=== PATIENT | female | born 1945 | race African-American/Black ===

== ENCOUNTER 2018-01-01 10:10 | Inpatient (IN) | payer MEDICARE, MEDICAID, SELFPAY ==
[2018-01-01] VITALS (70 sets, daily range): BP systolic 105–186; BP diastolic 35–87; PULSE 49–123; RESP 11–24; TEMP 36–36.4; O2SAT 98–100
--- NOTE | 2018-01-01 10:21 | ED.GENADUL_ITS ---
Discharge Plan Disposition Patient Disposition: [facility] INPATIENT Condition: Stable Discharge Details Chief Complaint: GenMedical Clinical Impression: Acute upper GI bleed, Syncope Reason For Visit: SIMI Primary Care Provider: Concha Loving ED Provider: Bradford Diane Home Meds and New Rx's Prescriptions: No Action amlodipine 10 MG tablet 10 mg PO DAILY RF: 0 hydrocodone-acetaminophen 1 TAB tablet 1 tab PO Q4H PRN PRNQty: 10 RF: 0 rivaroxaban [Xarelto] 20 MG tablet 20 mg PO DAILY Qty: 30 RF: 1 metoprolol succinate 50 MG tablet extended release 24 hr 100 mg PO HS Qty: 0 RF: 0 atorvastatin 40 mg Tablet 40 mg PO DAILY RF: 0 sertraline 100 MG tablet 150 mg PO DAILY RF: 0 Medical Decision Making 72 yo female with hx of htn, hld, pe on rivaroxaban, who comes in with ems after syncope and vomit of blood. She apparently had just finished going to the bathroom and was walking back to the couch when she collapsed. Her family came to her immediately and she came to but then started to vomit blood per ems report. Has never had this before, denies any chest pain or abdominal pain. She denies any hx of excessive alcohol use in the past or known liver disease. Suspect that she had syncope related to an upper gi bleed, conrado davison at this time, will obtain cbc, lfts and chemistries and monitor and give ppi pt remains stable, labs show mild anemia with hgb of 9 and bun over 40 consistent with gi bleed. She has no vomit here of blood, no indication as of now for transfusion. Will admit for upper gi bleed and syncope. Family does report the patient did strike head when she fell but dioes not have any evidence of head trauma on exam nor headache so doubt tbi, do not feel head ct indicated at this time Differential Diagnosis gi bleed, anemia, acs, arrythmia ECG Data Attestation: I personally reviewed and interpreted this ECG (s) as follows: Prior ECG tracings: available for review Interpretation: sinus bradycardia, rate of 57, normal pr, no acute st t wave changes HPI General Mode of arrival: EMS . Date/Time Provider Initiated Documentation: 01/01/18 10:16 . Information obtained by: patient and EMS . History of Present Illness 72 year old F presents to the emergency department with the chief complaint of syncope and vomit of blood, described as moderate, Patient reports no radiation. Patient started experiencing this hour(s) (1) and it has been constant. Patient notes nausea/vomiting. Related Data Home Medications Medication Instructions Recorded Confirmed amlodipine 10 mg PO DAILY 11/05/14 01/01/18 hydrocodone-acetaminophen 1 tab PO Q4H PRN PRN #10 tab 03/20/15 01/01/18 rivaroxaban [Xarelto] 20 mg PO DAILY #30 tablet 03/20/15 01/01/18 metoprolol succinate 100 mg PO HS #0 12/30/15 01/01/18 atorvastatin 40 mg PO DAILY 01/01/18 01/01/18 sertraline 150 mg PO DAILY 01/01/18 01/01/18 Previous Rx's Medication Instructions Recorded hydrocodone-acetaminophen 1 tab PO Q4H PRN PRN #10 tab 03/20/15 rivaroxaban [Xarelto] 20 mg PO DAILY #30 tablet 03/20/15 metoprolol succinate 100 mg PO HS #0 12/30/15 Allergies Allergy/AdvReac Type Severity Reaction Status Date / Time latex Allergy Swelling/Ed Unverified 01/01/18 10:19 guadalupe morphine AdvReac Visual Unverified 01/01/18 10:19 Disturbances General Stated Complaint: GenMedical QUINTIN: 3 Review of Systems Review of Systems All systems reviewed & are unremarkable except as noted in HPI and below Constitutional Denies chills and Denies fever(s) Eyes Denies loss of vision ENT Denies change in voice Cardiovascular Denies chest pain and Denies dyspnea Respiratory Denies dyspnea Gastrointestinal Denies abdominal pain Genitourinary Denies dysuria Musculoskeletal Denies joint swelling Integumentary/Breasts Denies rash Neurologic Denies loss of vision Psychiatric Denies depression Endocrine Denies cold intolerance Allergic/Immunologic Reports urticaria PFSH Social History Smoking/Tobacco Use Status: Current every day Surgical History Appendectomy section Colonoscopy - MAC (12/29/15) Exam Const General: no acute distress Orientation: alert HENMT Head: normal to inspection Ears: external ears normal General nose exam: external nose normal Mouth: moist mucous membranes Eyes General: appearance normal, both eyes and all related structures Neck Neck: normal visual inspection Resp Effort & Inspection: normal respiratory effort and able to speak in complete sentences Cardio Rate: regular rate Skin General skin exam: no rashes or lesions noted Neuro General: alert and oriented x3 Extrem General: normal to inspection Psych Mental Status: mental status grossly normal Course Vital Signs Temperature 36.1 C L 01/01/18 10:13 Pulse 61 01/01/18 10:13 Respiratory Rate 14 01/01/18 10:13 Blood Pressure 153/55 H 01/01/18 10:13 Pulse Oximetry 100 01/01/18 10:13 Temperature 36.1 C L 01/01/18 10:13 Temperature Source Skin 01/01/18 10:13 Pulse 61 01/01/18 10:13 Respiratory Rate 14 01/01/18 10:13 Respiratory Effort Non-Labored 01/01/18 10:13 Blood Pressure 153/55 H 01/01/18 10:13 Pulse Oximetry 100 01/01/18 10:13 Oxygen Delivery Method Room Air 01/01/18 10:13 Oxygen Flow Rate 0 01/01/18 10:13 Pain Level 0 01/01/18 10:13
[2018-01-01 10:30] LABS: Abs Immature Grans 0.01 k/cumm (0.0-0.09); Absolute Basophil Count 0.02 k/cumm (0.0-0.2); Absolute Eosinophil Count 0.09 k/cumm (0.0-0.7); Absolute Monocyte Count 0.64 k/cumm (0.11-0.7); Basophils % 0.3; Eosinophils % 1.1; HCT 30.7 % (36.0-46.0); HGB 9.6 g/dL (12.0-15.5); Immature Grans % 0.1; Lymphocytes % 50.9; Mean Corp. HGB Concentration 31.3 g/dL (32.0-36.0); Mean Corpuscular Hemoglobin 28.2 pg (27.0-33.0); Mean Corpuscular Volume 90.3 fL (80-95); Mean Platelet Volume 12.1 fL (8.0-11.0); Monocytes % 8.1; Neutrophils % 39.5; Platelet Count 144 x1000/uL (130-400); RBC Distribution Width 14.8 % (11.7-14.6); White Blood Cell Count 7.86 k/cumm (4.4-10.8)
[2018-01-01] MEDS: Pantoprazole 40 MG VIAL 80 MG IVP (10:32)
[2018-01-01 10:46] LABS: Anisocytosis 1+; Diff Comment RBC Morph Reviewed; INR 1.1 (1.0-3.5); PTT Activated 20.1 sec (21.0-31.4); Polychromasia Present; Prothrombin Time 10.8 sec (9.3-10.8)
[2018-01-01 10:47] LABS: Troponin I < 0.02 ng/mL (0.00-0.06)
[2018-01-01 10:51] LABS: ALT 32 U/L (12-78); AST 22 U/L (15-37); Albumin 2.6 g/dL (3.4-5.0); Alkaline Phosphatase 44 U/L (46-116); Anion Gap 7.3 mmol/L (3-11); BUN 40 mg/dL (7-18); Bilirubin, Direct 0.06 mg/dL (0.00-0.20); Bilirubin, Total 0.2 mg/dL (0.2-1.0); CO2 26.7 mmol/L (21.0-32.0); CREATININE 1.16 mg/dL (0.55-1.02); Calcium 8.4 mg/dL (8.5-10.1); Chloride 110 mmol/L (98-107); Estimated GFR 46.19 (mL/min/1.73m2); Glucose 176 mg/dL (70-100); Potassium 4.3 mmol/L (3.5-5.1); Sodium 144 mmol/L (136-145); Total Protein 5.7 g/dL (6.4-8.2)
[2018-01-01 15:02] LABS: HGB 10.1 g/dL (12.0-15.5)
--- NOTE | 2018-01-01 16:40 | DI.COMBO_ITS ---
SYMPTOM/DIAGNOSIS: TRAUMA, SHOULDER PAIN RIGHT SHOULDER: The exam is mildly limited by the patient's clothing. No fracture or dislocation is seen. Degenerative changes are noted at the AC joint, glenohumeral joint and greater tuberosity. IMPRESSION: Degenerative changes. No acute abnormality. NONCONTRAST HEAD CT: Comparison is made with 03/18/15. An area of encephalomalacia is again noted in the anterior left frontal lobe. No intracranial hemorrhage, mass or acute infarct is seen. The ventricles are normal in size. There is mild patchiness of the white matter likely reflecting microvascular changes. IMPRESSION: No acute abnormality. CERVICAL SPINE CT: There is no evidence of fracture. There are advanced degenerative disc changes with prominent spurring as well as disc space narrowing, greatest at C 5-6 and C 6-7. There is a cyst in the superior endplate of C 5 consistent with a degenerative cyst. Degenerative changes are also seen involving the uncovertebral joints. There is no significant narrowing of the central canal. Neural foraminal narrowing is noted at the lower cervical levels.
[2018-01-01] MEDS: SODIUM CHLORIDE 0.45% 1,000 ML 150 ML IV (17:24)
[2018-01-01] MEDS: PANTOPRAZOLE 80 MG in Normal Saline 100 ML 10 MG IV (17:24)
[2018-01-01 19:16] LABS: Troponin I < 0.02 ng/mL (0.00-0.06)
[2018-01-01 22:31] LABS: HCT 28.6 % (36.0-46.0); HGB 9.2 g/dL (12.0-15.5)
[2018-01-02] VITALS (21 sets, daily range): BP systolic 156–190; BP diastolic 45–95; PULSE 67–87; RESP 11–22; TEMP 35.9–36.9; O2SAT 96–100
[2018-01-02] MEDS: SODIUM CHLORIDE 0.45% 1,000 ML 150 ML IV ×4 (00:17→23:07)
[2018-01-02] MEDS: PANTOPRAZOLE 80 MG in Normal Saline 100 ML 10 MG IV (01:45)
[2018-01-02 02:30] LABS: Troponin I < 0.02 ng/mL (0.00-0.06)
--- NOTE | 2018-01-02 07:03 | SCONE_ITS ---
SURGICAL CONSULTATION DATE OF SERVICE January 01, 2018 REASON FOR CONSULT Hematemesis. CONSULTING PHYSICIAN Dr. Rai. TIME OF CONSULTATION 3:55 p.m. ASSESSMENT Ms. Aguilar is a 72-year-old female with a few days of reflux-type symptoms on Xarelto for hypercoagul able state who had black stools this morning, followed by syncope and hematemesis of coffee-ground ma terial. She was admitted to the ICU under the Hospitalist Service and we were asked to consult for po ssible EGD. The patient is at this time waiting for a CT of the head and neck due to the positive LOC , the fact that she is on Xarelto, and also she has neck pain. I have discussed an EGD with the patie nt to try to find the source of her bleeding. At this time, the patient is stable, so we will wait un til tomorrow, that way it will be at least 48 hours since her last Xarelto. Anesthesia has been conta cted and will see the patient tonight as well. PLAN EGD in the morning at 7:30. Will have the patient have clear liquids until midnight. The risks, benefits and complications of an EGD were reviewed with the patient. The complications inc lude, but are not limited to bleeding, pain, perforation, aspiration, sore throat, unable to control the bleeding with need for urgent transfer to a tertiary center. The patient understands and wishes to proceed. No guarantees were given or implied. If the patient starts to bleed actively tonight, then we will do the EGD tonight. Otherwise, we will wait until the morning. The patient has been placed on the schedule. HISTORY OF PRESENT ILLNESS Ms. Aguilar is a pleasant 72-year-old female who woke up this morning feeling fine, had breakfast, and went to the bathroom. As she was walking back from the bathroom, she had an episode of syncope. Her family was right there, and got her up after, which she had one bout of emesis, which looked like cof fee grounds. She also noticed that when she did go to the bathroom, she had a very dark stool. The zafar altamirano did hit her head when she had her syncopal episode. She is chronically on Xarelto since [address] having a PE. At that time, she was diagnosed with hypercoagulable state, but she cannot remember which one. She denies using any ibuprofen or Aleve. She does state that she chews an aspirin every on ce in a while when she has some knee pain. This is not a daily occurrence. She does have a history of GERD and used to be on omeprazole. She was able to get herself off the omeprazole and was asymptomat ic up until a few days ago, when she states she started to feel like her reflux was back; she did not restart her omeprazole at that time. The patient did take her Xarelto this morning although most lik shen she threw it up. PAST MEDICAL HISTORY 1. CAD, status post MD. 2. CVA. 3. PE. 4. Hypertension. 5. History of vaginal bleeding. 6. HCP. 7. Question mild vascular dementia. 8. Nephrolithiasis. 9. Pandiverticulosis. 10. History of colonic polyps. FAMILY HISTORY Family history is positive for cardiovascular disease and hypertension. SURGICAL HISTORY 1. Bilateral angioplasties. 2. Several dilation and curettages. 3. Colonoscopy in 2016. 4. Bilateral cataracts. 5. Tonsillectomy. 6. Appendectomy. 7. Cystoscopy. SOCIAL HISTORY She smokes daily, less than one pack a day x58 years. No alcohol at this time. Occasionally smokes marijuana. Denies any IV drug abuse. MEDICATIONS Xarelto. Metoprolol 100 mg at night. The patient does not remember her other medications, please see medical records for that. ALLERGIES 1. LATEX. 2. MORPHINE. 3. SULFA. REVIEW OF SYSTEMS NEUROLOGIC - Does not complain of any weakness. No dizziness. No headache. Positive for LOC. CARDIOVASCULAR - No palpitations or chest pain. RESPIRATORY - No shortness of breath or cough. No dyspnea on exertion. GASTROINTESTINAL - Denies abdominal pain, otherwise as per HPI. GENITOURINARY - Denies hematuria or dysuria. ENDOCRINE - No symptoms of thyroid disease or diabetes. SKIN - No new lesions or rashes. MUSCULOSKELETAL - Positive for soreness of the neck on the right and shoulder. PHYSICAL EXAMINATION VITAL SIGNS - Temperature 36. Pulse 63. Blood pressure 166/61. Respiratory rate 13. Sats 100% on ary m air. GENERAL - The patient is a very pleasant -Japanese female. She is lying comfortably in bed in no acute distress. She is alert and oriented. CHEST - Clear to auscultation. Good air entry bilaterally. CARDIOVASCULAR - Regular rate and rhythm. No murmurs, rubs or gallops are noted. ABDOMEN - Abdomen is soft, nontender to palpation, nondistended. There is no Hepatosplenomegaly. EXTREMITIES - No clubbing, cyanosis or edema is noted. LABORATORY STUDIES White count 7.86, hemoglobin 9.6, repeat 10.1; hematocrit 30.7, platelets 144. CMP - Sodium 144, potassium 4.3, chloride 110, carbon dioxide 26.7, BUN 40, creatinine 1.16, glucose 176. LFTs unremarkable. Troponin less than 0.2.
[2018-01-02 07:22] LABS: Abs Immature Grans 0.02 k/cumm (0.0-0.09); Absolute Basophil Count 0.02 k/cumm (0.0-0.2); Absolute Eosinophil Count 0.08 k/cumm (0.0-0.7); Absolute Lymphocyte Count 3.21 k/cumm (1.2-3.4); Absolute Monocyte Count 0.73 k/cumm (0.11-0.7); Absolute Neutrophil Count 3.94 k/cumm (1.2-6.7); Basophils % 0.3; HCT 28.1 % (36.0-46.0); HGB 8.9 g/dL (12.0-15.5); Immature Grans % 0.3; Lymphocytes % 40.1; Mean Corp. HGB Concentration 31.7 g/dL (32.0-36.0); Mean Corpuscular Hemoglobin 28.1 pg (27.0-33.0); Mean Corpuscular Volume 88.6 fL (80-95); Mean Platelet Volume 12.5 fL (8.0-11.0); Monocytes % 9.1; Neutrophils % 49.2; Platelet Count 132 x1000/uL (130-400); RBC 3.17 m/cumm (4.00-5.20); RBC Distribution Width 14.8 % (11.7-14.6)
[2018-01-02 07:29] LABS: Anion Gap 9.4 mmol/L (3-11); BUN 28 mg/dL (7-18); CO2 24.6 mmol/L (21.0-32.0); CREATININE 1.13 mg/dL (0.55-1.02); Calcium 8.1 mg/dL (8.5-10.1); Chloride 110 mmol/L (98-107); Glucose 112 mg/dL (70-100); Magnesium 1.8 mg/dL (1.8-2.4); Potassium 4.2 mmol/L (3.5-5.1); Sodium 144 mmol/L (136-145)
--- NOTE | 2018-01-02 07:45 | STOM_PTH ---
PATIENT: Sisi Aguilar LOC: U#:[id number] AGE/SX: 72/F ROOM: 216 RE01/03/[address]: Rosibel Rai : 1945 BED: A DIS: 01/11/2018 SPEC #: [id number] RECD: 01/02/18 12:52 STATUS: JR REQ #: [id number] [place]: 01/02/18 07:[address]: Rosibel Rai DEPT: Surgical Specimen RECD BY: Lou Montalvo ENTERED: 01/02/18 12:55 SP TYPE: STOMACH OTHR DR: Concha Loving MD Tissues: 1 - STOMACH BIOPSY Procedures: GROSS AND MICRO LEVEL 4 IMMUNOPEROXIDASE STAIN Comments: [id number]
--- NOTE | 2018-01-02 07:47 | PDOC.CMIN ---
- If Service Date Differs Date of service: 01/02/18 Time of Service: 07:47 Care Management Initial Assess REASON FOR HOSPITALIZATION:: Upper GI bleed, syncope. PAST MEDICAL HISTORY/PAST SURGICAL HISTORY:: Essential hypertension. Surgical hx: appendectomy, section, colonoscopy. ADVANCE DIRECTIVES:: None on file at [facility]. Has patient been provided with information about the portal?: Yes Did the patient sign up for the portal?: No CODE STATUS:: Full Code INSURANCE COVERAGE / FINANCIAL ISSUES:: Medicaid, Medicare. PRIMARY CARE PHYSICIAN:: Concha Loving. POTENTIAL DISCHARGE NEEDS:: Follow up appointment with PCP. PATIENT/FAMILY EDUCATION NEEDS:: Discharge education, any limitations, and follow up plan of care. Ask Me Three discussion. ANTICIPATED BARRIERS TO DISCHARGE:: No anticipated barriers to discharge. PLAN:: Sisi will discharge home when medically ready per MD. Anticipate patient will discharge with no services and follow up with PCP. CM will continue to offer support to patient and care team regarding discharge planning and disposition.
--- NOTE | 2018-01-02 08:04 | W.PM.OP ---
Date of service: 01/02/18 Time of Service: 07:30 Operative Note DATE OF PROCEDURE: 01/02/18 PRE-OP DIAGNOSIS: Hematemesis POST-OP DIAGNOSIS: other (Duodenitis, Gastritis with ulcers, esophagitis and Hiatal Hernia) PROCEDURE: EGD with biopsies SURGEON: Nidia Hill ANESTHESIA: MAC ESTIMATED BLOOD LOSS: 2 PATHOLOGY: other (Antrum biopsies for path and EMILEE test) COMPLICATIONS: None Patient was transported to: ICU Patient's condition: stable Indications: Mrs. Aguilar is a pleasant 72 year old admitted with syncope, anemia and hematemesis. She has a PMHx of GERD not currently on antacids. HAs had heart burn/reflux symptoms for 1-2 weeks prior to her admission. Risks, benefits and complications of the procedure were discussed with her in the ICU and again prior to her procedure today. Findings: Peptic duodenitis. Gastritis with ulcers in the antrum. Esophagitis and 2-3 cm Hiatal Hernia. Procedure Description: After informed consent was obtained the patient was take to the procedure room and placed in a slight left decubitous position. Monitors were applied and a time out was done. The patients name, date of , procedure type, allergies to medications and metal in their body was reviewed. A bite block was placed and the patient was sedated. Once sedated and comfortable the gastroscope was advanced through the oropharynx which was grossly normal into the esophagus. The proximal and mid-esophagus were normal. In the distal esophagus there was moderate inflammation noted. The scope was advanced into the stomach and through the pylorus into the 3rd portion of the duodenum. The duodenum was noted to be inflamed in the first portion. No ulcer were noted. The scope was retracted back into the stomach and biopsies were done to rule out H. pylori. There were small ulcers noted just above the pylorus. The scope was retroflexed. The cardia and fundus were noted to be normal. There was a hiatal hernia noted. The scope was retracted back into the esophagus were moderate inflammation was noted. No biopsies were done at this time to minimize risk of re-bleed. The Z line was irregular. The GE junction was at 32 cm. The scope was removed and the patient was woken up and taken back to the ICU in stable condition. Follow up: I will ask the patient to follow up in 3 months to repeat her EGD and do biopsies at that time for Puentes's. Recommend the patient go home on Carafate and BID PPI.
[2018-01-02] MEDS: Pantoprazole 40 MG VIAL IVP ×2 (08:49→19:56)
[2018-01-02] MEDS: Normal Saline Flush 10 ML SYR IVP (08:49)
--- NOTE | 2018-01-02 09:21 | PDOC.CMIN ---
- If Service Date Differs Date of service: 01/02/18 Time of Service: 09:22 Care Management Initial Assess REASON FOR HOSPITALIZATION:: Upper GI bleed, syncope. PAST MEDICAL HISTORY/PAST SURGICAL HISTORY:: Surgical hx: appendectomy, section, colonoscopy. PREVIOUS FUNCTIONAL STATUS/SOCIAL/FAMILY SUPPORTS:: Margarito Matthews resides in [facility] with her adult son, Max. She and her family are originally from [place] and she's been in [place] since 2012. Cassie has one other adult child in [place] and five grandchildren there as well. Cassie reports that she is independent with her ADLs and relies on [facility] and her son's girlfriend, Gillian, for transportation. CURRENT FUNCTIONAL STATUS:: Margarito Matthews is sitting up in bed getting cleaned up when CM visits this afternoon. She is engaged in conversation, makes good eye contact, and is eager to talk. She reports that she is feeling fine. Cassie has had one BM with kassandra blood today but denies nausea and vomiting. She continues to receive IV fluids and a clear liquid diet. Cassie has no concerns about returning home at discharge and reports that she and her son Max are good support people for one another. ADVANCE DIRECTIVES:: None on file at [facility]. Has patient been provided with information about the portal?: Yes Did the patient sign up for the portal?: No CODE STATUS:: Full Code INSURANCE COVERAGE / FINANCIAL ISSUES:: Medicaid, Medicare. 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 No equipment. PRIMARY CARE PHYSICIAN:: Concha Loving. POTENTIAL DISCHARGE NEEDS:: Follow up appointment with PCP. PATIENT/FAMILY EDUCATION NEEDS:: Discharge education, any limitations, and follow up plan of care. Ask Me Three discussion. ANTICIPATED BARRIERS TO DISCHARGE:: No anticipated barriers to discharge. TRANSPORTATION:: Cassie will transport via [facility] when medically ready per MD. PLAN:: Sisi will discharge home when medically ready per MD. Anticipate patient will discharge with no services and follow up with her PCP. CM will continue to offer support to patient and care team regarding discharge planning and disposition.
--- NOTE | 2018-01-02 09:26 | INITIAL_ITS ---
- If Service Date Differs Date of service: 01/02/18 Time of Service: 09:22 Care Management Initial Assess REASON FOR HOSPITALIZATION:: Upper GI bleed, syncope. PAST MEDICAL HISTORY/PAST SURGICAL HISTORY:: Surgical hx: appendectomy, section, colonoscopy. PREVIOUS FUNCTIONAL STATUS/SOCIAL/FAMILY SUPPORTS:: Margarito Matthews resides in [facility] with her adult son, Max. She and her family are originally from [place] and she's been in [place] since 2012. Cassie has one other adult child in [place] and five grandchildren there as well. Cassie reports that she is independent with her ADLs and relies on [facility] and her son's girlfriend, Gillian, for transportation. CURRENT FUNCTIONAL STATUS:: Margarito Matthews is sitting up in bed getting cleaned up when CM visits this afternoon. She is engaged in conversation, makes good eye contact, and is eager to talk. She reports that she is feeling fine. Cassie has had one BM with kassandra blood today but denies nausea and vomiting. She continues to receive IV fluids and a clear liquid diet. Cassie has no concerns about returning home at discharge and reports that she and her son Max are good support people for one another. ADVANCE DIRECTIVES:: None on file at [facility]. Has patient been provided with information about the portal?: Yes Did the patient sign up for the portal?: No CODE STATUS:: Full Code INSURANCE COVERAGE / FINANCIAL ISSUES:: Medicaid, Medicare. 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 No equipment. PRIMARY CARE PHYSICIAN:: Concha Loving. POTENTIAL DISCHARGE NEEDS:: Follow up appointment with PCP. PATIENT/FAMILY EDUCATION NEEDS:: Discharge education, any limitations, and follow up plan of care. Ask Me Three discussion. ANTICIPATED BARRIERS TO DISCHARGE:: No anticipated barriers to discharge. TRANSPORTATION:: Cassie will transport via [facility] when medically ready per MD. PLAN:: Sisi will discharge home when medically ready per MD. Anticipate patient will discharge with no services and follow up with her PCP. CM will continue to offer support to patient and care team regarding discharge planning and disposition.
--- NOTE | 2018-01-02 11:49 | PHARADMIT ---
Addendum entered by Gillian Holm 01/10/18 10:55: Pharmacy Note Subjective transfusion ordered for today Objective HR-52 other VS okay SCr-1.43 H/H-7.4/24.6(down slightly) Assessment -acetaminophen and diphenhydramine ordered prior to transfusion -amoxicillin and clarithromycin started last night for H. pylori (has been on a PPI), recommended 10-14 days of treatment on these -atorvastatin dose decreased for now due to interaction with clarithromycin Plan watch h/h and for med changes Original Note: Addendum entered by Jaymie Johnson 01/07/18 14:54: Pharmacy Note Subjective plan for cystoscopy tomorrow Objective vs ok, h/h 8.8/28.5(stable) Assessment heparin infusion continues- MD plans to change to PO anticoagulation pending cystoscopy, bactrim DS x 1 ordered for tomorrows procedure Plan continue to watch VS, labs and for med changes Original Note: Addendum entered by Gillian Holm 01/06/18 10:52: Pharmacy Note Subjective renal ultrasound ordered, MD notes possible cystoscopy needed as well Objective BP-157/43 HR-55 other VS okay SCr-1.32(up) h/h-stable PTT-34.5(down) Assessment losartan increased yesterday to 50 mg daily heparin drip continues- MD plans to change to PO anticoagulation pending work up for hematuria Plan continue to watch VS, labs and for med changes Original Note: Addendum entered by Alyse Hernandez 01/04/18 12:12: Pharmacy Note Subjective per MD, she will continue to have heme+ stools, 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, PE's, CVA and WA Objective BP 165/59, lytes good, H/H 8.2/25.3, weight up 1.5kg over two days Urine pink, stool heme+ yesterday Assessment SBP remain high, H/H stable with level being repeated @ 3pm today Current anticoagulation is Heparin infusion, last PTT high (136), infusion held, restarted lower rate refusing Lidocaine patch for pain Mag and Potassium levels corrected Plan Advancing diet, watch for start of oral anticoagulant, follow H/H, BP med adustments Original Note: Addendum entered by Alyse Hernandez 01/03/18 10:28: Pharmacy Note Subjective shift report @ midnight: urine mixed w/bloody dark heme+ stool remains on Telemetry Objective BP 179/56, Mag 1.6, H/H 8.6/27.8, SCr improved Assessment high SBP, no weight today, I/O negative, last heme+ stool 01/02/18 H/H down a little Home meds restarted with exception of Xarelto due to bleed Endosopy yesterday:esophagitis, gastritis, duodenitis, ulcerations. bleeding may be old blood, unclear if currently bleeding Protonix is IVP BID and Carafate Mag and Potassium replaced this morning Patient refusing Lidocaine patches for neck/shoulder pain Plan Hold anticoagulation until H/H stable, may start out w/Heparin drip for short acting coverage before transitioning back on Xarelto in a day or so Currently clear liq diet, check K+,Mag, H/H Original Note: Admission Pharmacy Clinical Review UPPER GI BLEED Code Status Full Code Current Weight Wgt-91 kg Renally Cleared and Narrow Therapeutic Index Meds CrCl~ 45 mL/min Meds-OK QTc Value / Action Taken NA BP Control, Fever BP- 156/70 Tmax-36.4C Electrolytes reviewed Na- 144 K+4.2 Mag-1.8 DVT Prophylaxis No GI Bleed Opiate Usage / Scheduled Bowel Regimen Ordered No No Plt/SCr for Heparin / Enoxaparin Plts-132 SCr-1.13 INR for Warfarin inr-1.1 H/H stable, WBC/Bands H&H- 8.9/28.1 WBC- 8.00 Antibiotic appropriateness none Cultures and Sensitivities Stomach- EMILEE-test pending Surgical ABX d/c within 24 hr NA DM control / Insulin Dosing BG- 112 Heart Failure (Check EF%) (SERGIO's, B-Block, Diuretics) none (NPO) IV to PO Switch No Home Meds Reviewed Yes Home Meds Not Ordered Norvasc, Lipitor, Toprol-XL, [place], Xarelto, Zoloft Comments
[2018-01-02] MEDS: Sucralfate 1 GM TAB PO ×3 (12:04→22:26)
--- NOTE | 2018-01-02 12:04 | INITIAL_ITS ---
- If Service Date Differs Date of service: 01/02/18 Time of Service: 07:47 Care Management Initial Assess REASON FOR HOSPITALIZATION:: Upper GI bleed, syncope. PAST MEDICAL HISTORY/PAST SURGICAL HISTORY:: Essential hypertension. Surgical hx : appendectomy, section, colonoscopy. ADVANCE DIRECTIVES:: None on file at [facility]. Has patient been provided with information about the portal?: Yes Did the patient sign up for the portal?: No CODE STATUS:: Full Code INSURANCE COVERAGE / FINANCIAL ISSUES:: Medicaid, Medicare. PRIMARY CARE PHYSICIAN:: Concha Loving. POTENTIAL DISCHARGE NEEDS:: Follow up appointment with PCP. PATIENT/FAMILY EDUCATION NEEDS:: Discharge education, any limitations, and follow up plan of care. Ask Me Three discussion. ANTICIPATED BARRIERS TO DISCHARGE:: No anticipated barriers to discharge. PLAN:: iSsi will discharge home when medically ready per MD. Anticipate patient will discharge with no services and follow up with PCP. CM will continue to offer support to patient and care team regarding discharge planning and disposition.
[2018-01-02 15:23] LABS: HCT 26.7 % (36.0-46.0); HGB 8.5 g/dL (12.0-15.5)
[2018-01-02] MEDS: amLODIPine 10 MG TAB PO (16:05)
--- NOTE | 2018-01-02 16:30 | PGE_ITS ---
Assessment and Plan (1) Upper GI bleeding: Current visit: Yes Status: Acute S/p EGD - esophagitis, gastritis, duodenitis with shallow ulcerations noted. These were biopsied. It is unclear if the patient is bleeding again now or if she is passing old blood in her stools, but we will continue PPI IV BID and monitor her H/H Q 8hrs. Clear liquids. Keep on telemetry. Continue to hold anticoagluation for now. If H/H remains stable, ok to start heparin gtt tomorrow to see if the patient can tolerate anticoagluation, per surgery. If yes, can be transitioned back to anticoagluation in 24-48 hours and discharged home. (2) Hypercoagulable state: Current visit: Yes Status: Acute Holding anticoagluation for now. Patient has a history of both arterial and venous thromboses as well as CVA and [place]. She is not sure about the nature of her hypercoagulable state. (3) Syncopal episodes: Current visit: Yes Status: Chronic Likely vasovagal. No ACS or further w/u at this time. (4) Closed head injury: Current visit: Yes Status: Acute CT head and c-spine negative for any acute pathology. Subjective Interval history since last seen: S/p EGD today - demonstrated esophagitis, gastritis, duodenitis with very shallow ulcerations and no active bleeding. The patient reported 2 black stools after her procedure. She is on clear liquids. She denies any dizziness, chest pain, shortness of breath, nausea, vomiting, abdominal pain. Exam Narrative Exam Narrative: General: Very Pleasant Afrian [place] female, resting comfortably in bed; smell of melena in the room HEENT: EOMI, MMM, no JVD Cardiovascular: RRR, no m/r/g Lungs: CTAB Gastrointestinal: Soft, nontender, nondistended Extremities: no e/c/c BLE's Objective Objective Clinical Data: Abnormal lab results 01/01/18 01/02/18 01/02/18 Range/Units 22:25 07:06 07:06 RBC 3.17 L (4.00-5.20) m/cumm Hgb 9.2 L 8.9 L (12.0-15.5) g/dL Hct 28.6 L 28.1 L (36.0-46.0) % MCHC 31.7 L (32.0-36.0) g/dL RDW 14.8 H (11.7-14.6) % MPV 12.5 H (8.0-11.0) fL Absolute Monocytes 0.73 H (0.11-0.7) k/cumm Chloride 110 H (98-107) mmol/L BUN 28 H D (7-18) mg/dL Creatinine 1.13 H (0.55-1.02) mg/dL Glucose 112 H (70-100) mg/dL Calcium 8.1 L (8.5-10.1) mg/dL 01/02/18 Range/Units 15:11 RBC (4.00-5.20) m/cumm Hgb 8.5 L (12.0-15.5) g/dL Hct 26.7 L (36.0-46.0) % MCHC (32.0-36.0) g/dL RDW (11.7-14.6) % MPV (8.0-11.0) fL Absolute Monocytes (0.11-0.7) k/cumm Chloride (98-107) mmol/L BUN (7-18) mg/dL Creatinine (0.55-1.02) mg/dL Glucose (70-100) mg/dL Calcium (8.5-10.1) mg/dL Vital Signs Temperature 36.6 C 01/02/18 12:11 Temperature Source Skin 01/02/18 12:11 Pulse 77 01/02/18 16:07 Pulse Rhythm Regular 01/02/18 15:57 Pulse 73 01/02/18 16:07 Respiratory Rate 15 01/02/18 16:07 Respiratory Effort Non-Labored 01/02/18 15:57 Respiratory Depth Normal 01/02/18 15:57 Respiratory Pattern Normal 01/02/18 15:57 Blood Pressure 172/91 H 01/02/18 16:07 Blood Pressure Mean 113 01/02/18 16:07 Blood Pressure Position Supine 01/01/18 12:38 Pulse Oximetry 100 01/02/18 16:07 Oxygen Delivery Method Room Air 01/02/18 12:11 Oxygen Flow Rate 0 01/02/18 12:11 Pain Level 0 01/01/18 19:45 Intake & Output 1001/02/18 01/02/18 23:59 11:59 23:59 Intake Total 400 / 400 2138.5 / 2138.5 1480 / 1480 Output Total 1470 / 1470 600 / 600 Balance -1070 / -1070 1538.5 / 1538.5 1480 / 1480 Weight 90.2 kg 91 kg Intake: IV 2138.5 / 2138.5 1000 / 1000 Oral 400 / 400 480 / 480 Output: Urine 1470 / 1470 600 / 600 Other: Urine Color Pale Pale Yellow Yellow Urine Appearance Clear Clear Urine Odor None Normal Comment void x 1, mixed with stool. Stool Occult Blood Positive Stool Size Moderate Stool Characteristics Soft Black Bloody Voiding Methods Bedside Commode Bedside Commode Bedside Commode Laboratory Results WBC 8.00 k/cumm (4.4-10.8) 01/02/18 07:06 RBC 3.17 m/cumm (4.00-5.20) L 01/02/18 07:06 Hgb 8.5 g/dL (12.0-15.5) L 01/02/18 15:11 Hct 26.7 % (36.0-46.0) L 01/02/18 15:11 MCV 88.6 fL (80-95) 01/02/18 07:06 MCH 28.1 pg (27.0-33.0) 01/02/18 07:06 MCHC 31.7 g/dL (32.0-36.0) L 01/02/18 07:06 RDW 14.8 % (11.7-14.6) H 01/02/18 07:06 Plt Count 132 x1000/uL (130-400) 01/02/18 07:06 MPV 12.5 fL (8.0-11.0) H 01/02/18 07:06 Immature Gran % 0.3 01/02/18 07:06 Neutrophils % 49.2 01/02/18 07:06 Lymphocytes % 40.1 01/02/18 07:06 Monocytes % 9.1 01/02/18 07:06 Eosinophils % 1.0 01/02/18 07:06 Basophils % 0.3 01/02/18 07:06 Absolute Neutrophils 3.94 k/cumm (1.2-6.7) 01/02/18 07:06 Absolute Lymphocytes 3.21 k/cumm (1.2-3.4) 01/02/18 07:06 Absolute Monocytes 0.73 k/cumm (0.11-0.7) H 01/02/18 07:06 Absolute Eosinophils 0.08 k/cumm (0.0-0.7) 01/02/18 07:06 Absolute Basophils 0.02 k/cumm (0.0-0.2) 01/02/18 07:06 Differential Comment Rbc morph reviewed 01/01/18 10:20 RBC Morphology See below 01/01/18 10:20 Polychromasia Present 01/01/18 10:20 Anisocytosis 1+ 01/01/18 10:20 PT 10.8 sec (9.3-10.8) 01/01/18 10:20 INR 1.1 (1.0-3.5) 01/01/18 10:20 APTT 20.1 sec (21.0-31.4) L 01/01/18 10:20 Sodium 144 mmol/L (136-145) 01/02/18 07:06 Potassium 4.2 mmol/L (3.5-5.1) 01/02/18 07:06 Chloride 110 mmol/L (98-107) H 01/02/18 07:06 Carbon Dioxide 24.6 mmol/L (21.0-32.0) 01/02/18 07:06 Anion Gap 9.4 mmol/L (3-11) 01/02/18 07:06 BUN 28 mg/dL (7-18) H D 01/02/18 07:06 Creatinine 1.13 mg/dL (0.55-1.02) H 01/02/18 07:06 Estimated GFR/1.73 m2 47.60 (mL/min/1.73m2) 01/02/18 07:06 Glucose 112 mg/dL (70-100) H 01/02/18 07:06 Calcium 8.1 mg/dL (8.5-10.1) L 01/02/18 07:06 Magnesium 1.8 mg/dL (1.8-2.4) 01/02/18 07:06 Total Bilirubin 0.2 mg/dL (0.2-1.0) 01/01/18 10:20 Conjugated Bilirubin 0.06 mg/dL (0.00-0.20) 01/01/18 10:20 AST 22 U/L (15-37) 01/01/18 10:20 ALT 32 U/L (12-78) 01/01/18 10:20 Alkaline Phosphatase 44 U/L (46-116) L 01/01/18 10:20 Troponin I < 0.02 ng/mL (0.00-0.06) 01/02/18 02:00 Total Protein 5.7 g/dL (6.4-8.2) L 01/01/18 10:20 Albumin 2.6 g/dL (3.4-5.0) L 01/01/18 10:20 Patient ABO/Rh A Positive 01/01/18 10:20 Antibody Screen Negative 01/01/18 10:20
--- NOTE | 2018-01-02 16:50 | NUR.NOTE ---
The patient stated that she brought in a full bag of newly refilled meds that the RN took. The patient wanted to take her refilled meds while here instead of the same meds out of the pyxis. Called Kartik in pharmacy to find the status of the meds and he stated that a patient can legally only take their home meds here if the hospital does not have the medication. So at this point the medications are being held in pharmacy to be returned to the patient at discharge. Jay Martin RN 01/02/18Nursing Note:
[2018-01-02] MEDS: Metoprolol CR 50 MG TABCR 100 MG PO (22:26)
[2018-01-02 22:31] LABS: HCT 24.8 % (36.0-46.0); HGB 7.9 g/dL (12.0-15.5)
[2018-01-03] VITALS (32 sets, daily range): BP systolic 150–187; BP diastolic 50–110; PULSE 60–74; RESP 14–26; TEMP 36.3–36.7; O2SAT 95–100
[2018-01-03] MEDS: SODIUM CHLORIDE 0.45% 1,000 ML 150 ML IV ×2 (05:32→13:16)
[2018-01-03 07:02] LABS: HCT 27.8 % (36.0-46.0); HGB 8.6 g/dL (12.0-15.5); Mean Corp. HGB Concentration 30.9 g/dL (32.0-36.0); Mean Corpuscular Hemoglobin 27.7 pg (27.0-33.0); Mean Corpuscular Volume 89.4 fL (80-95); Mean Platelet Volume 12.2 fL (8.0-11.0); Platelet Count 132 x1000/uL (130-400); RBC 3.11 m/cumm (4.00-5.20); RBC Distribution Width 14.7 % (11.7-14.6); White Blood Cell Count 8.58 k/cumm (4.4-10.8)
[2018-01-03 07:20] LABS: BUN 10 mg/dL (7-18); Calcium 8.6 mg/dL (8.5-10.1); Chloride 107 mmol/L (98-107); Estimated GFR 54.81 (mL/min/1.73m2); Glucose 117 mg/dL (70-100); Magnesium 1.6 mg/dL (1.8-2.4); Potassium 3.8 mmol/L (3.5-5.1); Sodium 142 mmol/L (136-145)
--- NOTE | 2018-01-03 07:53 | CMPROGNOTE_ITS ---
- If Service Date Differs Date of service: 01/03/18 Time of Service: 07:52 Care Management Progress Note S/O:CM met with Sisi at the bedside she is talkative and engaged during CM visit. Sisi is very concerned about her home situation she states she and her son are behind on rent. She has been connected with [facility] and [facility], also the community churches. Some of the back rent has been paid through the [employer] she is waiting for [facility] decision to help. CM will fax a referral over to [facility] and send updates to [facility] CM Riley Vera. [facility] may already be familiar with the patient. They may be able to present Cassie's case to community partners. Sisi refers to her Dementia throughout conversation she states its difficult for her to remember the services she is connected with. Prior to moving in with her son she reports being homeless. Sisi will remain in the hospital today she will transition to acute from observation. She continues on PPI therapy and carafate she did have a EGD with biopsies pending. A:Sisi is a 72 year old female admitted with a GI bleed. P:Sisi will discharge home when medically ready per MD. Anticipate patient will discharge with no services and follow up with her PCP. She will need to be discharged on PPI therapy and Carafate per report and follow up with surgery in three months. CM will continue to offer support to patient and care team regarding discharge planning and disposition. Sisi will be transported home via [facility] when medically ready for discharge.
[2018-01-03] MEDS: Sucralfate 1 GM TAB PO ×4 (09:28→21:32)
[2018-01-03] MEDS: Atorvastatin 40 MG TAB PO (09:28)
[2018-01-03] MEDS: Sertraline 50 MG TAB 150 MG PO (09:29)
[2018-01-03] MEDS: Normal Saline Flush 10 ML SYR IVP ×2 (09:29→21:32)
[2018-01-03] MEDS: amLODIPine 10 MG TAB PO (09:29)
[2018-01-03] MEDS: Potassium Chloride 20 MEQ TABCR PO (09:30)
[2018-01-03] MEDS: Pantoprazole 40 MG VIAL IVP ×2 (10:10→21:33)
[2018-01-03] MEDS: MAGNESIUM SULFATE 2 GM/50 ML BAG IVPB (10:18)
--- NOTE | 2018-01-03 12:22 | PGE_ITS ---
Assessment and Plan (1) Upper GI bleeding: Current visit: Yes Status: Acute S/p EGD on 01/02/2018 showing esophagitis, gastritis, duodenitis with shallow ulcerations noted, biopsied. Current Hgb appears stable. Tolerating clear liquids. Continue to hold anticoagluation for now. If H/H remains stable on repeat hemoglobin this afternoon will start heparin gtt with plans to transition to oral anticoagulation if tolerated. Consider change to Eliquis for decreased risk of GIB. (2) Hypercoagulable state: Current visit: Yes Status: Chronic Holding anticoagluation as above. Patient has a history of both arterial and venous thromboses as well as CVA and [place]. Nature of hypercoagulable state uncertain. Plan as above. (3) Syncopal episodes: Current visit: Yes Status: Chronic Patient reports prior episodes - current syncope in setting of GI Bleed and anemia. (4) Closed head injury: Current visit: Yes Status: Acute CT head and c-spine negative for any acute pathology. (5) CKD (chronic kidney disease): Current visit: Yes Status: Chronic Stage 3 - noted. Avoid nephrotoxins, renally dose medications when appropriate. (6) Pulmonary embolism: Current visit: Yes Status: Chronic Hx of Hypercoagulable State per History, with prior arterial and venous thromboses as well as CVA and [place]. Will initiate anticoagulation as above. (7) SVT (supraventricular tachycardia): Current visit: Yes Status: Chronic Continue BB therapy and maintain on cardiac monitoring while anemic. Follows with [facility] cardiology. Last ECHO 05/2017 with normal LVEF and no significant valvulopathy. (8) CVA (cerebral vascular accident): Current visit: Yes Status: Chronic (9) CAD (coronary artery disease): Current visit: Yes Status: Chronic Continue statin, BB. No antiplatelet therapy recorded. Needs improved blood pressure control. (10) Essential hypertension: Current visit: Yes Status: Chronic On BB and CCB. Patient with evidence of CKD, likely on the basis of chronic hypertension. Initiate SERGIO-I and monitor renal function carefully. (11) DVT prophylaxis: Current visit: Yes Status: Acute SCDs in setting of GIB. Subjective Interval history since last seen: Pleasant 72 year old woman with a past medical history significant for CAD with prior history of [place], CVA, and previous PE on anticoagulation with Rivaroxaban presented to [facility] ED initially on 2017 with reported black stools, hematemesis, and syncope. Since the time of admission the patient has undergone an EGD showing esophagitis , gastritis, and duodenitis with very shallow ulcerations and no active bleeding. She has also been maintained on IV PPI and Carafate. Her Hemoglobin while low remains stable, and she is on clear liquids. No overnight events were reported. She remains afebrile. Exam Narrative Exam Narrative: General: Comfortable appearing, sitting up in bed. AAOX3, No acute distress. Neck: Supple Cardiovascular: Regular, Non-tachycardic. No overt rubs, murmurs, or gallops. Lungs: CTAB without crackles or rhonchi. Gastrointestinal: Soft, nontender, nondistended. Extremities: no edema Objective Objective Clinical Data: Abnormal lab results 01/02/18 01/02/18 01/03/18 Range/Units 15:11 22:20 06:25 RBC (4.00-5.20) m/cumm Hgb 8.5 L 7.9 L (12.0-15.5) g/dL Hct 26.7 L 24.8 L (36.0-46.0) % MCHC (32.0-36.0) g/dL RDW (11.7-14.6) % MPV (8.0-11.0) fL Glucose 117 H (70-100) mg/dL Magnesium 1.6 L (1.8-2.4) mg/dL 01/03/18 Range/Units 06:25 RBC 3.11 L (4.00-5.20) m/cumm Hgb 8.6 L (12.0-15.5) g/dL Hct 27.8 L (36.0-46.0) % MCHC 30.9 L (32.0-36.0) g/dL RDW 14.7 H (11.7-14.6) % MPV 12.2 H (8.0-11.0) fL Glucose (70-100) mg/dL Magnesium (1.8-2.4) mg/dL Vital Signs Temperature 36.7 C 01/03/18 09:11 Temperature Source Temporal Artery Scan 01/03/18 09:11 Pulse 70 01/03/18 10:11 Pulse Rhythm Regular 01/03/18 09:11 Pulse 71 01/03/18 10:11 Respiratory Rate 16 01/03/18 10:11 Respiratory Effort Non-Labored 01/03/18 09:11 Respiratory Depth Normal 01/03/18 09:11 Respiratory Pattern Normal 01/03/18 09:11 Blood Pressure 180/110 H 01/03/18 10:11 Blood Pressure Mean 127 01/03/18 10:11 Blood Pressure Position Supine 01/01/18 12:38 Pulse Oximetry 95 01/03/18 10:11 Oxygen Delivery Method Room Air 01/03/18 09:11 Oxygen Flow Rate 0 01/03/18 09:11 Pain Level 0 01/03/18 09:11 Comment 01/03/18 00:58 Intake & Output 01/02/18 01/03/18 01/03/18 23:59 11:59 23:59 Intake Total 3443 / 3443 1107.5 / 1107.5 Output Total 4000 / 4000 4075 / 4075 Balance -557 / -557 -2967.5 / -2967.5 Intake: IV 1999 / 1999 957.5 / 957.5 Oral 1443 / 1443 150 / 150 Output: Urine 4000 / 4000 4075 / 4075 Other: Urine Color Yellow Urine Appearance Clear Urine Odor None Comment Urine mixed with black, heme positive stool. Has been OOB on her own to void multiple times. Stool Occult Blood Positive Stool Size Small Stool Characteristics Liquid Black Bloody Voiding Methods Bedside Commode Bedside Commode Laboratory Results WBC 8.58 k/cumm (4.4-10.8) 01/03/18 06:25 RBC 3.11 m/cumm (4.00-5.20) L 01/03/18 06:25 Hgb 8.6 g/dL (12.0-15.5) L 01/03/18 06:25 Hct 27.8 % (36.0-46.0) L 01/03/18 06:25 MCV 89.4 fL (80-95) 01/03/18 06:25 MCH 27.7 pg (27.0-33.0) 01/03/18 06:25 MCHC 30.9 g/dL (32.0-36.0) L 01/03/18 06:25 RDW 14.7 % (11.7-14.6) H 01/03/18 06:25 Plt Count 132 x1000/uL (130-400) 01/03/18 06:25 MPV 12.2 fL (8.0-11.0) H 01/03/18 06:25 Immature Gran % 0.3 01/02/18 07:06 Neutrophils % 49.2 01/02/18 07:06 Lymphocytes % 40.1 01/02/18 07:06 Monocytes % 9.1 01/02/18 07:06 Eosinophils % 1.0 01/02/18 07:06 Basophils % 0.3 01/02/18 07:06 Absolute Neutrophils 3.94 k/cumm (1.2-6.7) 01/02/18 07:06 Absolute Lymphocytes 3.21 k/cumm (1.2-3.4) 01/02/18 07:06 Absolute Monocytes 0.73 k/cumm (0.11-0.7) H 01/02/18 07:06 Absolute Eosinophils 0.08 k/cumm (0.0-0.7) 01/02/18 07:06 Absolute Basophils 0.02 k/cumm (0.0-0.2) 01/02/18 07:06 Differential Comment Rbc morph reviewed 01/01/18 10:20 RBC Morphology See below 01/01/18 10:20 Polychromasia Present 01/01/18 10:20 Anisocytosis 1+ 01/01/18 10:20 PT 10.8 sec (9.3-10.8) 01/01/18 10:20 INR 1.1 (1.0-3.5) 01/01/18 10:20 APTT 20.1 sec (21.0-31.4) L 01/01/18 10:20 Sodium 142 mmol/L (136-145) 01/03/18 06:25 Potassium 3.8 mmol/L (3.5-5.1) 01/03/18 06:25 Chloride 107 mmol/L (98-107) 01/03/18 06:25 Carbon Dioxide 26.0 mmol/L (21.0-32.0) 01/03/18 06:25 Anion Gap 9.0 mmol/L (3-11) 01/03/18 06:25 BUN 10 mg/dL (7-18) D 01/03/18 06:25 Creatinine 1.00 mg/dL (0.55-1.02) 01/03/18 06:25 Estimated GFR/1.73 m2 54.81 (mL/min/1.73m2) 01/03/18 06:25 Glucose 117 mg/dL (70-100) H 01/03/18 06:25 Calcium 8.6 mg/dL (8.5-10.1) 01/03/18 06:25 Magnesium 1.6 mg/dL (1.8-2.4) L 01/03/18 06:25 Total Bilirubin 0.2 mg/dL (0.2-1.0) 01/01/18 10:20 Conjugated Bilirubin 0.06 mg/dL (0.00-0.20) 01/01/18 10:20 AST 22 U/L (15-37) 01/01/18 10:20 ALT 32 U/L (12-78) 01/01/18 10:20 Alkaline Phosphatase 44 U/L (46-116) L 01/01/18 10:20 Troponin I < 0.02 ng/mL (0.00-0.06) 01/02/18 02:00 Total Protein 5.7 g/dL (6.4-8.2) L 01/01/18 10:20 Albumin 2.6 g/dL (3.4-5.0) L 01/01/18 10:20 Patient ABO/Rh A Positive 01/01/18 10:20 Antibody Screen Negative 01/01/18 10:20
--- NOTE | 2018-01-03 14:22 | PGE_ITS ---
Assessment and Plan (1) Upper GI bleeding: Current visit: Yes Status: Acute A\\ Peptic ulcer disease with duodenitis, gastritis with small ulcers and esophagitis. No active bleeding at time of her EGD P\\ 1. PUD- Continue with BID Protonix 40 mg and Carafate QID 2. Diet: will advance to soft 3. Follow up: 2 months in the office for repeat EGD. Subjective Interval history since last seen: No GI complaints. Upset right now about a new medication that they want to start for her BP. She states that she has an adverse reaction to it in the past and thats why it was discontinued by [facility] Cardiology. She is hungry. Exam Const General: cooperative and comfortable Resp Effort & Inspection: normal respiratory effort Auscultation: clear to auscultation bilaterally GI Palpation: soft and nontender Objective Objective Clinical Data: Abnormal lab results 01/02/18 01/02/18 01/03/18 Range/Units 15:11 22:20 06:25 RBC (4.00-5.20) m/cumm Hgb 8.5 L 7.9 L (12.0-15.5) g/dL Hct 26.7 L 24.8 L (36.0-46.0) % MCHC (32.0-36.0) g/dL RDW (11.7-14.6) % MPV (8.0-11.0) fL Glucose 117 H (70-100) mg/dL Magnesium 1.6 L (1.8-2.4) mg/dL 01/03/18 Range/Units 06:25 RBC 3.11 L (4.00-5.20) m/cumm Hgb 8.6 L (12.0-15.5) g/dL Hct 27.8 L (36.0-46.0) % MCHC 30.9 L (32.0-36.0) g/dL RDW 14.7 H (11.7-14.6) % MPV 12.2 H (8.0-11.0) fL Glucose (70-100) mg/dL Magnesium (1.8-2.4) mg/dL Vital Signs Temperature 98.1 F 01/03/18 09:11 Temperature Source Temporal Artery Scan 01/03/18 09:11 Pulse 70 01/03/18 10:11 Pulse Rhythm Regular 01/03/18 09:11 Pulse 71 01/03/18 10:11 Respiratory Rate 16 01/03/18 10:11 Respiratory Effort Non-Labored 01/03/18 09:11 Respiratory Depth Normal 01/03/18 09:11 Respiratory Pattern Normal 01/03/18 09:11 Blood Pressure 180/110 H 01/03/18 10:11 Blood Pressure Mean 127 01/03/18 10:11 Blood Pressure Position Supine 01/01/18 12:38 Pulse Oximetry 95 01/03/18 10:11 Oxygen Delivery Method Room Air 01/03/18 09:11 Oxygen Flow Rate 0 01/03/18 09:11 Pain Level 0 01/03/18 09:11 Comment 01/03/18 00:58 Intake & Output 01/02/18 01/03/18 01/03/18 23:59 11:59 23:59 Intake Total 3443 / 3443 1107.5 / 1107.5 1050 / 1050 Output Total 4000 / 4000 4075 / 4075 Balance -557 / -557 -2967.5 / -2967.5 1050 / 1050 Intake: IV 1999 / 1999 957.5 / 957.5 1050 / 1050 Oral 1443 / 1443 150 / 150 Output: Urine 4000 / 4000 4075 / 4075 Other: Urine Color Yellow Urine Appearance Clear Urine Odor None Comment Urine mixed with black, heme positive stool. Has been OOB on her own to void multiple times. Stool Occult Blood Positive Stool Size Small Stool Characteristics Liquid Black Bloody Voiding Methods Bedside Commode Bedside Commode Laboratory Results WBC 8.58 k/cumm (4.4-10.8) 01/03/18 06:25 RBC 3.11 m/cumm (4.00-5.20) L 01/03/18 06:25 Hgb 8.6 g/dL (12.0-15.5) L 01/03/18 06:25 Hct 27.8 % (36.0-46.0) L 01/03/18 06:25 MCV 89.4 fL (80-95) 01/03/18 06:25 MCH 27.7 pg (27.0-33.0) 01/03/18 06:25 MCHC 30.9 g/dL (32.0-36.0) L 01/03/18 06:25 RDW 14.7 % (11.7-14.6) H 01/03/18 06:25 Plt Count 132 x1000/uL (130-400) 01/03/18 06:25 MPV 12.2 fL (8.0-11.0) H 01/03/18 06:25 Immature Gran % 0.3 01/02/18 07:06 Neutrophils % 49.2 01/02/18 07:06 Lymphocytes % 40.1 01/02/18 07:06 Monocytes % 9.1 01/02/18 07:06 Eosinophils % 1.0 01/02/18 07:06 Basophils % 0.3 01/02/18 07:06 Absolute Neutrophils 3.94 k/cumm (1.2-6.7) 01/02/18 07:06 Absolute Lymphocytes 3.21 k/cumm (1.2-3.4) 01/02/18 07:06 Absolute Monocytes 0.73 k/cumm (0.11-0.7) H 01/02/18 07:06 Absolute Eosinophils 0.08 k/cumm (0.0-0.7) 01/02/18 07:06 Absolute Basophils 0.02 k/cumm (0.0-0.2) 01/02/18 07:06 Differential Comment Rbc morph reviewed 01/01/18 10:20 RBC Morphology See below 01/01/18 10:20 Polychromasia Present 01/01/18 10:20 Anisocytosis 1+ 01/01/18 10:20 PT 10.8 sec (9.3-10.8) 01/01/18 10:20 INR 1.1 (1.0-3.5) 01/01/18 10:20 APTT 20.1 sec (21.0-31.4) L 01/01/18 10:20 Sodium 142 mmol/L (136-145) 01/03/18 06:25 Potassium 3.8 mmol/L (3.5-5.1) 01/03/18 06:25 Chloride 107 mmol/L (98-107) 01/03/18 06:25 Carbon Dioxide 26.0 mmol/L (21.0-32.0) 01/03/18 06:25 Anion Gap 9.0 mmol/L (3-11) 01/03/18 06:25 BUN 10 mg/dL (7-18) D 01/03/18 06:25 Creatinine 1.00 mg/dL (0.55-1.02) 01/03/18 06:25 Estimated GFR/1.73 m2 54.81 (mL/min/1.73m2) 01/03/18 06:25 Glucose 117 mg/dL (70-100) H 01/03/18 06:25 Calcium 8.6 mg/dL (8.5-10.1) 01/03/18 06:25 Magnesium 1.6 mg/dL (1.8-2.4) L 01/03/18 06:25 Total Bilirubin 0.2 mg/dL (0.2-1.0) 01/01/18 10:20 Conjugated Bilirubin 0.06 mg/dL (0.00-0.20) 01/01/18 10:20 AST 22 U/L (15-37) 01/01/18 10:20 ALT 32 U/L (12-78) 01/01/18 10:20 Alkaline Phosphatase 44 U/L (46-116) L 01/01/18 10:20 Troponin I < 0.02 ng/mL (0.00-0.06) 01/02/18 02:00 Total Protein 5.7 g/dL (6.4-8.2) L 01/01/18 10:20 Albumin 2.6 g/dL (3.4-5.0) L 01/01/18 10:20 Patient ABO/Rh A Positive 01/01/18 10:20 Antibody Screen Negative 01/01/18 10:20
[2018-01-03 15:34] LABS: HCT 27.2 % (36.0-46.0); HGB 8.7 g/dL (12.0-15.5)
[2018-01-03] MEDS: Losartan 25 MG TAB PO (16:14)
[2018-01-03 21:13] LABS: HCT 25.2 % (36.0-46.0); HGB 8.1 g/dL (12.0-15.5)
[2018-01-03] MEDS: Metoprolol CR 50 MG TABCR 100 MG PO (21:32)
[2018-01-03 23:52] LABS: PTT Activated > 176.1 sec (21.0-31.4)
[2018-01-04] VITALS (24 sets, daily range): BP systolic 113–170; BP diastolic 46–63; PULSE 52–111; RESP 14–24; TEMP 35.6–37.6; O2SAT 90–100
[2018-01-04 06:23] LABS: Anion Gap 9.3 mmol/L (3-11); BUN 10 mg/dL (7-18); CO2 25.7 mmol/L (21.0-32.0); CREATININE 1.11 mg/dL (0.55-1.02); Calcium 8.6 mg/dL (8.5-10.1); Chloride 108 mmol/L (98-107); Estimated GFR 48.59 (mL/min/1.73m2); Glucose 113 mg/dL (70-100); Potassium 4.2 mmol/L (3.5-5.1); Sodium 143 mmol/L (136-145)
--- NOTE | 2018-01-04 06:28 | NUR.NOTE ---
06:30 01/04/18 Pt reports having a nosbleed at 05:30. A few small drops of blood noted on a tissue in the pt's hand. Yesterday 01/03 APTT value noted high 176.1. BP was immediately retaken at time of nosebleed, was 148/64. Compared to BP value 176/89 taken at 02:58 this morning. Nosebleed stopped within two minutes. The morning lab draw had taken place ten minutes before this. This customs entry writer stopped the heparin drip which had been running at 13.5ml/hr. Will revisit restarting the drip with new lab results due within the hour. Win, RN Nursing Note:
[2018-01-04 06:46] LABS: Abs Immature Grans 0.04 k/cumm (0.0-0.09); Absolute Basophil Count 0.03 k/cumm (0.0-0.2); Absolute Eosinophil Count 0.19 k/cumm (0.0-0.7); Absolute Lymphocyte Count 3.82 k/cumm (1.2-3.4); Absolute Neutrophil Count 4.96 k/cumm (1.2-6.7); Basophils % 0.3; Eosinophils % 1.9; HCT 25.3 % (36.0-46.0); HGB 8.2 g/dL (12.0-15.5); Immature Grans % 0.4; Mean Corp. HGB Concentration 32.4 g/dL (32.0-36.0); Mean Corpuscular Hemoglobin 28.6 pg (27.0-33.0); Mean Corpuscular Volume 88.2 fL (80-95); Mean Platelet Volume 13.3 fL (8.0-11.0); Neutrophils % 49.4; Platelet Count 124 x1000/uL (130-400); RBC 2.87 m/cumm (4.00-5.20); RBC Distribution Width 14.6 % (11.7-14.6); White Blood Cell Count 10.04 k/cumm (4.4-10.8)
[2018-01-04 08:10] LABS: PTT Activated 136.7 sec (21.0-31.4)
[2018-01-04] MEDS: Pantoprazole 40 MG VIAL IVP ×2 (08:31→20:25)
[2018-01-04] MEDS: Sertraline 50 MG TAB 150 MG PO (08:32)
[2018-01-04] MEDS: Normal Saline Flush 10 ML SYR IVP ×2 (08:32→20:25)
[2018-01-04] MEDS: amLODIPine 10 MG TAB PO (08:32)
[2018-01-04] MEDS: Atorvastatin 40 MG TAB PO (08:32)
[2018-01-04] MEDS: Losartan 25 MG TAB PO (08:33)
[2018-01-04] MEDS: Sucralfate 1 GM TAB PO ×4 (08:33→22:36)
--- NOTE | 2018-01-04 10:12 | PDOC.CMPRO ---
- If Service Date Differs Date of service: 01/04/18 Time of Service: 10:12 Care Management Progress Note S/O: Dot continues to improve per report she is tolerating advancement of her diet. Anticipate she will be ready for discharge over the next few days. A:Sisi is a 72 year old female admitted with a GI bleed. P:Sisi will discharge home when medically ready per MD. Anticipate patient will discharge with no services and follow up with her PCP. She will need to be discharged on PPI therapy and Carafate per report and follow up with surgery in three months. CM will continue to offer support to patient and care team regarding discharge planning and disposition. Sisi will be transported home via [facility] when medically ready for discharge.
--- NOTE | 2018-01-04 10:19 | CMPROGNOTE_ITS ---
- If Service Date Differs Date of service: 01/04/18 Time of Service: 10:12 Care Management Progress Note S/O: Dot continues to improve per report she is tolerating advancement of her diet. Anticipate she will be ready for discharge over the next few days. A:Sisi is a 72 year old female admitted with a GI bleed. P:Sisi will discharge home when medically ready per MD. Anticipate patient will discharge with no services and follow up with her PCP. She will need to be discharged on PPI therapy and Carafate per report and follow up with surgery in three months. CM will continue to offer support to patient and care team regarding discharge planning and disposition. Sisi will be transported home via [facility] when medically ready for discharge.
--- NOTE | 2018-01-04 13:23 | W.PM.PROGNOT ---
Assessment and Plan (1) Upper GI bleeding: Current visit: Yes Status: Acute A\\ Peptic ulcer disease with duodenitis, gastritis with small ulcers and esophagitis. No active bleeding at time of her EGD. Had large Bm which was dark and positive for blood. Patient states that she had another small BM that was not so dark. She feels well otherwise. P\\ 1. PUD- Continue with BID Protonix 40 mg and Carafate QID 2. Diet: will advance to soft 3. Follow up: 2 months in the office for repeat EGD. 4. Hgb/Hct penidng for 3 pm (2) Hematuria: Current visit: Yes Status: Acute A\\ Patient states that she noted some blood in her urine since she was started on Heparin drip P\\ Discussed this with Dr. Moss. Patient has history of vaginal bleeding, gi bleeding, epistaxis and hematuria on anticoagulation. If not on anticoagulation she has venous and arterial clots. Subjective Interval history since last seen: Feeling well. Eating without issue. No abdominal pain. She did have a large BM today which was black. She was started on heparin drip last night. Does tell me that she had hematuria though. Exam GI Palpation: soft, no hepatosplenomegaly and nontender Objective Objective Clinical Data: Abnormal lab results 01/03/18 01/03/18 01/03/18 Range/Units 15:15 21:00 22:55 RBC (4.00-5.20) m/cumm Hgb 8.7 L 8.1 L (12.0-15.5) g/dL Hct 27.2 L 25.2 L (36.0-46.0) % Plt Count (130-400) x1000/uL MPV (8.0-11.0) fL Absolute Lymphocytes (1.2-3.4) k/cumm Absolute Monocytes (0.11-0.7) k/cumm APTT > 176.1 H* (21.0-31.4) sec Chloride (98-107) mmol/L Creatinine (0.55-1.02) mg/dL Glucose (70-100) mg/dL 01/04/18 01/04/18 01/04/18 Range/Units 05:43 05:43 07:15 RBC 2.87 L (4.00-5.20) m/cumm Hgb 8.2 L (12.0-15.5) g/dL Hct 25.3 L (36.0-46.0) % Plt Count 124 L (130-400) x1000/uL MPV 13.3 H (8.0-11.0) fL Absolute Lymphocytes 3.82 H (1.2-3.4) k/cumm Absolute Monocytes 1.00 H (0.11-0.7) k/cumm APTT 136.7 H* D (21.0-31.4) sec Chloride 108 H (98-107) mmol/L Creatinine 1.11 H (0.55-1.02) mg/dL Glucose 113 H (70-100) mg/dL Vital Signs Temperature 96.1 F L 01/04/18 08:15 Temperature Source Temporal Artery Scan 01/04/18 08:15 Pulse 59 L 01/04/18 08:16 Pulse Rhythm Regular 01/04/18 00:31 Pulse 57 L 01/04/18 10:00 Respiratory Rate 18 01/04/18 10:00 Respiratory Effort 01/04/18 08:15 Respiratory Depth Normal 01/04/18 08:15 Respiratory Pattern Normal 01/04/18 08:15 Blood Pressure 165/59 H 01/04/18 08:16 Blood Pressure Mean 85 01/04/18 08:16 Blood Pressure Position Supine 01/01/18 12:38 Pulse Oximetry 100 01/04/18 08:16 Oxygen Delivery Method Room Air 01/04/18 08:15 Oxygen Flow Rate 0 01/04/18 08:15 Pain Level 0 01/04/18 08:15 Comment 01/03/18 00:58 Intake & Output 01/03/18 01/04/18 01/04/18 23:59 11:59 23:59 Intake Total 4416.075 / 4416.075 734.050 / 734.050 Output Total 2850 / 2850 1000 / 1000 Balance 1566.075 / 1566.075 -265.950 / -265.950 Weight 203 lb 14.841 oz Intake: IV 1659.075 / 1659.075 180.050 / 180.050 Oral 2757 / 2757 554 / 554 Output: Urine 2850 / 2850 1000 / 1000 Other: Urine Color Pale [place] Urine Appearance Clear Clear Urine Odor None None Comment large amount incontinent in bed d/t scds slowing her down Stool Occult Blood Positive Stool Size Large Stool Characteristics Formed Black Voiding Methods Bedside Commode Bedside Commode Incontinent Laboratory Results WBC 10.04 k/cumm (4.4-10.8) 01/04/18 05:43 RBC 2.87 m/cumm (4.00-5.20) L 01/04/18 05:43 Hgb 8.2 g/dL (12.0-15.5) L 01/04/18 05:43 Hct 25.3 % (36.0-46.0) L 01/04/18 05:43 MCV 88.2 fL (80-95) 01/04/18 05:43 MCH 28.6 pg (27.0-33.0) 01/04/18 05:43 MCHC 32.4 g/dL (32.0-36.0) 01/04/18 05:43 RDW 14.6 % (11.7-14.6) 01/04/18 05:43 Plt Count 124 x1000/uL (130-400) L 01/04/18 05:43 MPV 13.3 fL (8.0-11.0) H 01/04/18 05:43 Immature Gran % 0.4 01/04/18 05:43 Neutrophils % 49.4 01/04/18 05:43 Lymphocytes % 38.0 01/04/18 05:43 Monocytes % 10.0 01/04/18 05:43 Eosinophils % 1.9 01/04/18 05:43 Basophils % 0.3 01/04/18 05:43 Absolute Neutrophils 4.96 k/cumm (1.2-6.7) 01/04/18 05:43 Absolute Lymphocytes 3.82 k/cumm (1.2-3.4) H 01/04/18 05:43 Absolute Monocytes 1.00 k/cumm (0.11-0.7) H 01/04/18 05:43 Absolute Eosinophils 0.19 k/cumm (0.0-0.7) 01/04/18 05:43 Absolute Basophils 0.03 k/cumm (0.0-0.2) 01/04/18 05:43 Differential Comment Rbc morph reviewed 01/01/18 10:20 RBC Morphology See below 01/01/18 10:20 Polychromasia Present 01/01/18 10:20 Anisocytosis 1+ 01/01/18 10:20 PT 10.8 sec (9.3-10.8) 01/01/18 10:20 INR 1.1 (1.0-3.5) 01/01/18 10:20 APTT 136.7 sec (21.0-31.4) H* D 01/04/18 07:15 Sodium 143 mmol/L (136-145) 01/04/18 05:43 Potassium 4.2 mmol/L (3.5-5.1) 01/04/18 05:43 Chloride 108 mmol/L (98-107) H 01/04/18 05:43 Carbon Dioxide 25.7 mmol/L (21.0-32.0) 01/04/18 05:43 Anion Gap 9.3 mmol/L (3-11) 01/04/18 05:43 BUN 10 mg/dL (7-18) 01/04/18 05:43 Creatinine 1.11 mg/dL (0.55-1.02) H 01/04/18 05:43 Estimated GFR/1.73 m2 48.59 (mL/min/1.73m2) 01/04/18 05:43 Glucose 113 mg/dL (70-100) H 01/04/18 05:43 Calcium 8.6 mg/dL (8.5-10.1) 01/04/18 05:43 Magnesium 1.6 mg/dL (1.8-2.4) L 01/03/18 06:25 Total Bilirubin 0.2 mg/dL (0.2-1.0) 01/01/18 10:20 Conjugated Bilirubin 0.06 mg/dL (0.00-0.20) 01/01/18 10:20 AST 22 U/L (15-37) 01/01/18 10:20 ALT 32 U/L (12-78) 01/01/18 10:20 Alkaline Phosphatase 44 U/L (46-116) L 01/01/18 10:20 Troponin I < 0.02 ng/mL (0.00-0.06) 01/02/18 02:00 Total Protein 5.7 g/dL (6.4-8.2) L 01/01/18 10:20 Albumin 2.6 g/dL (3.4-5.0) L 01/01/18 10:20 Patient ABO/Rh A Positive 01/01/18 10:20 Antibody Screen Negative 01/01/18 10:20
--- NOTE | 2018-01-04 13:49 | W.PM.PROGNOT ---
Assessment and Plan (1) Upper GI bleeding: Current visit: Yes Status: Acute S/p EGD on 01/02/2018 showing esophagitis, gastritis, duodenitis with shallow ulcerations noted, biopsied. Current Hgb appears stable. Tolerating regular diet. Continue heparin gtt with plans to transition to oral anticoagulation if H/H again stable this afternoon. Currently reporting some hematuria - check urinalysis. Consider change to Eliquis for decreased risk of GIB. (2) Hypercoagulable state: Current visit: Yes Status: Chronic Initiated Heparin gtt with H/H holding at this time. Patient has a history of both arterial and venous thromboses as well as CVA and [place]. Nature of hypercoagulable state uncertain. Plan as above. (3) Syncopal episodes: Current visit: Yes Status: Chronic Patient reports prior episodes - current syncope in setting of GI Bleed and anemia. (4) Closed head injury: Current visit: Yes Status: Acute Following syncope. CT head and c-spine negative for any acute pathology. (5) CKD (chronic kidney disease): Current visit: Yes Status: Chronic Stage 3 - noted. Avoid nephrotoxins, renally dose medications when appropriate. (6) Pulmonary embolism: Current visit: Yes Status: Chronic Hx of Hypercoagulable State per History, with prior arterial and venous thromboses as well as CVA and [place]. Will continue anticoagulation as above. (7) SVT (supraventricular tachycardia): Current visit: Yes Status: Chronic Continue BB therapy and maintain on cardiac monitoring while anemic. Follows with [facility] cardiology. Last ECHO 05/2017 with normal LVEF and no significant valvulopathy despite murmur. (8) CVA (cerebral vascular accident): Current visit: Yes Status: Chronic (9) CAD (coronary artery disease): Current visit: Yes Status: Chronic Continue statin, BB. No antiplatelet therapy recorded. Needs improved blood pressure control. (10) Essential hypertension: Current visit: Yes Status: Chronic On BB and CCB. Patient with evidence of CKD, likely on the basis of chronic hypertension. Refused SERGIO-I due to prior dislike of this medication. Started low dose ARB - continue to monitor electrolytes and kidney function. (11) DVT prophylaxis: Current visit: Yes Status: Acute On heparin gtt. Subjective Interval history since last seen: Pleasant 72 year old woman with a past medical history significant for Hypercoagulable state (Unclear of type), CAD with prior history of CA, CVA, and previous PE on anticoagulation with Rivaroxaban presented to [facility] ED initially on 01/01/2018 with reported black stools, hematemesis, and syncope. Since the time of admission the patient has undergone an EGD showing esophagitis, gastritis, and duodenitis with very shallow ulcerations and no active bleeding. She has also been maintained on IV PPI and Carafate. Her Hemoglobin while low remains stable, and she is now on a regular diet. Mrs. Aguilar reports essential resolution of black stools and states that they have become more formed since time of admission, but reports hematuria today. No other overnight events were reported. She remains afebrile. Exam Narrative Exam Narrative: General: Comfortable appearing, sitting up in bed. AAOX3, No acute distress. Neck: Supple Cardiovascular: Regular, Non-tachycardic. No overt rubs or gallops. 3/6 RUSB/LLSB murmur again noted. Lungs: CTAB without crackles or rhonchi. Gastrointestinal: Soft, nontender, nondistended. Extremities: no edema Objective Objective Clinical Data: Abnormal lab results 01/03/18 01/03/18 01/03/18 Range/Units 15:15 21:00 22:55 RBC (4.00-5.20) m/cumm Hgb 8.7 L 8.1 L (12.0-15.5) g/dL Hct 27.2 L 25.2 L (36.0-46.0) % Plt Count (130-400) x1000/uL MPV (8.0-11.0) fL Absolute Lymphocytes (1.2-3.4) k/cumm Absolute Monocytes (0.11-0.7) k/cumm APTT > 176.1 H* (21.0-31.4) sec Chloride (98-107) mmol/L Creatinine (0.55-1.02) mg/dL Glucose (70-100) mg/dL 01/04/18 01/04/18 01/04/18 Range/Units 05:43 05:43 07:15 RBC 2.87 L (4.00-5.20) m/cumm Hgb 8.2 L (12.0-15.5) g/dL Hct 25.3 L (36.0-46.0) % Plt Count 124 L (130-400) x1000/uL MPV 13.3 H (8.0-11.0) fL Absolute Lymphocytes 3.82 H (1.2-3.4) k/cumm Absolute Monocytes 1.00 H (0.11-0.7) k/cumm APTT 136.7 H* D (21.0-31.4) sec Chloride 108 H (98-107) mmol/L Creatinine 1.11 H (0.55-1.02) mg/dL Glucose 113 H (70-100) mg/dL Vital Signs Temperature 35.6 C L 01/04/18 08:15 Temperature Source Temporal Artery Scan 01/04/18 08:15 Pulse 59 L 01/04/18 08:16 Pulse Rhythm Regular 01/04/18 00:31 Pulse 57 L 01/04/18 10:00 Respiratory Rate 18 01/04/18 10:00 Respiratory Effort 01/04/18 08:15 Respiratory Depth Normal 01/04/18 08:15 Respiratory Pattern Normal 01/04/18 08:15 Blood Pressure 165/59 H 01/04/18 08:16 Blood Pressure Mean 85 01/04/18 08:16 Blood Pressure Position Supine 01/01/18 12:38 Pulse Oximetry 100 01/04/18 08:16 Oxygen Delivery Method Room Air 01/04/18 08:15 Oxygen Flow Rate 0 01/04/18 08:15 Pain Level 0 01/04/18 08:15 Comment 01/03/18 00:58 Intake & Output 01/03/18 01/04/18 01/04/18 23:59 11:59 23:59 Intake Total 4416.075 / 4416.075 734.050 / 734.050 Output Total 2850 / 2850 1000 / 1000 Balance 1566.075 / 1566.075 -265.950 / -265.950 Weight 92.5 kg Intake: IV 1659.075 / 1659.075 180.050 / 180.050 Oral 2757 / 2757 554 / 554 Output: Urine 2850 / 2850 1000 / 1000 Other: Urine Color Pale [place] Urine Appearance Clear Clear Urine Odor None None Comment large amount incontinent in bed d/t scds slowing her down Stool Occult Blood Positive Stool Size Large Stool Characteristics Formed Black Voiding Methods Bedside Commode Bedside Commode Incontinent Laboratory Results WBC 10.04 k/cumm (4.4-10.8) 01/04/18 05:43 RBC 2.87 m/cumm (4.00-5.20) L 01/04/18 05:43 Hgb 8.2 g/dL (12.0-15.5) L 01/04/18 05:43 Hct 25.3 % (36.0-46.0) L 01/04/18 05:43 MCV 88.2 fL (80-95) 01/04/18 05:43 MCH 28.6 pg (27.0-33.0) 01/04/18 05:43 MCHC 32.4 g/dL (32.0-36.0) 01/04/18 05:43 RDW 14.6 % (11.7-14.6) 01/04/18 05:43 Plt Count 124 x1000/uL (130-400) L 01/04/18 05:43 MPV 13.3 fL (8.0-11.0) H 01/04/18 05:43 Immature Gran % 0.4 01/04/18 05:43 Neutrophils % 49.4 01/04/18 05:43 Lymphocytes % 38.0 01/04/18 05:43 Monocytes % 10.0 01/04/18 05:43 Eosinophils % 1.9 01/04/18 05:43 Basophils % 0.3 01/04/18 05:43 Absolute Neutrophils 4.96 k/cumm (1.2-6.7) 01/04/18 05:43 Absolute Lymphocytes 3.82 k/cumm (1.2-3.4) H 01/04/18 05:43 Absolute Monocytes 1.00 k/cumm (0.11-0.7) H 01/04/18 05:43 Absolute Eosinophils 0.19 k/cumm (0.0-0.7) 01/04/18 05:43 Absolute Basophils 0.03 k/cumm (0.0-0.2) 01/04/18 05:43 Differential Comment Rbc morph reviewed 01/01/18 10:20 RBC Morphology See below 01/01/18 10:20 Polychromasia Present 01/01/18 10:20 Anisocytosis 1+ 01/01/18 10:20 PT 10.8 sec (9.3-10.8) 01/01/18 10:20 INR 1.1 (1.0-3.5) 01/01/18 10:20 APTT 136.7 sec (21.0-31.4) H* D 01/04/18 07:15 Sodium 143 mmol/L (136-145) 01/04/18 05:43 Potassium 4.2 mmol/L (3.5-5.1) 01/04/18 05:43 Chloride 108 mmol/L (98-107) H 01/04/18 05:43 Carbon Dioxide 25.7 mmol/L (21.0-32.0) 01/04/18 05:43 Anion Gap 9.3 mmol/L (3-11) 01/04/18 05:43 BUN 10 mg/dL (7-18) 01/04/18 05:43 Creatinine 1.11 mg/dL (0.55-1.02) H 01/04/18 05:43 Estimated GFR/1.73 m2 48.59 (mL/min/1.73m2) 01/04/18 05:43 Glucose 113 mg/dL (70-100) H 01/04/18 05:43 Calcium 8.6 mg/dL (8.5-10.1) 01/04/18 05:43 Magnesium 1.6 mg/dL (1.8-2.4) L 01/03/18 06:25 Total Bilirubin 0.2 mg/dL (0.2-1.0) 01/01/18 10:20 Conjugated Bilirubin 0.06 mg/dL (0.00-0.20) 01/01/18 10:20 AST 22 U/L (15-37) 01/01/18 10:20 ALT 32 U/L (12-78) 01/01/18 10:20 Alkaline Phosphatase 44 U/L (46-116) L 01/01/18 10:20 Troponin I < 0.02 ng/mL (0.00-0.06) 01/02/18 02:00 Total Protein 5.7 g/dL (6.4-8.2) L 01/01/18 10:20 Albumin 2.6 g/dL (3.4-5.0) L 01/01/18 10:20 Patient ABO/Rh A Positive 01/01/18 10:20 Antibody Screen Negative 01/01/18 10:20
--- NOTE | 2018-01-04 13:56 | PGE_ITS ---
Assessment and Plan (1) Upper GI bleeding: Current visit: Yes Status: Acute S/p EGD on 01/02/2018 showing esophagitis, gastritis, duodenitis with shallow ulcerations noted, biopsied. Current Hgb appears stable. Tolerating regular diet. Continue heparin gtt with plans to transition to oral anticoagulation if H/H again stable this afternoon. Currently reporting some hematuria - check urinalysis. Consider change to Eliquis for decreased risk of GIB. (2) Hypercoagulable state: Current visit: Yes Status: Chronic Initiated Heparin gtt with H/H holding at this time. Patient has a history of both arterial and venous thromboses as well as CVA and [place]. Nature of hypercoagulable state uncertain. Plan as above. (3) Syncopal episodes: Current visit: Yes Status: Chronic Patient reports prior episodes - current syncope in setting of GI Bleed and anemia. (4) Closed head injury: Current visit: Yes Status: Acute Following syncope. CT head and c-spine negative for any acute pathology. (5) CKD (chronic kidney disease): Current visit: Yes Status: Chronic Stage 3 - noted. Avoid nephrotoxins, renally dose medications when appropriate. (6) Pulmonary embolism: Current visit: Yes Status: Chronic Hx of Hypercoagulable State per History, with prior arterial and venous thromboses as well as CVA and [place]. Will continue anticoagulation as above. (7) SVT (supraventricular tachycardia): Current visit: Yes Status: Chronic Continue BB therapy and maintain on cardiac monitoring while anemic. Follows with [facility] [place] cardiology. Last ECHO 05/2017 with normal LVEF and no significant valvulopathy despite murmur. (8) CVA (cerebral vascular accident): Current visit: Yes Status: Chronic (9) CAD (coronary artery disease): Current visit: Yes Status: Chronic Continue statin, BB. No antiplatelet therapy recorded. Needs improved blood pressure control. (10) Essential hypertension: Current visit: Yes Status: Chronic On BB and CCB. Patient with evidence of CKD, likely on the basis of chronic hypertension. Refused SERGIO-I due to prior dislike of this medication. Started low dose ARB - continue to monitor electrolytes and kidney function. (11) DVT prophylaxis: Current visit: Yes Status: Acute On heparin gtt. Subjective Interval history since last seen: Pleasant 72 year old woman with a past medical history significant for Hypercoagulable state (Unclear of type), CAD with prior history of [place], CVA, and previous PE on anticoagulation with Rivaroxaban presented to [facility] ED initially on 01/01/2018 with reported black stools, hematemesis, and syncope. Since the time of admission the patient has undergone an EGD showing esophagitis , gastritis, and duodenitis with very shallow ulcerations and no active bleeding. She has also been maintained on IV PPI and Carafate. Her Hemoglobin while low remains stable, and she is now on a regular diet. Mrs. Aguilar reports essential resolution of black stools and states that they have become more formed since time of admission, but reports hematuria today. No other overnight events were reported. She remains afebrile. Exam Narrative Exam Narrative: General: Comfortable appearing, sitting up in bed. AAOX3, No acute distress. Neck: Supple Cardiovascular: Regular, Non-tachycardic. No overt rubs or gallops. 3/6 RUSB/ LLSB murmur again noted. Lungs: CTAB without crackles or rhonchi. Gastrointestinal: Soft, nontender, nondistended. Extremities: no edema Objective Objective Clinical Data: Abnormal lab results 01/03/18 01/03/18 01/03/18 Range/Units 15:15 21:00 22:55 RBC (4.00-5.20) m/cumm Hgb 8.7 L 8.1 L (12.0-15.5) g/dL Hct 27.2 L 25.2 L (36.0-46.0) % Plt Count (130-400) x1000/uL MPV (8.0-11.0) fL Absolute Lymphocytes (1.2-3.4) k/cumm Absolute Monocytes (0.11-0.7) k/cumm APTT > 176.1 H* (21.0-31.4) sec Chloride (98-107) mmol/L Creatinine (0.55-1.02) mg/dL Glucose (70-100) mg/dL 01/04/18 01/04/18 01/04/18 Range/Units 05:43 05:43 07:15 RBC 2.87 L (4.00-5.20) m/cumm Hgb 8.2 L (12.0-15.5) g/dL Hct 25.3 L (36.0-46.0) % Plt Count 124 L (130-400) x1000/uL MPV 13.3 H (8.0-11.0) fL Absolute Lymphocytes 3.82 H (1.2-3.4) k/cumm Absolute Monocytes 1.00 H (0.11-0.7) k/cumm APTT 136.7 H* D (21.0-31.4) sec Chloride 108 H (98-107) mmol/L Creatinine 1.11 H (0.55-1.02) mg/dL Glucose 113 H (70-100) mg/dL Vital Signs Temperature 35.6 C L 01/04/18 08:15 Temperature Source Temporal Artery Scan 01/04/18 08:15 Pulse 59 L 01/04/18 08:16 Pulse Rhythm Regular 01/04/18 00:31 Pulse 57 L 01/04/18 10:00 Respiratory Rate 18 01/04/18 10:00 Respiratory Effort 01/04/18 08:15 Respiratory Depth Normal 01/04/18 08:15 Respiratory Pattern Normal 01/04/18 08:15 Blood Pressure 165/59 H 01/04/18 08:16 Blood Pressure Mean 85 01/04/18 08:16 Blood Pressure Position Supine 01/01/18 12:38 Pulse Oximetry 100 01/04/18 08:16 Oxygen Delivery Method Room Air 01/04/18 08:15 Oxygen Flow Rate 0 01/04/18 08:15 Pain Level 0 01/04/18 08:15 Comment 01/03/18 00:58 Intake & Output 01/03/18 01/04/18 01/04/18 23:59 11:59 23:59 Intake Total 4416.075 / 4416.075 734.050 / 734.050 Output Total 2850 / 2850 1000 / 1000 Balance 1566.075 / 1566.075 -265.950 / -265.950 Weight 92.5 kg Intake: IV 1659.075 / 1659.075 180.050 / 180.050 Oral 2757 / 2757 554 / 554 Output: Urine 2850 / 2850 1000 / 1000 Other: Urine Color Pale [place] Urine Appearance Clear Clear Urine Odor None None Comment large amount incontinent in bed d/t scds slowing her down Stool Occult Blood Positive Stool Size Large Stool Characteristics Formed Black Voiding Methods Bedside Commode Bedside Commode Incontinent Laboratory Results WBC 10.04 k/cumm (4.4-10.8) 01/04/18 05:43 RBC 2.87 m/cumm (4.00-5.20) L 01/04/18 05:43 Hgb 8.2 g/dL (12.0-15.5) L 01/04/18 05:43 Hct 25.3 % (36.0-46.0) L 01/04/18 05:43 MCV 88.2 fL (80-95) 01/04/18 05:43 MCH 28.6 pg (27.0-33.0) 01/04/18 05:43 MCHC 32.4 g/dL (32.0-36.0) 01/04/18 05:43 RDW 14.6 % (11.7-14.6) 01/04/18 05:43 Plt Count 124 x1000/uL (130-400) L 01/04/18 05:43 MPV 13.3 fL (8.0-11.0) H 01/04/18 05:43 Immature Gran % 0.4 01/04/18 05:43 Neutrophils % 49.4 01/04/18 05:43 Lymphocytes % 38.0 01/04/18 05:43 Monocytes % 10.0 01/04/18 05:43 Eosinophils % 1.9 01/04/18 05:43 Basophils % 0.3 01/04/18 05:43 Absolute Neutrophils 4.96 k/cumm (1.2-6.7) 01/04/18 05:43 Absolute Lymphocytes 3.82 k/cumm (1.2-3.4) H 01/04/18 05:43 Absolute Monocytes 1.00 k/cumm (0.11-0.7) H 01/04/18 05:43 Absolute Eosinophils 0.19 k/cumm (0.0-0.7) 01/04/18 05:43 Absolute Basophils 0.03 k/cumm (0.0-0.2) 01/04/18 05:43 Differential Comment Rbc morph reviewed 01/01/18 10:20 RBC Morphology See below 01/01/18 10:20 Polychromasia Present 01/01/18 10:20 Anisocytosis 1+ 01/01/18 10:20 PT 10.8 sec (9.3-10.8) 01/01/18 10:20 INR 1.1 (1.0-3.5) 01/01/18 10:20 APTT 136.7 sec (21.0-31.4) H* D 01/04/18 07:15 Sodium 143 mmol/L (136-145) 01/04/18 05:43 Potassium 4.2 mmol/L (3.5-5.1) 01/04/18 05:43 Chloride 108 mmol/L (98-107) H 01/04/18 05:43 Carbon Dioxide 25.7 mmol/L (21.0-32.0) 01/04/18 05:43 Anion Gap 9.3 mmol/L (3-11) 01/04/18 05:43 BUN 10 mg/dL (7-18) 01/04/18 05:43 Creatinine 1.11 mg/dL (0.55-1.02) H 01/04/18 05:43 Estimated GFR/1.73 m2 48.59 (mL/min/1.73m2) 01/04/18 05:43 Glucose 113 mg/dL (70-100) H 01/04/18 05:43 Calcium 8.6 mg/dL (8.5-10.1) 01/04/18 05:43 Magnesium 1.6 mg/dL (1.8-2.4) L 01/03/18 06:25 Total Bilirubin 0.2 mg/dL (0.2-1.0) 01/01/18 10:20 Conjugated Bilirubin 0.06 mg/dL (0.00-0.20) 01/01/18 10:20 AST 22 U/L (15-37) 01/01/18 10:20 ALT 32 U/L (12-78) 01/01/18 10:20 Alkaline Phosphatase 44 U/L (46-116) L 01/01/18 10:20 Troponin I < 0.02 ng/mL (0.00-0.06) 01/02/18 02:00 Total Protein 5.7 g/dL (6.4-8.2) L 01/01/18 10:20 Albumin 2.6 g/dL (3.4-5.0) L 01/01/18 10:20 Patient ABO/Rh A Positive 01/01/18 10:20 Antibody Screen Negative 01/01/18 10:20
[2018-01-04 15:11] LABS: HCT 27.5 % (36.0-46.0); HGB 8.6 g/dL (12.0-15.5)
[2018-01-04 15:23] LABS: PTT Activated 74.7 sec (21.0-31.4)
[2018-01-04 16:45] LABS: Bilirubin Negative (Negative); Blood Large (Negative); Clarity Clear; Glucose Negative (Negative); Ketones Trace mg/dL (Negative); Leukocyte Esterase Negative (Negative); Nitrite Negative (Negative); Urobilinogen 0.2 EU/dL (Up TO 0.2)
[2018-01-04 16:54] LABS: Bacteria Few HPF (Negative); C & S Indicated? Yes; Casts Negative LPF (Negative); Crystals Negative HPF (Negative); Epithelial Cells Few HPF (Negative); Mucus Negative (Negative); RBC >50 (0-2)
[2018-01-04 22:29] LABS: PTT Activated 69.2 sec (21.0-31.4)
[2018-01-04] MEDS: Metoprolol CR 50 MG TABCR 100 MG PO (22:36)
[2018-01-05] VITALS (26 sets, daily range): BP systolic 142–186; BP diastolic 44–76; PULSE 54–70; RESP 11–25; TEMP 35.8–37.5; O2SAT 94–99
[2018-01-05 07:16] LABS: Abs Immature Grans 0.03 k/cumm (0.0-0.09); Absolute Basophil Count 0.02 k/cumm (0.0-0.2); Absolute Eosinophil Count 0.14 k/cumm (0.0-0.7); Absolute Lymphocyte Count 3.08 k/cumm (1.2-3.4); Absolute Monocyte Count 0.96 k/cumm (0.11-0.7); Absolute Neutrophil Count 4.23 k/cumm (1.2-6.7); Basophils % 0.2; Eosinophils % 1.7; HCT 27.2 % (36.0-46.0); HGB 8.5 g/dL (12.0-15.5); Immature Grans % 0.4; Lymphocytes % 36.4; Mean Corp. HGB Concentration 31.3 g/dL (32.0-36.0); Mean Corpuscular Hemoglobin 28.1 pg (27.0-33.0); Mean Corpuscular Volume 90.1 fL (80-95); Monocytes % 11.3; Platelet Count 143 x1000/uL (130-400); RBC 3.02 m/cumm (4.00-5.20); RBC Distribution Width 14.7 % (11.7-14.6); White Blood Cell Count 8.46 k/cumm (4.4-10.8)
[2018-01-05 07:28] LABS: Anion Gap 8.3 mmol/L (3-11); BUN 13 mg/dL (7-18); CO2 26.7 mmol/L (21.0-32.0); Calcium 9.4 mg/dL (8.5-10.1); Chloride 107 mmol/L (98-107); Estimated GFR 40.49 (mL/min/1.73m2); Glucose 114 mg/dL (70-100); Potassium 4.3 mmol/L (3.5-5.1); Sodium 142 mmol/L (136-145)
[2018-01-05 07:37] LABS: PTT Activated 48.6 sec (21.0-31.4)
[2018-01-05] MEDS: Atorvastatin 40 MG TAB PO (08:53)
[2018-01-05] MEDS: amLODIPine 10 MG TAB PO (08:53)
[2018-01-05] MEDS: Losartan 25 MG TAB 50 MG PO (08:53)
[2018-01-05] MEDS: Sucralfate 1 GM TAB PO ×4 (08:53→22:11)
[2018-01-05] MEDS: Pantoprazole 40 MG VIAL IVP ×2 (08:54→20:12)
[2018-01-05] MEDS: Normal Saline Flush 10 ML SYR IVP ×2 (08:54→20:12)
[2018-01-05] MEDS: Sertraline 50 MG TAB 150 MG PO (08:55)
--- NOTE | 2018-01-05 10:24 | PDOC.CMPRO ---
- If Service Date Differs Date of service: 01/05/18 Time of Service: 10:24 Care Management Progress Note S/O: Jw is sitting in her chair in the ICU when CM visits this morning. She is engaged in conversation, makes good eye contact, and is talkative. Dot continues to improve per report and denies pain at this time. She is tolerating advancement of her diet and continues to receive IV heparin. Dot asked CM to call her MD at [facility] regarding her upcoming appointment on . V/M left for nurse at [facility] regarding cancelation of appointment. Dot will likely need a follow up appointment with her PCP at discharge. A:Sisi is a 72 year old female admitted with a GI bleed. P:Sisi will discharge home when medically ready per MD. Anticipate patient will discharge with no services and follow up with her PCP. She will need to be discharged on PPI therapy and Carafate per report and follow up with surgery in three months. CM will continue to offer support to patient and care team regarding discharge planning and disposition. Sisi will be transported home via [facility] when medically ready for discharge.
--- NOTE | 2018-01-05 10:29 | CMPROGNOTE_ITS ---
- If Service Date Differs Date of service: 01/05/18 Time of Service: 10:24 Care Management Progress Note S/O: Jw is sitting in her chair in the ICU when CM visits this morning. She is engaged in conversation, makes good eye contact, and is talkative. Dot continues to improve per report and denies pain at this time. She is tolerating advancement of her diet and continues to receive IV heparin. Dot asked CM to call her MD at [facility] regarding her upcoming appointment on . V/M left for nurse at [place] regarding cancelation of appointment. Dot will likely need a follow up appointment with her PCP at discharge. A:Sisi is a 72 year old female admitted with a GI bleed. P:Sisi will discharge home when medically ready per MD. Anticipate patient will discharge with no services and follow up with her PCP. She will need to be discharged on PPI therapy and Carafate per report and follow up with surgery in three months. CM will continue to offer support to patient and care team regarding discharge planning and disposition. Sisi will be transported home via [facility] when medically ready for discharge.
--- NOTE | 2018-01-05 14:10 | W.PM.PROGNOT ---
Assessment and Plan (1) Upper GI bleeding: Current visit: Yes Status: Acute S/p EGD on 01/02/2018 showing esophagitis, gastritis, duodenitis with shallow ulcerations noted, biopsied. Current Hgb continues to appear stable. Tolerating regular diet. Continue heparin gtt with plans to transition to oral anticoagulation pending decision on work-up of hematuria. (2) Hypercoagulable state: Current visit: Yes Status: Chronic Initiated Heparin gtt with H/H holding at this time. Patient has a history of both arterial and venous thromboses as well as CVA and [place]. Nature of hypercoagulable state uncertain. Plan as above, with potential change to Apixaban for decreased risk of GI bleeding. (3) Syncopal episodes: Current visit: Yes Status: Chronic Patient reports prior episodes - syncope in setting of GI Bleed and anemia. (4) CKD (chronic kidney disease): Current visit: Yes Status: Chronic Stage 3 - noted. Avoid nephrotoxins, renally dose medications when appropriate. (5) Pulmonary embolism: Current visit: Yes Status: Chronic Hx of Hypercoagulable State per History, with prior arterial and venous thromboses as well as CVA and [place]. Will continue anticoagulation as above. (6) SVT (supraventricular tachycardia): Current visit: Yes Status: Chronic Continue BB therapy and maintain on cardiac monitoring while anemic. Follows with [facility] [place] cardiology. Last ECHO 05/2017 with normal LVEF and no significant valvulopathy despite murmur. (7) CVA (cerebral vascular accident): Current visit: Yes Status: Chronic (8) CAD (coronary artery disease): Current visit: Yes Status: Chronic Continue statin, BB. No antiplatelet therapy recorded. Needs improved blood pressure control. (9) Essential hypertension: Current visit: Yes Status: Chronic On BB and CCB. Patient with evidence of CKD, likely on the basis of chronic hypertension. Refused SERGIO-I due to prior dislike of this medication. Started low dose ARB - uptitrated yesterday. Blood pressure improved but still suboptimal. Monitor. (10) DVT prophylaxis: Current visit: Yes Status: Acute On heparin gtt. Subjective Interval history since last seen: Pleasant 72 year old woman with a past medical history significant for Hypercoagulable state (Unclear of type), CAD with prior history of [place], CVA, and previous PE on anticoagulation with Rivaroxaban presented to [facility] ED initially on 01/01/2018 with reported black stools, hematemesis, and syncope. Since the time of admission the patient has undergone an EGD showing esophagitis, gastritis, and duodenitis with very shallow ulcerations and no active bleeding. She has also been maintained on IV PPI and Carafate. Her Hemoglobin while low remains stable, and she is now on a regular diet. Mrs. Aguilar reports essential resolution of black stools and states that they have become more formed since time of admission, but reported hematuria that is continuing today. No other overnight events were reported. She remains afebrile. Exam Narrative Exam Narrative: General: Comfortable appearing, sitting up in bed. AAOX3, No acute distress. Neck: Supple Cardiovascular: Regular, Non-tachycardic. No overt rubs or gallops. 3/6 RUSB/LLSB murmur again noted. Lungs: CTAB without crackles or rhonchi. Gastrointestinal: Soft, nontender, nondistended. Extremities: no edema Objective Objective Clinical Data: Abnormal lab results 01/04/18 01/04/18 01/04/18 Range/Units 14:55 14:55 16:30 RBC (4.00-5.20) m/cumm Hgb 8.6 L (12.0-15.5) g/dL Hct 27.5 L (36.0-46.0) % MCHC (32.0-36.0) g/dL RDW (11.7-14.6) % MPV (8.0-11.0) fL Absolute Monocytes (0.11-0.7) k/cumm APTT 74.7 H D (21.0-31.4) sec Creatinine (0.55-1.02) mg/dL Glucose (70-100) mg/dL Urine Ketones Trace H (Negative) mg/dL Urine Blood Large H (Negative) Urine RBC >50 H (0-2) 01/04/18 01/05/18 01/05/18 Range/Units 22:00 06:15 06:15 RBC 3.02 L (4.00-5.20) m/cumm Hgb 8.5 L (12.0-15.5) g/dL Hct 27.2 L (36.0-46.0) % MCHC 31.3 L (32.0-36.0) g/dL RDW 14.7 H (11.7-14.6) % MPV 13.0 H (8.0-11.0) fL Absolute Monocytes 0.96 H (0.11-0.7) k/cumm APTT 69.2 H (21.0-31.4) sec Creatinine 1.30 H (0.55-1.02) mg/dL Glucose 114 H (70-100) mg/dL Urine Ketones (Negative) mg/dL Urine Blood (Negative) Urine RBC (0-2) 01/05/18 Range/Units 06:15 RBC (4.00-5.20) m/cumm Hgb (12.0-15.5) g/dL Hct (36.0-46.0) % MCHC (32.0-36.0) g/dL RDW (11.7-14.6) % MPV (8.0-11.0) fL Absolute Monocytes (0.11-0.7) k/cumm APTT 48.6 H D (21.0-31.4) sec Creatinine (0.55-1.02) mg/dL Glucose (70-100) mg/dL Urine Ketones (Negative) mg/dL Urine Blood (Negative) Urine RBC (0-2) Vital Signs Temperature 37.5 C 01/05/18 12:07 Temperature Source Temporal Artery Scan 01/05/18 12:07 Pulse 61 01/05/18 11:56 Pulse Rhythm Regular 01/05/18 08:15 Pulse 70 01/05/18 11:56 Respiratory Rate 20 01/05/18 11:56 Respiratory Effort 01/05/18 08:15 Respiratory Depth Normal 01/05/18 08:15 Respiratory Pattern Normal 01/05/18 08:15 Blood Pressure 142/68 H 01/05/18 11:56 Blood Pressure Mean 84 01/05/18 11:56 Blood Pressure Position Supine 01/01/18 12:38 Pulse Oximetry 95 01/05/18 12:07 Oxygen Delivery Method Room Air 01/05/18 12:07 Oxygen Flow Rate 0 01/05/18 12:07 Pain Level 0 01/04/18 11:45 Comment 01/03/18 00:58 Intake & Output 01/04/18 01/05/18 01/05/18 23:59 11:59 23:59 Intake Total 1634.533 / 1634.533 949.8 / 949.8 480 / 480 Output Total 850 / 850 1150 / 1150 Balance 784.533 / 784.533 -200.2 / -200.2 480 / 480 Weight 92.5 kg Intake: IV 144.533 / 144.533 59.8 / 59.8 Oral 1490 / 1490 890 / 890 480 / 480 Output: Urine 850 / 850 1150 / 1150 Other: Urine Color Yellow Yellow Urine Appearance Clear Clear Urine Odor Normal None Stool Size Moderate Stool Characteristics Soft Formed Brown Voiding Methods Bedside Commode Laboratory Results WBC 8.46 k/cumm (4.4-10.8) 01/05/18 06:15 RBC 3.02 m/cumm (4.00-5.20) L 01/05/18 06:15 Hgb 8.5 g/dL (12.0-15.5) L 01/05/18 06:15 Hct 27.2 % (36.0-46.0) L 01/05/18 06:15 MCV 90.1 fL (80-95) 01/05/18 06:15 MCH 28.1 pg (27.0-33.0) 01/05/18 06:15 MCHC 31.3 g/dL (32.0-36.0) L 01/05/18 06:15 RDW 14.7 % (11.7-14.6) H 01/05/18 06:15 Plt Count 143 x1000/uL (130-400) 01/05/18 06:15 MPV 13.0 fL (8.0-11.0) H 01/05/18 06:15 Immature Gran % 0.4 01/05/18 06:15 Neutrophils % 50.0 01/05/18 06:15 Lymphocytes % 36.4 01/05/18 06:15 Monocytes % 11.3 01/05/18 06:15 Eosinophils % 1.7 01/05/18 06:15 Basophils % 0.2 01/05/18 06:15 Absolute Neutrophils 4.23 k/cumm (1.2-6.7) 01/05/18 06:15 Absolute Lymphocytes 3.08 k/cumm (1.2-3.4) 01/05/18 06:15 Absolute Monocytes 0.96 k/cumm (0.11-0.7) H 01/05/18 06:15 Absolute Eosinophils 0.14 k/cumm (0.0-0.7) 01/05/18 06:15 Absolute Basophils 0.02 k/cumm (0.0-0.2) 01/05/18 06:15 Differential Comment Rbc morph reviewed 01/01/18 10:20 RBC Morphology See below 01/01/18 10:20 Polychromasia Present 01/01/18 10:20 Anisocytosis 1+ 01/01/18 10:20 PT 10.8 sec (9.3-10.8) 01/01/18 10:20 INR 1.1 (1.0-3.5) 01/01/18 10:20 APTT 48.6 sec (21.0-31.4) H D 01/05/18 06:15 Sodium 142 mmol/L (136-145) 01/05/18 06:15 Potassium 4.3 mmol/L (3.5-5.1) 01/05/18 06:15 Chloride 107 mmol/L (98-107) 01/05/18 06:15 Carbon Dioxide 26.7 mmol/L (21.0-32.0) 01/05/18 06:15 Anion Gap 8.3 mmol/L (3-11) 01/05/18 06:15 BUN 13 mg/dL (7-18) 01/05/18 06:15 Creatinine 1.30 mg/dL (0.55-1.02) H 01/05/18 06:15 Estimated GFR/1.73 m2 40.49 (mL/min/1.73m2) 01/05/18 06:15 Glucose 114 mg/dL (70-100) H 01/05/18 06:15 Calcium 9.4 mg/dL (8.5-10.1) 01/05/18 06:15 Magnesium 1.6 mg/dL (1.8-2.4) L 01/03/18 06:25 Total Bilirubin 0.2 mg/dL (0.2-1.0) 01/01/18 10:20 Conjugated Bilirubin 0.06 mg/dL (0.00-0.20) 01/01/18 10:20 AST 22 U/L (15-37) 01/01/18 10:20 ALT 32 U/L (12-78) 01/01/18 10:20 Alkaline Phosphatase 44 U/L (46-116) L 01/01/18 10:20 Troponin I < 0.02 ng/mL (0.00-0.06) 01/02/18 02:00 Total Protein 5.7 g/dL (6.4-8.2) L 01/01/18 10:20 Albumin 2.6 g/dL (3.4-5.0) L 01/01/18 10:20 Urine Color Yellow (Yellow) 01/04/18 16:30 Urine Clarity Clear 01/04/18 16:30 Urine pH 6.0 (5-8) 01/04/18 16:30 Ur Specific [place] 1.020 (1.005-1.025) 01/04/18 16:30 Urine Protein Negative mg/dL (Negative) 01/04/18 16:30 Urine Ketones Trace mg/dL (Negative) H 01/04/18 16:30 Urine Blood Large (Negative) H 01/04/18 16:30 Urine Nitrite Negative (Negative) 01/04/18 16:30 Urine Bilirubin Negative (Negative) 01/04/18 16:30 Urine Urobilinogen 0.2 EU/dL (Up TO 0.2) 01/04/18 16:30 Ur Leukocyte Esterase Negative (Negative) 01/04/18 16:30 Urine RBC >50 (0-2) H 01/04/18 16:30 Urine WBC 5-10 HPF (0-5) 01/04/18 16:30 Ur Epithelial Cells Few HPF (Negative) 01/04/18 16:30 Urine Crystals Negative HPF (Negative) 01/04/18 16:30 Urine Bacteria Few HPF (Negative) 01/04/18 16:30 Urine Casts Negative LPF (Negative) 01/04/18 16:30 Urine Mucus Negative (Negative) 01/04/18 16:30 Ur Culture Indicated? Yes 01/04/18 16:30 Urine Glucose Negative mg/dL (Negative) 01/04/18 16:30 Patient ABO/Rh A Positive 01/01/18 10:20 Antibody Screen Negative 01/01/18 10:20
--- NOTE | 2018-01-05 14:14 | PGE_ITS ---
Assessment and Plan (1) Upper GI bleeding: Current visit: Yes Status: Acute S/p EGD on 01/02/2018 showing esophagitis, gastritis, duodenitis with shallow ulcerations noted, biopsied. Current Hgb continues to appear stable. Tolerating regular diet. Continue heparin gtt with plans to transition to oral anticoagulation pending decision on work-up of hematuria. (2) Hypercoagulable state: Current visit: Yes Status: Chronic Initiated Heparin gtt with H/H holding at this time. Patient has a history of both arterial and venous thromboses as well as CVA and [place]. Nature of hypercoagulable state uncertain. Plan as above, with potential change to Apixaban for decreased risk of GI bleeding. (3) Syncopal episodes: Current visit: Yes Status: Chronic Patient reports prior episodes - syncope in setting of GI Bleed and anemia. (4) CKD (chronic kidney disease): Current visit: Yes Status: Chronic Stage 3 - noted. Avoid nephrotoxins, renally dose medications when appropriate. (5) Pulmonary embolism: Current visit: Yes Status: Chronic Hx of Hypercoagulable State per History, with prior arterial and venous thromboses as well as CVA and [place]. Will continue anticoagulation as above. (6) SVT (supraventricular tachycardia): Current visit: Yes Status: Chronic Continue BB therapy and maintain on cardiac monitoring while anemic. Follows with [facility] [place] cardiology. Last ECHO 05/2017 with normal LVEF and no significant valvulopathy despite murmur. (7) CVA (cerebral vascular accident): Current visit: Yes Status: Chronic (8) CAD (coronary artery disease): Current visit: Yes Status: Chronic Continue statin, BB. No antiplatelet therapy recorded. Needs improved blood pressure control. (9) Essential hypertension: Current visit: Yes Status: Chronic On BB and CCB. Patient with evidence of CKD, likely on the basis of chronic hypertension. Refused SERGIO-I due to prior dislike of this medication. Started low dose ARB - uptitrated yesterday. Blood pressure improved but still suboptimal. Monitor. (10) DVT prophylaxis: Current visit: Yes Status: Acute On heparin gtt. Subjective Interval history since last seen: Pleasant 72 year old woman with a past medical history significant for Hypercoagulable state (Unclear of type), CAD with prior history of [place], CVA, and previous PE on anticoagulation with Rivaroxaban presented to [facility] ED initially on 01/01/2018 with reported black stools, hematemesis, and syncope. Since the time of admission the patient has undergone an EGD showing esophagitis , gastritis, and duodenitis with very shallow ulcerations and no active bleeding. She has also been maintained on IV PPI and Carafate. Her Hemoglobin while low remains stable, and she is now on a regular diet. Mrs. Aguilar reports essential resolution of black stools and states that they have become more formed since time of admission, but reported hematuria that is continuing today. No other overnight events were reported. She remains afebrile. Exam Narrative Exam Narrative: General: Comfortable appearing, sitting up in bed. AAOX3, No acute distress. Neck: Supple Cardiovascular: Regular, Non-tachycardic. No overt rubs or gallops. 3/6 RUSB/ LLSB murmur again noted. Lungs: CTAB without crackles or rhonchi. Gastrointestinal: Soft, nontender, nondistended. Extremities: no edema Objective Objective Clinical Data: Abnormal lab results 01/04/18 01/04/18 01/04/18 Range/Units 14:55 14:55 16:30 RBC (4.00-5.20) m/cumm Hgb 8.6 L (12.0-15.5) g/dL Hct 27.5 L (36.0-46.0) % MCHC (32.0-36.0) g/dL RDW (11.7-14.6) % MPV (8.0-11.0) fL Absolute Monocytes (0.11-0.7) k/cumm APTT 74.7 H D (21.0-31.4) sec Creatinine (0.55-1.02) mg/dL Glucose (70-100) mg/dL Urine Ketones Trace H (Negative) mg/dL Urine Blood Large H (Negative) Urine RBC >50 H (0-2) 01/04/18 01/05/18 01/05/18 Range/Units 22:00 06:15 06:15 RBC 3.02 L (4.00-5.20) m/cumm Hgb 8.5 L (12.0-15.5) g/dL Hct 27.2 L (36.0-46.0) % MCHC 31.3 L (32.0-36.0) g/dL RDW 14.7 H (11.7-14.6) % MPV 13.0 H (8.0-11.0) fL Absolute Monocytes 0.96 H (0.11-0.7) k/cumm APTT 69.2 H (21.0-31.4) sec Creatinine 1.30 H (0.55-1.02) mg/dL Glucose 114 H (70-100) mg/dL Urine Ketones (Negative) mg/dL Urine Blood (Negative) Urine RBC (0-2) 01/05/18 Range/Units 06:15 RBC (4.00-5.20) m/cumm Hgb (12.0-15.5) g/dL Hct (36.0-46.0) % MCHC (32.0-36.0) g/dL RDW (11.7-14.6) % MPV (8.0-11.0) fL Absolute Monocytes (0.11-0.7) k/cumm APTT 48.6 H D (21.0-31.4) sec Creatinine (0.55-1.02) mg/dL Glucose (70-100) mg/dL Urine Ketones (Negative) mg/dL Urine Blood (Negative) Urine RBC (0-2) Vital Signs Temperature 37.5 C 01/05/18 12:07 Temperature Source Temporal Artery Scan 01/05/18 12:07 Pulse 61 01/05/18 11:56 Pulse Rhythm Regular 01/05/18 08:15 Pulse 70 01/05/18 11:56 Respiratory Rate 20 01/05/18 11:56 Respiratory Effort 01/05/18 08:15 Respiratory Depth Normal 01/05/18 08:15 Respiratory Pattern Normal 01/05/18 08:15 Blood Pressure 142/68 H 01/05/18 11:56 Blood Pressure Mean 84 01/05/18 11:56 Blood Pressure Position Supine 01/01/18 12:38 Pulse Oximetry 95 01/05/18 12:07 Oxygen Delivery Method Room Air 01/05/18 12:07 Oxygen Flow Rate 0 01/05/18 12:07 Pain Level 0 01/04/18 11:45 Comment 01/03/18 00:58 Intake & Output 01/04/18 01/05/18 01/05/18 23:59 11:59 23:59 Intake Total 1634.533 / 1634.533 949.8 / 949.8 480 / 480 Output Total 850 / 850 1150 / 1150 Balance 784.533 / 784.533 -200.2 / -200.2 480 / 480 Weight 92.5 kg Intake: IV 144.533 / 144.533 59.8 / 59.8 Oral 1490 / 1490 890 / 890 480 / 480 Output: Urine 850 / 850 1150 / 1150 Other: Urine Color Yellow Yellow Urine Appearance Clear Clear Urine Odor Normal None Stool Size Moderate Stool Characteristics Soft Formed Brown Voiding Methods Bedside Commode Laboratory Results WBC 8.46 k/cumm (4.4-10.8) 01/05/18 06:15 RBC 3.02 m/cumm (4.00-5.20) L 01/05/18 06:15 Hgb 8.5 g/dL (12.0-15.5) L 01/05/18 06:15 Hct 27.2 % (36.0-46.0) L 01/05/18 06:15 MCV 90.1 fL (80-95) 01/05/18 06:15 MCH 28.1 pg (27.0-33.0) 01/05/18 06:15 MCHC 31.3 g/dL (32.0-36.0) L 01/05/18 06:15 RDW 14.7 % (11.7-14.6) H 01/05/18 06:15 Plt Count 143 x1000/uL (130-400) 01/05/18 06:15 MPV 13.0 fL (8.0-11.0) H 01/05/18 06:15 Immature Gran % 0.4 01/05/18 06:15 Neutrophils % 50.0 01/05/18 06:15 Lymphocytes % 36.4 01/05/18 06:15 Monocytes % 11.3 01/05/18 06:15 Eosinophils % 1.7 01/05/18 06:15 Basophils % 0.2 01/05/18 06:15 Absolute Neutrophils 4.23 k/cumm (1.2-6.7) 01/05/18 06:15 Absolute Lymphocytes 3.08 k/cumm (1.2-3.4) 01/05/18 06:15 Absolute Monocytes 0.96 k/cumm (0.11-0.7) H 01/05/18 06:15 Absolute Eosinophils 0.14 k/cumm (0.0-0.7) 01/05/18 06:15 Absolute Basophils 0.02 k/cumm (0.0-0.2) 01/05/18 06:15 Differential Comment Rbc morph reviewed 01/01/18 10:20 RBC Morphology See below 01/01/18 10:20 Polychromasia Present 01/01/18 10:20 Anisocytosis 1+ 01/01/18 10:20 PT 10.8 sec (9.3-10.8) 01/01/18 10:20 INR 1.1 (1.0-3.5) 01/01/18 10:20 APTT 48.6 sec (21.0-31.4) H D 01/05/18 06:15 Sodium 142 mmol/L (136-145) 01/05/18 06:15 Potassium 4.3 mmol/L (3.5-5.1) 01/05/18 06:15 Chloride 107 mmol/L (98-107) 01/05/18 06:15 Carbon Dioxide 26.7 mmol/L (21.0-32.0) 01/05/18 06:15 Anion Gap 8.3 mmol/L (3-11) 01/05/18 06:15 BUN 13 mg/dL (7-18) 01/05/18 06:15 Creatinine 1.30 mg/dL (0.55-1.02) H 01/05/18 06:15 Estimated GFR/1.73 m2 40.49 (mL/min/1.73m2) 01/05/18 06:15 Glucose 114 mg/dL (70-100) H 01/05/18 06:15 Calcium 9.4 mg/dL (8.5-10.1) 01/05/18 06:15 Magnesium 1.6 mg/dL (1.8-2.4) L 01/03/18 06:25 Total Bilirubin 0.2 mg/dL (0.2-1.0) 01/01/18 10:20 Conjugated Bilirubin 0.06 mg/dL (0.00-0.20) 01/01/18 10:20 AST 22 U/L (15-37) 01/01/18 10:20 ALT 32 U/L (12-78) 01/01/18 10:20 Alkaline Phosphatase 44 U/L (46-116) L 01/01/18 10:20 Troponin I < 0.02 ng/mL (0.00-0.06) 01/02/18 02:00 Total Protein 5.7 g/dL (6.4-8.2) L 01/01/18 10:20 Albumin 2.6 g/dL (3.4-5.0) L 01/01/18 10:20 Urine Color Yellow (Yellow) 01/04/18 16:30 Urine Clarity Clear 01/04/18 16:30 Urine pH 6.0 (5-8) 01/04/18 16:30 Ur Specific [place] 1.020 (1.005-1.025) 01/04/18 16:30 Urine Protein Negative mg/dL (Negative) 01/04/18 16:30 Urine Ketones Trace mg/dL (Negative) H 01/04/18 16:30 Urine Blood Large (Negative) H 01/04/18 16:30 Urine Nitrite Negative (Negative) 01/04/18 16:30 Urine Bilirubin Negative (Negative) 01/04/18 16:30 Urine Urobilinogen 0.2 EU/dL (Up TO 0.2) 01/04/18 16:30 Ur Leukocyte Esterase Negative (Negative) 01/04/18 16:30 Urine RBC >50 (0-2) H 01/04/18 16:30 Urine WBC 5-10 HPF (0-5) 01/04/18 16:30 Ur Epithelial Cells Few HPF (Negative) 01/04/18 16:30 Urine Crystals Negative HPF (Negative) 01/04/18 16:30 Urine Bacteria Few HPF (Negative) 01/04/18 16:30 Urine Casts Negative LPF (Negative) 01/04/18 16:30 Urine Mucus Negative (Negative) 01/04/18 16:30 Ur Culture Indicated? Yes 01/04/18 16:30 Urine Glucose Negative mg/dL (Negative) 01/04/18 16:30 Patient ABO/Rh A Positive 01/01/18 10:20 Antibody Screen Negative 01/01/18 10:20
--- NOTE | 2018-01-05 15:58 | W.UROLOGYCON ---
Date of service: 01/05/18 Time of Service: 15:58 History of Present Illness Chief Complaint: Gross hematuria Narrative: This is a 72-year-old woman who is on chronic anticoagulants She describes discoloration to her urine over several months. The discoloration tends to come and go. When it occurred during this hospitalization, she was told that it was related to gross hematuria. I have been asked to see her for the hematuria evaluation. She is under the care of nephrology at [facility]. She does recall having had numerous imaging studies of her kidney but she cannot quite recall when the most recent study may have been. She does have a history of kidney stones. She has had ESWL in the past. She is a smoker. She does not recall ever having had a cystoscopy Review of Systems Constitutional Comments: She has no fever or chills She has no current chest pain or palpitations She has no cough or sputum production She has no nausea or vomiting [facility] Social History Smoking/Tobacco Use Status: Current every day Surgical History Appendectomy section Colonoscopy - [facility] [place] (12/29/15) Exam Const Other: She is a very pleasant woman. She is not in any current distress. Her skin is warm and dry she does not appear septic or toxic. Her abdomen is soft. With no guarding or rebound tenderness. She is awake, alert and oriented. I did review her previous lab work. I find documentation of hematuria as far back as 2015. A CT scan back in 2014 documented kidney stones Results Last Vital Signs Temp 37.5 C 01/05/18 12:07 Pulse 61 01/05/18 11:56 Resp 18 01/05/18 14:00 BP 142/68 H 01/05/18 11:56 Pulse Ox 95 01/05/18 12:07 Labs : 01/05/18 06:15 01/05/18 06:15 Laboratory Results - last 24 hr 01/04/18 01/04/18 01/04/18 14:55 16:30 22:00 WBC RBC Hgb Hct MCV MCH MCHC RDW Plt Count MPV Immature Gran % Neutrophils % Lymphocytes % Monocytes % Eosinophils % Basophils % Absolute Neutrophils Absolute Lymphocytes Absolute Monocytes Absolute Eosinophils Absolute Basophils APTT 74.7 H D 69.2 H Sodium Potassium Chloride Carbon Dioxide Anion Gap BUN Creatinine Estimated GFR/1.73 m2 Glucose Calcium Urine Color Yellow Urine Clarity Clear Urine pH 6.0 Ur Specific [place] 1.020 Urine Protein Negative Urine Ketones Trace H Urine Blood Large H Urine Nitrite Negative Urine Bilirubin Negative Urine Urobilinogen 0.2 Ur Leukocyte Esterase Negative Urine RBC >50 H Urine WBC 5-10 Ur Epithelial Cells Few Urine Crystals Negative Urine Bacteria Few Urine Casts Negative Urine Mucus Negative Ur Culture Indicated? Yes Urine Glucose Negative 01/05/18 01/05/18 01/05/18 06:15 06:15 06:15 WBC 8.46 RBC 3.02 L Hgb 8.5 L Hct 27.2 L MCV 90.1 MCH 28.1 MCHC 31.3 L RDW 14.7 H Plt Count 143 MPV 13.0 H Immature Gran % 0.4 Neutrophils % 50.0 Lymphocytes % 36.4 Monocytes % 11.3 Eosinophils % 1.7 Basophils % 0.2 Absolute Neutrophils 4.23 Absolute Lymphocytes 3.08 Absolute Monocytes 0.96 H Absolute Eosinophils 0.14 Absolute Basophils 0.02 APTT 48.6 H D Sodium 142 Potassium 4.3 Chloride 107 Carbon Dioxide 26.7 Anion Gap 8.3 BUN 13 Creatinine 1.30 H Estimated GFR/1.73 m2 40.49 Glucose 114 H Calcium 9.4 Urine Color Urine Clarity Urine pH Ur Specific Metter Urine Protein Urine Ketones Urine Blood Urine Nitrite Urine Bilirubin Urine Urobilinogen Ur Leukocyte Esterase Urine RBC Urine WBC Ur Epithelial Cells Urine Crystals Urine Bacteria Urine Casts Urine Mucus Ur Culture Indicated? Urine Glucose Assessment and Plan (1) Hematuria: Current visit: Yes Status: Acute We usually begin our workup with some type of imaging followed by cystoscopy. 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 It may be that we do not need to repeat any type of imaging if her studies were recent. If we are unable to locate any previous imaging, or if the imaging was quite some time ago, we would probably recommend a renal ultrasound and follow that up with a cystoscopy and retrograde pyelogram. We will make a final decision once I get a hold of her old records (2) History of kidney stones: Current visit: Yes Status: Acute
--- NOTE | 2018-01-05 16:03 | UCONE_ITS ---
Date of service: 01/05/18 Time of Service: 15:58 History of Present Illness Chief Complaint: Gross hematuria Narrative: This is a 72-year-old woman who is on chronic anticoagulants She describes discoloration to her urine over several months. The discoloration tends to come and go. When it occurred during this hospitalization, she was told that it was related to gross hematuria. I have been asked to see her for the hematuria evaluation. She is under the care of nephrology at [facility]. She does recall having had numerous imaging studies of her kidney but she cannot quite recall when the most recent study may have been. She does have a history of kidney stones. She has had ESWL in the past. She is a smoker. She does not recall ever having had a cystoscopy Review of Systems Constitutional Comments: She has no fever or chills She has no current chest pain or palpitations She has no cough or sputum production She has no nausea or vomiting [facility] Social History Smoking/Tobacco Use Status: Current every day Surgical History [place] [facility] [place] Exam Const Other: She is a very pleasant woman. She is not in any current distress. Her skin is warm and dry she does not appear septic or toxic. Her abdomen is soft. With no guarding or rebound tenderness. She is awake, alert and oriented. I did review her previous lab work. I find documentation of hematuria as far back as 2015. A CT scan back in 2014 documented kidney stones Results Last Vital Signs Temp 37.5 C 01/05/18 12:07 Pulse 61 01/05/18 11:56 Resp 18 01/05/18 14:00 BP 142/68 H 01/05/18 11:56 Pulse Ox 95 01/05/18 12:07 Labs : 01/05/18 06:15 01/05/18 06:15 Laboratory Results - last 24 hr 01/04/18 01/04/18 01/04/18 14:55 16:30 22:00 WBC RBC Hgb Hct MCV MCH MCHC RDW Plt Count MPV Immature Gran % Neutrophils % Lymphocytes % Monocytes % Eosinophils % Basophils % Absolute Neutrophils Absolute Lymphocytes Absolute Monocytes Absolute Eosinophils Absolute Basophils APTT 74.7 H D 69.2 H Sodium Potassium Chloride Carbon Dioxide Anion Gap BUN Creatinine Estimated GFR/1.73 m2 Glucose Calcium Urine Color Yellow Urine Clarity Clear Urine pH 6.0 Ur Specific [place] 1.020 Urine Protein Negative Urine Ketones Trace H Urine Blood Large H Urine Nitrite Negative Urine Bilirubin Negative Urine Urobilinogen 0.2 Ur Leukocyte Esterase Negative Urine RBC >50 H Urine WBC 5-10 Ur Epithelial Cells Few Urine Crystals Negative Urine Bacteria Few Urine Casts Negative Urine Mucus Negative Ur Culture Indicated? Yes Urine Glucose Negative 01/05/18 01/05/18 01/05/18 06:15 06:15 06:15 WBC 8.46 RBC 3.02 L Hgb 8.5 L Hct 27.2 L MCV 90.1 MCH 28.1 MCHC 31.3 L RDW 14.7 H Plt Count 143 MPV 13.0 H Immature Gran % 0.4 Neutrophils % 50.0 Lymphocytes % 36.4 Monocytes % 11.3 Eosinophils % 1.7 Basophils % 0.2 Absolute Neutrophils 4.23 Absolute Lymphocytes 3.08 Absolute Monocytes 0.96 H Absolute Eosinophils 0.14 Absolute Basophils 0.02 APTT 48.6 H D Sodium 142 Potassium 4.3 Chloride 107 Carbon Dioxide 26.7 Anion Gap 8.3 BUN 13 Creatinine 1.30 H Estimated GFR/1.73 m2 40.49 Glucose 114 H Calcium 9.4 Urine Color Urine Clarity Urine pH Ur Specific [place] Urine Protein Urine Ketones Urine Blood Urine Nitrite Urine Bilirubin Urine Urobilinogen Ur Leukocyte Esterase Urine RBC Urine WBC Ur Epithelial Cells Urine Crystals Urine Bacteria Urine Casts Urine Mucus Ur Culture Indicated? Urine Glucose Assessment and Plan (1) Hematuria: Current visit: Yes Status: Acute We usually begin our workup with some type of imaging followed by cystoscopy. 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 It may be that we do not need to repeat any type of imaging if her studies were recent. If we are unable to locate any previous imaging, or if the imaging was quite some time ago, we would probably recommend a renal ultrasound and follow that up with a cystoscopy and retrograde pyelogram. We will make a final decision once I get a hold of her old records (2) History of kidney stones: Current visit: Yes Status: Acute
[2018-01-05] MEDS: Metoprolol CR 50 MG TABCR 100 MG PO (22:10)
[2018-01-06] VITALS (12 sets, daily range): BP systolic 141–169; BP diastolic 43–70; PULSE 54–70; RESP 14–20; TEMP 36.3–37.2; O2SAT 96–99
[2018-01-06 07:26] LABS: Abs Immature Grans 0.07 k/cumm (0.0-0.09); Absolute Basophil Count 0.02 k/cumm (0.0-0.2); Absolute Eosinophil Count 0.19 k/cumm (0.0-0.7); Absolute Neutrophil Count 4.68 k/cumm (1.2-6.7); Basophils % 0.2; HGB 8.5 g/dL (12.0-15.5); Immature Grans % 0.7; Lymphocytes % 35.9; Mean Corp. HGB Concentration 30.4 g/dL (32.0-36.0); Mean Corpuscular Hemoglobin 27.4 pg (27.0-33.0); Mean Corpuscular Volume 90.3 fL (80-95); Mean Platelet Volume 13.3 fL (8.0-11.0); Monocytes % 11.6; Neutrophils % 49.6; White Blood Cell Count 9.46 k/cumm (4.4-10.8)
--- NOTE | 2018-01-06 07:27 | PGE_ITS ---
Assessment and Plan (1) Hematuria: Current visit: Yes Status: Acute I was able to review her previous films that were done at [facility] [place]. Her last ultrasound was from 03/13/2017. There was a 1.1 cm right lower pole kidney stone identified. The report indicates not hydronephrosis at that time. This is also mention of a large amount of gas preventing good visualization of the renal paranchyma. The last renal imaging from our facility is from 2014 and the report indicates multiple right renal stones and scarring of the right renal paranchyma. To my reading, the lower pole stone measured 11 to 12 mm at that time, so hopefully her stone burden remains fairly stable. Since it has been close to a year since her last imaging and since it sounds like the images were less than optimal, I will ask for a renal US to begin her hematuria evaluation. Ultimately, she will likely need a cystoscopy and retrograde pyelogram to complete the workup. (2) History of kidney stones: Current visit: Yes Status: Acute Subjective Interval history since last seen: She has no flank pain or other symptoms of renal colic. Exam Narrative Exam Narrative: She looks well. She does not appear septic/toxic. Objective Objective Clinical Data: Abnormal lab results 01/05/18 01/05/18 01/05/18 Range/Units 06:15 06:15 06:15 RBC 3.02 L (4.00-5.20) m/cumm Hgb 8.5 L (12.0-15.5) g/dL Hct 27.2 L (36.0-46.0) % MCHC 31.3 L (32.0-36.0) g/dL RDW 14.7 H (11.7-14.6) % MPV 13.0 H (8.0-11.0) fL Absolute Monocytes 0.96 H (0.11-0.7) k/cumm APTT 48.6 H D (21.0-31.4) sec Creatinine 1.30 H (0.55-1.02) mg/dL Glucose 114 H (70-100) mg/dL Vital Signs Temperature 36.3 C L 01/05/18 19:55 Temperature Source Temporal Artery Scan 01/05/18 19:55 Pulse 56 L 01/06/18 06:19 Pulse Rhythm Regular 01/06/18 00:27 Pulse 54 L 01/06/18 06:19 Respiratory Rate 15 01/06/18 06:19 Respiratory Effort Non-Labored 01/06/18 00:27 Respiratory Depth Normal 01/06/18 00:27 Respiratory Pattern Normal 01/06/18 00:27 Blood Pressure 145/58 H 01/06/18 06:19 Blood Pressure Mean 75 01/06/18 06:19 Blood Pressure Position Supine 01/01/18 12:38 Pulse Oximetry 98 01/05/18 19:55 Oxygen Delivery Method Room Air 01/05/18 19:55 Oxygen Flow Rate 0 01/05/18 19:55 Pain Level 0 01/05/18 19:55 Comment 01/03/18 00:58 Intake & Output 01/05/18 01/05/18 01/06/18 11:59 23:59 11:59 Intake Total 949.8 / 949.8 1265.667 / 1265.667 150 / 150 Output Total 1500 / 1500 1325 / 1325 800 / 800 Balance -550.2 / -550.2 -59.333 / -59.333 -650 / -650 Weight 92.5 kg Intake: IV 59.8 / 59.8 65.667 / 65.667 Oral 890 / 890 1200 / 1200 150 / 150 Output: Urine 1500 / 1500 1325 / 1325 800 / 800 Other: Urine Color Yellow Light Daria Pale Urine Appearance Clear Clear Clear Urine Odor None Normal Normal Comment BSC emptied. Stool Occult Blood Positive Stool Size Moderate Moderate Stool Characteristics Soft Soft Formed Brown Brown Voiding Methods Bedside Commode Bedside Commode Laboratory Results WBC 8.46 k/cumm (4.4-10.8) 01/05/18 06:15 RBC 3.02 m/cumm (4.00-5.20) L 01/05/18 06:15 Hgb 8.5 g/dL (12.0-15.5) L 01/05/18 06:15 Hct 27.2 % (36.0-46.0) L 01/05/18 06:15 MCV 90.1 fL (80-95) 01/05/18 06:15 MCH 28.1 pg (27.0-33.0) 01/05/18 06:15 MCHC 31.3 g/dL (32.0-36.0) L 01/05/18 06:15 RDW 14.7 % (11.7-14.6) H 01/05/18 06:15 Plt Count 143 x1000/uL (130-400) 01/05/18 06:15 MPV 13.0 fL (8.0-11.0) H 01/05/18 06:15 Immature Gran % 0.4 01/05/18 06:15 Neutrophils % 50.0 01/05/18 06:15 Lymphocytes % 36.4 01/05/18 06:15 Monocytes % 11.3 01/05/18 06:15 Eosinophils % 1.7 01/05/18 06:15 Basophils % 0.2 01/05/18 06:15 Absolute Neutrophils 4.23 k/cumm (1.2-6.7) 01/05/18 06:15 Absolute Lymphocytes 3.08 k/cumm (1.2-3.4) 01/05/18 06:15 Absolute Monocytes 0.96 k/cumm (0.11-0.7) H 01/05/18 06:15 Absolute Eosinophils 0.14 k/cumm (0.0-0.7) 01/05/18 06:15 Absolute Basophils 0.02 k/cumm (0.0-0.2) 01/05/18 06:15 Differential Comment Rbc morph reviewed 01/01/18 10:20 RBC Morphology See below 01/01/18 10:20 Polychromasia Present 01/01/18 10:20 Anisocytosis 1+ 01/01/18 10:20 PT 10.8 sec (9.3-10.8) 01/01/18 10:20 INR 1.1 (1.0-3.5) 01/01/18 10:20 APTT 48.6 sec (21.0-31.4) H D 01/05/18 06:15 Sodium 142 mmol/L (136-145) 01/05/18 06:15 Potassium 4.3 mmol/L (3.5-5.1) 01/05/18 06:15 Chloride 107 mmol/L (98-107) 01/05/18 06:15 Carbon Dioxide 26.7 mmol/L (21.0-32.0) 01/05/18 06:15 Anion Gap 8.3 mmol/L (3-11) 01/05/18 06:15 BUN 13 mg/dL (7-18) 01/05/18 06:15 Creatinine 1.30 mg/dL (0.55-1.02) H 01/05/18 06:15 Estimated GFR/1.73 m2 40.49 (mL/min/1.73m2) 01/05/18 06:15 Glucose 114 mg/dL (70-100) H 01/05/18 06:15 Calcium 9.4 mg/dL (8.5-10.1) 01/05/18 06:15 Magnesium 1.6 mg/dL (1.8-2.4) L 01/03/18 06:25 Total Bilirubin 0.2 mg/dL (0.2-1.0) 01/01/18 10:20 Conjugated Bilirubin 0.06 mg/dL (0.00-0.20) 01/01/18 10:20 AST 22 U/L (15-37) 01/01/18 10:20 ALT 32 U/L (12-78) 01/01/18 10:20 Alkaline Phosphatase 44 U/L (46-116) L 01/01/18 10:20 Troponin I < 0.02 ng/mL (0.00-0.06) 01/02/18 02:00 Total Protein 5.7 g/dL (6.4-8.2) L 01/01/18 10:20 Albumin 2.6 g/dL (3.4-5.0) L 01/01/18 10:20 Urine Color Yellow (Yellow) 01/04/18 16:30 Urine Clarity Clear 01/04/18 16:30 Urine pH 6.0 (5-8) 01/04/18 16:30 Ur Specific [place] 1.020 (1.005-1.025) 01/04/18 16:30 Urine Protein Negative mg/dL (Negative) 01/04/18 16:30 Urine Ketones Trace mg/dL (Negative) H 01/04/18 16:30 Urine Blood Large (Negative) H 01/04/18 16:30 Urine Nitrite Negative (Negative) 01/04/18 16:30 Urine Bilirubin Negative (Negative) 01/04/18 16:30 Urine Urobilinogen 0.2 EU/dL (Up TO 0.2) 10/14/18 16:30 Ur Leukocyte Esterase Negative (Negative) 01/04/18 16:30 Urine RBC >50 (0-2) H 01/04/18 16:30 Urine WBC 5-10 HPF (0-5) 01/04/18 16:30 Ur Epithelial Cells Few HPF (Negative) 01/04/18 16:30 Urine Crystals Negative HPF (Negative) 01/04/18 16:30 Urine Bacteria Few HPF (Negative) 01/04/18 16:30 Urine Casts Negative LPF (Negative) 01/04/18 16:30 Urine Mucus Negative (Negative) 01/04/18 16:30 Ur Culture Indicated? Yes 01/04/18 16:30 Urine Glucose Negative mg/dL (Negative) 01/04/18 16:30 Patient ABO/Rh A Positive 01/01/18 10:20 Antibody Screen Negative 01/01/18 10:20
[2018-01-06] MEDS: Sucralfate 1 GM TAB PO ×4 (07:38→20:29)
[2018-01-06 07:48] LABS: PTT Activated 34.5 sec (21.0-31.4)
[2018-01-06 08:03] LABS: Diff Comment RBC Morph Reviewed
[2018-01-06 08:04] LABS: Anisocytosis 1+; Basophilic Stippling Present; Hypochromasia 1+; Platelet Count 169 x1000/uL (130-400); Polychromasia Present
[2018-01-06 08:07] LABS: BUN 16 mg/dL (7-18); CREATININE 1.32 mg/dL (0.55-1.02); Calcium 9.2 mg/dL (8.5-10.1); Chloride 106 mmol/L (98-107); Estimated GFR 39.79 (mL/min/1.73m2); Glucose 112 mg/dL (70-100); Potassium 4.5 mmol/L (3.5-5.1); Sodium 142 mmol/L (136-145)
[2018-01-06] MEDS: Sertraline 50 MG TAB 150 MG PO (08:44)
[2018-01-06] MEDS: Losartan 25 MG TAB 50 MG PO (08:44)
[2018-01-06] MEDS: amLODIPine 10 MG TAB PO (08:44)
[2018-01-06] MEDS: Atorvastatin 40 MG TAB PO (08:44)
[2018-01-06] MEDS: Normal Saline Flush 10 ML SYR IVP ×2 (08:45→20:21)
[2018-01-06] MEDS: Pantoprazole 40 MG VIAL IVP ×2 (08:45→20:20)
--- NOTE | 2018-01-06 10:59 | W.PM.PROGNOT ---
Assessment and Plan (1) Upper GI bleeding: Current visit: Yes Status: Acute S/p EGD on 01/02/2018 showing esophagitis, gastritis, duodenitis with shallow ulcerations noted, biopsied. Current Hgb continues to appear stable. Tolerating regular diet. Continue heparin gtt with plans to transition to oral anticoagulation pending decision on work-up of hematuria. (2) Hypercoagulable state: Current visit: Yes Status: Chronic Initiated Heparin gtt with H/H holding at this time. 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 Nature of hypercoagulable state uncertain. Plan as above, with potential change to Apixaban for decreased risk of GI bleeding. (3) Syncopal episodes: Current visit: Yes Status: Chronic Patient reports prior episodes - syncope in setting of GI Bleed and anemia. (4) CKD (chronic kidney disease): Current visit: Yes Status: Chronic Stage 3 - noted. Avoid nephrotoxins, renally dose medications when appropriate. (5) Pulmonary embolism: Current visit: Yes Status: Chronic Hx of Hypercoagulable State per History, with prior arterial and venous thromboses as well as CVA and NV. Will continue anticoagulation as above. (6) SVT (supraventricular tachycardia): Current visit: Yes Status: Chronic Continue BB therapy and maintain on cardiac monitoring while anemic. Follows with [facility] cardiology. Last ECHO 05/2017 with normal LVEF and no significant valvulopathy despite murmur. (7) CVA (cerebral vascular accident): Current visit: Yes Status: Chronic (8) CAD (coronary artery disease): Current visit: Yes Status: Chronic Continue statin, BB. No antiplatelet therapy recorded. Needs improved blood pressure control. (9) Essential hypertension: Current visit: Yes Status: Chronic On BB and CCB. Patient with evidence of CKD, likely on the basis of chronic hypertension. Refused SERGIO-I due to prior dislike of this medication. Started low dose ARB - uptitrated previously. Blood pressure has improved but is still suboptimal. Monitor. (10) Hematuria: Current visit: Yes Status: Acute In patient with history of kidney stones. For repeat ultrasound, with potential cystoscopy. (11) DVT prophylaxis: Current visit: Yes Status: Acute On heparin gtt. Subjective Interval history since last seen: Pleasant 72 year old woman with a past medical history significant for Hypercoagulable state (Unclear of type), CAD with prior history of NV, CVA, and previous PE on anticoagulation with Rivaroxaban presented to [facility] ED initially on 01/01/2018 with reported black stools, hematemesis, and syncope. Since the time of admission the patient has undergone an EGD showing esophagitis, gastritis, and duodenitis with very shallow ulcerations and no active bleeding. She has also been maintained on IV PPI and Carafate. Her Hemoglobin while low remains stable, and she is now on a regular diet. Mrs. Aguilar reports resolution of black stools and states that they have become more formed since time of admission, but reported hematuria that continues. She has a history of nephrolithiasis, and urology consultation reports ultrasound from last year with a left sided renal calculus, and multiple prior right sided stones as well. No other overnight events were reported. She remains afebrile. Exam Narrative Exam Narrative: General: Comfortable appearing, sitting up in bed. AAOX3, No acute distress. Neck: Supple Cardiovascular: Regular, Non-tachycardic. No overt rubs or gallops. 3/6 RUSB/LLSB murmur again noted. Lungs: CTAB without crackles or rhonchi. Gastrointestinal: Soft, nontender, nondistended. Extremities: no edema Objective Objective Clinical Data: Abnormal lab results 01/06/18 01/06/18 01/06/18 Range/Units 06:20 06:20 06:20 RBC 3.10 L (4.00-5.20) m/cumm Hgb 8.5 L (12.0-15.5) g/dL Hct 28.0 L (36.0-46.0) % MCHC 30.4 L (32.0-36.0) g/dL RDW 15.0 H (11.7-14.6) % MPV 13.3 H (8.0-11.0) fL Absolute Monocytes 1.10 H (0.11-0.7) k/cumm APTT 34.5 H (21.0-31.4) sec Creatinine 1.32 H (0.55-1.02) mg/dL Glucose 112 H (70-100) mg/dL Vital Signs Temperature 36.3 C L 01/06/18 07:36 Temperature Source Temporal Artery Scan 01/06/18 07:36 Pulse 55 L 01/06/18 07:38 Pulse Rhythm Regular 01/06/18 07:36 Pulse 55 L 01/06/18 07:38 Respiratory Rate 17 01/06/18 07:38 Respiratory Effort Non-Labored 01/06/18 07:36 Respiratory Depth Normal 01/06/18 07:36 Respiratory Pattern Normal 01/06/18 07:36 Blood Pressure 157/43 H 01/06/18 07:38 Blood Pressure Mean 71 01/06/18 07:38 Blood Pressure Position Supine 01/01/18 12:38 Pulse Oximetry 99 01/06/18 07:36 Oxygen Delivery Method Room Air 01/06/18 07:36 Oxygen Flow Rate 0 01/06/18 07:36 Pain Level 0 01/06/18 07:36 Comment 01/03/18 00:58 Intake & Output 01/05/18 01/05/18 01/06/18 11:59 23:59 11:59 Intake Total 949.8 / 949.8 1265.667 / 1265.667 240.242 / 240.242 Output Total 1500 / 1500 1325 / 1325 1000 / 1000 Balance -550.2 / -550.2 -59.333 / -59.333 -759.758 / -759.758 Weight 92.5 kg Intake: IV 59.8 / 59.8 65.667 / 65.667 90.242 / 90.242 Oral 890 / 890 1200 / 1200 150 / 150 Output: Urine 1500 / 1500 1325 / 1325 1000 / 1000 Other: Urine Color Yellow Light Daria Pale Urine Appearance Clear Clear Clear Urine Odor None Normal Normal Comment BSC emptied. Stool Occult Blood Positive Stool Size Moderate Moderate Stool Characteristics Soft Soft Formed Brown Brown Voiding Methods Bedside Commode Bedside Commode Laboratory Results WBC 9.46 k/cumm (4.4-10.8) 01/06/18 06:20 RBC 3.10 m/cumm (4.00-5.20) L 01/06/18 06:20 Hgb 8.5 g/dL (12.0-15.5) L 01/06/18 06:20 Hct 28.0 % (36.0-46.0) L 01/06/18 06:20 MCV 90.3 fL (80-95) 01/06/18 06:20 MCH 27.4 pg (27.0-33.0) 01/06/18 06:20 MCHC 30.4 g/dL (32.0-36.0) L 01/06/18 06:20 RDW 15.0 % (11.7-14.6) H 01/06/18 06:20 Plt Count 169 x1000/uL (130-400) 01/06/18 06:20 MPV 13.3 fL (8.0-11.0) H 01/06/18 06:20 Immature Gran % 0.7 01/06/18 06:20 Neutrophils % 49.6 01/06/18 06:20 Lymphocytes % 35.9 01/06/18 06:20 Monocytes % 11.6 01/06/18 06:20 Eosinophils % 2.0 01/06/18 06:20 Basophils % 0.2 01/06/18 06:20 Absolute Neutrophils 4.68 k/cumm (1.2-6.7) 01/06/18 06:20 Absolute Lymphocytes 3.40 k/cumm (1.2-3.4) 01/06/18 06:20 Absolute Monocytes 1.10 k/cumm (0.11-0.7) H 01/06/18 06:20 Absolute Eosinophils 0.19 k/cumm (0.0-0.7) 01/06/18 06:20 Absolute Basophils 0.02 k/cumm (0.0-0.2) 01/06/18 06:20 Differential Comment Rbc morph reviewed 01/06/18 06:20 RBC Morphology See below 01/01/18 10:20 Polychromasia Present 01/06/18 06:20 Hypochromasia 1+ 01/06/18 06:20 Basophilic Stippling Present 01/06/18 06:20 Anisocytosis 1+ 01/06/18 06:20 PT 10.8 sec (9.3-10.8) 01/01/18 10:20 INR 1.1 (1.0-3.5) 01/01/18 10:20 APTT 34.5 sec (21.0-31.4) H 01/06/18 06:20 Sodium 142 mmol/L (136-145) 01/06/18 06:20 Potassium 4.5 mmol/L (3.5-5.1) 01/06/18 06:20 Chloride 106 mmol/L (98-107) 01/06/18 06:20 Carbon Dioxide 27.0 mmol/L (21.0-32.0) 01/06/18 06:20 Anion Gap 9.0 mmol/L (3-11) 01/06/18 06:20 BUN 16 mg/dL (7-18) 01/06/18 06:20 Creatinine 1.32 mg/dL (0.55-1.02) H 01/06/18 06:20 Estimated GFR/1.73 m2 39.79 (mL/min/1.73m2) 01/06/18 06:20 Glucose 112 mg/dL (70-100) H 01/06/18 06:20 Calcium 9.2 mg/dL (8.5-10.1) 01/06/18 06:20 Magnesium 1.6 mg/dL (1.8-2.4) L 01/03/18 06:25 Total Bilirubin 0.2 mg/dL (0.2-1.0) 01/01/18 10:20 Conjugated Bilirubin 0.06 mg/dL (0.00-0.20) 01/01/18 10:20 AST 22 U/L (15-37) 01/01/18 10:20 ALT 32 U/L (12-78) 01/01/18 10:20 Alkaline Phosphatase 44 U/L (46-116) L 01/01/18 10:20 Troponin I < 0.02 ng/mL (0.00-0.06) 01/02/18 02:00 Total Protein 5.7 g/dL (6.4-8.2) L 01/01/18 10:20 Albumin 2.6 g/dL (3.4-5.0) L 01/01/18 10:20 Urine Color Yellow (Yellow) 01/04/18 16:30 Urine Clarity Clear 01/04/18 16:30 Urine pH 6.0 (5-8) 01/04/18 16:30 Ur Specific [place] 1.020 (1.005-1.025) 01/04/18 16:30 Urine Protein Negative mg/dL (Negative) 01/04/18 16:30 Urine Ketones Trace mg/dL (Negative) H 01/04/18 16:30 Urine Blood Large (Negative) H 01/04/18 16:30 Urine Nitrite Negative (Negative) 01/04/18 16:30 Urine Bilirubin Negative (Negative) 01/04/18 16:30 Urine Urobilinogen 0.2 EU/dL (Up TO 0.2) 01/04/18 16:30 Ur Leukocyte Esterase Negative (Negative) 01/04/18 16:30 Urine RBC >50 (0-2) H 01/04/18 16:30 Urine WBC 5-10 HPF (0-5) 01/04/18 16:30 Ur Epithelial Cells Few HPF (Negative) 01/04/18 16:30 Urine Crystals Negative HPF (Negative) 01/04/18 16:30 Urine Bacteria Few HPF (Negative) 01/04/18 16:30 Urine Casts Negative LPF (Negative) 01/04/18 16:30 Urine Mucus Negative (Negative) 01/04/18 16:30 Ur Culture Indicated? Yes 01/04/18 16:30 Urine Glucose Negative mg/dL (Negative) 01/04/18 16:30 Patient ABO/Rh A Positive 01/01/18 10:20 Antibody Screen Negative 01/01/18 10:20
--- NOTE | 2018-01-06 11:04 | PGE_ITS ---
Assessment and Plan (1) Upper GI bleeding: Current visit: Yes Status: Acute S/p EGD on 01/02/2018 showing esophagitis, gastritis, duodenitis with shallow ulcerations noted, biopsied. Current Hgb continues to appear stable. Tolerating regular diet. Continue heparin gtt with plans to transition to oral anticoagulation pending decision on work-up of hematuria. (2) Hypercoagulable state: Current visit: Yes Status: Chronic Initiated Heparin gtt with H/H holding at this time. Patient has a history of both arterial and venous thromboses as well as CVA and WA. Nature of hypercoagulable state uncertain. Plan as above, with potential change to Apixaban for decreased risk of GI bleeding. (3) Syncopal episodes: Current visit: Yes Status: Chronic Patient reports prior episodes - syncope in setting of GI Bleed and anemia. (4) CKD (chronic kidney disease): Current visit: Yes Status: Chronic Stage 3 - noted. Avoid nephrotoxins, renally dose medications when appropriate. (5) Pulmonary embolism: Current visit: Yes Status: Chronic Hx of Hypercoagulable State per History, with prior arterial and venous thromboses as well as CVA and WA. Will continue anticoagulation as above. (6) SVT (supraventricular tachycardia): Current visit: Yes Status: Chronic Continue BB therapy and maintain on cardiac monitoring while anemic. [place] [facility] [place] Last ECHO 05/2017 with normal LVEF and no significant valvulopathy despite murmur. (7) CVA (cerebral vascular accident): Current visit: Yes Status: Chronic (8) CAD (coronary artery disease): Current visit: Yes Status: Chronic Continue statin, BB. No antiplatelet therapy recorded. Needs improved blood pressure control. (9) Essential hypertension: Current visit: Yes Status: Chronic On BB and CCB. Patient with evidence of CKD, likely on the basis of chronic hypertension. Refused SERGIO-I due to prior dislike of this medication. Started low dose ARB - uptitrated previously. Blood pressure has improved but is still suboptimal. Monitor. (10) Hematuria: Current visit: Yes Status: Acute In patient with history of kidney stones. For repeat ultrasound, with potential cystoscopy. (11) DVT prophylaxis: Current visit: Yes Status: Acute On heparin gtt. Subjective Interval history since last seen: Pleasant 72 year old woman with a past medical history significant for Hypercoagulable state (Unclear of type), CAD with prior history of WA, CVA, and previous PE on anticoagulation with Rivaroxaban presented to [facility] ED initially on 01/01/2018 with reported black stools, hematemesis, and syncope. Since the time of admission the patient has undergone an EGD showing esophagitis , gastritis, and duodenitis with very shallow ulcerations and no active bleeding. She has also been maintained on IV PPI and Carafate. Her Hemoglobin while low remains stable, and she is now on a regular diet. Mrs. Aguilar reports resolution of black stools and states that they have become more formed since time of admission, but reported hematuria that continues. She has a history of nephrolithiasis, and urology consultation reports ultrasound from last year with a left sided renal calculus, and multiple prior right sided stones as well. No other overnight events were reported. She remains afebrile. Exam Narrative Exam Narrative: General: Comfortable appearing, sitting up in bed. AAOX3, No acute distress. Neck: Supple Cardiovascular: Regular, Non-tachycardic. No overt rubs or gallops. 3/6 RUSB/ LLSB murmur again noted. Lungs: CTAB without crackles or rhonchi. Gastrointestinal: Soft, nontender, nondistended. Extremities: no edema Objective Objective Clinical Data: Abnormal lab results 01/06/18 01/06/18 01/06/18 Range/Units 06:20 06:20 06:20 RBC 3.10 L (4.00-5.20) m/cumm Hgb 8.5 L (12.0-15.5) g/dL Hct 28.0 L (36.0-46.0) % MCHC 30.4 L (32.0-36.0) g/dL RDW 15.0 H (11.7-14.6) % MPV 13.3 H (8.0-11.0) fL Absolute Monocytes 1.10 H (0.11-0.7) k/cumm APTT 34.5 H (21.0-31.4) sec Creatinine 1.32 H (0.55-1.02) mg/dL Glucose 112 H (70-100) mg/dL Vital Signs Temperature 36.3 C L 01/06/18 07:36 Temperature Source Temporal Artery Scan 01/06/18 07:36 Pulse 55 L 01/06/18 07:38 Pulse Rhythm Regular 01/06/18 07:36 Pulse 55 L 01/06/18 07:38 Respiratory Rate 17 01/06/18 07:38 Respiratory Effort Non-Labored 01/06/18 07:36 Respiratory Depth Normal 01/06/18 07:36 Respiratory Pattern Normal 01/06/18 07:36 Blood Pressure 157/43 H 01/06/18 07:38 Blood Pressure Mean 71 01/06/18 07:38 Blood Pressure Position Supine 01/01/18 12:38 Pulse Oximetry 99 01/06/18 07:36 Oxygen Delivery Method Room Air 01/06/18 07:36 Oxygen Flow Rate 0 01/06/18 07:36 Pain Level 0 01/06/18 07:36 Comment 01/03/18 00:58 Intake & Output 01/05/18 01/05/18 01/06/18 11:59 23:59 11:59 Intake Total 949.8 / 949.8 1265.667 / 1265.667 240.242 / 240.242 Output Total 1500 / 1500 1325 / 1325 1000 / 1000 Balance -550.2 / -550.2 -59.333 / -59.333 -759.758 / -759.758 Weight 92.5 kg Intake: IV 59.8 / 59.8 65.667 / 65.667 90.242 / 90.242 Oral 890 / 890 1200 / 1200 150 / 150 Output: Urine 1500 / 1500 1325 / 1325 1000 / 1000 Other: Urine Color Yellow Light Daria Pale Urine Appearance Clear Clear Clear Urine Odor None Normal Normal Comment BSC emptied. Stool Occult Blood Positive Stool Size Moderate Moderate Stool Characteristics Soft Soft Formed Brown Brown Voiding Methods Bedside Commode Bedside Commode Laboratory Results WBC 9.46 k/cumm (4.4-10.8) 01/06/18 06:20 RBC 3.10 m/cumm (4.00-5.20) L 01/06/18 06:20 Hgb 8.5 g/dL (12.0-15.5) L 01/06/18 06:20 Hct 28.0 % (36.0-46.0) L 01/06/18 06:20 MCV 90.3 fL (80-95) 01/06/18 06:20 MCH 27.4 pg (27.0-33.0) 01/06/18 06:20 MCHC 30.4 g/dL (32.0-36.0) L 01/06/18 06:20 RDW 15.0 % (11.7-14.6) H 01/06/18 06:20 Plt Count 169 x1000/uL (130-400) 01/06/18 06:20 MPV 13.3 fL (8.0-11.0) H 01/06/18 06:20 Immature Gran % 0.7 01/06/18 06:20 Neutrophils % 49.6 01/06/18 06:20 Lymphocytes % 35.9 01/06/18 06:20 Monocytes % 11.6 01/06/18 06:20 Eosinophils % 2.0 01/06/18 06:20 Basophils % 0.2 01/06/18 06:20 Absolute Neutrophils 4.68 k/cumm (1.2-6.7) 01/06/18 06:20 Absolute Lymphocytes 3.40 k/cumm (1.2-3.4) 01/06/18 06:20 Absolute Monocytes 1.10 k/cumm (0.11-0.7) H 01/06/18 06:20 Absolute Eosinophils 0.19 k/cumm (0.0-0.7) 01/06/18 06:20 Absolute Basophils 0.02 k/cumm (0.0-0.2) 01/06/18 06:20 Differential Comment Rbc morph reviewed 01/06/18 06:20 RBC Morphology See below 01/01/18 10:20 Polychromasia Present 01/06/18 06:20 Hypochromasia 1+ 01/06/18 06:20 Basophilic Stippling Present 01/06/18 06:20 Anisocytosis 1+ 01/06/18 06:20 PT 10.8 sec (9.3-10.8) 01/01/18 10:20 INR 1.1 (1.0-3.5) 01/01/18 10:20 APTT 34.5 sec (21.0-31.4) H 01/06/18 06:20 Sodium 142 mmol/L (136-145) 01/06/18 06:20 Potassium 4.5 mmol/L (3.5-5.1) 01/06/18 06:20 Chloride 106 mmol/L (98-107) 01/06/18 06:20 Carbon Dioxide 27.0 mmol/L (21.0-32.0) 01/06/18 06:20 Anion Gap 9.0 mmol/L (3-11) 01/06/18 06:20 BUN 16 mg/dL (7-18) 01/06/18 06:20 Creatinine 1.32 mg/dL (0.55-1.02) H 01/06/18 06:20 Estimated GFR/1.73 m2 39.79 (mL/min/1.73m2) 01/06/18 06:20 Glucose 112 mg/dL (70-100) H 01/06/18 06:20 Calcium 9.2 mg/dL (8.5-10.1) 01/06/18 06:20 Magnesium 1.6 mg/dL (1.8-2.4) L 01/03/18 06:25 Total Bilirubin 0.2 mg/dL (0.2-1.0) 01/01/18 10:20 Conjugated Bilirubin 0.06 mg/dL (0.00-0.20) 01/01/18 10:20 AST 22 U/L (15-37) 01/01/18 10:20 ALT 32 U/L (12-78) 01/01/18 10:20 Alkaline Phosphatase 44 U/L (46-116) L 01/01/18 10:20 Troponin I < 0.02 ng/mL (0.00-0.06) 01/02/18 02:00 Total Protein 5.7 g/dL (6.4-8.2) L 01/01/18 10:20 Albumin 2.6 g/dL (3.4-5.0) L 01/01/18 10:20 Urine Color Yellow (Yellow) 01/04/18 16:30 Urine Clarity Clear 01/04/18 16:30 Urine pH 6.0 (5-8) 01/04/18 16:30 Ur Specific [place] 1.020 (1.005-1.025) 01/04/18 16:30 Urine Protein Negative mg/dL (Negative) 01/04/18 16:30 Urine Ketones Trace mg/dL (Negative) H 01/04/18 16:30 Urine Blood Large (Negative) H 01/04/18 16:30 Urine Nitrite Negative (Negative) 01/04/18 16:30 Urine Bilirubin Negative (Negative) 01/04/18 16:30 Urine Urobilinogen 0.2 EU/dL (Up TO 0.2) 01/04/18 16:30 Ur Leukocyte Esterase Negative (Negative) 01/04/18 16:30 Urine RBC >50 (0-2) H 01/04/18 16:30 Urine WBC 5-10 HPF (0-5) 01/04/18 16:30 Ur Epithelial Cells Few HPF (Negative) 01/04/18 16:30 Urine Crystals Negative HPF (Negative) 01/04/18 16:30 Urine Bacteria Few HPF (Negative) 01/04/18 16:30 Urine Casts Negative LPF (Negative) 01/04/18 16:30 Urine Mucus Negative (Negative) 01/04/18 16:30 Ur Culture Indicated? Yes 01/04/18 16:30 Urine Glucose Negative mg/dL (Negative) 01/04/18 16:30 Patient ABO/Rh A Positive 01/01/18 10:20 Antibody Screen Negative 01/01/18 10:20
--- NOTE | 2018-01-06 13:34 | DI.US_ITS ---
SYMPTOM/DIAGNOSIS: HEMATURIA, KIDNEY STONES RENAL ULTRASOUND: The right kidney measures 10 by 3.7 by 5 cm. The left kidney, 10.2 by 5.1 by 4.4 cm. There are questionable echogenic foci in the right kidney in the lower pole. The region measures approximately 14 mm. in size and posterior shadowing is identified. There is no evidence of right or left hydronephrosis. The bladder was empty at the time of this examination and could not be evaluated. SUMMARY: Findings consistent with right nephrolithiasis. There is no evidence of hydronephrosis, a cyst or mass.
--- NOTE | 2018-01-06 13:41 | PDOC.CMPRO ---
- If Service Date Differs Date of service: 01/06/18 Time of Service: 13:42 Care Management Progress Note S/O: Cassie has just returned from a renal ultrasound when CM visits this afternoon. She is engaged in conversation, makes good eye contact, and is talkative. Cassie continues to improve per report and denies pain at this time. She is tolerating advancement of her diet and continues to receive IV heparin. Per pt request, CM will contact Dot's care transition coordinator at [facility], Tay, and update her on her status. CM will phone Tay today. A:Sisi is a 72 year old female admitted with a GI bleed. P:Sisi will discharge home when medically ready per MD. Anticipate patient will discharge with no services and follow up with her PCP. She will need to be discharged on PPI therapy and Carafate per report and follow up with surgery in three months. Sisi will be transported home via [facility] when medically ready for discharge. CM will continue to offer support to patient and care team regarding discharge planning and disposition.
--- NOTE | 2018-01-06 13:44 | CMPROGNOTE_ITS ---
- If Service Date Differs Date of service: 01/06/18 Time of Service: 13:42 Care Management Progress Note S/O: Cassie has just returned from a renal ultrasound when CM visits this afternoon. She is engaged in conversation, makes good eye contact, and is talkative. Cassie continues to improve per report and denies pain at this time. She is tolerating advancement of her diet and continues to receive IV heparin. Per pt request, CM will contact Dot's behavioral health care manager at [facility], Tay, and update her on her status. CM will phone Tay today. A:Sisi is a 72 year old female admitted with a GI bleed. P:Sisi will discharge home when medically ready per MD. Anticipate patient will discharge with no services and follow up with her PCP. She will need to be discharged on PPI therapy and Carafate per report and follow up with surgery in three months. Sisi will be transported home via [facility] when medically ready for discharge. CM will continue to offer support to patient and care team regarding discharge planning and disposition.
[2018-01-06 16:56] LABS: PTT Activated 53.5 sec (21.0-31.4)
[2018-01-06] MEDS: Metoprolol CR 50 MG TABCR 100 MG PO (21:52)
[2018-01-07] VITALS (24 sets, daily range): BP systolic 137–184; BP diastolic 49–65; PULSE 53–71; RESP 14–29; TEMP 36.5–37; O2SAT 73–99
[2018-01-07 07:21] LABS: Abs Immature Grans 0.07 k/cumm (0.0-0.09); Absolute Basophil Count 0.03 k/cumm (0.0-0.2); Absolute Eosinophil Count 0.23 k/cumm (0.0-0.7); Absolute Lymphocyte Count 3.72 k/cumm (1.2-3.4); Absolute Monocyte Count 1.13 k/cumm (0.11-0.7); Absolute Neutrophil Count 5.03 k/cumm (1.2-6.7); Basophils % 0.3; Eosinophils % 2.3; HCT 28.5 % (36.0-46.0); HGB 8.8 g/dL (12.0-15.5); Immature Grans % 0.7; Lymphocytes % 36.4; Mean Corp. HGB Concentration 30.9 g/dL (32.0-36.0); Mean Corpuscular Hemoglobin 27.7 pg (27.0-33.0); Mean Corpuscular Volume 89.6 fL (80-95); Mean Platelet Volume 12.4 fL (8.0-11.0); Monocytes % 11.1; Neutrophils % 49.2; Platelet Count 200 x1000/uL (130-400); RBC 3.18 m/cumm (4.00-5.20); RBC Distribution Width 15.2 % (11.7-14.6); White Blood Cell Count 10.21 k/cumm (4.4-10.8)
[2018-01-07 07:33] LABS: Anion Gap 6.2 mmol/L (3-11); BUN 15 mg/dL (7-18); CO2 29.8 mmol/L (21.0-32.0); Calcium 9.2 mg/dL (8.5-10.1); Chloride 106 mmol/L (98-107); Estimated GFR 37.18 (mL/min/1.73m2); Glucose 114 mg/dL (70-100); Potassium 4.3 mmol/L (3.5-5.1); Sodium 142 mmol/L (136-145)
[2018-01-07] MEDS: Pantoprazole 40 MG VIAL IVP ×2 (08:11→20:43)
[2018-01-07] MEDS: Sucralfate 1 GM TAB PO ×4 (08:11→22:16)
[2018-01-07] MEDS: Normal Saline Flush 10 ML SYR IVP ×2 (08:11→20:43)
[2018-01-07] MEDS: amLODIPine 10 MG TAB PO (08:11)
[2018-01-07] MEDS: Losartan 25 MG TAB 50 MG PO (08:11)
[2018-01-07] MEDS: Atorvastatin 40 MG TAB PO (08:12)
[2018-01-07] MEDS: Sertraline 50 MG TAB 150 MG PO (08:12)
--- NOTE | 2018-01-07 08:14 | PGE_ITS ---
Assessment and Plan (1) Hematuria: Current visit: Yes Status: Acute We will plan on completing her hematuria workup with a cystoscopy and retrograde pyelogram. With her other medical issues, we will only be prepared to give her monitored anesthesia care, so we will plan on fulgurating any bleeding site that we encounter. I will not plan on dealing with her kidney stones tomorrow, as this would be a much longer and more complex procedure. If any larger more time intensive procedure is required, we would need to make sure that our anesthesia providers are comfortable with a general anesthetic in this woman. It may be that she would need to have any type of a longer procedure done at a larger medical facility. We will plan on stopping her heparin about 2 hours before her procedure. I will ask that a single dose of oral antibiotic be given early tomorrow morning. (2) History of kidney stones: Current visit: Yes Status: Chronic Subjective Interval history since last seen: The patient has no current flank pain. She still has dark urine, but no clots or retention. Review of systems she has no fever or chills Exam Narrative Exam Narrative: She is in no current distress. She is cooperative. She does not appear septic or toxic. She is awake, alert and oriented I reviewed her renal ultrasound on the PACS system. Her lower pole kidney stone does not appear to have changed dating back to 2014. There is no hydronephrosis and no solid renal masses. Objective Objective Clinical Data: Abnormal lab results 01/06/18 01/06/18 01/07/18 Range/Units 06:20 16:25 06:23 RBC (4.00-5.20) m/cumm Hgb (12.0-15.5) g/dL Hct (36.0-46.0) % MCHC (32.0-36.0) g/dL RDW (11.7-14.6) % MPV (8.0-11.0) fL Absolute Lymphocytes (1.2-3.4) k/cumm Absolute Monocytes (0.11-0.7) k/cumm APTT 53.5 H D (21.0-31.4) sec Creatinine 1.32 H 1.40 H (0.55-1.02) mg/dL Glucose 112 H 114 H (70-100) mg/dL 01/07/18 01/07/18 Range/Units 06:23 06:23 RBC 3.18 L (4.00-5.20) m/cumm Hgb 8.8 L (12.0-15.5) g/dL Hct 28.5 L (36.0-46.0) % MCHC 30.9 L (32.0-36.0) g/dL RDW 15.2 H (11.7-14.6) % MPV 12.4 H (8.0-11.0) fL Absolute Lymphocytes 3.72 H (1.2-3.4) k/cumm Absolute Monocytes 1.13 H (0.11-0.7) k/cumm APTT 51.0 H (21.0-31.4) sec Creatinine (0.55-1.02) mg/dL Glucose (70-100) mg/dL Vital Signs Temperature 37 C 01/07/18 04:00 Temperature Source Temporal Artery Scan 01/07/18 04:00 Pulse 53 L 01/07/18 07:00 Pulse Rhythm Regular 01/07/18 00:05 Pulse 61 01/07/18 01:14 Respiratory Rate 18 01/07/18 04:00 Respiratory Effort Non-Labored 01/07/18 00:05 Respiratory Depth Normal 01/07/18 00:05 Respiratory Pattern Normal 01/07/18 00:05 Blood Pressure 150/58 H 01/07/18 04:00 Blood Pressure Mean 74 01/07/18 01:14 Blood Pressure Position Supine 01/01/18 12:38 Pulse Oximetry 98 01/07/18 04:00 Oxygen Delivery Method Room Air 01/07/18 04:00 Oxygen Flow Rate 0 01/07/18 04:00 Pain Level 0 01/07/18 00:05 Comment 01/03/18 00:58 Intake & Output 01/06/18 01/06/18 01/07/18 11:59 23:59 11:59 Intake Total 480.242 / 366.357 7763.950 / 1554.950 296.117 / 296.117 Output Total 1200 / 1200 1150 / 1150 1850 / 1850 Balance -719.758 / -719.758 404.950 / 404.950 -1553.883 / -1553.883 Weight 89.7 kg 89.3 kg Intake: IV 90.242 / 90.242 124.950 / 124.950 71.117 / 71.117 Oral 390 / 390 1430 / 1430 225 / 225 Output: Urine 1200 / 1200 750 / 750 1850 / 1850 Emesis 400 / 400 Other: Urine Color Pale Pale Pale Urine Appearance Clear Clear Clear Urine Odor Normal Normal Normal Stool Occult Blood Negative Stool Size Large Stool Characteristics Soft Brown Emesis Description Undigested Food Gastric Occult Blood Negative Voiding Methods Bedside Commode Bedside Commode Bedside Commode Laboratory Results WBC 10.21 k/cumm (4.4-10.8) 01/07/18 06:23 RBC 3.18 m/cumm (4.00-5.20) L 01/07/18 06:23 Hgb 8.8 g/dL (12.0-15.5) L 01/07/18 06:23 Hct 28.5 % (36.0-46.0) L 01/07/18 06:23 MCV 89.6 fL (80-95) 01/07/18 06:23 MCH 27.7 pg (27.0-33.0) 01/07/18 06:23 MCHC 30.9 g/dL (32.0-36.0) L 01/07/18 06:23 RDW 15.2 % (11.7-14.6) H 01/07/18 06:23 Plt Count 200 x1000/uL (130-400) 01/07/18 06:23 MPV 12.4 fL (8.0-11.0) H 01/07/18 06:23 Immature Gran % 0.7 01/07/18 06:23 Neutrophils % 49.2 01/07/18 06:23 Lymphocytes % 36.4 01/07/18 06:23 Monocytes % 11.1 01/07/18 06:23 Eosinophils % 2.3 01/07/18 06:23 Basophils % 0.3 01/07/18 06:23 Absolute Neutrophils 5.03 k/cumm (1.2-6.7) 01/07/18 06:23 Absolute Lymphocytes 3.72 k/cumm (1.2-3.4) H 01/07/18 06:23 Absolute Monocytes 1.13 k/cumm (0.11-0.7) H 01/07/18 06:23 Absolute Eosinophils 0.23 k/cumm (0.0-0.7) 01/07/18 06:23 Absolute Basophils 0.03 k/cumm (0.0-0.2) 01/07/18 06:23 Differential Comment Rbc morph reviewed 01/06/18 06:20 RBC Morphology See below 01/01/18 10:20 Polychromasia Present 01/06/18 06:20 Hypochromasia 1+ 01/06/18 06:20 Basophilic Stippling Present 01/06/18 06:20 Anisocytosis 1+ 01/06/18 06:20 PT 10.8 sec (9.3-10.8) 01/01/18 10:20 INR 1.1 (1.0-3.5) 01/01/18 10:20 APTT 51.0 sec (21.0-31.4) H 01/07/18 06:23 Sodium 142 mmol/L (136-145) 01/07/18 06:23 Potassium 4.3 mmol/L (3.5-5.1) 01/07/18 06:23 Chloride 106 mmol/L (98-107) 01/07/18 06:23 Carbon Dioxide 29.8 mmol/L (21.0-32.0) 01/07/18 06:23 Anion Gap 6.2 mmol/L (3-11) 01/07/18 06:23 BUN 15 mg/dL (7-18) 01/07/18 06:23 Creatinine 1.40 mg/dL (0.55-1.02) H 01/07/18 06:23 Estimated GFR/1.73 m2 37.18 (mL/min/1.73m2) 01/07/18 06:23 Glucose 114 mg/dL (70-100) H 01/07/18 06:23 Calcium 9.2 mg/dL (8.5-10.1) 01/07/18 06:23 Magnesium 2.0 mg/dL (1.8-2.4) 01/07/18 06:23 Total Bilirubin 0.2 mg/dL (0.2-1.0) 01/01/18 10:20 Conjugated Bilirubin 0.06 mg/dL (0.00-0.20) 01/01/18 10:20 AST 22 U/L (15-37) 01/01/18 10:20 ALT 32 U/L (12-78) 01/01/18 10:20 Alkaline Phosphatase 44 U/L (46-116) L 01/01/18 10:20 Troponin I < 0.02 ng/mL (0.00-0.06) 01/02/18 02:00 Total Protein 5.7 g/dL (6.4-8.2) L 01/01/18 10:20 Albumin 2.6 g/dL (3.4-5.0) L 01/01/18 10:20 Urine Color Yellow (Yellow) 01/04/18 16:30 Urine Clarity Clear 01/04/18 16:30 Urine pH 6.0 (5-8) 01/04/18 16:30 Ur Specific [place] 1.020 (1.005-1.025) 01/04/18 16:30 Urine Protein Negative mg/dL (Negative) 01/04/18 16:30 Urine Ketones Trace mg/dL (Negative) H 01/04/18 16:30 Urine Blood Large (Negative) H 01/04/18 16:30 Urine Nitrite Negative (Negative) 01/04/18 16:30 Urine Bilirubin Negative (Negative) 01/04/18 16:30 Urine Urobilinogen 0.2 EU/dL (Up TO 0.2) 01/04/18 16:30 Ur Leukocyte Esterase Negative (Negative) 01/04/18 16:30 Urine RBC >50 (0-2) H 01/04/18 16:30 Urine WBC 5-10 HPF (0-5) 01/04/18 16:30 Ur Epithelial Cells Few HPF (Negative) 01/04/18 16:30 Urine Crystals Negative HPF (Negative) 01/04/18 16:30 Urine Bacteria Few HPF (Negative) 01/04/18 16:30 Urine Casts Negative LPF (Negative) 01/04/18 16:30 Urine Mucus Negative (Negative) 01/04/18 16:30 Ur Culture Indicated? Yes 01/04/18 16:30 Urine Glucose Negative mg/dL (Negative) 01/04/18 16:30 Patient ABO/Rh A Positive 01/01/18 10:20 Antibody Screen Negative 01/01/18 10:20
--- NOTE | 2018-01-07 10:03 | PDOC.CMPRO ---
- If Service Date Differs Date of service: 01/07/18 Time of Service: 10:03 Care Management Progress Note S/O: Cassie is sitting in her chair following breakfast when CM visits this morning. She is pleasant, makes good eye contact and is talkative. Cassie denies pain at this time and continues to receive IV heparin. Cassie is scheduled for a cystoscopy tomorrow so will have her heparin drip d/c'ed and will be NPO at midnight. A: 72 year old female admitted with an upper GI bleed and syncope P: Dot will discharge home when medically ready per MD. Anticipate patient will discharge with no services and follow up with her PCP. She will need to be discharged on PPI therapy and Carafate per report and follow up with surgery in three months. Sisi will be transported home via [facility] when medically ready for discharge. CM will continue to offer support to patient and care team regarding discharge planning and disposition.
--- NOTE | 2018-01-07 12:02 | W.PM.PROGNOT ---
Assessment and Plan (1) Upper GI bleeding: Current visit: Yes Status: Acute S/p EGD on 01/02/2018 showing esophagitis, gastritis, duodenitis with shallow ulcerations noted, biopsied. Current Hgb continues to appear stable. Tolerating regular diet. Continue heparin gtt with plans to transition to oral anticoagulation pending cystoscopy. (2) Hypercoagulable state: Current visit: Yes Status: Chronic Initiated Heparin gtt with H/H holding at this time. Patient has a history of both arterial and venous thromboses as well as CVA and [place]. Nature of hypercoagulable state uncertain. Plan as above, with potential change to Apixaban for decreased risk of GI bleeding. (3) Syncopal episodes: Current visit: Yes Status: Chronic Patient reports prior episodes - syncope in setting of GI Bleed and anemia. (4) CKD (chronic kidney disease): Current visit: Yes Status: Chronic Stage 3 - noted. Avoid nephrotoxins, renally dose medications when appropriate. (5) Pulmonary embolism: Current visit: Yes Status: Chronic Hx of Hypercoagulable State per History, with prior arterial and venous thromboses as well as CVA and [place]. Will continue anticoagulation as above. (6) SVT (supraventricular tachycardia): Current visit: Yes Status: Chronic Continue BB therapy and maintain on cardiac monitoring while anemic. Follows with [facility] [place] cardiology. Last ECHO 05/2017 with normal LVEF and no significant valvulopathy despite murmur. Brief run of SVTs overnight. (7) CVA (cerebral vascular accident): Current visit: Yes Status: Chronic (8) CAD (coronary artery disease): Current visit: Yes Status: Chronic Continue statin, BB. No antiplatelet therapy recorded. Needs improved blood pressure control. (9) Essential hypertension: Current visit: Yes Status: Chronic On BB and CCB. Patient with evidence of CKD, likely on the basis of chronic hypertension. Refused SERGIO-I due to prior dislike of this medication. Started low dose ARB - uptitrated previously. Blood pressure has improved considerably but is still suboptimal. Monitor. (10) Hematuria: Current visit: Yes Status: Acute In patient with history of kidney stones. For repeat ultrasound, with potential cystoscopy in the morning. Plan on holding heparin drip 2-3 hours prior to planned procedure. (11) DVT prophylaxis: Current visit: Yes Status: Acute On heparin gtt. Subjective Interval history since last seen: Pleasant 72 year old woman with a past medical history significant for Hypercoagulable state (Unclear of type), CAD with prior history of [place], CVA, and previous PE on anticoagulation with Rivaroxaban presented to [facility] ED initially on 01/01/2018 with reported black stools, hematemesis, and syncope. Since the time of admission the patient has undergone an EGD showing esophagitis, gastritis, and duodenitis with very shallow ulcerations and no active bleeding. She has also been maintained on IV PPI and Carafate. Her Hemoglobin while low remains stable, and she is now on a regular diet. Mrs. Aguilar reports resolution of black stools and states that they have become more formed since time of admission, and she is now hemeoccult negative. However, she has reported hematuria that continues. She has a history of nephrolithiasis, and urology consultation reports ultrasound from last year with a left sided renal calculus, and multiple prior right sided stones as well. A repeat ultrasound was obtained showing right sided nephrolithiasis without hydronephrosis or other abnormality. She is now scheduled for a cystoscopy tomorrow morning. No other overnight events were reported. She remains afebrile. Exam Narrative Exam Narrative: General: Comfortable appearing, sitting up in bed. AAOX3, No acute distress. Neck: Supple Cardiovascular: Regular, Non-tachycardic. No overt rubs or gallops. 3/6 RUSB/LLSB murmur again noted. Lungs: CTAB without crackles or rhonchi. Gastrointestinal: Soft, nontender, nondistended. Extremities: no edema Objective Objective Clinical Data: Abnormal lab results 01/06/18 01/07/18 01/07/18 Range/Units 16:25 06:23 06:23 RBC 3.18 L (4.00-5.20) m/cumm Hgb 8.8 L (12.0-15.5) g/dL Hct 28.5 L (36.0-46.0) % MCHC 30.9 L (32.0-36.0) g/dL RDW 15.2 H (11.7-14.6) % MPV 12.4 H (8.0-11.0) fL Absolute Lymphocytes 3.72 H (1.2-3.4) k/cumm Absolute Monocytes 1.13 H (0.11-0.7) k/cumm APTT 53.5 H D (21.0-31.4) sec Creatinine 1.40 H (0.55-1.02) mg/dL Glucose 114 H (70-100) mg/dL 01/07/18 Range/Units 06:23 RBC (4.00-5.20) m/cumm Hgb (12.0-15.5) g/dL Hct (36.0-46.0) % MCHC (32.0-36.0) g/dL RDW (11.7-14.6) % MPV (8.0-11.0) fL Absolute Lymphocytes (1.2-3.4) k/cumm Absolute Monocytes (0.11-0.7) k/cumm APTT 51.0 H (21.0-31.4) sec Creatinine (0.55-1.02) mg/dL Glucose (70-100) mg/dL Vital Signs Temperature 36.5 C 01/07/18 08:00 Temperature Source Temporal Artery Scan 01/07/18 08:00 Pulse 59 L 01/07/18 07:50 Pulse Rhythm Regular 01/07/18 08:00 Pulse 60 01/07/18 07:50 Respiratory Rate 14 01/07/18 07:50 Respiratory Effort 01/07/18 08:00 Respiratory Depth Normal 01/07/18 08:00 Respiratory Pattern Normal 01/07/18 08:00 Blood Pressure 150/49 H 01/07/18 07:50 Blood Pressure Mean 71 01/07/18 07:50 Blood Pressure Position Supine 01/01/18 12:38 Pulse Oximetry 98 01/07/18 08:00 Oxygen Delivery Method Room Air 01/07/18 08:00 Oxygen Flow Rate 0 01/07/18 08:00 Pain Level 0 01/07/18 00:05 Comment 01/03/18 00:58 Intake & Output 01/06/18 01/07/18 01/07/18 23:59 11:59 23:59 Intake Total 1554.950 / 1554.950 716.117 / 716.117 Output Total 1150 / 1150 2075 / 2075 Balance 404.950 / 404.950 -1358.883 / -1358.883 Weight 89.7 kg 89.3 kg Intake: IV 124.950 / 124.950 71.117 / 71.117 Oral 1430 / 1430 645 / 645 Output: Urine 750 / 750 5 / 2075 Emesis 400 / 400 Other: Urine Color Pale Yellow Urine Appearance Clear Clear Urine Odor Normal Normal Emesis Description Undigested Food Gastric Occult Blood Negative Voiding Methods Bedside Commode Bedside Commode Laboratory Results WBC 10.21 k/cumm (4.4-10.8) 01/07/18 06:23 RBC 3.18 m/cumm (4.00-5.20) L 01/07/18 06:23 Hgb 8.8 g/dL (12.0-15.5) L 01/07/18 06:23 Hct 28.5 % (36.0-46.0) L 01/07/18 06:23 MCV 89.6 fL (80-95) 01/07/18 06:23 MCH 27.7 pg (27.0-33.0) 01/07/18 06:23 MCHC 30.9 g/dL (32.0-36.0) L 01/07/18 06:23 RDW 15.2 % (11.7-14.6) H 01/07/18 06:23 Plt Count 200 x1000/uL (130-400) 01/07/18 06:23 MPV 12.4 fL (8.0-11.0) H 01/07/18 06:23 Immature Gran % 0.7 01/07/18 06:23 Neutrophils % 49.2 01/07/18 06:23 Lymphocytes % 36.4 01/07/18 06:23 Monocytes % 11.1 01/07/18 06:23 Eosinophils % 2.3 01/07/18 06:23 Basophils % 0.3 01/07/18 06:23 Absolute Neutrophils 5.03 k/cumm (1.2-6.7) 01/07/18 06:23 Absolute Lymphocytes 3.72 k/cumm (1.2-3.4) H 01/07/18 06:23 Absolute Monocytes 1.13 k/cumm (0.11-0.7) H 01/07/18 06:23 Absolute Eosinophils 0.23 k/cumm (0.0-0.7) 01/07/18 06:23 Absolute Basophils 0.03 k/cumm (0.0-0.2) 01/07/18 06:23 Differential Comment Rbc morph reviewed 01/06/18 06:20 RBC Morphology See below 01/01/18 10:20 Polychromasia Present 01/06/18 06:20 Hypochromasia 1+ 01/06/18 06:20 Basophilic Stippling Present 01/06/18 06:20 Anisocytosis 1+ 01/06/18 06:20 PT 10.8 sec (9.3-10.8) 01/01/18 10:20 INR 1.1 (1.0-3.5) 01/01/18 10:20 APTT 51.0 sec (21.0-31.4) H 01/07/18 06:23 Sodium 142 mmol/L (136-145) 01/07/18 06:23 Potassium 4.3 mmol/L (3.5-5.1) 01/07/18 06:23 Chloride 106 mmol/L (98-107) 01/07/18 06:23 Carbon Dioxide 29.8 mmol/L (21.0-32.0) 01/07/18 06:23 Anion Gap 6.2 mmol/L (3-11) 01/07/18 06:23 BUN 15 mg/dL (7-18) 01/07/18 06:23 Creatinine 1.40 mg/dL (0.55-1.02) H 01/07/18 06:23 Estimated GFR/1.73 m2 37.18 (mL/min/1.73m2) 01/07/18 06:23 Glucose 114 mg/dL (70-100) H 01/07/18 06:23 Calcium 9.2 mg/dL (8.5-10.1) 01/07/18 06:23 Magnesium 2.0 mg/dL (1.8-2.4) 01/07/18 06:23 Total Bilirubin 0.2 mg/dL (0.2-1.0) 01/01/18 10:20 Conjugated Bilirubin 0.06 mg/dL (0.00-0.20) 01/01/18 10:20 AST 22 U/L (15-37) 01/01/18 10:20 ALT 32 U/L (12-78) 01/01/18 10:20 Alkaline Phosphatase 44 U/L (46-116) L 01/01/18 10:20 Troponin I < 0.02 ng/mL (0.00-0.06) 01/02/18 02:00 Total Protein 5.7 g/dL (6.4-8.2) L 01/01/18 10:20 Albumin 2.6 g/dL (3.4-5.0) L 01/01/18 10:20 Urine Color Yellow (Yellow) 01/04/18 16:30 Urine Clarity Clear 01/04/18 16:30 Urine pH 6.0 (5-8) 01/04/18 16:30 Ur Specific [place] 1.020 (1.005-1.025) 01/04/18 16:30 Urine Protein Negative mg/dL (Negative) 01/04/18 16:30 Urine Ketones Trace mg/dL (Negative) H 01/04/18 16:30 Urine Blood Large (Negative) H 01/04/18 16:30 Urine Nitrite Negative (Negative) 01/04/18 16:30 Urine Bilirubin Negative (Negative) 01/04/18 16:30 Urine Urobilinogen 0.2 EU/dL (Up TO 0.2) 01/04/18 16:30 Ur Leukocyte Esterase Negative (Negative) 01/04/18 16:30 Urine RBC >50 (0-2) H 01/04/18 16:30 Urine WBC 5-10 HPF (0-5) 01/04/18 16:30 Ur Epithelial Cells Few HPF (Negative) 01/04/18 16:30 Urine Crystals Negative HPF (Negative) 01/04/18 16:30 Urine Bacteria Few HPF (Negative) 01/04/18 16:30 Urine Casts Negative LPF (Negative) 01/04/18 16:30 Urine Mucus Negative (Negative) 01/04/18 16:30 Ur Culture Indicated? Yes 01/04/18 16:30 Urine Glucose Negative mg/dL (Negative) 01/04/18 16:30 Patient ABO/Rh A Positive 01/01/18 10:20 Antibody Screen Negative 01/01/18 10:20
[2018-01-07] MEDS: Metoprolol CR 50 MG TABCR 100 MG PO (22:16)
[2018-01-08] VITALS (21 sets, daily range): BP systolic 114–143; BP diastolic 35–80; PULSE 49–70; RESP 15–25; TEMP 36.5–37; O2SAT 94–99
--- NOTE | 2018-01-08 06:36 | NUR.NOTE ---
Heparin gtt had been stopped at 0500 in anticipation for cystoscopy. MD orders identified that heparin gtt should be stopped 2 hours prior to OR. This RN called OR neurosurgery research director this morning to determine time of cystoscopy. Purnima could not specify what time she was scheduled for exactly, but that she was the last case of the day. Heparin gtt therefore restarted. Attempted to restart heparin gtt in MAY, but was unable to do so because the computer identified that the entire bag had been infused, while there is still some fluid physically left. While it looks like the infusion is not running, a comment was made under the time that the heparin was restarted stating that the infusion had indeed been restarted. Nursing Note:
[2018-01-08 07:03] LABS: Abs Immature Grans 0.08 k/cumm (0.0-0.09); Absolute Basophil Count 0.02 k/cumm (0.0-0.2); Absolute Eosinophil Count 0.25 k/cumm (0.0-0.7); Absolute Lymphocyte Count 4.12 k/cumm (1.2-3.4); Absolute Monocyte Count 1.25 k/cumm (0.11-0.7); Absolute Neutrophil Count 4.92 k/cumm (1.2-6.7); Basophils % 0.2; Eosinophils % 2.3; HCT 27.9 % (36.0-46.0); HGB 8.6 g/dL (12.0-15.5); Immature Grans % 0.8; Lymphocytes % 38.7; Mean Corp. HGB Concentration 30.8 g/dL (32.0-36.0); Mean Corpuscular Hemoglobin 27.9 pg (27.0-33.0); Mean Corpuscular Volume 90.6 fL (80-95); Mean Platelet Volume 12.6 fL (8.0-11.0); Monocytes % 11.7; Neutrophils % 46.3; Platelet Count 218 x1000/uL (130-400); RBC 3.08 m/cumm (4.00-5.20); RBC Distribution Width 15.3 % (11.7-14.6); White Blood Cell Count 10.64 k/cumm (4.4-10.8)
[2018-01-08 07:15] LABS: BUN 19 mg/dL (7-18); Calcium 9.6 mg/dL (8.5-10.1); Chloride 105 mmol/L (98-107); Estimated GFR 31.87 (mL/min/1.73m2); Glucose 111 mg/dL (70-100); Potassium 4.4 mmol/L (3.5-5.1); Sodium 142 mmol/L (136-145)
[2018-01-08 07:38] LABS: PTT Activated 36.8 sec (21.0-31.4)
[2018-01-08] MEDS: Sucralfate 1 GM TAB PO ×3 (10:01→17:07)
[2018-01-08] MEDS: Atorvastatin 40 MG TAB PO (10:01)
[2018-01-08] MEDS: amLODIPine 10 MG TAB PO (10:01)
[2018-01-08] MEDS: Sertraline 50 MG TAB 150 MG PO (10:01)
[2018-01-08] MEDS: Normal Saline Flush 10 ML SYR IVP ×2 (10:01→20:12)
[2018-01-08] MEDS: Pantoprazole 40 MG VIAL IVP ×2 (10:01→20:10)
--- NOTE | 2018-01-08 10:30 | PDOC.CMPRO ---
- If Service Date Differs Date of service: 01/08/18 Time of Service: 10:30 Care Management Progress Note S/O: Dot is being transferred to the OR at the time of CM visit for cystoscopy r/t hematuria. No anticipated change in status today. She will be discharged home on Eliquis CM will verify copay with patients pharmacy. Dot will be provided with a discount card for first 30 days. A: 72 year old female admitted with an upper GI bleed and syncope P: Dot will discharge home when medically ready per MD. Anticipate patient will discharge with no services and follow up with her PCP. She will need to be discharged on PPI therapy and Carafate per report and follow up with surgery in three months. Sisi will be transported home via [facility] when medically ready for discharge. CM will continue to offer support to patient and care team regarding discharge planning and disposition.
--- NOTE | 2018-01-08 10:33 | CMPROGNOTE_ITS ---
- If Service Date Differs Date of service: 01/08/18 Time of Service: 10:30 Care Management Progress Note S/O: Dot is being transferred to the OR at the time of CM visit for cystoscopy r /t hematuria. No anticipated change in status today. She will be discharged home on Eliquis CM will verify copay with patients pharmacy. Dot will be provided with a discount card for first 30 days. A: 72 year old female admitted with an upper GI bleed and syncope P: Dot will discharge home when medically ready per MD. Anticipate patient will discharge with no services and follow up with her PCP. She will need to be discharged on PPI therapy and Carafate per report and follow up with surgery in three months. Sisi will be transported home via [facility] when medically ready for discharge. CM will continue to offer support to patient and care team regarding discharge planning and disposition.
--- NOTE | 2018-01-08 11:04 | DI.RAD_ITS ---
SYMPTOMS/DIAGNOSIS: HEMATURIA BILATERAL RETROGRADE EXAMINATION: Fluoroscopy Time: 35.1 sec,10.76mgy The intrarenal collecting structures appear unremarkable. The ureters are demonstrated down to the level of the pelvic brim and appear unremarkable as well. Please see Dr. Ramírez's procedure report for further information.
[2018-01-08] MEDS: Lactated Ringers 1,000 ML 75 ML IV ×2 (11:30→15:26)
--- NOTE | 2018-01-08 11:30 | W.PM.PROGNOT ---
Assessment and Plan (1) Upper GI bleeding: Current visit: Yes Status: Acute S/p EGD on 01/02/2018 showing esophagitis, gastritis, duodenitis with shallow ulcerations noted, biopsied. Current Hgb continues to appear stable. Tolerating regular diet. Continue heparin gtt with plans to transition to oral anticoagulation pending results of cystoscopy. (2) Hypercoagulable state: Current visit: Yes Status: Chronic Initiated Heparin gtt with H/H holding at this time. Patient has a history of both arterial and venous thromboses as well as CVA and [place]. Nature of hypercoagulable state uncertain. Plan as above, with potential change to Apixaban for decreased risk of GI bleeding. (3) Syncopal episodes: Current visit: Yes Status: Chronic Patient reports prior episodes - syncope in setting of GI Bleed and anemia. (4) CKD (chronic kidney disease): Current visit: Yes Status: Chronic Stage 3 - noted. Avoid nephrotoxins, renally dose medications when appropriate. Current creatinine climbing in setting of recent ARB initiation - will discontinue and start concurrent alpha-halley, with careful first dose initiation due to concurrent BB use. Baseline of 1.1 - 1.3, now at 1.6. (5) Pulmonary embolism: Current visit: Yes Status: Chronic Hx of Hypercoagulable State per History, with prior arterial and venous thromboses as well as CVA and [place]. Will continue anticoagulation as above. (6) SVT (supraventricular tachycardia): Current visit: Yes Status: Chronic Continue BB therapy and maintain on cardiac monitoring while anemic. Follows with [facility] cardiology. Last ECHO 05/2017 with normal LVEF and no significant valvulopathy despite murmur. Brief run of SVTs overnight 2 nights ago (approximately 3 minutes). (7) CVA (cerebral vascular accident): Current visit: Yes Status: Chronic (8) CAD (coronary artery disease): Current visit: Yes Status: Chronic Continue statin, BB. No antiplatelet therapy recorded. Needs improved blood pressure control. (9) Essential hypertension: Current visit: Yes Status: Chronic On BB and CCB. Patient with evidence of CKD, likely on the basis of chronic hypertension. Refused SERGIO-I due to prior dislike of this medication. Started low dose ARB - uptitrated previously, but now with increasing creatinine - discontinue ARB and start Alpha-Halley with careful initiation given concurrent BB use. Monitor. (10) Hematuria: Current visit: Yes Status: Acute In patient with history of kidney stones. For repeat ultrasound, with potential cystoscopy in the morning. Plan on holding heparin drip 2-3 hours prior to planned procedure. (11) DVT prophylaxis: Current visit: Yes Status: Acute On heparin gtt. Subjective Interval history since last seen: Pleasant 72 year old woman with a past medical history significant for Hypercoagulable state (Unclear of type), CAD with prior history of [place], CVA, and previous PE on anticoagulation with Rivaroxaban presented to [facility] ED initially on 01/01/2018 with reported black stools, hematemesis, and syncope. Since the time of admission the patient has undergone an EGD showing esophagitis, gastritis, and duodenitis with very shallow ulcerations and no active bleeding. She has also been maintained on IV PPI and Carafate. Her Hemoglobin while low remains stable, and she is now on a regular diet. Mrs. Aguilar reports resolution of black stools and states that they have become more formed since time of admission, and she is now hemeoccult negative. However, she has reported hematuria that continues. She has a history of nephrolithiasis, and urology consultation reports ultrasound from last year with a left sided renal calculus, and multiple prior right sided stones as well. A repeat ultrasound was obtained showing right sided nephrolithiasis without hydronephrosis or other abnormality. She is scheduled for a cystoscopy later today. No other overnight events were reported. She remains afebrile. Exam Narrative Exam Narrative: General: Comfortable appearing, sitting up in bed. AAOX3, No acute distress. Neck: Supple Cardiovascular: Regular, Non-tachycardic. No overt rubs or gallops. 3/6 RUSB/LLSB murmur again noted. Lungs: CTAB without crackles or rhonchi. Gastrointestinal: Soft, nontender, nondistended. Extremities: no edema Objective Objective Clinical Data: Abnormal lab results 01/08/18 01/08/18 01/08/18 Range/Units 06:10 06:10 06:10 RBC 3.08 L (4.00-5.20) m/cumm Hgb 8.6 L (12.0-15.5) g/dL Hct 27.9 L (36.0-46.0) % MCHC 30.8 L (32.0-36.0) g/dL RDW 15.3 H (11.7-14.6) % MPV 12.6 H (8.0-11.0) fL Absolute Lymphocytes 4.12 H (1.2-3.4) k/cumm Absolute Monocytes 1.25 H (0.11-0.7) k/cumm APTT 36.8 H (21.0-31.4) sec BUN 19 H (7-18) mg/dL Creatinine 1.60 H (0.55-1.02) mg/dL Glucose 111 H (70-100) mg/dL Vital Signs Temperature 36.7 C 01/07/18 12:50 Temperature Source Temporal Artery Scan 01/07/18 12:50 Pulse 61 01/08/18 09:15 Pulse Rhythm Regular 01/08/18 09:00 Pulse 61 01/08/18 09:15 Respiratory Rate 15 01/08/18 09:15 Respiratory Effort Non-Labored 01/08/18 09:00 Respiratory Depth Normal 01/08/18 09:00 Respiratory Pattern Normal 01/08/18 09:00 Blood Pressure 128/63 01/08/18 09:15 Blood Pressure Mean 76 01/08/18 09:15 Blood Pressure Position Supine 01/01/18 12:38 Pulse Oximetry 99 01/08/18 09:30 Oxygen Delivery Method Room Air 01/08/18 09:30 Oxygen Flow Rate 0 01/08/18 09:30 Pain Level 0 01/07/18 00:05 Comment 01/03/18 00:58 Intake & Output 01/07/18 01/07/18 01/08/18 11:59 23:59 11:59 Intake Total 716.117 / 716.117 791.117 / 791.117 32.325 / 32.325 Output Total 2074 250 / 250 350 / 350 Balance -1358.883 / -1358.883 541.117 / 541.117 -317.675 / -317.675 Weight 89.3 kg Intake: IV 71.117 / 71.117 71.117 / 71.117 32.325 / 32.325 Oral 645 / 645 720 / 720 Output: Urine 2074 250 / 250 350 / 350 Other: Urine Color Yellow Yellow Yellow Urine Appearance Clear Clear Clear Urine Odor Normal None None Comment void x 1, mixed with stool. Stool Size Moderate Stool Characteristics Soft Brown Voiding Methods Bedside Commode Bedside Commode Bedside Commode Laboratory Results WBC 10.64 k/cumm (4.4-10.8) 01/08/18 06:10 RBC 3.08 m/cumm (4.00-5.20) L 01/08/18 06:10 Hgb 8.6 g/dL (12.0-15.5) L 01/08/18 06:10 Hct 27.9 % (36.0-46.0) L 01/08/18 06:10 MCV 90.6 fL (80-95) 01/08/18 06:10 MCH 27.9 pg (27.0-33.0) 01/08/18 06:10 MCHC 30.8 g/dL (32.0-36.0) L 01/08/18 06:10 RDW 15.3 % (11.7-14.6) H 01/08/18 06:10 Plt Count 218 x1000/uL (130-400) 01/08/18 06:10 MPV 12.6 fL (8.0-11.0) H 01/08/18 06:10 Immature Gran % 0.8 01/08/18 06:10 Neutrophils % 46.3 01/08/18 06:10 Lymphocytes % 38.7 01/08/18 06:10 Monocytes % 11.7 01/08/18 06:10 Eosinophils % 2.3 01/08/18 06:10 Basophils % 0.2 01/08/18 06:10 Absolute Neutrophils 4.92 k/cumm (1.2-6.7) 01/08/18 06:10 Absolute Lymphocytes 4.12 k/cumm (1.2-3.4) H 01/08/18 06:10 Absolute Monocytes 1.25 k/cumm (0.11-0.7) H 01/08/18 06:10 Absolute Eosinophils 0.25 k/cumm (0.0-0.7) 01/08/18 06:10 Absolute Basophils 0.02 k/cumm (0.0-0.2) 01/08/18 06:10 Differential Comment Rbc morph reviewed 01/06/18 06:20 RBC Morphology See below 01/01/18 10:20 Polychromasia Present 01/06/18 06:20 Hypochromasia 1+ 01/06/18 06:20 Basophilic Stippling Present 01/06/18 06:20 Anisocytosis 1+ 01/06/18 06:20 PT 10.8 sec (9.3-10.8) 01/01/18 10:20 INR 1.1 (1.0-3.5) 01/01/18 10:20 APTT 36.8 sec (21.0-31.4) H 01/08/18 06:10 Sodium 142 mmol/L (136-145) 01/08/18 06:10 Potassium 4.4 mmol/L (3.5-5.1) 01/08/18 06:10 Chloride 105 mmol/L (98-107) 01/08/18 06:10 Carbon Dioxide 27.0 mmol/L (21.0-32.0) 01/08/18 06:10 Anion Gap 10.0 mmol/L (3-11) 01/08/18 06:10 BUN 19 mg/dL (7-18) H 01/08/18 06:10 Creatinine 1.60 mg/dL (0.55-1.02) H 01/08/18 06:10 Estimated GFR/1.73 m2 31.87 (mL/min/1.73m2) 01/08/18 06:10 Glucose 111 mg/dL (70-100) H 01/08/18 06:10 Calcium 9.6 mg/dL (8.5-10.1) 01/08/18 06:10 Magnesium 2.0 mg/dL (1.8-2.4) 01/07/18 06:23 Total Bilirubin 0.2 mg/dL (0.2-1.0) 01/01/18 10:20 Conjugated Bilirubin 0.06 mg/dL (0.00-0.20) 01/01/18 10:20 AST 22 U/L (15-37) 01/01/18 10:20 ALT 32 U/L (12-78) 01/01/18 10:20 Alkaline Phosphatase 44 U/L (46-116) L 01/01/18 10:20 Troponin I < 0.02 ng/mL (0.00-0.06) 01/02/18 02:00 Total Protein 5.7 g/dL (6.4-8.2) L 01/01/18 10:20 Albumin 2.6 g/dL (3.4-5.0) L 01/01/18 10:20 Urine Color Yellow (Yellow) 01/04/18 16:30 Urine Clarity Clear 01/04/18 16:30 Urine pH 6.0 (5-8) 01/04/18 16:30 Ur Specific [place] 1.020 (1.005-1.025) 01/04/18 16:30 Urine Protein Negative mg/dL (Negative) 01/04/18 16:30 Urine Ketones Trace mg/dL (Negative) H 01/04/18 16:30 Urine Blood Large (Negative) H 01/04/18 16:30 Urine Nitrite Negative (Negative) 01/04/18 16:30 Urine Bilirubin Negative (Negative) 01/04/18 16:30 Urine Urobilinogen 0.2 EU/dL (Up TO 0.2) 01/04/18 16:30 Ur Leukocyte Esterase Negative (Negative) 01/04/18 16:30 Urine RBC >50 (0-2) H 01/04/18 16:30 Urine WBC 5-10 HPF (0-5) 01/04/18 16:30 Ur Epithelial Cells Few HPF (Negative) 01/04/18 16:30 Urine Crystals Negative HPF (Negative) 01/04/18 16:30 Urine Bacteria Few HPF (Negative) 01/04/18 16:30 Urine Casts Negative LPF (Negative) 01/04/18 16:30 Urine Mucus Negative (Negative) 01/04/18 16:30 Ur Culture Indicated? Yes 01/04/18 16:30 Urine Glucose Negative mg/dL (Negative) 01/04/18 16:30 Patient ABO/Rh A Positive 01/01/18 10:20 Antibody Screen Negative 01/01/18 10:20
[2018-01-08] MEDS: Lidocaine 2% Jelly 6 ML SYR (11:32)
--- NOTE | 2018-01-08 11:35 | PGE_ITS ---
Assessment and Plan (1) Upper GI bleeding: Current visit: Yes Status: Acute S/p EGD on 01/02/2018 showing esophagitis, gastritis, duodenitis with shallow ulcerations noted, biopsied. Current Hgb continues to appear stable. Tolerating regular diet. Continue heparin gtt with plans to transition to oral anticoagulation pending results of cystoscopy. (2) Hypercoagulable state: Current visit: Yes Status: Chronic Initiated Heparin gtt with H/H holding at this time. Patient has a history of both arterial and venous thromboses as well as CVA and [place]. Nature of hypercoagulable state uncertain. Plan as above, with potential change to Apixaban for decreased risk of GI bleeding. (3) Syncopal episodes: Current visit: Yes Status: Chronic Patient reports prior episodes - syncope in setting of GI Bleed and anemia. (4) CKD (chronic kidney disease): Current visit: Yes Status: Chronic Stage 3 - noted. Avoid nephrotoxins, renally dose medications when appropriate. Current creatinine climbing in setting of recent ARB initiation - will discontinue and start concurrent alpha-halley, with careful first dose initiation due to concurrent BB use. Baseline of 1.1 - 1.3, now at 1.6. (5) Pulmonary embolism: Current visit: Yes Status: Chronic Hx of Hypercoagulable State per History, with prior arterial and venous thromboses as well as CVA and [place]. Will continue anticoagulation as above. (6) SVT (supraventricular tachycardia): Current visit: Yes Status: Chronic Continue BB therapy and maintain on cardiac monitoring while anemic. [place] [facility] [place] Last ECHO 05/2017 with normal LVEF and no significant valvulopathy despite murmur. Brief run of SVTs overnight 2 nights ago (approximately 3 minutes). (7) CVA (cerebral vascular accident): Current visit: Yes Status: Chronic (8) CAD (coronary artery disease): Current visit: Yes Status: Chronic Continue statin, BB. No antiplatelet therapy recorded. Needs improved blood pressure control. (9) Essential hypertension: Current visit: Yes Status: Chronic On BB and CCB. Patient with evidence of CKD, likely on the basis of chronic hypertension. Refused SERGIO-I due to prior dislike of this medication. Started low dose ARB - uptitrated previously, but now with increasing creatinine - discontinue ARB and start Alpha-Halley with careful initiation given concurrent BB use. Monitor. (10) Hematuria: Current visit: Yes Status: Acute In patient with history of kidney stones. For repeat ultrasound, with potential cystoscopy in the morning. Plan on holding heparin drip 2-3 hours prior to planned procedure. (11) DVT prophylaxis: Current visit: Yes Status: Acute On heparin gtt. Subjective Interval history since last seen: Pleasant 72 year old woman with a past medical history significant for Hypercoagulable state (Unclear of type), CAD with prior history of [place], CVA, and previous PE on anticoagulation with Rivaroxaban presented to [facility] ED initially on 01/01/2018 with reported black stools, hematemesis, and syncope. Since the time of admission the patient has undergone an EGD showing esophagitis , gastritis, and duodenitis with very shallow ulcerations and no active bleeding. She has also been maintained on IV PPI and Carafate. Her Hemoglobin while low remains stable, and she is now on a regular diet. Mrs. Aguilar reports resolution of black stools and states that they have become more formed since time of admission, and she is now hemeoccult negative. However, she has reported hematuria that continues. She has a history of nephrolithiasis, and urology consultation reports ultrasound from last year with a left sided renal calculus, and multiple prior right sided stones as well. A repeat ultrasound was obtained showing right sided nephrolithiasis without hydronephrosis or other abnormality. She is scheduled for a cystoscopy later today. No other overnight events were reported. She remains afebrile. Exam Narrative Exam Narrative: General: Comfortable appearing, sitting up in bed. AAOX3, No acute distress. Neck: Supple Cardiovascular: Regular, Non-tachycardic. No overt rubs or gallops. 3/6 RUSB/ LLSB murmur again noted. Lungs: CTAB without crackles or rhonchi. Gastrointestinal: Soft, nontender, nondistended. Extremities: no edema Objective Objective Clinical Data: Abnormal lab results 01/08/18 01/08/18 01/08/18 Range/Units 06:10 06:10 06:10 RBC 3.08 L (4.00-5.20) m/cumm Hgb 8.6 L (12.0-15.5) g/dL Hct 27.9 L (36.0-46.0) % MCHC 30.8 L (32.0-36.0) g/dL RDW 15.3 H (11.7-14.6) % MPV 12.6 H (8.0-11.0) fL Absolute Lymphocytes 4.12 H (1.2-3.4) k/cumm Absolute Monocytes 1.25 H (0.11-0.7) k/cumm APTT 36.8 H (21.0-31.4) sec BUN 19 H (7-18) mg/dL Creatinine 1.60 H (0.55-1.02) mg/dL Glucose 111 H (70-100) mg/dL Vital Signs Temperature 36.7 C 01/07/18 12:50 Temperature Source Temporal Artery Scan 01/07/18 12:50 Pulse 61 01/08/18 09:15 Pulse Rhythm Regular 01/08/18 09:00 Pulse 61 01/08/18 09:15 Respiratory Rate 15 01/08/18 09:15 Respiratory Effort Non-Labored 01/08/18 09:00 Respiratory Depth Normal 01/08/18 09:00 Respiratory Pattern Normal 01/08/18 09:00 Blood Pressure 128/63 01/08/18 09:15 Blood Pressure Mean 76 01/08/18 09:15 Blood Pressure Position Supine 01/01/18 12:38 Pulse Oximetry 99 01/08/18 09:30 Oxygen Delivery Method Room Air 01/08/18 09:30 Oxygen Flow Rate 0 01/08/18 09:30 Pain Level 0 01/07/18 00:05 Comment 01/03/18 00:58 Intake & Output 01/07/18 01/07/18 01/08/18 11:59 23:59 11:59 Intake Total 716.117 / 716.117 791.117 / 791.117 32.325 / 32.325 Output Total 2074 250 / 250 350 / 350 Balance -1358.883 / -1358.883 541.117 / 541.117 -317.675 / -317.675 Weight 89.3 kg Intake: IV 71.117 / 71.117 71.117 / 71.117 32.325 / 32.325 Oral 645 / 645 720 / 720 Output: Urine 2074 250 / 250 350 / 350 Other: Urine Color Yellow Yellow Yellow Urine Appearance Clear Clear Clear Urine Odor Normal None None Comment void x 1, mixed with stool. Stool Size Moderate Stool Characteristics Soft Brown Voiding Methods Bedside Commode Bedside Commode Bedside Commode Laboratory Results WBC 10.64 k/cumm (4.4-10.8) 01/08/18 06:10 RBC 3.08 m/cumm (4.00-5.20) L 01/08/18 06:10 Hgb 8.6 g/dL (12.0-15.5) L 01/08/18 06:10 Hct 27.9 % (36.0-46.0) L 01/08/18 06:10 MCV 90.6 fL (80-95) 01/08/18 06:10 MCH 27.9 pg (27.0-33.0) 01/08/18 06:10 MCHC 30.8 g/dL (32.0-36.0) L 01/08/18 06:10 RDW 15.3 % (11.7-14.6) H 01/08/18 06:10 Plt Count 218 x1000/uL (130-400) 01/08/18 06:10 MPV 12.6 fL (8.0-11.0) H 01/08/18 06:10 Immature Gran % 0.8 01/08/18 06:10 Neutrophils % 46.3 01/08/18 06:10 Lymphocytes % 38.7 01/08/18 06:10 Monocytes % 11.7 01/08/18 06:10 Eosinophils % 2.3 01/08/18 06:10 Basophils % 0.2 01/08/18 06:10 Absolute Neutrophils 4.92 k/cumm (1.2-6.7) 01/08/18 06:10 Absolute Lymphocytes 4.12 k/cumm (1.2-3.4) H 01/08/18 06:10 Absolute Monocytes 1.25 k/cumm (0.11-0.7) H 01/08/18 06:10 Absolute Eosinophils 0.25 k/cumm (0.0-0.7) 01/08/18 06:10 Absolute Basophils 0.02 k/cumm (0.0-0.2) 01/08/18 06:10 Differential Comment Rbc morph reviewed 01/06/18 06:20 RBC Morphology See below 01/01/18 10:20 Polychromasia Present 01/06/18 06:20 Hypochromasia 1+ 01/06/18 06:20 Basophilic Stippling Present 01/06/18 06:20 Anisocytosis 1+ 01/06/18 06:20 PT 10.8 sec (9.3-10.8) 01/01/18 10:20 INR 1.1 (1.0-3.5) 01/01/18 10:20 APTT 36.8 sec (21.0-31.4) H 01/08/18 06:10 Sodium 142 mmol/L (136-145) 01/08/18 06:10 Potassium 4.4 mmol/L (3.5-5.1) 01/08/18 06:10 Chloride 105 mmol/L (98-107) 01/08/18 06:10 Carbon Dioxide 27.0 mmol/L (21.0-32.0) 01/08/18 06:10 Anion Gap 10.0 mmol/L (3-11) 01/08/18 06:10 BUN 19 mg/dL (7-18) H 01/08/18 06:10 Creatinine 1.60 mg/dL (0.55-1.02) H 01/08/18 06:10 Estimated GFR/1.73 m2 31.87 (mL/min/1.73m2) 01/08/18 06:10 Glucose 111 mg/dL (70-100) H 01/08/18 06:10 Calcium 9.6 mg/dL (8.5-10.1) 01/08/18 06:10 Magnesium 2.0 mg/dL (1.8-2.4) 01/07/18 06:23 Total Bilirubin 0.2 mg/dL (0.2-1.0) 01/01/18 10:20 Conjugated Bilirubin 0.06 mg/dL (0.00-0.20) 01/01/18 10:20 AST 22 U/L (15-37) 01/01/18 10:20 ALT 32 U/L (12-78) 01/01/18 10:20 Alkaline Phosphatase 44 U/L (46-116) L 01/01/18 10:20 Troponin I < 0.02 ng/mL (0.00-0.06) 01/02/18 02:00 Total Protein 5.7 g/dL (6.4-8.2) L 01/01/18 10:20 Albumin 2.6 g/dL (3.4-5.0) L 01/01/18 10:20 Urine Color Yellow (Yellow) 01/04/18 16:30 Urine Clarity Clear 01/04/18 16:30 Urine pH 6.0 (5-8) 01/04/18 16:30 Ur Specific [place] 1.020 (1.005-1.025) 01/04/18 16:30 Urine Protein Negative mg/dL (Negative) 01/04/18 16:30 Urine Ketones Trace mg/dL (Negative) H 01/04/18 16:30 Urine Blood Large (Negative) H 01/04/18 16:30 Urine Nitrite Negative (Negative) 01/04/18 16:30 Urine Bilirubin Negative (Negative) 01/04/18 16:30 Urine Urobilinogen 0.2 EU/dL (Up TO 0.2) 01/04/18 16:30 Ur Leukocyte Esterase Negative (Negative) 01/04/18 16:30 Urine RBC >50 (0-2) H 01/04/18 16:30 Urine WBC 5-10 HPF (0-5) 01/04/18 16:30 Ur Epithelial Cells Few HPF (Negative) 01/04/18 16:30 Urine Crystals Negative HPF (Negative) 01/04/18 16:30 Urine Bacteria Few HPF (Negative) 01/04/18 16:30 Urine Casts Negative LPF (Negative) 01/04/18 16:30 Urine Mucus Negative (Negative) 01/04/18 16:30 Ur Culture Indicated? Yes 01/04/18 16:30 Urine Glucose Negative mg/dL (Negative) 01/04/18 16:30 Patient ABO/Rh A Positive 01/01/18 10:20 Antibody Screen Negative 01/01/18 10:20
[2018-01-08] MEDS: IOHEXOL 50 ML 18 ML (11:42)
--- NOTE | 2018-01-08 11:45 | W.PM.OP ---
Operative Note DATE OF PROCEDURE: 01/08/18 PRE-OP DIAGNOSIS: Hematuria POST-OP DIAGNOSIS: same PROCEDURE: Cystoscopy with bilateral retrograde pyelogram SURGEON: Ronald Ramírez ESTIMATED BLOOD LOSS: 0 COMPLICATIONS: None Findings: No bladder or ureteral pathology right lower pole kidney stone
[2018-01-08] MEDS: Sulfameth/Trimeth DS TAB 1 TAB PO (13:37)
--- NOTE | 2018-01-08 15:52 | ROE_ITS ---
DATE OF OPERATION: January 08, 2018 PREOPERATIVE DIAGNOSIS: Hematuria. POSTOPERATIVE DIAGNOSIS: Hematuria with no significant bladder or ureteral pathology. PROCEDURE: Cystoscopy with bilateral retrograde pyelogram. SURGEON: Ronald Ramírez M.D. ANESTHESIA: MAC with local. COMPLICATIONS: None. HISTORY: This is a 72-year-old woman who has a history of PE, DVT, and a hypercoagulable state. She requires anticoagulation but has been found to have blood in the urine. She underwent a renal ultra sound which did demonstrate a large lower pole stone on the right. No obstruction was identified. S he presents now for cystoscope with retrograde pyelogram to rule out lower urinary tract pathology. OPERATIVE REPORT: The patient was brought to the Operating Room on 01/08/18. After being given bertin tored anesthesia care, she was placed in the dorsal lithotomy position. Her genitalia was prepped an d draped. A 22 [place] rigid cystoscope was passed through the urethra into the bladder. The bladder was inspec edel with the 30-degree lens. Both ureteral orifices appeared normal. No bleeding was seen coming from either orifice. The remainder of the bladder appeared smooth walled and pink, with no active bleeding. No papillary or nodular tumors were seen. No stones were seen. Each ureteral orifice was then cannulated with a 6 [place] access catheter. Retrograde films were the n obtained by injecting Omnipaque through the access catheter under fluoroscopic guidance. Both uret ers appeared normal. The left collecting system appeared normal. On the right side there was a fill ing defect in the lower pole of the right kidney corresponding to her known kidney stone. No hydrone phrosis was identified. The bladder was emptied and the cystoscope was withdrawn. Based on this examination there is no significant lower urinary tract pathology that would preclude t he use of anticoagulation. Her right kidney stone has been present for at least three years now. No definite treatment is required. If the patient does elect to have the stone treated surgically, our options would include flexible ureteroscopy with Holmium laser of the stone and stone extractions. I would expect that given the size and location of her stone such a procedure would require several h ours of anesthetic. Our other option would be a percutaneous nephrolithotomy which has a higher risk of bleeding and woul d certainly need her to be off anticoagulants for that type of procedure.
[2018-01-08] MEDS: Terazosin 2 MG CAP PO (20:10)
[2018-01-08] MEDS: Apixaban 5 MG TAB PO (20:11)
[2018-01-08] MEDS: Metoprolol CR 50 MG TABCR 100 MG PO (22:41)
[2018-01-09] VITALS (8 sets, daily range): BP systolic 100–129; BP diastolic 48–67; PULSE 52–74; RESP 15–19; TEMP 36.2–37.2; O2SAT 96–100
[2018-01-09] MEDS: Lactated Ringers 1,000 ML 75 ML IV (06:38)
[2018-01-09 07:25] LABS: Abs Immature Grans 0.06 k/cumm (0.0-0.09); Absolute Basophil Count 0.01 k/cumm (0.0-0.2); Absolute Eosinophil Count 0.02 k/cumm (0.0-0.7); Absolute Lymphocyte Count 2.11 k/cumm (1.2-3.4); Absolute Monocyte Count 1.21 k/cumm (0.11-0.7); Absolute Neutrophil Count 7.45 k/cumm (1.2-6.7); Basophils % 0.1; Eosinophils % 0.2; HGB 7.8 g/dL (12.0-15.5); Immature Grans % 0.6; Lymphocytes % 19.4; Mean Corp. HGB Concentration 31.2 g/dL (32.0-36.0); Mean Corpuscular Hemoglobin 28.3 pg (27.0-33.0); Mean Corpuscular Volume 90.6 fL (80-95); Mean Platelet Volume 11.9 fL (8.0-11.0); Monocytes % 11.1; Neutrophils % 68.6; Platelet Count 201 x1000/uL (130-400); RBC 2.76 m/cumm (4.00-5.20); RBC Distribution Width 15.2 % (11.7-14.6); White Blood Cell Count 10.86 k/cumm (4.4-10.8)
[2018-01-09 07:33] LABS: Anion Gap 7.5 mmol/L (3-11); BUN 21 mg/dL (7-18); CO2 27.5 mmol/L (21.0-32.0); CREATININE 1.42 mg/dL (0.55-1.02); Calcium 9.5 mg/dL (8.5-10.1); Chloride 106 mmol/L (98-107); Estimated GFR 36.57 (mL/min/1.73m2); Glucose 115 mg/dL (70-100); Potassium 4.7 mmol/L (3.5-5.1); Sodium 141 mmol/L (136-145)
[2018-01-09] MEDS: Sertraline 50 MG TAB 150 MG PO (09:47)
[2018-01-09] MEDS: Terazosin 2 MG CAP PO ×2 (09:47→20:09)
[2018-01-09] MEDS: Pantoprazole 40 MG VIAL IVP ×2 (09:47→20:07)
[2018-01-09] MEDS: amLODIPine 10 MG TAB PO (09:47)
[2018-01-09] MEDS: Atorvastatin 40 MG TAB PO (09:47)
[2018-01-09] MEDS: Apixaban 5 MG TAB PO ×2 (09:47→20:09)
--- NOTE | 2018-01-09 10:56 | CMPROGNOTE_ITS ---
- If Service Date Differs Date of service: 01/09/18 Time of Service: 10:54 Care Management Progress Note S/O: Cassie is sitting in her recliner on the MS floor when CM visits this morning. She is engaged in conversation and is talkative. Dot reports that she is feeling well and has no reservations about returning home when medically ready. Dot will have a H&H at 1400 today. Pending results, Cassie will be discharged home. She will be discharged home on [employer] CM will verify copay with patients pharmacy. Dot will be provided with a discount card for first 30 days. A: 72 year old female admitted with an upper GI bleed and syncope P: Dot will discharge home when medically ready per MD. Anticipate patient will discharge with no services and follow up with her PCP. She will need to be discharged on PPI therapy and Carafate per report and follow up with surgery in three months. Sisi will be transported home via [facility] when medically ready for discharge. CM will continue to offer support to patient and care team regarding discharge planning and disposition.
[2018-01-09 14:05] LABS: HCT 24.6 % (36.0-46.0); HGB 7.5 g/dL (12.0-15.5)
--- NOTE | 2018-01-09 16:22 | W.PM.PROGNOT ---
Assessment and Plan (1) Upper GI bleeding: Current visit: No Status: Resolved S/p EGD on 01/02/2018 showing esophagitis, gastritis, duodenitis with shallow ulcerations noted, biopsied. Tolerating regular diet. Continue heparin gtt with plans to transition to oral anticoagulation pending results of cystoscopy. (2) Hypercoagulable state: Current visit: No Status: Chronic Initiated Heparin gtt with H/H holding at this time. Patient has a history of both arterial and venous thromboses as well as CVA and [place]. Nature of hypercoagulable state uncertain. Plan as above, with potential change to Apixaban for decreased risk of GI bleeding. (3) Syncopal episodes: Current visit: No Status: Chronic Patient reports prior episodes - syncope in setting of GI Bleed and anemia. (4) CKD (chronic kidney disease): Current visit: No Status: Chronic Stage 3 - noted. Avoid nephrotoxins, renally dose medications when appropriate. Current creatinine climbing in setting of recent ARB initiation - will discontinue and start concurrent alpha-halley, with careful first dose initiation due to concurrent BB use. Baseline of 1.1 - 1.3, now at 1.6. (5) Pulmonary embolism: Current visit: No Status: Chronic Hx of Hypercoagulable State per History, with prior arterial and venous thromboses as well as CVA and [place]. Will continue anticoagulation as above. (6) SVT (supraventricular tachycardia): Current visit: No Status: Chronic Continue BB therapy and maintain on cardiac monitoring while anemic. [place] [facility] [place] Last ECHO 05/2017 with normal LVEF and no significant valvulopathy despite murmur. Brief run of SVTs overnight 2 nights ago (approximately 3 minutes). (7) CVA (cerebral vascular accident): Current visit: No Status: Chronic (8) CAD (coronary artery disease): Current visit: No Status: Chronic Continue statin, BB. No antiplatelet therapy recorded. Needs improved blood pressure control. (9) Essential hypertension: Current visit: No Status: Chronic On BB and CCB. Patient with evidence of CKD, likely on the basis of chronic hypertension. Refused SERGIO-I due to prior dislike of this medication. Started low dose ARB - uptitrated previously, but now with increasing creatinine - discontinue ARB and start Alpha-Halley with careful initiation given concurrent BB use. Monitor. (10) Hematuria: Current visit: No Status: Acute In patient with history of kidney stones. For repeat ultrasound, with potential cystoscopy in the morning. Plan on holding heparin drip 2-3 hours prior to planned procedure. (11) DVT prophylaxis: Current visit: No Status: Acute On heparin gtt. Subjective Interval history since last seen: Pleasant 72 year old woman with a past medical history significant for Hypercoagulable state (Unclear of type), CAD with prior history of [place], CVA, and previous PE on anticoagulation with Rivaroxaban presented to [facility] ED initially on 01/01/2018 with reported black stools, hematemesis, and syncope. Since the time of admission the patient has undergone an EGD showing esophagitis, gastritis, and duodenitis with very shallow ulcerations and no active bleeding. She has also been maintained on IV PPI and Carafate. Her Hemoglobin while low remains stable, and she is now on a regular diet. Mrs. Aguilar reports resolution of black stools and states that they have become more formed since time of admission, and she is now hemeoccult negative. However, she has reported hematuria that continues. She has a history of nephrolithiasis, and urology consultation reports ultrasound from last year with a left sided renal calculus, and multiple prior right sided stones as well. A repeat ultrasound was obtained showing right sided nephrolithiasis without hydronephrosis or other abnormality. She underwent cystoscopy on 01/08 with no bladder lesions and no lower urinary tract pathology, with hematuria likely on the basis of kidney stones. Following her cystoscopy Mrs. Aguilar was started on Apixaban, with plans for discharge this morning if continued stable hemoglobin. However, Hgb with apparent drop this morning, confirmed by repeat check this afternoon. No other overnight events were reported. She remains afebrile. Exam Narrative Exam Narrative: General: Comfortable appearing, sitting up in bed. AAOX3, No acute distress. Neck: Supple Cardiovascular: Regular, Non-tachycardic. No overt rubs or gallops. 3/6 RUSB/LLSB murmur again noted. Lungs: CTAB without crackles or rhonchi. Gastrointestinal: Soft, nontender, nondistended. Extremities: no edema Objective Objective Clinical Data: Abnormal lab results 01/09/18 01/09/18 01/09/18 Range/Units 07:00 07:00 14:00 WBC 10.86 H (4.4-10.8) k/cumm RBC 2.76 L (4.00-5.20) m/cumm Hgb 7.8 L 7.5 L (12.0-15.5) g/dL Hct 25.0 L 24.6 L (36.0-46.0) % MCHC 31.2 L (32.0-36.0) g/dL RDW 15.2 H (11.7-14.6) % MPV 11.9 H (8.0-11.0) fL Absolute Neutrophils 7.45 H (1.2-6.7) k/cumm Absolute Monocytes 1.21 H (0.11-0.7) k/cumm BUN 21 H (7-18) mg/dL Creatinine 1.42 H (0.55-1.02) mg/dL Glucose 115 H (70-100) mg/dL Vital Signs Temperature 37.2 C 01/09/18 15:53 Temperature Source Tympanic 01/09/18 15:53 Pulse 74 01/09/18 15:53 Pulse Rhythm Regular 01/09/18 12:50 Pulse 52 L 01/08/18 13:02 Respiratory Rate 19 01/09/18 15:53 Respiratory Effort Non-Labored 01/09/18 12:50 Respiratory Depth Normal 01/09/18 12:50 Respiratory Pattern Normal 01/09/18 12:50 Blood Pressure 100/59 L 01/09/18 15:53 Blood Pressure Mean 58 01/08/18 14:01 Blood Pressure Position Supine 01/01/18 12:38 Pulse Oximetry 98 01/09/18 15:53 Oxygen Delivery Method Room Air 01/09/18 15:53 Oxygen Flow Rate 0 01/09/18 15:53 Pain Level 0 01/09/18 11:40 Comment 01/03/18 00:58 Intake & Output 01/08/18 01/09/18 01/09/18 23:59 11:59 23:59 Intake Total 268.75 / 268.75 1740 / 1740 970 / 970 Output Total 1220 / 1220 800 / 800 400 / 400 Balance -951.25 / -951.25 940 / 940 570 / 570 Weight 90.1 kg Intake: IV 268.75 / 268.75 1000 / 1000 Oral 740 / 740 970 / 970 Output: Urine 200 / 200 800 / 800 400 / 400 Emesis 1020 / 1020 Other: Urine Color Dark Red Smith Dark Daria Urine Appearance Hematuria Clear Urine Odor None None Normal Comment toilet void x 1 patient toilets self, denies symptoms Emesis Description None Voiding Methods Toilet Toilet Toilet Laboratory Results WBC 10.86 k/cumm (4.4-10.8) H 01/09/18 07:00 RBC 2.76 m/cumm (4.00-5.20) L 01/09/18 07:00 Hgb 7.5 g/dL (12.0-15.5) L 01/09/18 14:00 Hct 24.6 % (36.0-46.0) L 01/09/18 14:00 MCV 90.6 fL (80-95) 01/09/18 07:00 MCH 28.3 pg (27.0-33.0) 01/09/18 07:00 MCHC 31.2 g/dL (32.0-36.0) L 01/09/18 07:00 RDW 15.2 % (11.7-14.6) H 01/09/18 07:00 Plt Count 201 x1000/uL (130-400) 01/09/18 07:00 MPV 11.9 fL (8.0-11.0) H 01/09/18 07:00 Immature Gran % 0.6 01/09/18 07:00 Neutrophils % 68.6 01/09/18 07:00 Lymphocytes % 19.4 01/09/18 07:00 Monocytes % 11.1 01/09/18 07:00 Eosinophils % 0.2 01/09/18 07:00 Basophils % 0.1 01/09/18 07:00 Absolute Neutrophils 7.45 k/cumm (1.2-6.7) H 01/09/18 07:00 Absolute Lymphocytes 2.11 k/cumm (1.2-3.4) 01/09/18 07:00 Absolute Monocytes 1.21 k/cumm (0.11-0.7) H 01/09/18 07:00 Absolute Eosinophils 0.02 k/cumm (0.0-0.7) 01/09/18 07:00 Absolute Basophils 0.01 k/cumm (0.0-0.2) 01/09/18 07:00 Differential Comment Rbc morph reviewed 01/06/18 06:20 RBC Morphology See below 01/01/18 10:20 Polychromasia Present 01/06/18 06:20 Hypochromasia 1+ 01/06/18 06:20 Basophilic Stippling Present 01/06/18 06:20 Anisocytosis 1+ 01/06/18 06:20 PT 10.8 sec (9.3-10.8) 01/01/18 10:20 INR 1.1 (1.0-3.5) 01/01/18 10:20 APTT 36.8 sec (21.0-31.4) H 01/08/18 06:10 Sodium 141 mmol/L (136-145) 01/09/18 07:00 Potassium 4.7 mmol/L (3.5-5.1) 01/09/18 07:00 Chloride 106 mmol/L (98-107) 01/09/18 07:00 Carbon Dioxide 27.5 mmol/L (21.0-32.0) 01/09/18 07:00 Anion Gap 7.5 mmol/L (3-11) 01/09/18 07:00 BUN 21 mg/dL (7-18) H 01/09/18 07:00 Creatinine 1.42 mg/dL (0.55-1.02) H 01/09/18 07:00 Estimated GFR/1.73 m2 36.57 (mL/min/1.73m2) 01/09/18 07:00 Glucose 115 mg/dL (70-100) H 01/09/18 07:00 Calcium 9.5 mg/dL (8.5-10.1) 01/09/18 07:00 Magnesium 2.0 mg/dL (1.8-2.4) 01/07/18 06:23 Total Bilirubin 0.2 mg/dL (0.2-1.0) 01/01/18 10:20 Conjugated Bilirubin 0.06 mg/dL (0.00-0.20) 01/01/18 10:20 AST 22 U/L (15-37) 01/01/18 10:20 ALT 32 U/L (12-78) 01/01/18 10:20 Alkaline Phosphatase 44 U/L (46-116) L 01/01/18 10:20 Troponin I < 0.02 ng/mL (0.00-0.06) 01/02/18 02:00 Total Protein 5.7 g/dL (6.4-8.2) L 01/01/18 10:20 Albumin 2.6 g/dL (3.4-5.0) L 01/01/18 10:20 Urine Color Yellow (Yellow) 01/04/18 16:30 Urine Clarity Clear 01/04/18 16:30 Urine pH 6.0 (5-8) 01/04/18 16:30 Ur Specific [place] 1.020 (1.005-1.025) 01/04/18 16:30 Urine Protein Negative mg/dL (Negative) 01/04/18 16:30 Urine Ketones Trace mg/dL (Negative) H 01/04/18 16:30 Urine Blood Large (Negative) H 01/04/18 16:30 Urine Nitrite Negative (Negative) 01/04/18 16:30 Urine Bilirubin Negative (Negative) 01/04/18 16:30 Urine Urobilinogen 0.2 EU/dL (Up TO 0.2) 01/04/18 16:30 Ur Leukocyte Esterase Negative (Negative) 01/04/18 16:30 Urine RBC >50 (0-2) H 01/04/18 16:30 Urine WBC 5-10 HPF (0-5) 01/04/18 16:30 Ur Epithelial Cells Few HPF (Negative) 01/04/18 16:30 Urine Crystals Negative HPF (Negative) 01/04/18 16:30 Urine Bacteria Few HPF (Negative) 01/04/18 16:30 Urine Casts Negative LPF (Negative) 01/04/18 16:30 Urine Mucus Negative (Negative) 01/04/18 16:30 Ur Culture Indicated? Yes 01/04/18 16:30 Urine Glucose Negative mg/dL (Negative) 01/04/18 16:30 Patient ABO/Rh A Positive 01/01/18 10:20 Antibody Screen Negative 01/01/18 10:20
--- NOTE | 2018-01-09 16:27 | PGE_ITS ---
Assessment and Plan (1) Upper GI bleeding: Current visit: No Status: Resolved S/p EGD on 01/02/2018 showing esophagitis, gastritis, duodenitis with shallow ulcerations noted, biopsied. Tolerating regular diet. Continue heparin gtt with plans to transition to oral anticoagulation pending results of cystoscopy. (2) Hypercoagulable state: Current visit: No Status: Chronic Initiated Heparin gtt with H/H holding at this time. Patient has a history of both arterial and venous thromboses as well as CVA and IA. Nature of hypercoagulable state uncertain. Plan as above, with potential change to Apixaban for decreased risk of GI bleeding. (3) Syncopal episodes: Current visit: No Status: Chronic Patient reports prior episodes - syncope in setting of GI Bleed and anemia. (4) CKD (chronic kidney disease): Current visit: No Status: Chronic Stage 3 - noted. Avoid nephrotoxins, renally dose medications when appropriate. Current creatinine climbing in setting of recent ARB initiation - will discontinue and start concurrent alpha-halley, with careful first dose initiation due to concurrent BB use. Baseline of 1.1 - 1.3, now at 1.6. (5) Pulmonary embolism: Current visit: No Status: Chronic Hx of Hypercoagulable State per History, with prior arterial and venous thromboses as well as CVA and IA. Will continue anticoagulation as above. (6) SVT (supraventricular tachycardia): Current visit: No Status: Chronic Continue BB therapy and maintain on cardiac monitoring while anemic. Follows with [facility] cardiology. Last ECHO 05/2017 with normal LVEF and no significant valvulopathy despite murmur. Brief run of SVTs overnight 2 nights ago (approximately 3 minutes). (7) CVA (cerebral vascular accident): Current visit: No Status: Chronic (8) CAD (coronary artery disease): Current visit: No Status: Chronic Continue statin, BB. No antiplatelet therapy recorded. Needs improved blood pressure control. (9) Essential hypertension: Current visit: No Status: Chronic On BB and CCB. Patient with evidence of CKD, likely on the basis of chronic hypertension. Refused SERGIO-I due to prior dislike of this medication. Started low dose ARB - uptitrated previously, but now with increasing creatinine - discontinue ARB and start Alpha-Halley with careful initiation given concurrent BB use. Monitor. (10) Hematuria: Current visit: No Status: Acute In patient with history of kidney stones. For repeat ultrasound, with potential cystoscopy in the morning. Plan on holding heparin drip 2-3 hours prior to planned procedure. (11) DVT prophylaxis: Current visit: No Status: Acute On heparin gtt. Subjective Interval history since last seen: Pleasant 72 year old woman with a past medical history significant for Hypercoagulable state (Unclear of type), CAD with prior history of IA, CVA, and previous PE on anticoagulation with Rivaroxaban presented to [facility] ED initially on 01/01/2018 with reported black stools, hematemesis, and syncope. Since the time of admission the patient has undergone an EGD showing esophagitis , gastritis, and duodenitis with very shallow ulcerations and no active bleeding. She has also been maintained on IV PPI and Carafate. Her Hemoglobin while low remains stable, and she is now on a regular diet. Mrs. Aguilar reports resolution of black stools and states that they have become more formed since time of admission, and she is now hemeoccult negative. However, she has reported hematuria that continues. She has a history of nephrolithiasis, and urology consultation reports ultrasound from last year with a left sided renal calculus, and multiple prior right sided stones as well. A repeat ultrasound was obtained showing right sided nephrolithiasis without hydronephrosis or other abnormality. She underwent cystoscopy on 01/08 with no bladder lesions and no lower urinary tract pathology, with hematuria likely on the basis of kidney stones. Following her cystoscopy Mrs. Aguilar was started on Apixaban, with plans for discharge this morning if continued stable hemoglobin. However, Hgb with apparent drop this morning, confirmed by repeat check this afternoon. No other overnight events were reported. She remains afebrile. Exam Narrative Exam Narrative: General: Comfortable appearing, sitting up in bed. AAOX3, No acute distress. Neck: Supple Cardiovascular: Regular, Non-tachycardic. No overt rubs or gallops. 3/6 RUSB/ LLSB murmur again noted. Lungs: CTAB without crackles or rhonchi. Gastrointestinal: Soft, nontender, nondistended. Extremities: no edema Objective Objective Clinical Data: Abnormal lab results 01/09/18 01/09/18 01/09/18 Range/Units 07:00 07:00 14:00 WBC 10.86 H (4.4-10.8) k/cumm RBC 2.76 L (4.00-5.20) m/cumm Hgb 7.8 L 7.5 L (12.0-15.5) g/dL Hct 25.0 L 24.6 L (36.0-46.0) % MCHC 31.2 L (32.0-36.0) g/dL RDW 15.2 H (11.7-14.6) % MPV 11.9 H (8.0-11.0) fL Absolute Neutrophils 7.45 H (1.2-6.7) k/cumm Absolute Monocytes 1.21 H (0.11-0.7) k/cumm BUN 21 H (7-18) mg/dL Creatinine 1.42 H (0.55-1.02) mg/dL Glucose 115 H (70-100) mg/dL Vital Signs Temperature 37.2 C 01/09/18 15:53 Temperature Source Tympanic 01/09/18 15:53 Pulse 74 01/09/18 15:53 Pulse Rhythm Regular 01/09/18 12:50 Pulse 52 L 01/08/18 13:02 Respiratory Rate 19 01/09/18 15:53 Respiratory Effort Non-Labored 01/09/18 12:50 Respiratory Depth Normal 01/09/18 12:50 Respiratory Pattern Normal 01/09/18 12:50 Blood Pressure 100/59 L 01/09/18 15:53 Blood Pressure Mean 58 01/08/18 14:01 Blood Pressure Position Supine 01/01/18 12:38 Pulse Oximetry 98 01/09/18 15:53 Oxygen Delivery Method Room Air 01/09/18 15:53 Oxygen Flow Rate 0 01/09/18 15:53 Pain Level 0 01/09/18 11:40 Comment 01/03/18 00:58 Intake & Output 01/08/18 01/09/18 01/09/18 23:59 11:59 23:59 Intake Total 268.75 / 268.75 1740 / 1740 970 / 970 Output Total 1220 / 1220 800 / 800 400 / 400 Balance -951.25 / -951.25 940 / 940 570 / 570 Weight 90.1 kg Intake: IV 268.75 / 268.75 1000 / 1000 Oral 740 / 740 970 / 970 Output: Urine 200 / 200 800 / 800 400 / 400 Emesis 1020 / 1020 Other: Urine Color Dark Red Smith Dark Daria Urine Appearance Hematuria Clear Urine Odor None None Normal Comment toilet void x 1 patient toilets self, denies symptoms Emesis Description None Voiding Methods Toilet Toilet Toilet Laboratory Results WBC 10.86 k/cumm (4.4-10.8) H 01/09/18 07:00 RBC 2.76 m/cumm (4.00-5.20) L 01/09/18 07:00 Hgb 7.5 g/dL (12.0-15.5) L 01/09/18 14:00 Hct 24.6 % (36.0-46.0) L 01/09/18 14:00 MCV 90.6 fL (80-95) 01/09/18 07:00 MCH 28.3 pg (27.0-33.0) 01/09/18 07:00 MCHC 31.2 g/dL (32.0-36.0) L 01/09/18 07:00 RDW 15.2 % (11.7-14.6) H 01/09/18 07:00 Plt Count 201 x1000/uL (130-400) 01/09/18 07:00 MPV 11.9 fL (8.0-11.0) H 01/09/18 07:00 Immature Gran % 0.6 01/09/18 07:00 Neutrophils % 68.6 01/09/18 07:00 Lymphocytes % 19.4 01/09/18 07:00 Monocytes % 11.1 01/09/18 07:00 Eosinophils % 0.2 01/09/18 07:00 Basophils % 0.1 01/09/18 07:00 Absolute Neutrophils 7.45 k/cumm (1.2-6.7) H 01/09/18 07:00 Absolute Lymphocytes 2.11 k/cumm (1.2-3.4) 01/09/18 07:00 Absolute Monocytes 1.21 k/cumm (0.11-0.7) H 01/09/18 07:00 Absolute Eosinophils 0.02 k/cumm (0.0-0.7) 01/09/18 07:00 Absolute Basophils 0.01 k/cumm (0.0-0.2) 01/09/18 07:00 Differential Comment Rbc morph reviewed 01/06/18 06:20 RBC Morphology See below 01/01/18 10:20 Polychromasia Present 01/06/18 06:20 Hypochromasia 1+ 01/06/18 06:20 Basophilic Stippling Present 01/06/18 06:20 Anisocytosis 1+ 01/06/18 06:20 PT 10.8 sec (9.3-10.8) 01/01/18 10:20 INR 1.1 (1.0-3.5) 01/01/18 10:20 APTT 36.8 sec (21.0-31.4) H 01/08/18 06:10 Sodium 141 mmol/L (136-145) 01/09/18 07:00 Potassium 4.7 mmol/L (3.5-5.1) 01/09/18 07:00 Chloride 106 mmol/L (98-107) 01/09/18 07:00 Carbon Dioxide 27.5 mmol/L (21.0-32.0) 01/09/18 07:00 Anion Gap 7.5 mmol/L (3-11) 01/09/18 07:00 BUN 21 mg/dL (7-18) H 01/09/18 07:00 Creatinine 1.42 mg/dL (0.55-1.02) H 01/09/18 07:00 Estimated GFR/1.73 m2 36.57 (mL/min/1.73m2) 01/09/18 07:00 Glucose 115 mg/dL (70-100) H 01/09/18 07:00 Calcium 9.5 mg/dL (8.5-10.1) 01/09/18 07:00 Magnesium 2.0 mg/dL (1.8-2.4) 01/07/18 06:23 Total Bilirubin 0.2 mg/dL (0.2-1.0) 01/01/18 10:20 Conjugated Bilirubin 0.06 mg/dL (0.00-0.20) 01/01/18 10:20 AST 22 U/L (15-37) 01/01/18 10:20 ALT 32 U/L (12-78) 01/01/18 10:20 Alkaline Phosphatase 44 U/L (46-116) L 01/01/18 10:20 Troponin I < 0.02 ng/mL (0.00-0.06) 01/02/18 02:00 Total Protein 5.7 g/dL (6.4-8.2) L 01/01/18 10:20 Albumin 2.6 g/dL (3.4-5.0) L 01/01/18 10:20 Urine Color Yellow (Yellow) 01/04/18 16:30 Urine Clarity Clear 01/04/18 16:30 Urine pH 6.0 (5-8) 01/04/18 16:30 Ur Specific [place] 1.020 (1.005-1.025) 01/04/18 16:30 Urine Protein Negative mg/dL (Negative) 01/04/18 16:30 Urine Ketones Trace mg/dL (Negative) H 01/04/18 16:30 Urine Blood Large (Negative) H 01/04/18 16:30 Urine Nitrite Negative (Negative) 01/04/18 16:30 Urine Bilirubin Negative (Negative) 01/04/18 16:30 Urine Urobilinogen 0.2 EU/dL (Up TO 0.2) 01/04/18 16:30 Ur Leukocyte Esterase Negative (Negative) 01/04/18 16:30 Urine RBC >50 (0-2) H 01/04/18 16:30 Urine WBC 5-10 HPF (0-5) 01/04/18 16:30 Ur Epithelial Cells Few HPF (Negative) 01/04/18 16:30 Urine Crystals Negative HPF (Negative) 01/04/18 16:30 Urine Bacteria Few HPF (Negative) 01/04/18 16:30 Urine Casts Negative LPF (Negative) 01/04/18 16:30 Urine Mucus Negative (Negative) 01/04/18 16:30 Ur Culture Indicated? Yes 01/04/18 16:30 Urine Glucose Negative mg/dL (Negative) 01/04/18 16:30 Patient ABO/Rh A Positive 01/01/18 10:20 Antibody Screen Negative 01/01/18 10:20
--- NOTE | 2018-01-09 16:28 | CHAPLAIN ---
Cassie was resting in her recliner when I stopped in. She told me about moving from [place] to [place], but living in [place] most of her life. She's been here a few years living with her son. Cassie said she has attended many different kinds of churches in her life, usually the [employer] closets to where she is living. In [facility], she said she lives closets to the [facility] (she thinks this is the one), but is unable to attend because extended family members don't have reliable cars. I gave her the phone number of the [facility] in case she was interested in contacting the rastafari for a ride. Cassie requested a copy of [employer] devotional booklet, and I also gave her a prayer shawl.
[2018-01-09] MEDS: Amoxicillin 500 MG CAP 1000 MG PO (17:18)
[2018-01-09] MEDS: Clarithromycin 500 MG TAB PO (17:18)
[2018-01-09] MEDS: Normal Saline Flush 10 ML SYR IVP (20:09)
[2018-01-09] MEDS: Metoprolol CR 50 MG TABCR 100 MG PO (22:15)
[2018-01-10] VITALS (12 sets, daily range): BP systolic 101–163; BP diastolic 59–78; PULSE 52–70; RESP 14–18; TEMP 35.9–36.8; O2SAT 96–100
[2018-01-10 07:40] LABS: Abs Immature Grans 0.04 k/cumm (0.0-0.09); Absolute Basophil Count 0.02 k/cumm (0.0-0.2); Absolute Eosinophil Count 0.14 k/cumm (0.0-0.7); Absolute Lymphocyte Count 3.67 k/cumm (1.2-3.4); Absolute Monocyte Count 0.99 k/cumm (0.11-0.7); Absolute Neutrophil Count 4.44 k/cumm (1.2-6.7); Basophils % 0.2; Eosinophils % 1.5; HCT 24.6 % (36.0-46.0); HGB 7.4 g/dL (12.0-15.5); Immature Grans % 0.4; Lymphocytes % 39.5; Mean Corp. HGB Concentration 30.1 g/dL (32.0-36.0); Mean Corpuscular Hemoglobin 27.5 pg (27.0-33.0); Mean Corpuscular Volume 91.4 fL (80-95); Mean Platelet Volume 12.2 fL (8.0-11.0); Monocytes % 10.6; Neutrophils % 47.8; Platelet Count 211 x1000/uL (130-400); RBC 2.69 m/cumm (4.00-5.20); RBC Distribution Width 15.4 % (11.7-14.6)
[2018-01-10 07:52] LABS: Anion Gap 8.7 mmol/L (3-11); BUN 23 mg/dL (7-18); CO2 27.3 mmol/L (21.0-32.0); CREATININE 1.43 mg/dL (0.55-1.02); Calcium 9.4 mg/dL (8.5-10.1); Chloride 107 mmol/L (98-107); Estimated GFR 36.28 (mL/min/1.73m2); Glucose 101 mg/dL (70-100); Potassium 4.6 mmol/L (3.5-5.1); Sodium 143 mmol/L (136-145)
[2018-01-10] MEDS: Apixaban 5 MG TAB PO ×2 (10:20→20:12)
[2018-01-10] MEDS: amLODIPine 10 MG TAB PO (10:20)
[2018-01-10] MEDS: Amoxicillin 500 MG CAP 1000 MG PO ×2 (10:20→16:54)
[2018-01-10] MEDS: Terazosin 2 MG CAP PO ×2 (10:20→20:15)
[2018-01-10] MEDS: Pantoprazole 40 MG VIAL IVP ×2 (10:20→20:12)
[2018-01-10] MEDS: Clarithromycin 500 MG TAB PO ×2 (10:21→16:54)
[2018-01-10] MEDS: Atorvastatin 20 MG TAB PO (10:21)
--- NOTE | 2018-01-10 10:32 | PDOC.CMPRO ---
- If Service Date Differs Date of service: 01/10/18 Time of Service: 10:32 Care Management Progress Note S/O: Dot is lying in bed when CM visits this morning. She is engaged in conversation, makes good eye contact and is talkative. Dot denies pain. Her H&H have been dropping slowly, and there is discussion about a blood transfusion of one unit. She will be discharged home on Eliquis when medically ready per MD. CM will verify copay with patients pharmacy. Dot will be provided with a discount card for first 30 days. A: 72 year old female admitted with an upper GI bleed and syncope P: Dot will discharge home when medically ready per MD. Anticipate patient will discharge with no services and follow up with her PCP. She will need to be discharged on PPI therapy and Carafate per report and follow up with surgery in three months. Patient will be transported home via [facility]. CM will continue to offer support to patient and care team regarding discharge planning and disposition.
[2018-01-10] MEDS: Sertraline 50 MG TAB 150 MG PO (12:22)
[2018-01-10] MEDS: Acetaminophen 325 MG TAB 650 MG PO (12:22)
[2018-01-10] MEDS: diphenhydrAMINE 25 MG CAP PO (12:23)
[2018-01-10] MEDS: Normal Saline Flush 10 ML SYR IVP ×3 (15:30→20:14)
--- NOTE | 2018-01-10 16:41 | NUR.NOTE ---
Nursing Note: one hour after blood transfusion was stooped, the patients lungs are clear, no complaint of rash , itch, hive, lower back pain, fever
[2018-01-10 17:06] LABS: HCT 27.8 % (36.0-46.0); HGB 8.8 g/dL (12.0-15.5)
--- NOTE | 2018-01-10 20:11 | PGE_ITS ---
Assessment and Plan (1) Upper GI bleeding: Current visit: Yes Status: Acute Resolved. S/p EGD on 01/02/2018 showing esophagitis, gastritis, duodenitis with shallow ulcerations noted, biopsied. Tolerating regular diet. (2) Hypercoagulable state: Current visit: Yes Status: Chronic Tolerating apixaban. Continue. (3) Syncopal episodes: Current visit: Yes Status: Chronic Patient reports prior episodes - syncope in setting of GI Bleed and anemia. No further w/u - due to symptomatic anemia. (4) CKD (chronic kidney disease): Current visit: Yes Status: Chronic Stage 3 - noted. Continue to monitor Cr - improving. (5) Pulmonary embolism: Current visit: Yes Status: Chronic Hx of Hypercoagulable State per History, with prior arterial and venous thromboses as well as CVA and MN. Continue eliquis. (6) SVT (supraventricular tachycardia): Current visit: Yes Status: Chronic Continue BB therapy and maintain on cardiac monitoring while anemic. Follows with [facility] cardiology. Last ECHO 05/2017 with normal LVEF and no significant valvulopathy despite murmur. (7) CVA (cerebral vascular accident): Current visit: Yes Status: Chronic old/not on this admission. Anticoagulation resumed. (8) CAD (coronary artery disease): Current visit: Yes Status: Chronic Continue statin, BB. BP still no adequately controlled - could benefit from workup of 2ndary causes as outpatient. (9) Essential hypertension: Current visit: Yes Status: Chronic On BB and CCB as well as terazosin. Patient with evidence of CKD, likely on the basis of chronic hypertension. (10) Hematuria: Current visit: Yes Status: Acute Resolved. S/p negative cystoscopy. Safe to continue anticoagulation. (11) DVT prophylaxis: Current visit: Yes Status: Acute On heparin gtt. Subjective Interval history since last seen: The patient denies any dizziness, chest pain, shortness of breath, nausea, vomiting. She had a normal BM today - she did not see blood. And she did not see blood in her urine either. She consents to getting 1 unit of blood. Feels tired, lazy. Exam Narrative Exam Narrative: General: Very pleasant Afrian Bhut[place] Female, laying comfortably in bed HEENT: EOMI, MMM Cardiovascular: RRR, no m/r/g Lungs: CTAB Gastrointestinal: abdomen soft, nontender, nondistended Extremities: no e/c/c BLE's Objective Objective Clinical Data: Abnormal lab results 01/10/18 01/10/18 01/10/18 Range/Units 07:07 07:07 07:07 RBC 2.69 L (4.00-5.20) m/cumm Hgb 7.4 L (12.0-15.5) g/dL Hct 24.6 L (36.0-46.0) % MCHC 30.1 L (32.0-36.0) g/dL RDW 15.4 H (11.7-14.6) % MPV 12.2 H (8.0-11.0) fL Absolute Lymphocytes 3.67 H (1.2-3.4) k/cumm Absolute Monocytes 0.99 H (0.11-0.7) k/cumm BUN 23 H (7-18) mg/dL Creatinine 1.43 H (0.55-1.02) mg/dL Glucose 101 H (70-100) mg/dL Crossmatch See Detail 01/10/18 Range/Units 16:45 RBC (4.00-5.20) m/cumm Hgb 8.8 L (12.0-15.5) g/dL Hct 27.8 L (36.0-46.0) % MCHC (32.0-36.0) g/dL RDW (11.7-14.6) % MPV (8.0-11.0) fL Absolute Lymphocytes (1.2-3.4) k/cumm Absolute Monocytes (0.11-0.7) k/cumm BUN (7-18) mg/dL Creatinine (0.55-1.02) mg/dL Glucose (70-100) mg/dL Crossmatch Vital Signs Temperature 36.7 C 01/10/18 16:40 Temperature Source Temporal Artery Scan 01/10/18 16:40 Pulse 70 01/10/18 16:40 Pulse Rhythm Regular 01/10/18 12:59 Pulse 52 L 01/08/18 13:02 Respiratory Rate 16 01/10/18 16:40 Respiratory Effort 01/10/18 12:59 Respiratory Depth Normal 01/10/18 12:59 Respiratory Pattern Normal 01/10/18 12:59 Blood Pressure 163/78 H 01/10/18 16:40 Blood Pressure Mean 58 01/08/18 14:01 Blood Pressure Position Supine 01/01/18 12:38 Pulse Oximetry 100 01/10/18 16:40 Oxygen Delivery Method Room Air 01/10/18 16:40 Oxygen Flow Rate 0 01/10/18 16:40 Pain Level 0 01/10/18 07:20 Comment 01/10/18 03:42 Intake & Output 01/09/18 01/10/18 01/10/18 23:59 11:59 23:59 Intake Total 1220 / 1220 400 / 400 850 / 850 Output Total 400 / 400 1725 / 1725 Balance 820 / 820 -1325 / -1325 850 / 850 Weight 92.1 kg Intake: IV Oral 1210 / 1210 400 / 400 550 / 550 Blood Product 300 / 300 Rbc Leuko Reduced Unit 300 / 300 [id number] Output: Urine 400 / 400 1725 / 1725 Other: Urine Color Dark Daria Light Daria Urine Appearance Clear Clear Clear Urine Odor Normal None Comment patient toilets self, denies symptoms Voiding Methods Toilet Toilet Laboratory Results WBC 9.30 k/cumm (4.4-10.8) 01/10/18 07:07 RBC 2.69 m/cumm (4.00-5.20) L 01/10/18 07:07 Hgb 8.8 g/dL (12.0-15.5) L 01/10/18 16:45 Hct 27.8 % (36.0-46.0) L 01/10/18 16:45 MCV 91.4 fL (80-95) 01/10/18 07:07 MCH 27.5 pg (27.0-33.0) 01/10/18 07:07 MCHC 30.1 g/dL (32.0-36.0) L 01/10/18 07:07 RDW 15.4 % (11.7-14.6) H 01/10/18 07:07 Plt Count 211 x1000/uL (130-400) 01/10/18 07:07 MPV 12.2 fL (8.0-11.0) H 01/10/18 07:07 Immature Gran % 0.4 01/10/18 07:07 Neutrophils % 47.8 01/10/18 07:07 Lymphocytes % 39.5 01/10/18 07:07 Monocytes % 10.6 01/10/18 07:07 Eosinophils % 1.5 01/10/18 07:07 Basophils % 0.2 01/10/18 07:07 Absolute Neutrophils 4.44 k/cumm (1.2-6.7) 01/10/18 07:07 Absolute Lymphocytes 3.67 k/cumm (1.2-3.4) H 01/10/18 07:07 Absolute Monocytes 0.99 k/cumm (0.11-0.7) H 01/10/18 07:07 Absolute Eosinophils 0.14 k/cumm (0.0-0.7) 01/10/18 07:07 Absolute Basophils 0.02 k/cumm (0.0-0.2) 01/10/18 07:07 Differential Comment Rbc morph reviewed 01/06/18 06:20 RBC Morphology See below 01/01/18 10:20 Polychromasia Present 01/06/18 06:20 Hypochromasia 1+ 01/06/18 06:20 Basophilic Stippling Present 01/06/18 06:20 Anisocytosis 1+ 01/06/18 06:20 PT 10.8 sec (9.3-10.8) 01/01/18 10:20 INR 1.1 (1.0-3.5) 01/01/18 10:20 APTT 36.8 sec (21.0-31.4) H 01/08/18 06:10 Sodium 143 mmol/L (136-145) 01/10/18 07:07 Potassium 4.6 mmol/L (3.5-5.1) 01/10/18 07:07 Chloride 107 mmol/L (98-107) 01/10/18 07:07 Carbon Dioxide 27.3 mmol/L (21.0-32.0) 01/10/18 07:07 Anion Gap 8.7 mmol/L (3-11) 01/10/18 07:07 BUN 23 mg/dL (7-18) H 01/10/18 07:07 Creatinine 1.43 mg/dL (0.55-1.02) H 01/10/18 07:07 Estimated GFR/1.73 m2 36.28 (mL/min/1.73m2) 01/10/18 07:07 Glucose 101 mg/dL (70-100) H 01/10/18 07:07 Calcium 9.4 mg/dL (8.5-10.1) 01/10/18 07:07 Magnesium 2.0 mg/dL (1.8-2.4) 01/07/18 06:23 Total Bilirubin 0.2 mg/dL (0.2-1.0) 01/01/18 10:20 Conjugated Bilirubin 0.06 mg/dL (0.00-0.20) 01/01/18 10:20 AST 22 U/L (15-37) 01/01/18 10:20 ALT 32 U/L (12-78) 01/01/18 10:20 Alkaline Phosphatase 44 U/L (46-116) L 01/01/18 10:20 Troponin I < 0.02 ng/mL (0.00-0.06) 01/02/18 02:00 Total Protein 5.7 g/dL (6.4-8.2) L 01/01/18 10:20 Albumin 2.6 g/dL (3.4-5.0) L 01/01/18 10:20 Urine Color Yellow (Yellow) 01/04/18 16:30 Urine Clarity Clear 01/04/18 16:30 Urine pH 6.0 (5-8) 01/04/18 16:30 Ur Specific [place] 1.020 (1.005-1.025) 01/04/18 16:30 Urine Protein Negative mg/dL (Negative) 01/04/18 16:30 Urine Ketones Trace mg/dL (Negative) H 01/04/18 16:30 Urine Blood Large (Negative) H 01/04/18 16:30 Urine Nitrite Negative (Negative) 01/04/18 16:30 Urine Bilirubin Negative (Negative) 01/04/18 16:30 Urine Urobilinogen 0.2 EU/dL (Up TO 0.2) 01/04/18 16:30 Ur Leukocyte Esterase Negative (Negative) 01/04/18 16:30 Urine RBC >50 (0-2) H 01/04/18 16:30 Urine WBC 5-10 HPF (0-5) 01/04/18 16:30 Ur Epithelial Cells Few HPF (Negative) 01/04/18 16:30 Urine Crystals Negative HPF (Negative) 01/04/18 16:30 Urine Bacteria Few HPF (Negative) 01/04/18 16:30 Urine Casts Negative LPF (Negative) 01/04/18 16:30 Urine Mucus Negative (Negative) 01/04/18 16:30 Ur Culture Indicated? Yes 01/04/18 16:30 Urine Glucose Negative mg/dL (Negative) 01/04/18 16:30 Patient ABO/Rh A Positive 01/10/18 07:07 Antibody Screen Negative 01/10/18 07:07 Crossmatch See Detail 01/10/18 07:07
[2018-01-10] MEDS: Metoprolol CR 50 MG TABCR 100 MG PO (22:42)
[2018-01-11 00:29] VITALS: BP 134/62; PULSE 56; RESP 18; TEMP 36.2; O2SAT 97
[2018-01-11 03:35] VITALS: BP 120/71; PULSE 57; RESP 18; TEMP 36.5; O2SAT 97
[2018-01-11 07:23] LABS: HCT 29.6 % (36.0-46.0); HGB 9.2 g/dL (12.0-15.5); Mean Corp. HGB Concentration 31.1 g/dL (32.0-36.0); Mean Corpuscular Hemoglobin 28.2 pg (27.0-33.0); Mean Corpuscular Volume 90.8 fL (80-95); Mean Platelet Volume 11.9 fL (8.0-11.0); Platelet Count 216 x1000/uL (130-400); RBC 3.26 m/cumm (4.00-5.20); RBC Distribution Width 14.9 % (11.7-14.6); White Blood Cell Count 8.04 k/cumm (4.4-10.8)
[2018-01-11 07:25] VITALS: BP 133/74; PULSE 64; RESP 18; TEMP 36.5; O2SAT 99
[2018-01-11 07:27] LABS: Anion Gap 7.4 mmol/L (3-11); BUN 24 mg/dL (7-18); CO2 28.6 mmol/L (21.0-32.0); CREATININE 1.47 mg/dL (0.55-1.02); Calcium 8.9 mg/dL (8.5-10.1); Chloride 106 mmol/L (98-107); Estimated GFR 35.14 (mL/min/1.73m2); Glucose 109 mg/dL (70-100); Magnesium 1.7 mg/dL (1.8-2.4); Potassium 4.3 mmol/L (3.5-5.1); Sodium 142 mmol/L (136-145)
[2018-01-11] MEDS: Apixaban 5 MG TAB PO (08:10)
[2018-01-11] MEDS: Amoxicillin 500 MG CAP 1000 MG PO (08:10)
[2018-01-11] MEDS: Atorvastatin 20 MG TAB PO (08:10)
[2018-01-11] MEDS: Sertraline 50 MG TAB 150 MG PO (08:10)
[2018-01-11] MEDS: Pantoprazole 40 MG VIAL IVP (08:11)
[2018-01-11] MEDS: Terazosin 2 MG CAP PO (08:11)
[2018-01-11] MEDS: amLODIPine 10 MG TAB PO (08:11)
[2018-01-11] MEDS: Clarithromycin 500 MG TAB PO (08:33)
--- NOTE | 2018-01-11 10:12 | PDOC.CMDIS ---
- If Service Date Differs Date of service: 01/11/18 Time of Service: 10:24 LACE Index Scoring Tool - Questions: Length of Stay (in days): 7 - 13 Acuity (Admit via E.D.?): Yes Comorbidities: Mild Liver/Renal Disease, Liver or Renal Disease E.D. Visits: 1 - Answers: Total Score: 14 Risk of Readmission: High Risk Care Management Discharge Reason for Hospitalization: Upper GI bleed, syncope. Discharge Plan: Sisi will discharge home when medically ready per MD. Anticipate patient will discharge with no services and follow up with her PCP. [facility] will transport via [facility]. Patient/Family Education Needs: Discharge education, any limitations, and follow up plan of care. Ask Me Three discussion. Dot was given 30 day coupon for [facility]. Copay will be requested from pharmacy. (Copay is $3.70/month).
--- NOTE | 2018-01-11 10:28 | CMDISCH_ITS ---
- If Service Date Differs Date of service: 01/11/18 Time of Service: 10:24 LACE Index Scoring Tool - Questions: Length of Stay (in days): 7 - 13 Acuity (Admit via E.D.?): Yes Comorbidities: Mild Liver/Renal Disease, Liver or Renal Disease E.D. Visits: 1 - Answers: Total Score: 14 Risk of Readmission: High Risk Care Management Discharge Reason for Hospitalization: Upper GI bleed, syncope. Discharge Plan: Sisi will discharge home when medically ready per MD. Anticipate patient will discharge with no services and follow up with her PCP. [facility] will transport via [facility]. Patient/Family Education Needs: Discharge education, any limitations, and follow up plan of care. Ask Me Three discussion. Dot was given 30 day coupon for [facility]. Copay will be requested from pharmacy. (Copay is $3.70/month).
--- NOTE | 2018-01-11 10:37 | W.PM.DS.N ---
Date of service: 01/11/18 Time of Service: 11:43 DS: Diagnosis Discharge Diagnosis (1) Upper GI bleeding: Status: Resolved (2) Hypercoagulable state: Status: Chronic (3) Syncopal episodes: Status: Chronic (4) CKD (chronic kidney disease): Status: Chronic (5) Pulmonary embolism: Status: Chronic (6) SVT (supraventricular tachycardia): Status: Chronic (7) CVA (cerebral vascular accident): Status: Chronic (8) CAD (coronary artery disease): Status: Chronic (9) Essential hypertension: Status: Chronic (10) Hematuria: Status: Acute (11) Closed head injury: Status: Acute (12) Vasovagal syncope: Status: Acute (13) Nephrolithiasis: Status: Chronic (14) Acute on chronic anemia: Status: Acute Discharge Plan Disposition Patient Disposition: HOME Condition: Stable Discharge Details Reason For Visit: UPPER GI BLEED,SYNCOPE Admit Date/Time: 01/03/18 10:37 Admit Provider: Rosibel Rai Attending Provider: Rosibel Rai [facility] Hospital Course: Ms Aguilar is a 72 year old female with PMHx of hypercoagulable state with history of prior DVT/PEs and arterial thrombses, on xarelto at the time of presentation, as well as nephrolithiasis, who was admitted to [facility] on 01/01/2018 for upper GI bleed and likely vasovagal syncope in setting thereof. Anticoagulation was held, and the patient was started on IV protonix. She was evaluated by general surgery (Dr Hill), who took the patient for an upper endoscopy o 01/02/18 with findings of duodenitis, gastritis, esophagitis and hiatal hernia. Very shallow ulcerations were also seen but were not bleeding. Biopsies done during the EGD were positive for H. Pylori. After the bleeding clinically resolved, risks and benefits of re-initiating anticoagulation were weighed. With the patient's impressive history of both arterial and venous thromboses, prior [place] and CVA, it was felt safer to carefully restart anticoagulation. The patient was initiated on heparin gtt about 48 hours after EGD. While on heparin gtt, the patient developed hematuria. This warranted a consultation with Dr Ramírez (urology). The patient underwent cystoscopy with bilateral retrograde pyelogram on 01/08/18 without any remarkable bladder or ureteral pathology. There was a stone in the right lower pole the kidney, possibly responsible for hematuria. The hematuria resolved on its own. The patient as transitioned to eliquis due to better GI bleeding profile than xarelto. Additionally, as the pathology report from EGD revealed H. Pylori, the patient was initiated on clarithromycin/amoxicillin/protonix therapy, of which she had 2 days in the hospital and will need to complete 12 more days. She will need to follow up with Dr Hill for a repeat EGD in 3 months as well as with Dr Ramírez on routine basis. There are no plans to have the stone treated surgically at this time. The patient required a total of 1 unit of pRBC's during her hospitalization. She is hemodynamically stable, has a Hemoglobin of 9.2 on discharge, is back to her baseline as far as ambulation. Her insurance covers [employer], as verified by case management. Her blood pressure medications will need to be adjusted on outpatient basis. Home Meds and New Rx's Prescriptions: New acetaminophen [Tylenol] 325 mg Tablet 2 tab PO Q4H PRN PRNQty: 30 RF: 0 atorvastatin [Lipitor] 20 mg Tablet 20 mg PO HS Qty: 30 RF: 0 amlodipine 10 mg Tablet 10 mg PO DAILY Qty: 30 RF: 0 apixaban [Eliquis] 5 mg Tablet 5 mg PO BID Qty: 60 RF: 0 clarithromycin 500 mg Tablet 500 mg PO BID@0800,1700 Qty: 24 RF: 0 lidocaine [Lidoderm] 5 % Adhesive Patch,Medicated 1 patch Topical Q24H Qty: 30 RF: 0 terazosin 2 mg Capsule 2 mg PO BID Qty: 60 RF: 0 pantoprazole [Protonix] 40 mg tablet,delayed release (DR/EC) 40 mg PO BID Qty: 60 RF: 0 amoxicillin 500 mg capsule 1,000 mg PO BID Qty: 48 RF: 0 Continue sertraline 100 MG tablet 150 mg PO DAILY RF: 0 metoprolol succinate 100 mg Cap,Sprinkle,Er 24hr Dose Pack 100 mg PO DAILY RF: 0 Discontinued rivaroxaban [Xarelto] 20 MG tablet 20 mg PO DAILY Qty: 30 RF: 1 atorvastatin 40 mg Tablet 40 mg PO DAILY RF: 0 amlodipine [Norvasc] 2.5 mg Tablet 5 mg PO DAILY RF: 0 Discharge Instructions Instructions: Amoxicillin (By mouth), Clarithromycin (By mouth), Pantoprazole (By mouth), Apixaban (By mouth), Gastritis (DC), Gastrointestinal Bleeding (DC), Helicobacter Pylori (GEN), Hematuria (GEN), Anemia (DC), Duodenitis (DC) Additional Instructions: Finish your antibiotics as prescribed. Return to the hospital with any more bleeding, be that in stool or urine, any dizziness, chest pain, or shortness of breath. You must not take any NSAIDs. Referrals: Concha Loving [Primary Care Provider] - (5-7 days) Ronald Ramírez MD [ [facility] STAFF PHYSICIAN] - (2-3 months) Nidia Hill MD [ [facility] STAFF PHYSICIAN] - (3 months) Activity:: Activity as Tolerated Equipment/Supplies:: No Equipment Needed Diet:: Low Sodium Discharge Orders Discharge Orders: Discharge Order (Routine); Ordered 01/11/18 Ordered By: Rosibel Rai Exam Narrative Exam Narrative: General: Very pleasant Afrian Canadian Female, laying comfortably in bed HEENT: EOMI, MMM Cardiovascular: RRR, no m/r/g Lungs: CTAB Gastrointestinal: abdomen soft, nontender, nondistended Extremities: no e/c/c BLE's DS: Data Vitals/I&O Vitals and I&O: Vital Signs Temperature 36.5 C 01/11/18 07:25 Temperature Source Tympanic 01/11/18 07:25 Pulse 64 01/11/18 07:25 Pulse Rhythm Regular 01/10/18 19:50 Pulse 52 L 01/08/18 13:02 Respiratory Rate 18 01/11/18 07:25 Respiratory Effort 01/10/18 19:50 Respiratory Depth Normal 01/10/18 19:50 Respiratory Pattern Normal 01/10/18 19:50 Blood Pressure 133/74 01/11/18 07:25 Blood Pressure Mean 58 01/08/18 14:01 Blood Pressure Position Supine 01/01/18 12:38 Pulse Oximetry 99 01/11/18 07:25 Oxygen Delivery Method Room Air 01/11/18 07:25 Oxygen Flow Rate 0 01/11/18 07:25 Pain Level 0 01/10/18 21:03 Comment 01/10/18 03:42 Intake & Output 01/10/18 01/10/18 01/11/18 11:59 23:59 11:59 Intake Total 400 / 400 850 / 850 150 / 150 Output Total 1725 / 1725 1600 / 1600 Balance -1325 / -1325 850 / 850 -1450 / -1450 Weight 92.1 kg 92.1 kg Intake: Oral 400 / 400 550 / 550 150 / 150 Blood Product 300 / 300 Rbc Leuko Reduced Unit 300 / 300 [id number] Output: Urine 1725 / 1725 1600 / 1600 Other: Urine Color Light Daria Yellow Urine Appearance Clear Clear Clear Urine Odor None Normal Voiding Methods Toilet Toilet Completed studies during hospitalization [Text1]: CT head/C-spine 01/01/18: No acute abnormality. Degenerative changes in C-spine. XR shoulder R 01/01/18: Degenerative changes. No acute abnormality. US renal 01/06/18: Findings consistent with right nephrolithiasis. There is no evidence of hydronephrosis, a cyst or mass. Bilateral retrograde pyelogram 01/08/18: The intrarenal collecting structures appear unremarkable. The ureters are demonstrated down to the level of the pelvic brim and appear unremarkable as well. Please see Dr. Ramírez's procedure report for further information. Labs on day of discharge: Labs from last 24 hours 01/11/18 01/11/18 01/10/18 06:38 06:38 16:45 WBC 8.04 RBC 3.26 L Hgb 9.2 L 8.8 L Hct 29.6 L 27.8 L MCV 90.8 MCH 28.2 MCHC 31.1 L RDW 14.9 H Plt Count 216 MPV 11.9 H Sodium 142 Potassium 4.3 Chloride 106 Carbon Dioxide 28.6 Anion Gap 7.4 BUN 24 H Creatinine 1.47 H Estimated GFR/1.73 m2 35.14 Glucose 109 H Calcium 8.9 Magnesium 1.7 L Patient ABO/Rh Antibody Screen Crossmatch 01/10/18 07:07 WBC RBC Hgb Hct MCV MCH MCHC RDW Plt Count MPV Sodium Potassium Chloride Carbon Dioxide Anion Gap BUN Creatinine Estimated GFR/1.73 m2 Glucose Calcium Magnesium Patient ABO/Rh A Positive Antibody Screen Negative Crossmatch See Detail
--- NOTE | 2018-01-11 10:50 | DSE_ITS ---
Date of service: 01/11/18 Time of Service: 11:43 DS: Diagnosis Discharge Diagnosis (1) Upper GI bleeding: Status: Resolved (2) Hypercoagulable state: Status: Chronic (3) Syncopal episodes: Status: Chronic (4) CKD (chronic kidney disease): Status: Chronic (5) Pulmonary embolism: Status: Chronic (6) SVT (supraventricular tachycardia): Status: Chronic (7) CVA (cerebral vascular accident): Status: Chronic (8) CAD (coronary artery disease): Status: Chronic (9) Essential hypertension: Status: Chronic (10) Hematuria: Status: Acute (11) Closed head injury: Status: Acute (12) Vasovagal syncope: Status: Acute (13) Nephrolithiasis: Status: Chronic (14) Acute on chronic anemia: Status: Acute Discharge Plan Disposition Patient Disposition: HOME Condition: Stable Discharge Details Reason For Visit: UPPER GI BLEED,SYNCOPE Admit Date/Time: 01/03/18 10:37 Admit Provider: Rosibel Rai Attending Provider: Rosibel Rai [facility] Hospital Course: Ms Aguilar is a 72 year old female with PMHx of hypercoagulable state with history of prior DVT/PEs and arterial thrombses, on xarelto at the time of presentation, as well as nephrolithiasis, who was admitted to [facility] on 2017 for upper GI bleed and likely vasovagal syncope in setting thereof. Anticoagulation was held, and the patient was started on IV protonix. She was evaluated by general surgery (Dr Hill), who took the patient for an upper endoscopy o 01/02/18 with findings of duodenitis, gastritis, esophagitis and hiatal hernia. Very shallow ulcerations were also seen but were not bleeding. Biopsies done during the EGD were positive for H. Pylori. After the bleeding clinically resolved, risks and benefits of re-initiating anticoagulation were weighed. With the patient's impressive history of both arterial and venous thromboses, prior [place] and CVA, it was felt safer to carefully restart anticoagulation. The patient was initiated on heparin gtt about 48 hours after EGD. While on heparin gtt, the patient developed hematuria. This warranted a consultation with Dr Ramírez (urology). The patient underwent cystoscopy with bilateral retrograde pyelogram on 01/08/18 without any remarkable bladder or ureteral pathology. There was a stone in the right lower pole the kidney, possibly responsible for hematuria. The hematuria resolved on its own. The patient as transitioned to eliquis due to better GI bleeding profile than xarelto. Additionally, as the pathology report from EGD revealed H. Pylori, the patient was initiated on clarithromycin/amoxicillin/protonix therapy, of which she had 2 days in the hospital and will need to complete 12 more days. She will need to follow up with Dr Hill for a repeat EGD in 3 months as well as with Dr Ramírez on routine basis. There are no plans to have the stone treated surgically at this time. The patient required a total of 1 unit of pRBC's during her hospitalization. She is hemodynamically stable, has a Hemoglobin of 9.2 on discharge, is back to her baseline as far as ambulation. Her insurance covers [employer], as verified by case management. Her blood pressure medications will need to be adjusted on outpatient basis. Home Meds and New Rx's Prescriptions: New acetaminophen [Tylenol] 325 mg Tablet 2 tab PO Q4H PRN PRNQty: 30 RF: 0 atorvastatin [Lipitor] 20 mg Tablet 20 mg PO HS Qty: 30 RF: 0 amlodipine 10 mg Tablet 10 mg PO DAILY Qty: 30 RF: 0 apixaban [Eliquis] 5 mg Tablet 5 mg PO BID Qty: 60 RF: 0 clarithromycin 500 mg Tablet 500 mg PO BID@0800,1700 Qty: 24 RF: 0 lidocaine [Lidoderm] 5 % Adhesive Patch,Medicated 1 patch Topical Q24H Qty: 30 RF: 0 terazosin 2 mg Capsule 2 mg PO BID Qty: 60 RF: 0 pantoprazole [Protonix] 40 mg tablet,delayed release (DR/EC) 40 mg PO BID Qty: 60 RF: 0 amoxicillin 500 mg capsule 1,000 mg PO BID Qty: 48 RF: 0 Continue sertraline 100 MG tablet 150 mg PO DAILY RF: 0 metoprolol succinate 100 mg Cap,Sprinkle,Er 24hr Dose Pack 100 mg PO DAILY RF: 0 Discontinued rivaroxaban [Xarelto] 20 MG tablet 20 mg PO DAILY Qty: 30 RF: 1 atorvastatin 40 mg Tablet 40 mg PO DAILY RF: 0 amlodipine [Norvasc] 2.5 mg Tablet 5 mg PO DAILY RF: 0 Discharge Instructions Instructions: Amoxicillin (By mouth), Clarithromycin (By mouth), Pantoprazole ( By mouth), Apixaban (By mouth), Gastritis (DC), Gastrointestinal Bleeding (DC), Helicobacter Pylori (GEN), Hematuria (GEN), Anemia (DC), Duodenitis (DC) Additional Instructions: Finish your antibiotics as prescribed. Return to the hospital with any more bleeding, be that in stool or urine, any dizziness, chest pain, or shortness of breath. You must not take any NSAIDs. Referrals: Concha Loving [Primary Care Provider] - (5-7 days) Ronald Ramírez MD [ [facility] STAFF PHYSICIAN] - (2-3 months) Nidia Hill MD [ [facility] STAFF PHYSICIAN] - (3 months) Activity:: Activity as Tolerated Equipment/Supplies:: No Equipment Needed Diet:: Low Sodium Discharge Orders Discharge Orders: Discharge Order (Routine); Ordered 01/11/18 Ordered By: Rosibel Rai Exam Narrative Exam Narrative: General: Very pleasant Afrian Cymraes Female, laying comfortably in bed HEENT: EOMI, MMM Cardiovascular: RRR, no m/r/g Lungs: CTAB Gastrointestinal: abdomen soft, nontender, nondistended Extremities: no e/c/c BLE's DS: Data Vitals/I&O Vitals and I&O: Vital Signs Temperature 36.5 C 01/11/18 07:25 Temperature Source Tympanic 01/11/18 07:25 Pulse 64 01/11/18 07:25 Pulse Rhythm Regular 01/10/18 19:50 Pulse 52 L 01/08/18 13:02 Respiratory Rate 18 01/11/18 07:25 Respiratory Effort 01/10/18 19:50 Respiratory Depth Normal 01/10/18 19:50 Respiratory Pattern Normal 01/10/18 19:50 Blood Pressure 133/74 01/11/18 07:25 Blood Pressure Mean 58 01/08/18 14:01 Blood Pressure Position Supine 01/01/18 12:38 Pulse Oximetry 99 01/11/18 07:25 Oxygen Delivery Method Room Air 01/11/18 07:25 Oxygen Flow Rate 0 01/11/18 07:25 Pain Level 0 01/10/18 21:03 Comment 01/10/18 03:42 Intake & Output 01/10/18 01/10/18 01/11/18 11:59 23:59 11:59 Intake Total 400 / 400 850 / 850 150 / 150 Output Total 1725 / 1725 1600 / 1600 Balance -1325 / -1325 850 / 850 -1450 / -1450 Weight 92.1 kg 92.1 kg Intake: Oral 400 / 400 550 / 550 150 / 150 Blood Product 300 / 300 Rbc Leuko Reduced Unit 300 / 300 [id number] Output: Urine 1725 / 1725 1600 / 1600 Other: Urine Color Light Daria Yellow Urine Appearance Clear Clear Clear Urine Odor None Normal Voiding Methods Toilet Toilet Completed studies during hospitalization [Text1]: CT head/C-spine 01/01/18: No acute abnormality. Degenerative changes in C-spine. XR shoulder R 01/01/18: Degenerative changes. No acute abnormality. US renal 01/06/18: Findings consistent with right nephrolithiasis. There is no evidence of hydronephrosis, a cyst or mass. Bilateral retrograde pyelogram 01/08/18: The intrarenal collecting structures appear unremarkable. The ureters are demonstrated down to the level of the pelvic brim and appear unremarkable as well. Please see Dr. Ramírez's procedure report for further information. Labs on day of discharge: Labs from last 24 hours 01/11/18 01/11/18 01/10/18 06:38 06:38 16:45 WBC 8.04 RBC 3.26 L Hgb 9.2 L 8.8 L Hct 29.6 L 27.8 L MCV 90.8 MCH 28.2 MCHC 31.1 L RDW 14.9 H Plt Count 216 MPV 11.9 H Sodium 142 Potassium 4.3 Chloride 106 Carbon Dioxide 28.6 Anion Gap 7.4 BUN 24 H Creatinine 1.47 H Estimated GFR/1.73 m2 35.14 Glucose 109 H Calcium 8.9 Magnesium 1.7 L Patient ABO/Rh Antibody Screen Crossmatch 01/10/18 07:07 WBC RBC Hgb Hct MCV MCH MCHC RDW Plt Count MPV Sodium Potassium Chloride Carbon Dioxide Anion Gap BUN Creatinine Estimated GFR/1.73 m2 Glucose Calcium Magnesium Patient ABO/Rh A Positive Antibody Screen Negative Crossmatch See Detail
[2018-01-11 11:00] VITALS: BP 118/55; PULSE 70; RESP 17; TEMP 36.3; O2SAT 99
== END 2018-01-11 12:29 | disposition home or self-care (01) | DRG 378 ==
LOC: ER 12:08 → ICU 12:26 → MS 01-08 15:19
PROVIDERS: Internal Medicine; Surgery; Urology; Admitting Provider Internal Medicine; Emergency Provider Emergency Medicine; PCP Nurse Practitioner Family; Visit Provider Internal Medicine
PROC: 0DJ68ZZ Inspection of Stomach, Via Natural or Artificial Opening Endoscopic (ICD-10-PCS; CPT 43235; principal; 2018-01-02 07:30)
PROC: BT141ZZ Fluoroscopy of Kidneys, Ureters and Bladder using Low Osmolar Contrast (ICD-10-PCS; CPT 52005; principal; 2018-01-08 12:30)
DX: K92.2 Gastrointestinal hemorrhage, unspecified (principal); D68.59 Other primary thrombophilia; D62 Acute posthemorrhagic anemia; I47.1 Supraventricular tachycardia; K92.0 Hematemesis; S09.90XA Unspecified injury of head, initial encounter; W19.XXXA Unspecified fall, initial encounter; R55 Syncope and collapse; D50.9 Iron deficiency anemia, unspecified; K29.50 Unspecified chronic gastritis without bleeding; K44.9 Diaphragmatic hernia without obstruction or gangrene; B96.81 Helicobacter pylori [H. pylori] as the cause of diseases classified elsewhere; K25.9 Gastric ulcer, unspecified as acute or chronic, without hemorrhage or perforation; K21.0 Gastro-esophageal reflux disease with esophagitis; K29.80 Duodenitis without bleeding; Z79.01 Long term (current) use of anticoagulants; N18.3 Chronic kidney disease, stage 3 (moderate); I12.9 Hypertensive chronic kidney disease with stage 1 through stage 4 chronic kidney disease, or unspecified chronic kidney disease; R31.0 Gross hematuria; Z86.711 Personal history of pulmonary embolism; Z86.718 Personal history of other venous thrombosis and embolism; Z86.73 Personal history of transient ischemic attack (TIA), and cerebral infarction without residual deficits; I25.10 Atherosclerotic heart disease of native coronary artery without angina pectoris; I25.2 Old myocardial infarction; N20.0 Calculus of kidney; Z87.442 Personal history of urinary calculi
CPT/HCPCS: 43239; 52005; 36415; 36430; 76770; 80048; 80053; 80076; 85027; 86850; 86900; 86901; 86920; 88305; 93005; 96374; 99214; 99221; 99231; 99232; 99233; 99239; 99252; 99285; NC; 70450; 72125; 73030; 74420; 81003; 81015; 83735; 84484; 85014; 85018; 85025; 85610; 85730; 87081; 87086; 88361; 93010; G0378; J2250; J3010; J3490; P9016; Q9967

== ENCOUNTER → 2018-01-08 12:18 | Outpatient (BNVA) | payer MEDICARE, MEDICAID, SELFPAY | PROVIDERS: PCP Nurse Practitioner Family; Visit Provider Urology | DX: R69 Illness, unspecified (principal) ==

== ENCOUNTER 2018-02-17 00:59 | Outpatient (CLI) | payer MEDICARE, MEDICAID, SELFPAY ==
--- NOTE | 2018-02-17 15:14 | DI.RAD_ITS ---
SYMPTOMS/DIAGNOSIS: MENOPAUSAL, Z78.0 DEXA SCAN WITH GASTON: There are no prior comparison exams. The GASTON image shows no evidence of compression fractures. The bone mineral density measurements of the lumbar spine correspond to a total T score of 0.7, in the normal range. The bone mineral density measurements of the left hip correspond to a total T score of -1.5 and a femoral neck T score of -3.2, in the osteoporotic range. The bone mineral density measurements of the left forearm correspond to a T score of the distal third of -1.5, consistent with osteopenia. IMPRESSION: Normal bone mineral density of the lumbar spine. Osteoporosis of the left hip and osteopenia of the left forearm.
--- NOTE | 2018-02-17 15:33 | DI.MAMMO_ITS ---
SYMPTOMS/DIAGNOSIS: SCREENING, Z12.31 BILATERAL SCREENING MAMMOGRAM: Mammograms were interpreted according to the usual protocol including computer analysis with CAD system, tomosynthesis and C view imaging. Comparison is made with exams from 2015 and 2017. The breasts are composed of fatty density tissue. There are no suspicious masses or suspicious microcalcifications. There has been no significant change. IMPRESSION: Category 1A, negative mammogram. Yearly screening mammography is recommended. [facility] ASSESSMENT OF FINDINGS: Negative. Category 1. Patient will receive a letter notifying them of these results. BI-RAD category A. The breasts are almost entirely fatty.
== END 2018-02-17 01:19 ==
PROVIDERS: PCP Nurse Practitioner Family; Visit Provider Family Medicine
DX: M81.0 Age-related osteoporosis without current pathological fracture (principal); M85.88 Other specified disorders of bone density and structure, other site; Z12.31 Encounter for screening mammogram for malignant neoplasm of breast; Z78.0 Asymptomatic menopausal state
CPT/HCPCS: 77063; 77067; 77080

== ENCOUNTER → 2018-04-20 12:38 | Outpatient (BNVA) | payer MEDICARE, MEDICAID, SELFPAY | PROVIDERS: PCP Nurse Practitioner Family; Referring Provider Nurse Practitioner Family; Visit Provider Physical Therapy Assistant | DX: K92.2 Gastrointestinal hemorrhage, unspecified (principal); I12.9 Hypertensive chronic kidney disease with stage 1 through stage 4 chronic kidney disease, or unspecified chronic kidney disease; N18.9 Chronic kidney disease, unspecified; Z79.01 Long term (current) use of anticoagulants | CPT/HCPCS: 99212; 99213 ==

== ENCOUNTER 2018-05-19 06:08 | Day surgery (SDC) | payer MEDICARE, MEDICAID, SELFPAY ==
--- NOTE | 2018-05-19 06:20 | W.PM.ENDDOP ---
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 Aguilar is a pleasant 72 year old female who was seen in the office for a follow up after an Upper GI bleed. She is here today for a follow up EGD. Risks, benefits and complications have been reviewed. Complications include but are not limited to bleeding, pain, perforation, sore throat, aspiration, and adverse reaction to the medications. Questions were entertained and answered to their satisfaction and they wished to proceed. No guarantees were given or implied. FINDINGS: Mild inflammation of the first portion of the duodenum. Severe inflammation of the antrum with ulcers. One ulcer with stigmata of bleeding. No active bleeding. Hiatal Hernia. Inflammation of the esophagus. PROCEDURE DESCRIPTION: After informed consent was obtained the patient was take to the procedure room and placed in a supine position. Monitors were applied and a time out was done. The patients name, date of , procedure type, allergies to medications and metal in their body was reviewed. A bite block was placed and the patient was sedated. Once sedated and comfortable the gastroscope was advanced through the oropharynx which was grossly normal into the esophagus. The proximal and mid-esophagus were normal. In the distal esophagus there was moderate inflammation noted. The scope was advanced into the stomach and through the pylorus into the 3rd portion of the duodenum. The 3rd and 2nd portion of the duodenum were noted to be normal. There was mild inflammation noted in the 1st portion of the duodenum. Biopsies were done in the 1st portion of the duodenum. The scope was retracted back into the stomach and biopsies were done of the antrum to rule out H. pylori. There were several ulcers noted around the pylorus. One ulcer had a blood clot in it. Biopsies were done of the ulcers. The scope was retro-flexed. The cardia and fundus were noted to be normal. There was a small hiatal hernia noted. The scope was retracted back into the esophagus and biopsies were done of the GE junction to rule out Puentes's. The Z line was irregular. The GE junction was at 32 cm. The scope was removed and the patient was woken up and taken back to [facility] in stable condition. Follow up: 4 weeks. Patient will be started back on her protonix 40 mg in the am and Ranitidine 300 mg in the pm.
--- NOTE | 2018-05-19 06:24 | ENDO_ITS ---
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 Aguilar is a pleasant 72 year old female who was seen in the office for a follow up after an Upper GI bleed. She is here today for a follow up EGD. Risks, benefits and complications have been reviewed. Complications include but are not limited to bleeding, pain, perforation, sore throat, aspiration, and adverse reaction to the medications. Questions were entertained and answered to their satisfaction and they wished to proceed. No guarantees were given or implied. FINDINGS: Mild inflammation of the first portion of the duodenum. Severe inflammation of the antrum with ulcers. One ulcer with stigmata of bleeding. No active bleeding. Hiatal Hernia. Inflammation of the esophagus. PROCEDURE DESCRIPTION: After informed consent was obtained the patient was take to the procedure room and placed in a supine position. Monitors were applied and a time out was done. The patients name, date of , procedure type, allergies to medications and metal in their body was reviewed. A bite block was placed and the patient was sedated. Once sedated and comfortable the gastroscope was advanced through the oropharynx which was grossly normal into the esophagus. The proximal and mid-esophagus were normal. In the distal esophagus there was moderate inflammation noted. The scope was advanced into the stomach and through the pylorus into the 3rd portion of the duodenum. The 3rd and 2nd portion of the duodenum were noted to be normal. There was mild inflammation noted in the 1st portion of the duodenum. Biopsies were done in the 1st portion of the duodenum. The scope was retracted back into the stomach and biopsies were done of the antrum to rule out H. pylori. There were several ulcers noted around the pylorus. One ulcer had a blood clot in it. Biopsies were done of the ulcers. The scope was retro-flexed. The cardia and fundus were noted to be normal. There was a small hiatal hernia noted. The scope was retracted back into the esophagus and biopsies were done of the GE junction to rule out Puentes's. The Z line was irregular. The GE junction was at 32 cm. The scope was removed and the patient was woken up and taken back to [facility] in stable condition. Follow up: 4 weeks. Patient will be started back on her protonix 40 mg in the am and Ranitidine 300 mg in the pm.
--- NOTE | 2018-05-19 06:27 | PDOC.DSDIS_ITS ---
Discharge Plan Disposition Patient Disposition: HOME Condition: Good Discharge Details Reason For Visit: Hx of GI bleed Attending Provider: Nidia Hill Primary Care Provider: Concha Loving Home Meds and New Rx's Prescriptions: New ranitidine HCl 300 mg tablet 300 mg PO QHS Qty: 30 RF: 3 esomeprazole magnesium 40 mg capsule,delayed release(DR/EC) 40 mg PO QAM Qty: 30 RF: 6 Continued sertraline 100 MG tablet 150 mg PO DAILY RF: 0 metoprolol succinate 100 mg Cap,Sprinkle,Er 24hr Dose Pack 100 mg PO DAILY RF: 0 acetaminophen [Tylenol] 325 mg Tablet 2 tab PO Q4H PRN PRNQty: 30 RF: 0 atorvastatin [Lipitor] 20 mg Tablet 20 mg PO HS Qty: 30 RF: 0 amlodipine 10 mg Tablet 10 mg PO DAILY Qty: 30 RF: 0 Eliquis 5 mg Tablet 5 mg PO BID Qty: 60 RF: 0 Discharge Instructions Instructions: Upper Endoscopy (DC), Diet for Stomach Ulcers and Gastritis (GEN), Duodenitis (DC), Gastritis (DC), Esophagitis (DC), Hiatal Hernia (DC) Additional Instructions: Findings: Inflammation of the stomach and esophagus. Hiatal hernia Gastric ulcer Follow up: 06/16/18 at 1 pm Please call if you develop: fevers >101.5 Nausea or Vomiting Abdominal pain that is not transient DAY SURGERY UNIT POST COLONOSCOPY INSTRUCTIONS 1. Because there will be medication in your system for the next 24 hours, you may feel a little sleepy. Your coordination will be affected. Therefore: a. Do not drive or operate dangerous equipment for 24 hours. b. Do not drink alcohol beverages for 24 hours (not even beer). c. Plan to go home and rest for the day. 2. Generally there are no restrictions on your activity after a day or so has gone by, but you may feel a bit fatigued for a few days. 3 After you arrive home you may have a light meal and return to a normal diet as you can tolerate it without feeling sick to your stomach. 4. After surgery, you may feel pain or discomfort. This should be only transient, but if it persists please contact your doctor. 5. If there are any questions regarding the findings of your procedure, please feel free to contact your doctor. 6. If you are unable to contact your doctor with a problem, contact the hospital at [phone]. 0. Continue all your regular medications unless directed otherwise. I understand the above instructions and have no questions. Signature of Patient or Responsible Adult Escort Date/Time Name of Responsible Adult Escort Signature of Nurse Date/Time Referrals: Nidia Hill MD [ [facility] STAFF PHYSICIAN] - 06/16/18 1:00 pm Activity:: Activity as Tolerated Diet:: low acid diet Discharge Orders Discharge Orders: Discharge Order (Routine); Ordered 05/19/18 Ordered By: Nidia Hill DS: Diagnosis Discharge Diagnosis (1) Hx of upper gastrointestinal hemorrhage: Status: Acute (2) Esophagitis: Status: Acute (3) Gastric ulcer: Status: Acute (4) Gastritis and duodenitis: Status: Acute (5) Hiatal hernia: Status: Chronic (6) H/O esophagogastroduodenoscopy: Status: Chronic
[2018-05-19 06:38] VITALS: BP 171/75; PULSE 63; RESP 16; TEMP 36.1; O2SAT 98
[2018-05-19] MEDS: Lactated Ringers 1,000 ML 80 ML IV (07:04)
--- NOTE | 2018-05-19 07:32 | STOM_PTH ---
PATIENT: Sisi Aguilar LOC: [facility] U#:[id number] AGE/SX: 72/F ROOM: RE05/19/[address]: Nidia Hill MD : 1945 BED: DIS: 05/19/2018 SPEC #: [id number] RECD: 05/19/18 12:27 STATUS: JR RECr #: [id number] [place]: 05/19/18 07:[address]: Nidia Hill DEPT: Surgical Specimen RECD BY: Lou Montalvo ENTERED: 05/19/18 12:29 SP TYPE: STOMACH OTHR DR: Concha Loving Tissues: 1 - BIOPSY BOWEL 2 - STOMACH BIOPSY 3 - STOMACH BIOPSY 4 - ESOPHAGUS BIOPSY Procedures: GROSS AND MICRO LEVEL 4 IMMUNOPEROXIDASE STAIN Comments: [id number]
[2018-05-19 08:15] VITALS: BP 182/110; PULSE 52; RESP 16; TEMP 36.3; O2SAT 98
[2018-05-19 08:33] VITALS: PULSE 59; RESP 16; O2SAT 98
== END 2018-05-19 10:27 | disposition home or self-care (01) ==
PROVIDERS: PCP Nurse Practitioner Family; Visit Provider Surgery
PROC: 0DJ68ZZ Inspection of Stomach, Via Natural or Artificial Opening Endoscopic (ICD-10-PCS; CPT 43235; principal; 2018-05-19 07:30)
DX: K25.9 Gastric ulcer, unspecified as acute or chronic, without hemorrhage or perforation (principal); K31.89 Other diseases of stomach and duodenum; K21.0 Gastro-esophageal reflux disease with esophagitis; K44.9 Diaphragmatic hernia without obstruction or gangrene; Z09 Encounter for follow-up examination after completed treatment for conditions other than malignant neoplasm; Z87.11 Personal history of peptic ulcer disease; I10 Essential (primary) hypertension
CPT/HCPCS: 43239; 88305; 88361

== ENCOUNTER → 2018-06-16 12:30 | Outpatient (BNVA) | payer MEDICARE, MEDICAID, SELFPAY | PROVIDERS: PCP Nurse Practitioner Family; Referring Provider Nurse Practitioner Family; Visit Provider Surgery | DX: K29.90 Gastroduodenitis, unspecified, without bleeding (principal); K25.0 Acute gastric ulcer with hemorrhage; K20.9 Esophagitis, unspecified; Z79.01 Long term (current) use of anticoagulants | CPT/HCPCS: 99212; 99213 ==

== ENCOUNTER 2018-07-28 11:53 | Outpatient (REF) | payer MEDICARE, MEDICAID, SELFPAY ==
[2018-07-28 21:49] LABS: HGB 12.6 g/dL (12.0-15.5); Mean Corp. HGB Concentration 31.5 g/dL (32.0-36.0); Mean Corpuscular Hemoglobin 26.8 pg (27.0-33.0); Mean Corpuscular Volume 84.9 fL (80-95); Mean Platelet Volume 13.3 fL (8.0-11.0); Platelet Count 200 x1000/uL (130-400); RBC 4.71 m/cumm (4.00-5.20); White Blood Cell Count 6.21 k/cumm (4.4-10.8)
[2018-07-28 22:10] LABS: Anion Gap 10.7 mmol/L (3-11); BUN 13 mg/dL (7-18); CO2 25.3 mmol/L (21.0-32.0); CREATININE 1.22 mg/dL (0.55-1.02); Calcium 9.8 mg/dL (8.5-10.1); Chloride 105 mmol/L (98-107); Cholesterol 190 mg/dL (50-200); Estimated GFR 43.45 (mL/min/1.73m2); Glucose 97 mg/dL (70-100); HDL Cholesterol 71 mg/dL (40-60); LDL CHOLESTEROL 103 mg/dL (<100); Potassium 4.2 mmol/L (3.5-5.1); Sodium 141 mmol/L (136-145); Triglyceride 68 mg/dL (30-150)
[2018-07-28 22:25] LABS: Uric Acid 5.6 mg/dL (2.6-6.0)
== END 2018-07-28 12:13 ==
LOC: NCHCN 11:53
PROVIDERS: PCP Nurse Practitioner Family; Visit Provider Specialist/Technologist Athletic Trainer
DX: I10 Essential (primary) hypertension (principal); N18.3 Chronic kidney disease, stage 3 (moderate); Z87.19 Personal history of other diseases of the digestive system; M79.676 Pain in unspecified toe(s)
CPT/HCPCS: 80048; 80061; 83721; 85027; 84550

== ENCOUNTER 2019-05-25 09:20 | Outpatient (REF) | payer OTHER, MEDICAID, SELFPAY ==
[2019-05-25 13:24] LABS: HCT 42.5 % (36.0-46.0); HGB 13.3 g/dL (12.0-15.5); Mean Corp. HGB Concentration 31.3 g/dL (32.0-36.0); Mean Corpuscular Hemoglobin 27.1 pg (27.0-33.0); Mean Corpuscular Volume 86.7 fL (80-95); Platelet Count 194 x1000/uL (130-400); RBC Distribution Width 15.5 % (11.7-14.6); White Blood Cell Count 6.83 k/cumm (4.4-10.8)
[2019-05-25 13:25] LABS: Anion Gap 10.4 mmol/L (3-11); BUN 11 mg/dL (7-18); CO2 26.6 mmol/L (21.0-32.0); CREATININE 1.06 mg/dL (0.55-1.02); Calcium 9.2 mg/dL (8.5-10.1); Chloride 106 mmol/L (98-107); Glucose 102 mg/dL (74-106); Sodium 143 mmol/L (136-145)
[2019-05-25 13:49] LABS: Hemoglobin A1C 6.4 % (3.8-5.6)
== END 2019-05-25 09:40 ==
LOC: NCHCN 09:20
PROVIDERS: PCP Nurse Practitioner Family; Visit Provider Specialist/Technologist Athletic Trainer
DX: R73.09 Other abnormal glucose (principal); I10 Essential (primary) hypertension; Z86.2 Personal history of diseases of the blood and blood-forming organs and certain disorders involving the immune mechanism; Z79.01 Long term (current) use of anticoagulants; I25.10 Atherosclerotic heart disease of native coronary artery without angina pectoris
CPT/HCPCS: 80048; 85027; 83036

== ENCOUNTER 2019-12-31 12:51 | Outpatient (REF) | payer OTHER, MEDICAID, SELFPAY ==
[2019-12-31 20:38] LABS: HCT 45.4 % (36.0-46.0); HGB 14.3 g/dL (11.2-15.7); MCHC 31.5 % (32.0-36.0); MCV 85.7 fL (80-95); MPV 12.9 fL (8.0-11.0); Platelet Count 208 10^3/uL (130-400); RDW 14.6 % (11.7-14.6); RDW-SD 45.2 fL; WBC 7.88 10^3/uL (4.4-10.8)
[2019-12-31 20:54] LABS: ALT 24 U/L (14-59); AST 21 U/L (15-37); Albumin 3.9 g/dL (3.4-5.0); Alkaline Phosphatase 77 U/L (46-116); Anion Gap 12.1 mmol/L (3-11); BUN 17 mg/dL (7-18); Bilirubin, Total 0.4 mg/dL (0.2-1.0); CO2 24.9 mmol/L (21.0-32.0); CREATININE 1.23 mg/dL (0.55-1.02); Calcium 10.7 mg/dL (8.5-10.1); Chloride 102 mmol/L (98-107); Estimated GFR 42.92 (mL/min/1.73m2); Glucose 127 mg/dL (74-106); Potassium 3.9 mmol/L (3.5-5.1); Sodium 139 mmol/L (136-145); Total Protein 7.9 g/dL (6.4-8.2)
[2019-12-31 21:04] LABS: Hemoglobin A1C 6.5 % (<5.7)
[2019-12-31 21:06] LABS: Calculated LDL 111 mg/dL (<100); Cholesterol 195 mg/dL (<200); HDL Cholesterol 65 mg/dL (40-60); Triglyceride 99 mg/dL (<150)
== END 2019-12-31 13:11 ==
LOC: NCHCN 12:51
PROVIDERS: PCP Nurse Practitioner Family; Visit Provider Family Medicine
DX: R73.09 Other abnormal glucose (principal); I10 Essential (primary) hypertension; E78.5 Hyperlipidemia, unspecified; F32.9 Major depressive disorder, single episode, unspecified
CPT/HCPCS: 80053; 80061; 85027; 83036

== ENCOUNTER 2020-01-17 00:48 | Outpatient (CLI) | payer OTHER, MEDICAID, SELFPAY ==
--- NOTE | 2020-01-17 12:25 | DI.MAMMO_ITS ---
EXAM: MG MAMMO SCREENING CLINICAL HISTORY: SCREENING,Z12.31 TECHNIQUE: Mammograms were interpreted according to the usual protocol including computer analysis w [employer] CAD system, tomosynthesis and C-view imaging. COMPARISON: FINDINGS: Breasts are of moderate density with fairly symmetrical distribution of fibroglandular tissue. No do minant mass or clumped microcalcification is identified in either breast. The current examination is compared with previous examinations including January 2018 and there has been no gross interval santos nge in appearance in comparison with the prior studies. IMPRESSION: No specific evidence of malignancy at this time. Routine screening examinations are suggested at yea rly intervals in this age group according to the ACS ACR guidelines. BI-RADS Category 1 - Negative Breast Density - Category B - Scattered areas of fibroglandular density
== END 2020-01-17 01:08 ==
PROVIDERS: PCP Nurse Practitioner Family; Visit Provider Family Medicine
DX: Z12.31 Encounter for screening mammogram for malignant neoplasm of breast (principal)
CPT/HCPCS: 77063; 77067

== ENCOUNTER 2020-01-18 11:35 | Outpatient (REF) | payer OTHER, MEDICAID, SELFPAY ==
[2020-01-18 20:54] LABS: Calcium 10.1 mg/dL (8.5-10.1)
== END 2020-01-18 11:55 ==
LOC: NCHCN 11:35
PROVIDERS: PCP Nurse Practitioner Family; Visit Provider Family Medicine
DX: E83.52 Hypercalcemia (principal)
CPT/HCPCS: 82310

== ENCOUNTER 2020-02-02 11:00 | Outpatient (REF) | payer OTHER, MEDICAID, SELFPAY | END 2020-02-02 11:20 | LOC: NCHCN 11:00 | PROVIDERS: PCP Nurse Practitioner Family; Visit Provider Family Medicine | DX: E83.52 Hypercalcemia (principal) | CPT/HCPCS: 82310 ==

== ENCOUNTER 2020-04-03 15:29 | Emergency (ER) | payer OTHER, MEDICAID, SELFPAY ==
[2020-04-03] VITALS (29 sets, daily range): BP systolic 157–249; BP diastolic 72–127; PULSE 66–103; RESP 14–24; TEMP 36.7; O2SAT 92–100
--- NOTE | 2020-04-03 15:15 | DI.CT_ITS ---
EXAM: CT HEAD - STROKE PROTOCOL CLINICAL HISTORY: confused, combative, AMS. TECHNIQUE: Imaging Protocol: Axial computed tomography images with coronal and sagittal reformatted images were created and reviewed COMPARISON: CT HEAD AND CSPINE W/O CONTRAST from 01/01/2018 FINDINGS: There are no skull fractures nor fluid in the visualized paranasal sinuses. There is no evidence of intracranial hemorrhage, new mass effect, or shift of midline structures. Th ere are no new extra-axial fluid collections. The ventricles are not enlarged or shifted and there i s no blood within the ventricular system nor within the basal cisterns. 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 There are no new findings in cerebellar hemispheres nor within the jonnathan, midbrain, and thalami. There is symmetrical periventricular hypode nsity consistent with chronic small vessel disease. Calcification is noted in both vertebral arterie s at the skull base. Also within the rice of both intracavernous internal carotid arteries. Vascul ar calcifications are unchanged from 2018. IMPRESSION: No acute intracranial findings on this noninfused CT scan of the brain. Again noted is a previously described area of encephalomalacia in the anterior left temporal lobe, un changed from 2018. Vascular calcification again noted. If clinically indicated follow-up MRI with diffusion imaging can be performed. Called to ER provider 04/03/2020 at 3:44 p.m. RADIATION DOSE DELIVERED: 748.62mGy.cm Total DLP DATA REPOSITORY: All CT scans at this facility are submitted to the National Radiology Data Registry (NRDR) Dose Index Registry (DIR) with the [employer] ([employer]). RADIATION OPTIMIZATION: All CT scans at this facility use at least one of these dose optimization te chniques: automated exposure control; mA and/or kV adjustment per patient size (includes targeted exa ms where dose is matched to clinical indication); or iterative reconstruction.
--- NOTE | 2020-04-03 15:30 | DI.RAD_ITS ---
EXAM: XR CHEST 1V IN DI DEPT CLINICAL HISTORY: stroke alert, r/o acute disease. TECHNIQUE: 2D digital imaging was performed. COMPARISON: CT CHEST - LUNG CANCER SCREENING from 02/06/2017 CT CHEST - LUNG CANCER SCREENING from 02/06/2017 FINDINGS: Heart size is upper normal. Mediastinum is not widened. No infiltrates nor pleural effusions. No p ulmonary edema. No pneumothorax. IMPRESSION: No acute pulmonary findings on this single AP portable lordotic view of the chest. DATA REPOSITORY: RADIATION DOSE DELIVERED:
--- NOTE | 2020-04-03 15:30 | RT.EKG_ITS ---
APPROVED REPORT Exam: Resting ECG Patient Location: E HR:87 bpm ECG Measurements Heart Rate 87 AXIS NH 202 P -13 QRSd 85 QRS 59 QT 386 T 61 QTc 465 Conclusion Sinus arrhythmia...V-rate 66-124, variation>10% Probable anterior infarct, old...Q >40mS, V2-V5 I have reviewed and interpreted ECG and agree with software generated interpretation.
--- NOTE | 2020-04-03 15:34 | ED.GENADUL_ITS ---
Discharge Plan Disposition Patient Disposition: [facility] Condition: Critical Discharge Details Clinical Impression: Acute cerebrovascular accident, Acute ischemic left MCA stroke Primary Care Provider: Concha Loving ED Provider: Laura Cardenas Home Meds and New Rx's Prescriptions: No Action esomeprazole magnesium 40 mg capsule,delayed release(DR/EC) 40 mg PO QAM Qty: 90 RF: 4 ranitidine HCl 300 mg tablet 300 mg PO QHS Qty: 90 RF: 4 sertraline 100 MG tablet 150 mg PO DAILY RF: 0 metoprolol succinate 100 mg Cap,Sprinkle,Er 24hr Dose Pack 100 mg PO DAILY RF: 0 acetaminophen [Tylenol] 325 mg Tablet 2 tab PO Q4H PRN PRNQty: 30 RF: 0 amlodipine 10 mg Tablet 10 mg PO DAILY Qty: 30 RF: 0 Eliquis 5 mg Tablet 5 mg PO BID Qty: 60 RF: 0 atorvastatin [Lipitor] 20 mg tablet 40 mg PO HS RF: 0 Discharge Data Discharge Date/Time-TO BE ENTERED AT DEPARTURE: 04/03/20 18:01 Medical Decision Making 1530 -- 74-year-old female with a history of coronary artery disease, CKD, CVA, DVT, PE, SVT, GI bleed presents as a stroke alert. Unknown timeframe. Son states he heard noises in the bedroom and approximate 1 hour prior to arrival she appeared to have slurred speech and was stating she could not move her left side and he called EMS. Upon EMS arrival to the scene, patient noted to have slurred speech and snoring respirations and they were concerned about her airway. Her vitals were within normal limits prior to arrival. Upon arrival to the ED, patient awake but appears drowsy and unable to follow commands. She has a right-sided facial droop and appears to have right-sided weakness. She has a positive gag reflex. Patient referred directly to radiology for CT head which was negative for acute findings but does note an old left anterior temporal stroke. 1550 -- After patient returned from radiology, she seems more alert and is able to state her name. She is able to follow some commands but appears to have right-sided neglect. Her muscle strength in the legs seem equal bilaterally. She seems to have right arm weakness compared to the left. She still has a right-sided facial droop. [facility] and she has not filled her Eliquis since August. Case discussed with son and he states he is normally A & O x3 at baseline but does have a history of dementia. He states she is able to care for herself and usually administers her own medications but he is unsure what she takes. 1605 -- As the onset of symptoms is unknown, I do not feel that patient is a candidate for TPA. Case discussed with [facility] neurology who agrees with this plan at this time. They are recommending CTA head and neck, aspirin rectally and fluids. Recommend permissive hypertension. 1630 -- patient able to ambulate with assistance to the commode. 1700 --CTA head and neck notes obstruction of the distal left M1 segment. Results discussed with [facility] neurology Dr. Carlson who accepts patient for transfer. Patient's blood pressure has been more hypertensive with 249/112. Recommends labetalol to lower blood pressure. Just prior to administering labetalol, blood pressure 236/86, will give 10 mg IV x1. Case discussed with patient's son who is agreeable with plan for transfer. Pt able to follow some commands and in no acute distress prior to transfer. Medical Records Medical records reviewed: Yes I reviewed the patient's medical records. Imaging Data Radiologic Study: Radiologist's impression: CT HEAD - STROKE PROTOCOL CLINICAL HISTORY: confused, combative, AMS. TECHNIQUE: Imaging Protocol: Axial computed tomography images with coronal and sagittal reformatted images were created and reviewed COMPARISON: CT HEAD AND CSPINE W/O CONTRAST from 01/01/2018 FINDINGS: There are no skull fractures nor fluid in the visualized paranasal sinuses. There is no evidence of intracranial hemorrhage, new mass effect, or shift of midline structures. There are no new extra-axial fluid collections. The ventricles are not enlarged or shifted and there is no blood within the ventricular system nor within the basal cisterns. Again noted is the previously described area of encephalomalacia in the anterior left temporal lobe-left middle cranial fossa which is unchanged from 01/01/2018. There are no new findings in cerebellar hemispheres nor within the jonnathan, midbrain, and thalami. There is symmetrical periventricular hypodensity consistent with chronic small vessel disease. Calcification is noted in both vertebral arteries at the skull base. Also within the rice of both intracavernous internal carotid arteries. Vascular calcifications are unchanged from 2018. IMPRESSION: No acute intracranial findings on this noninfused CT scan of the brain. Again noted is a previously described area of encephalomalacia in the anterior left temporal lobe, unchanged from 2018. Vascular calcification again noted. If clinically indicated follow-up MRI with diffusion imaging can be performed. CT Angiography Head With Contrast Exam date and time: 04/03/2020 4:30 PM Age: 74 years old Clinical indication: Screening exam; R/0 acute CVA; Patient HX: Stroke alert, R/O acute CVA TECHNIQUE: Imaging protocol: Computed tomography angiography of the head with intravenous contrast. 3D rendering (Not supervised by radiologist): MIP and/or 3D reconstructed images were created by the technologist. COMPARISON: CT HEAD - STROKE PROTOCOL 04/03/2020 3:34 PM FINDINGS: ANTERIOR CIRCULATION: Right internal carotid artery: Up to 70% stenosis in the right cavernous internal carotid artery. Right middle cerebral artery: Unremarkable. No occlusion or significant stenosis. No aneurysm. Right anterior cerebral artery: Unremarkable. No occlusion or significant stenosis. No aneurysm. Left internal carotid artery: Up to 40% stenosis in the left cavernous internal carotid artery. Left middle cerebral artery: Obstruction of the distal left M1 segment. Left anterior cerebral artery: Unremarkable. No occlusion or significant stenosis. No aneurysm. POSTERIOR CIRCULATION: Right vertebral artery: Up to 20% stenosis in the right vertebral artery. Left vertebral artery: Up to 40% stenosis in the left vertebral artery. Basilar artery: Unremarkable. No occlusion or significant stenosis. No aneurysm. Right posterior cerebral artery: Unremarkable. No occlusion or significant stenosis. No aneurysm. Left posterior cerebral artery: Unremarkable. No occlusion or significant stenosis. No aneurysm. Brain: No definite mass, mass effect, or midline shift. Cerebral ventricles: No ventriculomegaly. Bones/joints: Unremarkable. No acute fracture. Soft tissues: Unremarkable. Other findings: Narrow but IMPRESSION: 1. Obstruction of the distal left M1 segment. 2. Up to 70% stenosis in the right cavernous internal carotid artery. 3. Up to 40% stenosis in the left cavernous internal carotid artery. 4. Up to 20% stenosis in the right vertebral artery. 5. Up to 40% stenosis in the left vertebral artery. CT Angiography Neck With Contrast Exam date and time: 04/03/2020 4:30 PM Age: 74 years old Clinical indication: Screening exam; R/0 acute CVA; Patient HX: Stroke alert, R/O acute CVA TECHNIQUE: Imaging protocol: Computed tomography angiography of the neck with intravenous contrast. 3D rendering (Not supervised by radiologist): MIP and/or 3D reconstructed images were created by the technologist. COMPARISON: CT HEAD - STROKE PROTOCOL 04/03/2020 3:34 PM FINDINGS: Right common carotid artery: No stenosis. No dissection or occlusion. Right internal carotid artery: Up to 25% stenosis in the origin of the right internal carotid artery. Right external carotid artery: Nonsignificant atherosclerosis in the origin of the right external carotid artery. Right vertebral artery: Nonsignificant atherosclerosis in the origin of the right vertebral artery. Left common carotid artery: Nonsignificant atherosclerosis in the origin of the left common carotid artery. Nonsignificant atherosclerosis in the mid left common carotid artery. Left internal carotid artery: Up to 20% stenosis in the origin of the left internal carotid artery. Left external carotid artery: No occlusion or stenosis of the origin. Left vertebral artery: Nonsignificant atherosclerosis in the proximal left vertebral artery. Subclavian arteries: Up to 60% stenosis in the origin of the left subclavian artery. Brachiocephalic artery: Nonsignificant atherosclerosis in the origin of the right brachiocephalic artery. Aorta: Nonsignificant atherosclerosis in the aortic arch. Bones/joints: No acute fracture. Soft tissues: Normal. No significant soft tissue swelling. IMPRESSION: 1. Up to 60% stenosis in the origin of the left subclavian artery. 2. Up to 20% stenosis in the origin of the left internal carotid artery. 3. Up to 25% stenosis in the origin of the right internal carotid artery. XR CHEST 1V IN DI DEPT CLINICAL HISTORY: stroke alert, r/o acute disease. TECHNIQUE: 2D digital imaging was performed. COMPARISON: CT CHEST - LUNG CANCER SCREENING from 02/06/2017 CT CHEST - LUNG CANCER SCREENING from 02/06/2017 FINDINGS: Heart size is upper normal. Mediastinum is not widened. No infiltrates nor pleural effusions. No pulmonary edema. No pneumothorax. Lab Data Lab results reviewed: Yes I reviewed the patient's lab results. Labs: Laboratory Tests Range/Units 04/03/20 04/03/20 04/03/20 15:28 15:28 15:28 WBC (4.4-10.8) 10^3/uL 9.00 RBC (3.93-5.22) 10^6/uL 5.38 H Hgb (11.2-15.7) g/dL 14.7 Hct (36.0-46.0) % 47.2 H MCV (80-95) fL 87.7 MCH (27.0-33.0) pg 27.3 MCHC (32.0-36.0) % 31.1 L RDW (11.7-14.6) % 14.9 H Plt Count (130-400) 10^3/uL 214 MPV (8.0-11.0) fL 11.6 H Immature Gran % 0.0 Neutrophils % 28.0 Lymphocytes % 69.0 Monocytes % 2.0 Eosinophils % 1.0 Basophils % 0.0 Nucleated RBC % % 0 Absolute Neutrophils (1.2-6.7) 10^3/uL 2.52 Absolute Lymphocytes (1.2-3.4) 10^3/uL 6.21 H Absolute Monocytes (0.1-0.8) 10^3/uL 0.18 Absolute Eosinophils (0.0-0.7) 10^3/uL 0.09 Absolute Basophils (0.0-0.2) 10^3/uL 0.00 RBC Morphology Normal PT (9.3-11.0) sec 9.9 INR (0.9-1.1) 1.0 APTT (21.0-27.5) sec 22.7 Sodium (136-145) mmol/L 138 Potassium (3.5-5.1) mmol/L 3.9 Chloride (98-107) mmol/L 102 Carbon Dioxide (21.0-32.0) mmol/L 25.8 Anion Gap (3-11) mmol/L 10.2 BUN (7-18) mg/dL 14 Creatinine (0.55-1.02) mg/dL 1.35 H Estimated GFR/1.73 m2 (mL/min/1.73m2) 38.55 Glucose (74-106) mg/dL 130 H Calcium (8.5-10.1) mg/dL 10.1 Magnesium (1.8-2.4) mg/dL 2.1 Total Bilirubin (0.2-1.0) mg/dL 0.3 AST (15-37) U/L 22 ALT (14-59) U/L 21 Alkaline Phosphatase (46-116) U/L 93 Troponin I (<0.06) ng/mL < 0.05 Total Protein (6.4-8.2) g/dL 8.8 H Albumin (3.4-5.0) g/dL 4.1 Urine Color (Yellow) Urine Clarity (Clear) Urine pH (5-8) Ur Specific Monroe (1.005-1.025) Urine Protein (Negative) mg/dL Urine Ketones (Negative) mg/dL Urine Blood (Negative) Urine Nitrite (Negative) Urine Bilirubin (Negative) Urine Urobilinogen (Up TO 0.2) EU/dL Ur Leukocyte Esterase (Negative) Urine RBC (0-2) HPF Urine WBC (0-5) HPF Ur Epithelial Cells (Negative) HPF Urine Crystals (Negative) HPF Urine Bacteria (Negative) HPF Urine Casts (Negative) LPF Urine Mucus (Negative) Ur Culture Indicated? Urine Glucose (Negative) mg/dL Range/Units 04/03/20 16:05 WBC (4.4-10.8) 10^3/uL RBC (3.93-5.22) 10^6/uL Hgb (11.2-15.7) g/dL Hct (36.0-46.0) % MCV (80-95) fL MCH (27.0-33.0) pg MCHC (32.0-36.0) % RDW (11.7-14.6) % Plt Count (130-400) 10^3/uL MPV (8.0-11.0) fL Immature Gran % Neutrophils % Lymphocytes % Monocytes % Eosinophils % Basophils % Nucleated RBC % % Absolute Neutrophils (1.2-6.7) 10^3/uL Absolute Lymphocytes (1.2-3.4) 10^3/uL Absolute Monocytes (0.1-0.8) 10^3/uL Absolute Eosinophils (0.0-0.7) 10^3/uL Absolute Basophils (0.0-0.2) 10^3/uL RBC Morphology PT (9.3-11.0) sec INR (0.9-1.1) APTT (21.0-27.5) sec Sodium (136-145) mmol/L Potassium (3.5-5.1) mmol/L Chloride (98-107) mmol/L Carbon Dioxide (21.0-32.0) mmol/L Anion Gap (3-11) mmol/L BUN (7-18) mg/dL Creatinine (0.55-1.02) mg/dL Estimated GFR/1.73 m2 (mL/min/1.73m2) Glucose (74-106) mg/dL Calcium (8.5-10.1) mg/dL Magnesium (1.8-2.4) mg/dL Total Bilirubin (0.2-1.0) mg/dL AST (15-37) U/L ALT (14-59) U/L Alkaline Phosphatase (46-116) U/L Troponin I (<0.06) ng/mL Total Protein (6.4-8.2) g/dL Albumin (3.4-5.0) g/dL Urine Color (Yellow) Yellow Urine Clarity (Clear) Clear Urine pH (5-8) 7.0 Ur Specific Monroe (1.005-1.025) 1.020 Urine Protein (Negative) mg/dL 100 H Urine Ketones (Negative) mg/dL Negative Urine Blood (Negative) Moderate H Urine Nitrite (Negative) Negative Urine Bilirubin (Negative) Negative Urine Urobilinogen (Up TO 0.2) EU/dL 0.2 Ur Leukocyte Esterase (Negative) Negative Urine RBC (0-2) HPF 5-10 H Urine WBC (0-5) HPF 3-5 Ur Epithelial Cells (Negative) HPF Moderate Urine Crystals (Negative) HPF Negative Urine Bacteria (Negative) HPF Few Urine Casts (Negative) LPF Negative Urine Mucus (Negative) Negative Ur Culture Indicated? No/sq. contamination Urine Glucose (Negative) mg/dL Negative ECG Data Attestation: I personally reviewed and interpreted this ECG (s) as follows: Interpretation: rate of 78, sinus, no acute ST elevation or depression, CO 160, QRS 80, QTc 432. HPI General Mode of arrival: EMS . Date/Time Provider Initiated Documentation: 04/03/20 15:30 . Limitations to Documentation: altered mental status . Information obtained by: EMS . HPI Narrative: Patient is a 74-year-old female with multiple comorbidities including coronary artery disease, CVA, hypertension, hyperlipidemia, DE, obesity, pulmonary embolism on Eliquis presents as a stroke alert. Per EMS, son called when he noted patient had slurred speech and appeared to be complaining of weakness on her left side within the past hour. Patient has a history of dementia and a previous stroke but no residual deficit. She is reportedly ANO x3 at baseline. Son states her last known normal was at 8 AM when he saw her this morning around breakfast time. He states she usually spends most of the day sleeping in bed. He states he heard noises in her bedroom approximately 3 hours prior to arrival and thought she was throwing things. He states he thinks this may have been the onset of symptoms. He states he checked on her at that time and she was lying in bed sleeping and mumbling. He states approximately 1 hour later he heard noise again and checked on her and he stated she appeared to be pointing to her left side that it was weak. He also noted that she had slurred speech and was having difficulty speaking and was confused. Related Data Home Medications Medication Instructions Recorded Confirmed sertraline 150 mg PO DAILY 01/01/18 04/03/20 Eliquis 5 mg PO BID #60 tab 01/11/18 05/19/18 acetaminophen [Tylenol] 2 tab PO Q4H PRN PRN #30 tab 01/11/18 04/03/20 amlodipine 10 mg PO DAILY #30 tab 01/11/18 04/03/20 metoprolol succinate 100 mg PO DAILY 01/11/18 04/03/20 esomeprazole magnesium 40 mg 40 mg PO QAM #90 cap 06/16/18 06/16/18 capsule,delayed release ranitidine HCl 300 mg tablet 300 mg PO QHS #90 tab 06/16/18 06/16/18 atorvastatin [Lipitor] 40 mg PO HS 04/03/20 04/03/20 Previous Rx's Medication Instructions Recorded Eliquis 5 mg PO BID #60 tab 01/11/18 acetaminophen [Tylenol] 2 tab PO Q4H PRN PRN #30 tab 01/11/18 amlodipine 10 mg PO DAILY #30 tab 01/11/18 esomeprazole magnesium 40 mg 40 mg PO QAM #90 cap 06/16/18 capsule,delayed release ranitidine HCl 300 mg tablet 300 mg PO QHS #90 tab 06/16/18 Allergies Allergy/AdvReac Type Severity Reaction Status Date / Time latex Allergy Swelling/Ed Verified 04/03/20 16:43 guadalupe lisinopril AdvReac Intermediate raises BP Verified 04/03/20 16:43 morphine AdvReac Visual Verified 04/03/20 16:43 Disturbances General QUINTIN: 3 Review of Systems Unobtainable due to mental status [facility] Medical History (Updated 04/03/20 @ 17:19 by Laura Cardenas DO) CAD (coronary artery disease) CKD (chronic kidney disease) CVA (cerebral vascular accident) DVT (deep venous thrombosis) Elevated d-dimer Esophagitis Essential hypertension Gastric ulcer Gastritis and duodenitis Hiatal hernia History of kidney stones Hypercoagulable state Pulmonary embolism Pulmonary embolism SVT (supraventricular tachycardia) Upper GI bleeding Vascular dementia Surgical History Appendectomy section Colonoscopy - MAC (12/29/15) H/O esophagogastroduodenoscopy (~05/19/18) History of esophagogastroduodenoscopy (EGD) (~12/2017) Social History Smoking/Tobacco Use Status: Current every day Smoking risk assessment performed?: Yes Drug use: Daily Do you feel safe in your relationship?: Yes Exam Const General: cooperative Orientation: confused and other (drowsy) HENDE Head: normal to inspection Ears: hearing grossly normal bilaterally and external ears normal General nose exam: external nose normal Mouth: mucous membranes dry Eyes General: appearance normal, both eyes and all related structures Eyelids: eyelids normal Pupils: PERRL EOM: EOM intact bilaterally Neck Neck: normal visual inspection Lymphatic: no lymphadenopathy noted Chest Chest: normal inspection of the chest Resp Effort & Inspection: normal respiratory effort and not able to speak in complete sentences Auscultation: clear to auscultation bilaterally Cardio Rate: regular rate Rhythm: regular rhythm GI Inspection: normal to inspection Palpation: soft, not firm, no guarding, no hepatosplenomegaly, no masses and nontender Auscultation: normal bowel sounds Skin General skin exam: no rashes or lesions noted Neuro General: patient confused and other (drowsy but arousable) Cranial Nerves: gag reflex normal and individual cranial nerve findings VII: abnormal (R facial droop) Speech: abnormal speech slurred Motor: pronator drift pronator drift of right upper extremity and other (Muscle strength bilateral LE equal. 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 This does not include time spent on separately reported billable procedures.
[2020-04-03 15:43] LABS: Abs Immature Grans 0.02 10^3/uL (0.0-0.06); HCT 47.2 % (36.0-46.0); HGB 14.7 g/dL (11.2-15.7); MCH 27.3 pg (27.0-33.0); MCHC 31.1 % (32.0-36.0); MCV 87.7 fL (80-95); MPV 11.6 fL (8.0-11.0); Nucleated RBC 0 %; Platelet Count 214 10^3/uL (130-400); RBC 5.38 10^6/uL (3.93-5.22); RDW 14.9 % (11.7-14.6); RDW-SD 47.7 fL
[2020-04-03 15:59] LABS: Absolute Eosinophil Count 0.09 10^3/uL (0.0-0.7); Absolute Lymphocyte Count 6.21 10^3/uL (1.2-3.4); Absolute Monocyte Count 0.18 10^3/uL (0.1-0.8); Absolute Neutrophil Count 2.52 10^3/uL (1.2-6.7); Diff Comment Manual Differential; PTT Activated 22.7 sec (21.0-27.5); Prothrombin Time 9.9 sec (9.3-11.0); RBC Morphology Normal
--- NOTE | 2020-04-03 16:00 | DI.CT_ITS ---
EXAM: CT BRAIN NECK CTA CLINICAL HISTORY: stroke alert, r/o acute cva. TECHNIQUE: Imaging Protocol: Axial CT angiography was performed with multi-slice acquisition and mu lti-planar and/or 3D reconstructions. CONTRAST MATERIAL: Intravenous: Omnipaque 350 Contrast volume:[address] HEAD - STROKE PROTOCOL from 04/03/2020 FINDINGS: CTA Brain W: Internal Carotid Arteries: Petrous: Normal. Cavernous: Calcification in the cavernous portions. Less than 50 percent stenosis in the left ICA. Approximately 70 percent stenosis of the right cavernous ICA. Cerebral: Normal. Middle Cerebral Arteries: Right: No aneurysm, occlusion or significant stenosis. Left: No aneurysm, occlusion or significant stenosis. Anterior Cerebral Arteries: Right: No aneurysm, occlusion or significant stenosis. Left: No aneurysm, occlusion or significant stenosis. Posterior cerebral Arteries: Right: No aneurysm, occlusion or significant stenosis. Left: No aneurysm, occlusion or significant stenosis. Vertebral Arteries: Right: No aneurysm, occlusion or significant stenosis. Mild stenosis. Left: No aneurysm, occlusion or significant stenosis. Less than 50 percent stenosis. Basilar Artery: No aneurysm, occlusion or significant stenosis. CTA Neck W: Common Carotid: Right: No aneurysm, occlusion or significant stenosis. Left: No aneurysm, occlusion or significant stenosis. External Carotid: Right: No aneurysm, occlusion or significant stenosis. Left: No aneurysm, occlusion or significant stenosis. Internal Carotid: Right: No aneurysm, occlusion or significant stenosis. Mild stenosis secondary to calcific plaque a t the origin. Left: No aneurysm, occlusion or significant stenosis. Vertebral Artery: Right: No aneurysm, occlusion or significant stenosis. Left: No aneurysm, occlusion or significant stenosis. Subclavian arteries: Approximately 60 percent stenosis at the origin of the left subclavian artery.. Lung Apices: Respiratory motion. Bones: Degenerative disc changes. Soft Tissues: Normal. IMPRESSION: 1. Calcific plaque in the cavernous portions of the internal carotid arteries. There is approximatel y 70 percent stenosis on the right. Mild bilateral vertebral artery stenoses.. 2. Calcific plaque at the origins of the internal carotid arteries without significant stenosis. Ángel roximately 60 percent stenosis is seen at the origin of the left subclavian artery. RADIATION DOSE DELIVERED: 338.07mGy.cm Total DLP DATA REPOSITORY: All CT scans at this facility are submitted to the National Radiology Data Registry (NRDR) Dose Index Registry (DIR) with the [employer] (ACR). RADIATION OPTIMIZATION: All CT scans at this facility use at least one of these dose optimization te chniques: automated exposure control; mA and/or kV adjustment per patient size (includes targeted exa ms where dose is matched to clinical indication); or iterative reconstruction.
[2020-04-03 16:01] LABS: ALT 21 U/L (14-59); AST 22 U/L (15-37); Albumin 4.1 g/dL (3.4-5.0); Alkaline Phosphatase 93 U/L (46-116); Anion Gap 10.2 mmol/L (3-11); BUN 14 mg/dL (7-18); Bilirubin, Total 0.3 mg/dL (0.2-1.0); CO2 25.8 mmol/L (21.0-32.0); CREATININE 1.35 mg/dL (0.55-1.02); Calcium 10.1 mg/dL (8.5-10.1); Chloride 102 mmol/L (98-107); Estimated GFR 38.55 (mL/min/1.73m2); Glucose 130 mg/dL (74-106); Magnesium 2.1 mg/dL (1.8-2.4); Potassium 3.9 mmol/L (3.5-5.1); Sodium 138 mmol/L (136-145); Total Protein 8.8 g/dL (6.4-8.2)
[2020-04-03 16:03] LABS: Troponin I < 0.05 ng/mL (<0.06)
[2020-04-03 16:09] LABS: Bilirubin Negative (Negative); Blood Moderate (Negative); Clarity Clear (Clear); Glucose Negative (Negative); Ketones Negative (Negative); Leukocyte Esterase Negative (Negative); Nitrite Negative (Negative); Urobilinogen 0.2 EU/dL (Up TO 0.2)
[2020-04-03 16:16] LABS: Bacteria Few HPF (Negative); C & S Indicated? No/Sq. Contamination; Casts Negative LPF (Negative); Crystals Negative HPF (Negative); Epithelial Cells Moderate HPF (Negative); Mucus Negative (Negative)
[2020-04-03] MEDS: Normal Saline 500 ML IV (16:19)
[2020-04-03] MEDS: Aspirin 300 MG SUPP PR (16:21)
[2020-04-03] MEDS: Omnipaque 350 MG/ML 100 ML BTL IJ (16:58)
[2020-04-03] MEDS: Normal Saline - Diluent 50 ML VIAL IV (16:59)
--- NOTE | 2020-04-03 17:03 | DI.VRAD_ITS ---
Addendum created by Gregoria Gonzalez MD on 04/03/2020 5:05:11 PM EST: THIS REPORT CONTAINS FINDINGS THAT MAY BE CRITICAL TO PATIENT CARE. The findings were verbally communicated via telephone conference with hayley almendarez at 5:05 PM EST on 04/03/2020. The findings were acknowledged and understood. Initial report created on 04/03/2020 5:03:20 PM EST: PROCEDURE INFORMATION: Exam: CT Angiography Head With Contrast Exam date and time: 04/03/2020 4:30 PM Age: 74 years old Clinical indication: Screening exam; R/0 acute CVA; Patient HX: Stroke alert, R/O acute CVA TECHNIQUE: Imaging protocol: Computed tomography angiography of the head with intravenous contrast. 3D rendering (Not supervised by radiologist): MIP and/or 3D reconstructed images were created by the technologist. COMPARISON: CT HEAD - STROKE PROTOCOL 04/03/2020 3:34 PM FINDINGS: ANTERIOR CIRCULATION: Right internal carotid artery: Up to 70% stenosis in the right cavernous internal carotid artery. Right middle cerebral artery: Unremarkable. No occlusion or significant stenosis. No aneurysm. Right anterior cerebral artery: Unremarkable. No occlusion or significant stenosis. No aneurysm. Left internal carotid artery: Up to 40% stenosis in the left cavernous internal carotid artery. Left middle cerebral artery: Obstruction of the distal left M1 segment. Left anterior cerebral artery: Unremarkable. No occlusion or significant stenosis. No aneurysm. POSTERIOR CIRCULATION: Right vertebral artery: Up to 20% stenosis in the right vertebral artery. Left vertebral artery: Up to 40% stenosis in the left vertebral artery. Basilar artery: Unremarkable. No occlusion or significant stenosis. No aneurysm. Right posterior cerebral artery: Unremarkable. No occlusion or significant stenosis. No aneurysm. Left posterior cerebral artery: Unremarkable. No occlusion or significant stenosis. No aneurysm. Brain: No definite mass, mass effect, or midline shift. Cerebral ventricles: No ventriculomegaly. Bones/joints: Unremarkable. No acute fracture. Soft tissues: Unremarkable. Other findings: Narrow but IMPRESSION: 1. Obstruction of the distal left M1 segment. 2. Up to 70% stenosis in the right cavernous internal carotid artery. 3. Up to 40% stenosis in the left cavernous internal carotid artery. 4. Up to 20% stenosis in the right vertebral artery. 5. Up to 40% stenosis in the left vertebral artery. PROCEDURE INFORMATION: Exam: CT Angiography Neck With Contrast Exam date and time: 04/03/2020 4:30 PM Age: 74 years old Clinical indication: Screening exam; R/0 acute CVA; Patient HX: Stroke alert, R/O acute CVA TECHNIQUE: Imaging protocol: Computed tomography angiography of the neck with intravenous contrast. 3D rendering (Not supervised by radiologist): MIP and/or 3D reconstructed images were created by the technologist. COMPARISON: CT HEAD - STROKE PROTOCOL 04/03/2020 3:34 PM FINDINGS: Right common carotid artery: No stenosis. No dissection or occlusion. Right internal carotid artery: Up to 25% stenosis in the origin of the right internal carotid artery. Right external carotid artery: Nonsignificant atherosclerosis in the origin of the right external carotid artery. Right vertebral artery: Nonsignificant atherosclerosis in the origin of the right vertebral artery. Left common carotid artery: Nonsignificant atherosclerosis in the origin of the left common carotid artery. Nonsignificant atherosclerosis in the mid left common carotid artery. Left internal carotid artery: Up to 20% stenosis in the origin of the left internal carotid artery. Left external carotid artery: No occlusion or stenosis of the origin. Left vertebral artery: Nonsignificant atherosclerosis in the proximal left vertebral artery. Subclavian arteries: Up to 60% stenosis in the origin of the left subclavian artery. Brachiocephalic artery: Nonsignificant atherosclerosis in the origin of the right brachiocephalic artery. Aorta: Nonsignificant atherosclerosis in the aortic arch. Bones/joints: No acute fracture. Soft tissues: Normal. No significant soft tissue swelling. IMPRESSION: 1. Up to 60% stenosis in the origin of the left subclavian artery. 2. Up to 20% stenosis in the origin of the left internal carotid artery. 3. Up to 25% stenosis in the origin of the right internal carotid artery. REFERENCES: NASCET CRITERIA. The degree of internal carotid artery stenosis is based on NASCET criteria. Normal is no stenosis. Mild is less than 50% stenosis. Moderate is 50-69% stenosis. Severe is 70% to 99% stenosis. Total occlusion is no detectable patent lumen. Dictated and Authenticated by: Gregoria Gonzalez MD. Ordering:MARY Sanchez MD
[2020-04-03] MEDS: Normal Saline 1,000 ML 125 ML IV (17:14)
[2020-04-03] MEDS: Labetalol 100 MG/20 ML VIAL 10 MG IVP (17:14)
== END 2020-04-03 18:01 | disposition short-term general hospital (02) ==
PROVIDERS: Emergency Provider Physician Assistant; PCP Nurse Practitioner Family
DX: I63.511 Cerebral infarction due to unspecified occlusion or stenosis of right middle cerebral artery (principal); I63.9 Cerebral infarction, unspecified; R47.81 Slurred speech; Z79.01 Long term (current) use of anticoagulants; Z86.711 Personal history of pulmonary embolism; I12.9 Hypertensive chronic kidney disease with stage 1 through stage 4 chronic kidney disease, or unspecified chronic kidney disease; N18.9 Chronic kidney disease, unspecified; Z86.73 Personal history of transient ischemic attack (TIA), and cerebral infarction without residual deficits
CPT/HCPCS: 36415; 70496; 70498; 80053; 93005; 96361; 96374; 99291; 70450; 71045; 81003; 81015; 83735; 84484; 85025; 85610; 85730; 93010; J3490

== ENCOUNTER 2020-05-04 10:59 | Observation (INO) | payer OTHER, MEDICAID, SELFPAY ==
[2020-05-04] VITALS (54 sets, daily range): BP systolic 133–188; BP diastolic 52–90; PULSE 55–90; RESP 11–22; TEMP 36.3–36.6; O2SAT 91–100
--- NOTE | 2020-05-04 11:00 | RT.EKG_ITS ---
APPROVED REPORT Exam: Resting ECG Patient Location: E HR:66 bpm ECG Measurements Heart Rate 66 AXIS WI 196 P 0 QRSd 82 QRS 57 QT 429 T 80 QTc 452 Conclusion Sinus rhythm.. Nonspecific ST changes, no significant change from previous
--- NOTE | 2020-05-04 11:16 | ED.GENADUL_ITS ---
Discharge Plan Disposition Patient Disposition: [facility] INPATIENT Condition: Stable Discharge Details Clinical Impression: TIA (transient ischemic attack) Admit Date/Time: 05/04/20 14:42 Admit Provider: Rosibel Rai Attending Provider: Rosibel Rai Primary Care Provider: Concha Loving ED Provider: Leo Sun Medical Decision Making 74-year-old male presents from home. 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 She was transferred to the service for which she went home. Today there was question of transient left facial droop for home nurse visit. Paramedics arrived facial droop resolved. Reviewed patient's discharge summary from her admission reveals a cardioembolic source for her stroke from atrial fibrillation for which she was placed on Eliquis as anticoagulation. Her son states she has been in charge of her own medications the past 3 days, previously he was helping her to manage them. Patient arrives to the ER improved. She is conversant but appears to have some receptive aphasia. Given the transient strokelike symptoms at home she is referred for noncontrast CT scan of the head, laboratory work-up. Laboratories note unremarkable CBC, chemistries with creatinine 1.2 but otherwise within normal limits, troponin negative, anti-Xa level pending. CT scan of the head shows an area of hypoattenuation left frontal lobe which is new versus comparison April 03. Given findings, patient referred for MRI; Area of high signal in the left frontal lobe without restricted diffusion, consistent with a subacute to old infarct. There is a small amount of associated hemosiderin. No acute infarct or acute hemorrhage is seen. Discussed with Dr. Montes. She favors admission for observation of TIA, given that the patient may be subtherapeutic on her Eliquis due to possible noncompliance. I have added an ant-Xa level. I discussed the case with the patient's son Max who is available at the phone #[phone]. He agrees with patient's admission. HPI General Mode of arrival: EMS . Date/Time Provider Initiated Documentation: 05/04/20 11:50 . Information obtained by: patient and EMS . History of Present Illness 74 year old F presents to the emergency department with the chief complaint of Question facial droop at home, described as moderate, and is localized to the face and left. and it has been now resolved. No relieving factors improve symptom(s), No exacerbating factors reported . Patient notes denies headaches and nausea/vomiting. Patient did receive the following treatments prior to arrival, none Related Data Home Medications Medication Instructions Recorded Confirmed sertraline 150 mg PO DAILY 01/01/18 05/04/20 Eliquis 5 mg PO BID #60 tab 01/11/18 05/04/20 acetaminophen [Tylenol] 2 tab PO Q4H PRN PRN #30 tab 01/11/18 05/04/20 amlodipine 10 mg PO DAILY #30 tab 01/11/18 05/04/20 metoprolol succinate 100 mg PO DAILY 01/11/18 05/04/20 atorvastatin [Lipitor] 40 mg PO HS 04/03/20 05/04/20 [id number]-[id number]-[id number]-CF borate 1 tab PO DAILY 05/04/20 05/04/20 [Move [facility]] multivitamin with minerals 1 tab PO DAILY 05/04/20 05/04/20 Previous Rx's Medication Instructions Recorded Eliquis 5 mg PO BID #60 tab 01/11/18 acetaminophen [Tylenol] 2 tab PO Q4H PRN PRN #30 tab 01/11/18 amlodipine 10 mg PO DAILY #30 tab 01/11/18 Allergies Allergy/AdvReac Type Severity Reaction Status Date / Time latex Allergy Swelling/Ed Verified 05/04/20 11:27 guadalupe lisinopril AdvReac Intermediate raises BP Verified 05/04/20 11:27 morphine AdvReac Visual Verified 05/04/20 11:27 Disturbances General Stated Complaint: CVA/TIA QUINTIN: 2 Review of Systems Narrative: No headache, no chest pain, resolved by time of arrival. 6 systems reviewed and otherwise negative [facility] Medical History (Updated 05/04/20 @ 14:47 by Leo Sun MD) CAD (coronary artery disease) CKD (chronic kidney disease) CVA (cerebral vascular accident) DVT (deep venous thrombosis) Elevated d-dimer Esophagitis Essential hypertension Gastric ulcer Gastritis and duodenitis Hiatal hernia History of kidney stones Hypercoagulable state Pulmonary embolism Pulmonary embolism SVT (supraventricular tachycardia) Upper GI bleeding Vascular dementia Surgical History Appendectomy section Colonoscopy - MAC (12/29/15) H/O esophagogastroduodenoscopy (~05/19/18) History of esophagogastroduodenoscopy (EGD) (~12/2017) Social History Smoking/Tobacco Use Status: Current every day Smoking risk assessment performed?: Yes Drug use: Daily Do you feel safe in your relationship?: Yes Exam Narrative Exam Narrative: GEN: awake, alert, well groomed, interactive. HEAD: Normocephalic, atraumatic ENT: Mucous membranes moist, oropharynx unremarkable, External ear exam unremarkable EYES: PERRL, EOMI NECK: Full ROM, no NOLA, no menigismus CHEST/RESP: Nontender, clear to auscultation bilateral, no wheeze/rhonchi/rales CARDIOVASCULAR: RRR, no murmur, rub hawa. 2+ Rad pulse bilateral ABDOMEN: Soft, nontender, no mass. +Bowel sounds EXT: Full ROM, no edema, no rash Neuro: Cranial nerves II through XII intact, no facial droop, no motor weakness of the extremity. Speech is fluent but there appears to be some receptive aphasia at times. Grossly normal neurologic exam, conversant, interactive. Psych: Speech fluent, thoughts congruent, affect normal Course Vital Signs Vital signs: Vital Signs Temperature 36.3 C L 05/04/20 11:04 Pulse 72 05/04/20 11:04 Respiratory Rate 22 05/04/20 11:04 Blood Pressure 188/89 H 05/04/20 11:04 Pulse Oximetry 96 05/04/20 11:04 Temperature 36.3 C L 05/04/20 11:04 Temperature Source Skin 05/04/20 11:04 Pulse 72 05/04/20 11:04 Respiratory Rate 22 05/04/20 11:04 Respiratory Effort Non-Labored 05/04/20 11:04 Blood Pressure 188/89 H 05/04/20 11:04 Blood Pressure Position Sitting 05/04/20 11:04 Pulse Oximetry 96 05/04/20 11:04 Oxygen Delivery Method Room Air 05/04/20 11:04 Oxygen Flow Rate 0 05/04/20 11:04 Pain Level 0 05/04/20 11:04
[2020-05-04 11:28] LABS: Abs Immature Grans 0.02 10^3/uL (0.0-0.06); Absolute Basophil Count 0.04 10^3/uL (0.0-0.2); Absolute Eosinophil Count 0.29 10^3/uL (0.0-0.7); Absolute Lymphocyte Count 2.16 10^3/uL (1.2-3.4); Absolute Neutrophil Count 2.34 10^3/uL (1.2-6.7); Basophils % 0.7; Eosinophils % 5.2; HCT 41.9 % (36.0-46.0); HGB 12.9 g/dL (11.2-15.7); Immature Grans % 0.4; Lymphocytes % 38.9; MCHC 30.8 % (32.0-36.0); MCV 87.7 fL (80-95); MPV 12.2 fL (8.0-11.0); Monocytes % 12.6; Neutrophils % 42.2; Nucleated RBC 0 %; Platelet Count 173 10^3/uL (130-400); RBC 4.78 10^6/uL (3.93-5.22); RDW 14.5 % (11.7-14.6); RDW-SD 46.8 fL; WBC 5.55 10^3/uL (4.4-10.8)
--- NOTE | 2020-05-04 11:31 | DI.CT_ITS ---
EXAM: CT HEAD - STROKE PROTOCOL CLINICAL HISTORY: Report of transient L facial droop at home. TECHNIQUE: Imaging Protocol: Axial computed tomography images with coronal and sagittal reformatted images were created and reviewed COMPARISON: CT CT BRAIN NECK CTA from 04/03/[address] HEAD - STROKE PROTOCOL from 04/03/2020 FINDINGS: There is an area of encephalomalacia in the left temporal lobe. Compared with the previous exam, the re is a an area of decreased attenuation in the left frontal lobe, at the level of the lateral ventri cles which was not seen on the previous exam. This could represent an acute or subacute infarct. Th ere is no evidence of intracranial hemorrhage or mass. The ventricles are normal in size. There are white matter changes consistent with small vessel disease bilaterally. IMPRESSION: Subacute appearing infarct in the left frontal lobe. No evidence of hemorrhage. RADIATION DOSE DELIVERED: 747.76mGy.cm Total DLP DATA REPOSITORY: All CT scans at this facility are submitted to the National Radiology Data Registry (NRDR) Dose Index Registry (DIR) with the [employer] (A[employer]). RADIATION OPTIMIZATION: All CT scans at this facility use at least one of these dose optimization te chniques: automated exposure control; mA and/or kV adjustment per patient size (includes targeted exa ms where dose is matched to clinical indication); or iterative reconstruction.
[2020-05-04 11:46] LABS: ALT 27 U/L (14-59); AST 22 U/L (15-37); Albumin 3.5 g/dL (3.4-5.0); Alkaline Phosphatase 72 U/L (46-116); Anion Gap 10.9 mmol/L (3-11); BUN 12 mg/dL (7-18); Bilirubin, Total 0.4 mg/dL (0.2-1.0); CO2 26.1 mmol/L (21.0-32.0); CREATININE 1.2 mg/dL (0.55-1.02); Calcium 9.9 mg/dL (8.5-10.1); Chloride 105 mmol/L (98-107); Estimated GFR 44.16 (mL/min/1.73m2); Glucose 112 mg/dL (74-106); Magnesium 1.8 mg/dL (1.8-2.4); Potassium 3.8 mmol/L (3.5-5.1); Sodium 142 mmol/L (136-145); Troponin I < 0.05 ng/mL (<0.06)
--- NOTE | 2020-05-04 12:45 | DI.MRI_ITS ---
EXAM: MR BRAIN WO CLINICAL HISTORY: recent stroke. transient L weakness TECHNIQUE: Multiplanar multisequence MRI of the brain was performed. COMPARISON: CT CT HEAD - STROKE PROTOCOL from 05/04/2020 FINDINGS: The exam is somewhat limited by patient motion. VENTRICLES AND EXTRA AXIAL SPACES: Normal in size and morphology for the patient's age. MIDLINE SHIFT: None. CEREBRAL PARENCHYMA: No space-occupying lesion identified. Stable area of left temporal encephalomal acia. Area of high signal in the left frontal lobe consistent with subacute to old infarct. There i s no significant associated restricted diffusion. Patchy areas of high signal in the white matter ar m including jonnathan, consistent with sequela of microvascular disease. HEMORRHAGE: Are gyriform low signal on susceptibility weighted images along the left frontal lobe con sistent with old hemorrhage. CEREBELLUM: Normal. VISUALIZED PARANASAL SINUSES/MASTOIDS:Clear. [place]: Normal flow void. PITUITARY GLAND: Unremarkable. OTHER FINDINGS: Orbits unremarkable as visualized. IMPRESSION: Area of high signal in the left frontal lobe without restricted diffusion, consistent with a subacute to old infarct. There is a small amount of associated hemosiderin. No acute infarct or acute hemor rhage is seen. DATA REPOSITORY:
--- NOTE | 2020-05-04 13:18 | CMPROGNOTE_ITS ---
- If Service Date Differs Date of service: 05/04/20 Time of Service: 13:18 Care Management Progress Note Sisi presents in the ED via EMS for CVA/TIA. Dr. Sun, ED provider, requests 's assistance in outreaching to Sisi's son, Max, by telephone, as the phone number on file is no longer active. CM contacts [facility], patient's PCP, and is able to obtain updated contact information for Max. ANA then telephones Max and connects him with Dr. Sun in the ED.
[2020-05-04 16:06] LABS: Troponin I < 0.05 ng/mL (<0.06)
[2020-05-04] MEDS: Normal Saline 1,000 ML 125 ML IV (17:18)
[2020-05-04] MEDS: Apixaban 5 MG TAB PO (19:04)
--- NOTE | 2020-05-04 20:13 | W.PM.HP.N ---
Date of service: 05/04/20 Time of Service: 20:13 Assessment and Plan Assessment and plan (1) Recurrent cerebrovascular accidents (CVAs): Status: Acute Assessment and plan: Will monitor neurochecks. Continue eliquis. Permissive hypertension, though the latest CVA appears subacute, and this is likely less important at this point. PT, OT, speech consults. We will need to coordinate with patient's family that someone ensures that she takes her medications at night as well as in the morning. Monitor on tele. (2) Afib: Status: Chronic Assessment and plan: As above. We are holding metoprolol today. Continue anticoagulation with eliquis. (3) Personal history of DVT (deep vein thrombosis): Status: Chronic Assessment and plan: Hypercoagulable state was suspected. 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 Continue current mode of anticoagulation. Consider outpatient hematology cosult. (4) Noncompliance with medication regimen: Status: Chronic Assessment and plan: As above (5) Essential hypertension: Status: Chronic Assessment and plan: As above (6) Discharge planning issues: Status: Acute Assessment and plan: Full code Anticipate discharge home tomorrow. History of Present Illness History of Present Illness Chief Complaint: new facial droop (reportedly, on the left) Narrative: Ms Aguilar is a 74 year old female with PMHx of a large L MCA territory CVA in March of 2020, treated at [facility] with thrombectomy, felt to be due to a cardioembolic origin/Afib, and initiated on eliquis at this time, with residual R-sided weakness, expressive aphasia and dysphagia, as well as h/o CAD, prior DVT/PE, and a question of hypercoagulable state (Elevated Factor 8), who was evaluated by a home health nurse today who felt the patient had a new left facial droop, so she called EMS. By the time EMS arrived, L facial droop was gone, and it was not witnessed in the ED. Her ED workup revealed a subacute left frontal lobe stroke. The patient has difficulty expressing herself due to her aphasia, but indicates that her facial droop first started 2 days ago, had resolved, and then returned. On my exam, in fact she has a right facial droop. The patient admits to not always remembering to take her medications at night because she falls asleep.Case was discussed with both Dr Montes and with Dr Mclaughlin - stroke neurology at [facility]. Dr Mclaughlin felt that, since the patient admits to non-compliance, this is not an eliquis failure, and the patient should be continued on eliquis, unless there is no way to ensure that she will take her evening medications. PAYTON was done on admission at [facility] and was not felt to be necessary on this admission. Review of Systems Narrative: The patient specifically denies any new numbness, weakness, or tingling. I am unable to understand what she means when I ask her about visual changes - she talks about outlook on people being different, no matter how many times I ask the question. All systems reviewed & are unremarkable except as noted in HPI and below PFSH Medical History (Updated 05/04/20 @ 20:33 by Rosibel Rai MD) CAD (coronary artery disease) CKD (chronic kidney disease) CVA (cerebral vascular accident) DVT (deep venous thrombosis) Elevated d-dimer Esophagitis Essential hypertension Gastric ulcer Gastritis and duodenitis Hiatal hernia History of kidney stones Hypercoagulable state Pulmonary embolism Pulmonary embolism SVT (supraventricular tachycardia) Upper GI bleeding Vascular dementia Surgical History Appendectomy section Colonoscopy - MAC (12/29/15) H/O esophagogastroduodenoscopy (~05/19/18) History of esophagogastroduodenoscopy (EGD) (~12/2017) Social History Smoking/Tobacco Use Status: Current every day Smoking risk assessment performed?: Yes Drug use: Daily Do you feel safe in your relationship?: Yes Meds Home Medications and Allergies Home Medications Medication Instructions Recorded Confirmed Type sertraline 150 mg PO DAILY 01/01/18 05/04/20 History Eliquis 5 mg PO BID #60 tab 01/11/18 05/04/20 Rx acetaminophen [Tylenol] 2 tab PO Q4H PRN PRN #30 tab 01/11/18 05/04/20 Rx amlodipine 10 mg PO DAILY #30 tab 01/11/18 05/04/20 Rx metoprolol succinate 100 mg PO DAILY 01/11/18 05/04/20 History atorvastatin [Lipitor] 40 mg PO HS 04/03/20 05/04/20 History dfhfcxyo-plblv-powwb-CF borate 1 tab PO DAILY 05/04/20 05/04/20 History [Move [facility]] multivitamin with minerals 1 tab PO DAILY 05/04/20 05/04/20 History Allergies Allergy/AdvReac Type Severity Reaction Status Date / Time latex Allergy Swelling/Ed Verified 05/04/20 11:27 guadalupe lisinopril AdvReac Intermediate raises BP Verified 05/04/20 11:27 morphine AdvReac Visual Verified 05/04/20 11:27 Disturbances Exam Narrative Exam Narrative: General: Pleasant Female with expressive aphasia who is pleasant, but appears frustrated by her inability to express herself Neurological: EOMI, R facial droop, Expressive aphasia, difficulty following commands when I ask her to follow my finger (?component of receptive aphasia), 5/5 strength in all 4 extremities. Equivocal plantar response. Sensory intact. Psychiatric: cooperative; difficult to fully examine given expressive aphasia Skin: Visible skin intact HEENT: Atraumatic, normocephalic, EOMI, MMM, clear oropharynx, no submandibular or cervical lymphadenopathy, no goiter or JVD Cardiovascular: seemigly regular rhythm Lungs: crackles at B bases Gastrointestinal: soft , nontender, nondistended Genitourinary: deferred Extremities: no edema BLE's, 5/5 strength B, 1+ pedal pulses B; dry skin Results Imaging Additional studies: CT head: Subacute appearing infarct in the left frontal lobe. No evidence of hemorrhage. MRI brain: Area of high signal in the left frontal lobe without restricted diffusion, consistent with a subacute to old infarct. There is a small amount of associated hemosiderin. No acute infarct or acute hemorrhage is seen. Labs Result diagrams: 05/04/20 11:20 05/04/20 11:20 Labs: Laboratory Results - last 24 hr 05/04/20 05/04/20 05/04/20 11:20 11:20 15:07 WBC 5.55 RBC 4.78 Hgb 12.9 Hct 41.9 MCV 87.7 MCH 27.0 MCHC 30.8 L RDW 14.5 Plt Count 173 MPV 12.2 H Immature Gran % 0.4 Neutrophils % 42.2 Lymphocytes % 38.9 Monocytes % 12.6 Eosinophils % 5.2 Basophils % 0.7 Nucleated RBC % 0 Absolute Neutrophils 2.34 Absolute Lymphocytes 2.16 Absolute Monocytes 0.70 Absolute Eosinophils 0.29 Absolute Basophils 0.04 Sodium 142 Potassium 3.8 Chloride 105 Carbon Dioxide 26.1 Anion Gap 10.9 BUN 12 Creatinine 1.2 H Estimated GFR/1.73 m2 44.16 Glucose 112 H Calcium 9.9 Magnesium 1.8 Total Bilirubin 0.4 AST 22 ALT 27 Alkaline Phosphatase 72 Troponin I < 0.05 < 0.05 Total Protein 8.0 Albumin 3.5 Last Vital Signs Temp 36.5 C 05/04/20 19:47 Pulse 72 05/04/20 19:47 Resp 16 05/04/20 19:47 BP 133/77 05/04/20 19:47 Pulse Ox 99 05/04/20 19:47 COVID-19 Screening Have you, or household traveled for leisure in last 14 days?: No Had IN PERSON contact w/suspected or confirmed C-19 person: No
[2020-05-04] MEDS: Atorvastatin 20 MG TAB 40 MG PO (21:02)
[2020-05-05 00:10] LABS: COVID-19 RT-PCR UVMMC Result Negative (Negative)
[2020-05-05 03:51] VITALS: BP 175/70; PULSE 93; RESP 16; TEMP 36.3; O2SAT 100
[2020-05-05] MEDS: Normal Saline 1,000 ML 75 ML IV (05:07)
[2020-05-05 07:29] LABS: Anion Gap 9.6 mmol/L (3-11); BUN 12 mg/dL (7-18); CO2 24.4 mmol/L (21.0-32.0); CREATININE 1.1 mg/dL (0.55-1.02); Calcium 8.7 mg/dL (8.5-10.1); Chloride 108 mmol/L (98-107); Estimated GFR 48.82 (mL/min/1.73m2); Glucose 112 mg/dL (74-106); Magnesium 1.6 mg/dL (1.8-2.4); Potassium 3.8 mmol/L (3.5-5.1); Sodium 142 mmol/L (136-145)
[2020-05-05 07:31] LABS: Troponin I < 0.05 ng/mL (<0.06)
[2020-05-05 08:21] VITALS: BP 122/77; PULSE 76; RESP 17; TEMP 35.9; O2SAT 100
--- NOTE | 2020-05-05 08:31 | OT.INIE ---
Occupational Therapy Notes Inpatient Occupational Therapy Evaluation Date: 05/05/20 Referring Doctor:Rosibel Rai MD OT Orders: Non Urgent Precautions: Fall, standard, Full PATIENT PROFILE/ADMITTING DIAGNOSIS: Pt is a 74 year old female who presented to the ED via EMS due to slurred speech and confusion. She was admitted to Med Surg for a dx of non compliance with medication regimen, DVT, AFib, recurrent CVAs, TIA, Essential HTN. Past Medical History: Medical History (Updated 05/04/20 @ 20:33 by Rosibel Rai MD) CAD (coronary artery disease) CKD (chronic kidney disease) CVA (cerebral vascular accident) DVT (deep venous thrombosis) Elevated d-dimer Esophagitis Essential hypertension Gastric ulcer Gastritis and duodenitis Hiatal hernia History of kidney stones Hypercoagulable state Pulmonary embolism Pulmonary embolism SVT (supraventricular tachycardia) Upper GI bleeding Vascular dementia Surgical History Appendectomy section Colonoscopy - MAC (12/29/15) H/O esophagogastroduodenoscopy (~05/19/18) History of esophagogastroduodenoscopy (EGD) (~12/2017) Social History/Home Situation: Pt reports that she does not live alone but is unable to explain her living situation at this time. She states that she has a son named Max. She doesn't know where he lives but states that she is (I) at baseline. Equipment owned/DME: None per pt report SUBJECTIVE: Pt was sitting in chair when OT arrived, she was agreeable to OT session and notes that she has a hard time communicating at times due to her brain. OBJECTIVE: General Observation: Pleasant, IV (L) UE, agreeable to OT session Mental Status: A&Ox3 Pain: no c/o pain ROM: RUE AROM WFL L UE AROM WFL STRENGTH: RUE 3+/5 throughout globally LUE 4/5 throughout globally FUNCTIONAL MOBILITY/ADLS: Transfers without (A) device Sit-Stand (S) Stand-sit (S) Bed-Chair (S) Chair-bed (S) BATHING sitting in chair with max (A) Set up/clean up Bathing UE (I) face, (B) UE and hair, max (A) back Bathing LE (I) mónica area and min (A) (B) LE DRESSING sitting in chair Dressing UE Min (A) don and doffing hospital gown Dressing LE (I) don and doffing underwear during toileting routine sitting in bathroom GROOMING (I) with hair care. TOILETING On toilet (I) with toileting hygiene EATING NT BALANCE: Static sitting Normal Dynamic Sitting Normal Static Standing Normal Dynamic Standing Normal SPECIAL TESTS: Daily Activity Limitations Standardized Measure [facility] AM -PAC ?6 clicks? Daily Activity Inpatient Short Form: Raw score: 17 Standardized score: 37.26 CMS score: 50.11% INFORMED CONSENT/EDUCATION: Pt instructed in purpose of OT Consult and plan of care. ASSESSMENT: Patient is a 74-year-old female referred to occupational therapy services with diagnosis of non compliance with medication regimen, DVT, Afib, recurrent CVAs, TIA, essential HTN. Patient presents with clinical signs and symptoms consistent with dx, as demonstrated by the following impairment level findings/ functional limitations: Impairments in ADL/IADL and leisure activities, cognitive impairment related to TIA/CVA, decreased ability to perform her ADLs without supervision. [facility] score 17 Patient is assessed as a Moderate 05739 complexity based on the following: History: see above Examination: see functional limitations as noted above Presentation: Evolving Decision Making: [facility] 17 GOALS Goals x1 week 1. Grooming- Standing at sink (I) brushing teeth 2. Dressing- sitting in chair (I) UE/LE 3. Bathing- standing at sink (I) 4. Eating- (I) PLAN OF CARE/TREATMENT PLAN: 1x/day, 5 days/ week x 1week Initiate Occupational Therapy Services for bathing, dressing, grooming, toileting, eating, transfer training. DISCHARGE RECOMMENDATIONS OT recommends that pt return home with HH services and caregivers vs. SNF TREATMENT TIME/MINUTES/CODES 51339, [id number], 25 minutes (07:30) [facility]
--- NOTE | 2020-05-05 08:55 | IN_ITS ---
Date of service: 05/05/20 Time of Service: 08:55 PT Notes Visit Reasons: RECURRENT CVA Physical Therapy Inpatient Initial Evaluation Date: 05/05/2020 Referring Doctor: Rosibel Rai MD PT Orders: PT CONSULT: Limited ability Precautions: Fall. Standard. Activity as tolerated. Expressive aphasia. Patient Profile/Admitting Diagnosis: Sisi is a 74-year-old female who presented to the ED on 05/04/2020 due to transient facial droop. Patient is diagnosed with CVA, atrial fibrillation, and noncompliance with medications. PMHX: Medical History (Updated 05/04/20 @ 20:33 by Rosibel Rai MD) CAD (coronary artery disease) CKD (chronic kidney disease) CVA (cerebral vascular accident) DVT (deep venous thrombosis) Elevated d-dimer Esophagitis Essential hypertension Gastric ulcer Gastritis and duodenitis Hiatal hernia History of kidney stones Hypercoagulable state Pulmonary embolism Pulmonary embolism SVT (supraventricular tachycardia) Upper GI bleeding Vascular dementia Surgical History Appendectomy section Colonoscopy - MAC (12/29/15) H/O esophagogastroduodenoscopy (~05/19/18) History of esophagogastroduodenoscopy (EGD) (~12/2017) Social History/Home Situation: Lives in a one-story house with 4 steps to enter with both rails. Equipment Owned/DME: None Subjective: Agreeable to PT consult. Denies headache, dizziness throughout ses darshana. Indicates that she hopes to go home today if the doctor will allow her to. Indicated that she has had no falls in the past 12 months. Objective: General Observation: Seated on bedside recliner. IV in the right UE. No facial droop seen. Mental Status: Alert. Not fully able to appropriately respond verbally due to expressive aphasia. Pain: None verbalized nor physically expressed ROM: Right Upper Extremity: Shoulder Flexion WFL. Shoulder abduction WFL. Elbow flexion WFL. Wrist flexion WFL. Opening and closing of hand WFL. Left Upper Extremity: Shoulder Flexion WFL. Shoulder abduction WFL. Elbow flexion WFL. Wrist flexion WFL. Opening and closing of hand WFL. Right Lower Extremity: Hip flexion WFL. Hip abduction WFL. Knee flexion WFL. Ankle dorsiflexion WFL. Ankle plantarflexion WFL. Left Lower Extremity: Hip flexion WFL. Hip abduction WFL. Knee flexion WFL. Ankle dorsiflexion WFL. Ankle plantarflexion WFL. Strength: Right Upper Extremity: Shoulder flexors 4+/5. Shoulder abductors 4+/5. Elbow flexors 5/5. Elbow extensors 5/5. [employer] Worker strong. Left Upper Extremity: Shoulder flexors 4+/5. Shoulder abductors 4+/5. Elbow flexors 5/5. Elbow extensors 5/5. Marble [employer]ra[employer] Worker strong. Right Lower Extremity: Hip flexors 4+/5. Hip abductors 4+/5. Knee flexors 5/5. Knee extensors 5/5. Ankle dorsiflexors 5/5. Ankle plantarflexors 5/5. Left Lower Extremity: Hip flexors 4+/5. Hip abductors 4+/5. Knee flexors 5/5. Knee extensors 5/5. Ankle dorsiflexors 5/5. Ankle plantarflexors 5/5. Sensation: Intact as to pain and pressure on bilateral lower extremities. Bed Mobility/Transfers: Rolling independent Supine to sit independent Sit to supine independent Stand to sit independent Bed to chair independent Chair to bed independent Gait: Patient tolerated level surface ambulation of 300 feet without an assistive device requiring only supervision assist for directional changes. Denies headache, chest pain, and dizziness throughout mobility assessment. No path deviation. Gait unremarkable. Balance: Static Sitting: Normal Dynamic Sitting: Normal Static Standing: Normal Dynamic Standing: Good Special Tests: Mobility Limitations Standardized Measure [facility] 6 clicks Basic Mobility Inpatient Short Form: Raw Score: 24 [facility] Score: 0% deficit 4-stage Balance Test: Unable to maintain one-legged stance for 10 seconds but she has indicated that she has not been able to do this for a long time now. Informed Consent/Education: Patient instructed in purpose of PT consult and plan of care. Assessment: BUE/LE strength symmetric. Gait pattern unremarkable. No need for an assistive device. No skilled services needed at this time. May benefit from speech therapy services at an outpatient basis for improved communication skills. Patient is assessed as a 87540 low complexity based on the following: History: 74-year-old female with impairment level findings, functional limitations, and past medical history as indicated above Examination: Demonstrable impairment in strength, balance, and mobility level with underlying impairments and functional limitations as documented above Presentation: Stable Decision Makin low complexity Goals: N/A. PT evaluation only. Plan of Care/Treatment Plan: N/A. PT evaluation only. DISCHARGE RECOMMENDATIONS: Home when medically cleared by hospitalist. No equipment needs at this time. May benefit from speech therapy services at an outpatient basis. TREATMENT CODE/TIME: 51063 x 25 minutes beginning at 8:55 AM. Thank you for the opportunity to participate in the care of this patient. Peggy Tan PT, DPT, CLT [facility] [place], [place]
[2020-05-05] MEDS: Multivitamin w/Minerals TAB 1 TAB PO (08:57)
[2020-05-05] MEDS: Apixaban 5 MG TAB PO (08:57)
[2020-05-05] MEDS: Sertraline 50 MG TAB 150 MG PO (08:57)
[2020-05-05] MEDS: Ketoconazole 2% CREAM 15 GM TUBE TP (08:57)
[2020-05-05] MEDS: Lachydrin 12% LOTION 225 GM BTL TP (08:57)
--- NOTE | 2020-05-05 09:16 | SPP_ITS ---
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 Pt admitted to [facility] last night and is undergoing testing today. Pt is currently on a regular texture diet. Pt with expressive aphasia. Recommend full speech-language evaluation on Friday. Coding
--- NOTE | 2020-05-05 09:16 | AMB.SPSTP ---
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 Pt admitted to [facility] last night and is undergoing testing today. Pt is currently on a regular texture diet. Pt with expressive aphasia. Recommend full speech-language evaluation on Friday. Coding
[2020-05-05] MEDS: MAGNESIUM SULFATE 2 GM/50 ML BAG IVPB (10:54)
[2020-05-05 11:10] VITALS: BP 146/79; PULSE 80; RESP 18; TEMP 36.4; O2SAT 94
--- NOTE | 2020-05-05 14:00 | W.PM.DS.N ---
Date of service: 05/05/20 Time of Service: 14:01 DS: Diagnosis Discharge Diagnosis (1) Recurrent cerebrovascular accidents (CVAs): Status: Acute Asessment and Plan: Subacute CVA left frontal lobe on this admission (2) Afib: Status: Chronic (3) Elevated factor VIII level: Status: Chronic Asessment and Plan: Hypercoagulable state (4) Noncompliance with medication regimen: Status: Chronic (5) Expressive aphasia: Status: Chronic (6) Personal history of DVT (deep vein thrombosis): Status: Chronic (7) Essential hypertension: Status: Chronic (8) CAD (coronary artery disease): Status: Chronic (9) COVID-19 ruled out by laboratory testing: Status: Ruled-out Discharge Plan Disposition Patient Disposition: HOME W/HOME HEALTH SERVICE Condition: Stable Discharge Details Reason For Visit: RECURRENT CVA Admit Date/Time: 05/04/20 14:46 Admit Provider: Rosibel Rai Attending Provider: Rosibel Rai Primary Care Provider: Concha Loving [facility] Hospital Course: Ms Aguilar is a 74 year old female with PMHx of a CVA in 03/2020, [place] [facility] with residual receptive aphasia, felt to be of cardioembolic origin due to Afib, as well as h/o prior DVT/PE with now known elevated Factor VIII, hypertension, medication noncompliance, who was observed on [facility] hospitalist service after being found to have a new L facial droop by a home health nurse that came to evaluate her. The patient admits to forgetting to take evening doses of her medications (most importantly, eliquis) because she falls asleep. Her workup in the ED did reveal a subacute left front lobe infarct. Case was reviewed with Dr Montes as well as with Neurology as [facility]: this CVA is not considered eliquis failure, and the patient should remain on it, with her son ensuring that she takes her evening medications (son agrees). The patient's left facial droop has resolved. She was evaluated by PT and felt to be at her baseline with equal strength in BUE/BLE's. She will need home health nursing and speech therapy on discharge. She has an appointment with [facility] [place], which she should keep. Finally, for her elevated Factor VIII level, she should follow up with [facility] [place]ology, to which we are sending a referral. The patient is medically stable for discharge home today. Care for patient as well as completion of her discharge summary took 40 minutes on the day of discharge. Home Meds and New Rx's Prescriptions: Continued multivitamin with minerals Tablet 1 tab PO DAILY RF: 0 [facility] 750 mg-100 mg- 1.65 mg-108 mg Tablet 1 tab PO DAILY RF: 0 sertraline 100 MG tablet 150 mg PO DAILY RF: 0 metoprolol succinate 100 mg Cap,Sprinkle,Er 24hr Dose Pack 100 mg PO DAILY RF: 0 acetaminophen [Tylenol] 325 mg Tablet 2 tab PO Q4H PRN PRNQty: 30 RF: 0 amlodipine 10 mg Tablet 10 mg PO DAILY Qty: 30 RF: 0 Eliquis 5 mg Tablet 5 mg PO BID Qty: 60 RF: 0 atorvastatin [Lipitor] 20 mg tablet 40 mg PO HS RF: 0 Discharge Instructions Instructions: A-fib (Atrial Fibrillation) (DC), Ischemic Stroke (DC) Additional Instructions: Return to the hospital with any new neurological deficits, with fever, bleeding, chest pain or shortness of breath. Consider taking your evening medications with dinner. Follow up with your PCP within 1 week, with [facility] [place] and with [facility] [place]. Care Plan Goals: Resumption of home health nursing, PT, KEY ACCOUNT COORDINATOR; addition of home speech therapy (for both dysphagia and expressive aphasia). Stand Alone Forms: Nursing Discharge Form Referrals: [place]ATOLOGY/[place],[facility] [place] - (Elevated factor VIII level, recurrent CVAs, h/o DVTs and PEs) [place]UROLOGY,[facility] [place] - (Please call [phone] to schedule an appoinment) Concha Loving [Primary Care Provider] - Activity:: Activity as Tolerated Equipment/Supplies:: No Equipment Needed Diet:: As Tolerated Discharge Orders Discharge Orders: Discharge Order (Routine); Ordered 05/05/20 Ordered By: Rosibel Rai DS: Summary Time Spent with Patient providing and/or coordinating discharge services: Greater than 30 minutes Status at Discharge Functional status at discharge: independent ambulation Overall status at discharge: patient is back to baseline Mental Status: mental status grossly normal Speech and Movement: other (baseline expressive aphasia) Mood: congruent mood Affect: normal affect Exam Narrative Exam Narrative: General: Pleasant Female with expressive aphasia Neurological: EOMI, R facial droop, no left facial weakness, Expressive aphasia 5/5 strength in all 4 extremities. Equivocal plantar response. Sensory intact. HEENT: Atraumatic, normocephalic, EOMI, MMM, clear oropharynx, no submandibular or cervical lymphadenopathy, no goiter or JVD Cardiovascular: seemigly regular rhythm Lungs: CTAB Gastrointestinal: soft , nontender, nondistended Genitourinary: deferred Extremities: no edema BLE's, 5/5 strength B, 1+ pedal pulses B; dry skin Psych Mental Status: mental status grossly normal Speech and Movement: other (baseline expressive aphasia) Mood: congruent mood Affect: normal affect DS: Data Vitals/I&O Vitals and I&O: Vital Signs Temperature 36.4 C L 05/05/20 11:10 Temperature Source Tympanic 05/05/20 11:10 Pulse 80 05/05/20 11:10 Pulse Rhythm Regular 05/05/20 09:50 Pulse 68 05/04/20 16:30 Respiratory Rate 18 05/05/20 11:10 Respiratory Effort Non-Labored 05/05/20 09:50 Respiratory Depth Normal 05/05/20 09:50 Respiratory Pattern Normal 05/05/20 09:50 Blood Pressure 146/79 H 05/05/20 11:10 Blood Pressure Mean 79 05/04/20 16:16 Blood Pressure Position Sitting 05/04/20 11:04 Pulse Oximetry 94 05/05/20 11:10 Oxygen Delivery Method Room Air 05/05/20 11:10 Oxygen Flow Rate 0 05/05/20 11:10 Pain Level 0 05/05/20 11:10 Comment 05/04/20 23:50 Intake & Output 05/04/20 05/05/20 05/05/20 23:59 11:59 23:59 Intake Total 452.5 / 452.5 1300.00 / 2020.00 720 / 2020.00 Output Total 300 / 300 Balance 452.5 / 452.5 1000.00 / 1720.00 720 / 1720.00 Weight 86.9 kg 86.2 kg Intake: IV 212.5 / 212.5 1200.00 / 1200.00 Oral 240 / 240 100 / 820 720 / 820 Output: Urine 300 / 300 Other: Urine Color Light Daria Yellow Urine Appearance Clear Clear Urine Odor Normal Comment VOIDED X 2 DURING NOC AND FLUSHED. Stool Size Moderate Stool Characteristics Soft Voiding Methods Toilet Toilet Data Completed and Pending Completed studies during hospitalization [Text1]: CT head w/o contrast: Subacute appearing infarct in the left frontal lobe. No evidence of hemorrhage. MRI brain: Area of high signal in the left frontal lobe without restricted diffusion, consistent with a subacute to old infarct. There is a small amount of associated hemosiderin. No acute infarct or acute hemorrhage is seen. Labs on day of discharge: Labs from last 24 hours 05/05/20 05/04/20 05/04/20 06:28 15:15 15:07 Sodium 142 Potassium 3.8 Chloride 108 H Carbon Dioxide 24.4 Anion Gap 9.6 BUN 12 Creatinine 1.1 H Estimated GFR/1.73 m2 48.82 Glucose 112 H Calcium 8.7 Magnesium 1.6 L Troponin I < 0.05 < 0.05 SARS-CoV-2 (PCR) Negative Nasopharyn COVID-19 PCR Not Applicable Ref Test Perform Site [facility] lab [facility] Medical History (Updated 05/05/20 @ 14:08 by Rosibel Rai MD) CAD (coronary artery disease) CKD (chronic kidney disease) CVA (cerebral vascular accident) DVT (deep venous thrombosis) Elevated d-dimer Esophagitis Essential hypertension Gastric ulcer Gastritis and duodenitis Hiatal hernia History of kidney stones Hypercoagulable state Pulmonary embolism Pulmonary embolism SVT (supraventricular tachycardia) Upper GI bleeding Vascular dementia Surgical History Appendectomy section Colonoscopy - MAC (12/29/15) H/O esophagogastroduodenoscopy (~05/19/18) History of esophagogastroduodenoscopy (EGD) (~12/2017) Social History Smoking/Tobacco Use Status: Current every day Smoking risk assessment performed?: Yes Drug use: Daily Do you feel safe in your relationship?: Yes
--- NOTE | 2020-05-05 15:16 | INITIAL_ITS ---
- If Service Date Differs Date of service: 05/05/20 Time of Service: 15:16 Care Management Initial Assess REASON FOR HOSPITALIZATION:: Recurrent CVA PAST MEDICAL HISTORY/PAST SURGICAL HISTORY:: Medical History. CAD (coronary artery disease). CKD (chronic kidney disease). CVA (cerebral vascular accident). DVT (deep venous thrombosis). Elevated d-dimer. Esophagitis. Essential hypertension. Gastric ulcer. Gastritis and duodenitis. Hiatal hernia. History of kidney stones. Hypercoagulable state. Pulmonary embolism. Pulmonary embolism. SVT (supraventricular tachycardia). Upper GI bleeding. Vascular dementia. Surgical History. Appendectomy. section. Colonoscopy - MAC (12/29/15). H/O esophagogastroduodenoscopy (~05/19/18). History of esophagogastroduodenoscopy (EGD) (~12/2017) PREVIOUS FUNCTIONAL STATUS/SOCIAL/FAMILY SUPPORTS:: Sisi lives in [facility] with her son, Max. She has one other son, who lives in [place]. Max is her main support, and helps her with medication management and h ousework. She is independent with her ADL's, but does not drive. CURRENT FUNCTIONAL STATUS:: Sisi was sitting up in her chair when CM met with her. She was pleasant and engaged in conversation. CM discussed the management of her medication, as she has been missing doses of her Eliquis. She stated that it is the only med that she has a hard time remembering, as she often falls asleep before it is time for her to take it. She agreed to have her son help remind her to take her Eliquis before she goes to bed at night. CM also called her son, Max, who agreed to helping his mother with this medication. CM will continue to follow. ADVANCE DIRECTIVES:: None on file. CM will offer forms. Has patient been provided with info about the portal/API?: No Did the patient sign up for the portal?: No CODE STATUS:: Full Code INSURANCE COVERAGE / FINANCIAL ISSUES:: [facility] PPO, [place] CURRENT HOME/COMMUNITY SERVICES/EQUIPMENT:: No equipment. She does have HH RN, PT, DIRECTOR OF REVENUE. PRIMARY CARE PHYSICIAN:: Concha Loving POTENTIAL DISCHARGE NEEDS:: Evaluation for further needs, follow up appointments PATIENT/FAMILY EDUCATION NEEDS:: Review discharge instructions regarding activity and medications, discussion of self care needs including ask me three. ANTICIPATED BARRIERS TO DISCHARGE:: None identified. TRANSPORTATION:: Via RCT private vehicle when ready. PLAN:: Anticipate Sisi will return home when medically cleared. She will resume HH RN, PT, DIRECTOR OF REVENUE, with the addition of speech. CM will coordinate RCT tranpsort via private vehicle when ready. She will follow up with her PCP and discharge plan of care. CM will continue to follow.
--- NOTE | 2020-05-05 15:43 | CMDISCH_ITS ---
- If Service Date Differs Date of service: 05/05/20 Time of Service: 15:43 LACE Index Scoring Tool - Questions: Length of Stay (in days): 2 Acuity (Admit via E.D.?): Yes Comorbidities: Previous M.I., Cerebrovascular Disease, Liver or Renal Disease E.D. Visits: 2 - Answers: Total Score: 12 Risk of Readmission: High Risk Care Management Discharge Reason for Hospitalization: Recurrent CVA Discharge Plan: Sisi will return home with a resumption of services with the addition of speech. Her son will drive her home via private vehicle when ready. She will follow up with her PCP and discharge plan of care. Patient/Family Education Needs: Review discharge instructions regarding medications with Sisi and her son, Max, discussion of self care needs including ask me three and goals of care. Services Needed at Discharge: Home Health Care Services (RN, PT, BUSINESS TAXES SPECIALIST, SP), Transportation (RCT)
[2020-05-05 15:45] VITALS: BP 160/73; PULSE 92; RESP 18; TEMP 36.6; O2SAT 96
[2020-05-06 12:07] LABS: Heparin Anti-Xa, P 0.53 IU/mL
== END 2020-05-05 15:43 | disposition home health service (06) ==
LOC: ER 16:17 → MS 05-05 09:13
PROVIDERS: Admitting Provider Internal Medicine; Emergency Provider Emergency Medicine; PCP Nurse Practitioner Family; Visit Provider Internal Medicine
DX: I63.9 Cerebral infarction, unspecified (principal); I48.20 Chronic atrial fibrillation, unspecified; R29.810 Facial weakness; Z86.718 Personal history of other venous thrombosis and embolism; I25.10 Atherosclerotic heart disease of native coronary artery without angina pectoris; Z20.828 Contact with and (suspected) exposure to other viral communicable diseases; Z91.14 Patient's other noncompliance with medication regimen; I69.320 Aphasia following cerebral infarction; I69.351 Hemiplegia and hemiparesis following cerebral infarction affecting right dominant side; I69.391 Dysphagia following cerebral infarction; R13.10 Dysphagia, unspecified; N18.9 Chronic kidney disease, unspecified; I12.9 Hypertensive chronic kidney disease with stage 1 through stage 4 chronic kidney disease, or unspecified chronic kidney disease; K44.9 Diaphragmatic hernia without obstruction or gangrene; I47.1 Supraventricular tachycardia; D65 Disseminated intravascular coagulation [defibrination syndrome]
CPT/HCPCS: 36415; 36416; 80048; 80053; 82962; 93005; 97165; 97166; 97535; 99217; 99220; 99285; U0003; 70450; 70551; 83735; 84484; 85025; 85520; 93010; G0378; J3490

== ENCOUNTER 2021-03-29 00:39 | Emergency (ER) | payer MEDICARE, MEDICAID, SELFPAY ==
[2021-03-29] VITALS (17 sets, daily range): BP systolic 160–218; BP diastolic 88–106; PULSE 0–93; RESP 0–26; TEMP 36.3; O2SAT 95–100
--- NOTE | 2021-03-29 00:15 | RT.EKG_ITS ---
APPROVED REPORT Exam: Resting ECG Reason for Exam: chest pain Patient Location: E HR:86 bpm ECG Measurements Heart Rate 86 AXIS MT [id number] P [id number] QRSd 76 QRS 80 QT 414 T 71 QTc 497 Conclusion Atrial fibrillation...V-rate 75- 94, irreg A-activity Multiple ventricular premature complexes...V complexes w/ short R-R intervls Inferior infarct, acute...ST>0.10mV, T upright, II III aVF Anterior infarct, acute...ST >0.25mV, V2-V5 STEMI
--- NOTE | 2021-03-29 00:30 | DI.CT_ITS ---
Exam(s) CT THORAX ABDOMEN CTA EXAM: CT THORAX ABDOMEN CTA CLINICAL HISTORY: chest/abd pain with possible neuro changes. TECHNIQUE: Imaging Protocol: Axial CT angiography was performed with multi-slice acquisition and m ulti-planar and/or 3D reconstructions. CONTRAST MATERIAL: Intravenous: Omnipaque 350 Contrast volume:100 mL Oral: No COMPARISON: CT CT HEAD WO from 03/29/2021 FINDINGS: CHEST: Tracheobronchial tree: Patent where visualized. Pulmonary parenchyma: No consolidation or dominant measurable mass. 7 mm right lower lobe pulmonary nodule. No architectural distortion. There is scarring in the lung bases. Pulmonary Arteries: No evidence of filling defect to suggest pulmonary emboli. Mediastinum and [place]: No dominant adenopathy or fluid collection. Small hiatal hernia. The esophagus is otherwise unremarkable. Visualized thyroid: Unremarkable. Pleura: No effusion or pneumothorax. Heart: Mild cardiomegaly. Coronary artery calcifications. No pericardial effusion. Aorta: Thoracic aorta non-dilated. Atherosclerosis. No evidence of dissection. Soft Tissues: Unremarkable. Bones: Within normal limits. ABDOMEN AND PELVIS: Abdomen: Celiac axis/mesenteric arteries: No evidence of occlusion or significant stenosis. Atherosclerosis. Renal Arteries: No evidence of occlusion or significant stenosis. There is a single renal artery per fusing each kidney. Aorta: No evidence of occlusion or significant stenosis. No aneurysm or dissection. Pelvis: Iliac Arteries: No evidence of occlusion or significant stenosis. Common Femoral Arteries: No evidence of occlusion or significant stenosis. There is occlusion of th e left superficial femoral artery stent. ABDOMEN: Liver: Normal density. There is a 0.7 cm hyperdense enhancing nodule in the right lobe of the liver. It is isodense to the aorta and likely reflects a hepatic hemangioma. FNH or adenoma may be conside red. Portal, Superior Mesenteric, and Splenic Veins: Unremarkable. Gallbladder and Biliary Tract: No radiodense calculus or dilation. Pancreas: Normal density, no abnormal calcifications or inflammatory process. Spleen: Normal. Adrenals: No masses seen. Kidneys: Normal size, contour and axis. Nonobstructing 1.4 cm right renal stone. Hypodensities in th e kidneys. The likely reflect small cysts. No follow-up is recommended. Bowel: No obstruction or bowel wall thickening. No evidence of appendicitis. Diverticulosis of the c olon but no evidence of acute diverticulitis. Peritoneal Cavity: No ascites, collection or mesenteric inflammatory response. No free air. Lymph Nodes: Within normal limits. Bones: Within normal limits for the patient's age. Multilevel degenerative changes are present. Soft Tissues: Unremarkable. PELVIS: Bladder: Symmetric distention, no gross wall thickening. Reproductive Organs: Unremarkable as visualized. Lymph Nodes: Within normal limits. Bones: Within normal limits. IMPRESSION: 1. No evidence of a pulmonary embolus, thoracic aortic dissection or aneurysm. 2. 7 mm right lower lobe pulmonary nodule. For high risk patients, follow-up examination in 6-12 mon ths and again at 18-24 months is recommended. For low risk patients for low risk patients, follow-up CT scan in 12-6 months is recommended. (Mary Alice et al, 2017). 3. Occlusion of the stent in the left superficial femoral artery. 4. No acute abdominal or pelvic process. RADIATION DOSE DELIVERED: Total DLP DATA REPOSITORY: All CT scans at this facility are submitted to the National Radiology Data Registry (NRDR) Dose Index Registry (DIR) with the [employer] (ACR). RADIATION OPTIMIZATION: All CT scans at this facility use at least one of these dose optimization te chniques: automated exposure control; mA and/or kV adjustment per patient size (includes targeted exa ms where dose is matched to clinical indication); or iterative reconstruction.
--- NOTE | 2021-03-29 00:30 | DI.CT_ITS ---
Exam(s) CT HEAD WO EXAM: CT HEAD WO CLINICAL HISTORY: ? facial droop. TECHNIQUE: Imaging Protocol: Axial computed tomography images with coronal and sagittal reformatted images were created and reviewed COMPARISON: CT CT HEAD - STROKE PROTOCOL from 05/04/2020 FINDINGS: The examination is limited due to patient motion artifact. Ventricles and Extra axial spaces: Normal in size and morphology for the patient's age. Hemorrhage: None. Cerebral parenchyma: There is a large left MCA distribution infarct which appears more prominent comp ared to the CT scan of 05/04/2020. This may represent evolution of the prior infarct or superimposed acute/subacute infarct. There is also new area of decreased attenuation involving the medial aspect of the left cerebellum including the left cerebellar tonsil. There is a mass effect on the adjacent 4th ventricle. The findings are suspicious for an acute/subacute infarct. Midline shift: None. Brainstem/Cerebellum: Normal. Calvarium: Normal. Visualized Paranasal sinuses/Mastoids: Clear. Soft Tissues: Unremarkable. IMPRESSION: 1. Acute, possibly subacute, infarct involving the left cerebellum and left cerebellar tonsil. 2. Increased size of the previously noted left MCA distribution infarct. This may represent acute/roberto bacute infarction superimposed on the chronic area of ischemia. RADIATION DOSE DELIVERED: 2560.75 mGy.cm Total DLP DATA REPOSITORY: All CT scans at this facility are submitted to the National Radiology Data Registry (NRDR) Dose Index Registry (DIR) with the [employer] (ACR). RADIATION OPTIMIZATION: All CT scans at this facility use at least one of these dose optimization te chniques: automated exposure control; mA and/or kV adjustment per patient size (includes targeted exa ms where dose is matched to clinical indication); or iterative reconstruction.
--- NOTE | 2021-03-29 00:33 | W.ED.GENAD ---
Discharge Plan Disposition Patient Disposition: [facility] Condition: Stable Discharge Details Clinical Impression: ST elevation (STEMI) myocardial infarction Primary Care Provider: Concha Loving ED Provider: Julio Cesar Van [place] and New Rx's Prescriptions: No Action metoprolol succinate 100 mg capsule,sprinkle,ER 24hr 50 mg PO .every 12 hours RF: 0 cholecalciferol (vitamin D3) 125 mcg (5,000 unit) capsule 125 mcg PO QWEEK RF: 0 ferrous sulfate [FeroSul] 325 mg (65 mg iron) tablet 325 mg PO BID RF: 0 multivitamin with minerals Tablet 1 tab PO DAILY RF: 0 Move [facility] 750 mg-100 mg- 1.65 mg-108 mg Tablet 1 tab PO DAILY RF: 0 sertraline 100 MG tablet 150 mg PO DAILY RF: 0 acetaminophen [Tylenol] 325 mg Tablet 2 tab PO Q4H PRN PRNQty: 30 RF: 0 amlodipine 10 mg Tablet 10 mg PO DAILY Qty: 30 RF: 0 Eliquis 5 mg Tablet 5 mg PO BID Qty: 60 RF: 0 atorvastatin [Lipitor] 20 mg tablet 40 mg PO HS RF: 0 Eliquis 5 mg tablet 5 mg PO DAILY RF: 0 Medical Decision Making Patient presenting as a STEMI alert. EKG here confirms inferior lateral ST elevation. Patient with aphasia and extremely difficult historian. Unclear when chest pain started or even a description of the chest pain. Patient apparently has not felt well for about 3 days. Per EMS question of facial droop which for me is minimal if present at all on the right. She is otherwise nonfocal in the aphasia is old. She is on Eliquis does question whether she takes it every dose as she is supposed to. She does not appear to be in any distress. She does have elevated blood pressure but heart rate is under control. Room air saturations are normal. Because of the questionable neurologic change for EMS with history of chest pain must consider dissection. She does have STEMI on EKG which is new. She does also have history of GI bleed, is supposed to be on Eliquis, previous stroke. I do not feel that she is a candidate for thrombolysis regardless. Head CT noncontrast ordered. CTA of the chest and abdomen ordered. Laboratory studies obtained. Fluids started. Patient did receive aspirin and nitro per EMS. Unclear whether the nitro helped with anything. Call placed to [facility] to speak to cardiology. Discussed with manufacturing operator Dr. Miles. At this time agree with imaging, holding off on thrombolytics, loading with Plavix if negative imaging and transfer to [facility] for probable STEMI. Laboratory studies showed negative troponin. Kidney function elevated above baseline but she is also hemoconcentrated so some of this may be related to dehydration. CT head without evidence of hemorrhage. There is chronic infarct with questionable evidence of acute/subacute changes as well. CTA of chest and abdomen negative for pulmonary embolus or aortic dissection. There is a pulmonary nodule which will need follow-up in the future. Case we discussed with manufacturing operator. Images have been sent to [facility] for review. Holding off on Plavix or transfer at this time pending neurology review of CT head. 3 AM ? Received call back from [facility]. Images have been reviewed. Patient accepted for transfer to cardiology as previously planned. Instructed to give Plavix and start heparin. Patient will then be transferred by ambulance with polyethylene combiner to do for further management. Medical Records Medical records reviewed: Yes I reviewed the patient's medical records. Lab Data Lab results reviewed: Yes I reviewed the patient's lab results. ECG Data Attestation: I personally reviewed and interpreted this ECG (s) as follows: Prior ECG tracings: available for review Interpretation: see EKG HPI General Mode of arrival: EMS. Date/Time Provider Initiated Documentation: 03/29/21 00:49. Limitations to Documentation: no limitations. Information obtained by: patient. HPI Narrative: Patient presents to the ED by ambulance as a reported STEMI alert. EMS was called to the patient's house due to the fall from [facility]. On arrival patient complained of pain all over. She has prior history of stroke with aphasia. Very difficult to get history from the patient. Per EMS son who was there was also a poor historian. Patient states she has felt well for 3 days. She is having chest pain but cannot tell me specifically where, when, description. Also complains of abdominal pain but again cannot elaborate. No complaint of back pain, fever, cough. She is not vaccinated against Covid. She is on Eliquis unclear if she takes it as prescribed. She has had history of GI bleed. As part of EMS work-up EKG was obtained and showed evidence of STEMI and patient was transported to hospital as STEMI alert. Related Data Home Medications Medication Instructions Recorded Confirmed sertraline 150 mg PO DAILY 01/01/18 05/04/20 Eliquis 5 mg PO BID #60 tab 01/11/18 03/29/21 acetaminophen [Tylenol] 2 tab PO Q4H PRN PRN #30 tab 01/11/18 05/04/20 amlodipine 10 mg PO DAILY #30 tab 01/11/18 03/29/21 atorvastatin [Lipitor] 40 mg PO HS 04/03/20 05/04/20 Move [facility] Incipient 1 tab PO DAILY 05/04/20 05/04/20 multivitamin with minerals 1 tab PO DAILY 05/04/20 05/04/20 cholecalciferol (vitamin D3) 125 125 mcg PO QWEEK cap 11/24/20 mcg (5,000 unit) capsule ferrous sulfate 325 mg (65 mg 325 mg PO BID 11/24/20 iron) tablet metoprolol succinate 100 mg 50 mg PO .every 12 hours cap 11/24/20 03/29/21 capsule sprinkle, ext. release 24 hr apixaban [Eliquis] 5 mg PO DAILY 03/29/21 03/29/21 Previous Rx's Medication Instructions Recorded Eliquis 5 mg PO BID #60 tab 01/11/18 acetaminophen [Tylenol] 2 tab PO Q4H PRN PRN #30 tab 01/11/18 amlodipine 10 mg PO DAILY #30 tab 01/11/18 Allergies Allergy/AdvReac Type Severity Reaction Status Date / Time latex Allergy Swelling/Ed Verified 03/29/21 00:35 guadalupe lisinopril AdvReac Intermediate raises BP Verified 03/29/21 00:35 morphine AdvReac Visual Verified 03/29/21 00:35 Disturbances General Stated Complaint: Chest Pain QUINTIN: 1 Review of Systems Narrative: Not obtained due to patient aphasia. PFSH All Active Problems (Updated 03/29/21 @ 03:07 by Julio Cesar Van MD) ST elevation (STEMI) myocardial infarction (Acute) DVT prophylaxis (Acute) Hematuria (Acute) Closed head injury (Acute) Acute on chronic anemia (Acute) TIA (transient ischemic attack) (Acute) Acute ischemic left MCA stroke (Acute) Elevated factor VIII level (Chronic) Expressive aphasia (Chronic) Discharge planning issues (Acute) Noncompliance with medication regimen (Chronic) H/O esophagogastroduodenoscopy (Chronic ~05/19/18) Hiatal hernia (Chronic) Gastritis and duodenitis (Acute) Gastric ulcer (Acute) Esophagitis (Acute) Nephrolithiasis (Chronic) Vasovagal syncope (Acute) History of kidney stones (Chronic) SVT (supraventricular tachycardia) (Chronic) Vascular dementia (Chronic) Pulmonary embolism (Chronic) DVT (deep venous thrombosis) (Chronic) CVA (cerebral vascular accident) (Chronic) CAD (coronary artery disease) (Chronic) Closed head injury (Acute) Syncopal episodes (Chronic) Hypercoagulable state (Chronic) Elevated d-dimer (Chronic) Medical History Afib CKD (chronic kidney disease) Essential hypertension Hx of upper gastrointestinal hemorrhage Personal history of DVT (deep vein thrombosis) Pulmonary embolism Recurrent cerebrovascular accidents (CVAs) Tubular adenoma (~2015) Surgical History Appendectomy [place] [facility] [place] History of esophagogastroduodenoscopy (EGD) (~12/2017) Social History Smoking/Tobacco Use Status: Current every day Smoking risk assessment performed?: Yes Alcohol Intake: never Drug use: Daily Substance use type: marijuana Do you feel safe at home: No Do you feel safe in your relationship?: Yes Additional Social history: worried about living situation with having a stroke Exam Narrative Exam Narrative: Const: WDWN elderly female in NAD. HEENT: NC/AT. Normal facial exam. Eyes: EOMI Neck: Supple. Trachea midline. Lungs: Normal respiratory effort. Lungs are clear. Cor: Irr/Irr without murmur/gallop. Good radial pulses. GI: Soft. NT/ND. Neuro: Awake and alert with difficulty speaking/aphasia. Cranial nerves II - XII grossly intact here with minimal if any right facial droop. No gross motor or sensory deficit. No neglect. Ext: No C/C/E. Skin: Warm and dry without rash. Course Vital Signs Vital signs: Vital Signs Temperature 97.3 F L 03/29/21 00:31 Pulse 88 03/29/21 00:31 Respiratory Rate 18 03/29/21 00:31 Blood Pressure 160/96 H 03/29/21 00:31 Pulse Oximetry 98 03/29/21 00:31 Temperature 97.3 F L 03/29/21 00:31 Pulse 88 03/29/21 00:31 Respiratory Rate 18 03/29/21 00:31 Blood Pressure 160/96 H 03/29/21 00:31 Pulse Oximetry 98 03/29/21 00:31 Pain Level 7 03/29/21 00:31 Critical Care Time Critical Care Time Critical Care Time: Yes Total Critical Care Time: 75 Attestation: Upon my evaluation, this patient had a high probability of imminent or life-threatening deterioration, which required my direct attention, intervention, and personal management. I have personally provided 75 minutes of critical care time exclusive of time spent on separately billable procedures. Time includes review of laboratory data, radiology results, discussion with consultants, and monitoring for potential decompensation. Interventions were performed as documented above.
[2021-03-29 00:40] LABS: Abs Immature Grans 0.03 10^3/uL (0.0-0.06); Absolute Basophil Count 0.02 10^3/uL (0.0-0.2); Absolute Lymphocyte Count 4.37 10^3/uL (1.2-3.4); Absolute Monocyte Count 1.03 10^3/uL (0.1-0.8); Basophils % 0.2; HCT 51.4 % (36.0-46.0); HGB 16.6 g/dL (11.2-15.7); Immature Grans % 0.3; Lymphocytes % 39.1; MCH 27.4 pg (27.0-33.0); MCHC 32.3 % (32.0-36.0); MCV 84.8 fL (80-95); Monocytes % 9.2; Neutrophils % 51.2; Nucleated RBC 0 %; Platelet Count 233 10^3/uL (130-400); RBC 6.06 10^6/uL (3.93-5.22); RDW 13.8 % (11.7-14.6); RDW-SD 42.8 fL; WBC 11.18 10^3/uL (4.4-10.8)
[2021-03-29 00:40] LABS: Source Nasal/Nares
[2021-03-29 00:48] LABS: Absolute Neutrophil Count 5.72 10^3/uL (1.2-6.7)
[2021-03-29 00:55] LABS: ALT 18 U/L (14-59); AST 26 U/L (15-37); Alkaline Phosphatase 101 U/L (46-116); Anion Gap 14.1 mmol/L (3-11); BUN 20 mg/dL (7-18); Bilirubin, Total 0.4 mg/dL (0.2-1.0); CO2 23.9 mmol/L (21.0-32.0); CREATININE 1.7 mg/dL (0.55-1.02); Calcium 10.2 mg/dL (8.5-10.1); Chloride 100 mmol/L (98-107); Estimated GFR 29.46 (mL/min/1.73m2); Glucose 173 mg/dL (74-106); Magnesium 1.8 mg/dL (1.8-2.4); Potassium 3.7 mmol/L (3.5-5.1); Sodium 138 mmol/L (136-145); Total Protein 8.5 g/dL (6.4-8.2); Troponin I 51 ng/L (<or=60)
[2021-03-29 01:18] LABS: COVID-19 PCR Negative (Negative)
--- NOTE | 2021-03-29 01:20 | DI.VRAD_ITS ---
PROCEDURE INFORMATION: Exam: CT Head Without Contrast Exam date and time: 03/29/2021 12:40 AM Age: 75 years old Clinical indication: Other: ? Facial droop TECHNIQUE: Imaging protocol: Computed tomography of the head without contrast. COMPARISON: MR BRAIN WO 05/04/2020 1:19 PM FINDINGS: There is an ill-defined hypodensity in the inferior/posterior aspect of the left cerebellum extending into the left cerebellar tonsil. No definite tonsillar herniation or hydrocephalus. Mass effect on the 4th ventricle noted. No gross hemorrhagic conversion. There is a large infarction in the left MCA territory with a chronic appearance in the left frontotemporal and insular region. Indeterminate hypodensities in the left temporoparietal region The calvarium is intact. The paranasal sinuses and mastoid cavities are grossly clear IMPRESSION: Large left cerebellar infarctions of indeterminate age which may be subacute Question acute/subacute infarctions in the left temporoparietal region superimposed on a chronic area of ischemia in the left MCA territory. No gross hemorrhagic conversion Consider MRI for further evaluation Dictated and Authenticated by: Ventura Verduzco MD. Ordering:MARLA Harrell MD
--- NOTE | 2021-03-29 01:30 | DI.VRAD_ITS ---
PROCEDURE INFORMATION: Exam: CTA Chest With Contrast Exam date and time: 03/29/2021 12:40 AM Age: 75 years old Clinical indication: Other: Chest/abd pain with possible neuro changes, R/O dissection TECHNIQUE: Imaging protocol: Computed tomographic angiography of the chest with contrast. 3D rendering (Not supervised by radiologist): MIP and/or 3D reconstructed images were created by the technologist. COMPARISON: CT BRAIN NECK CTA 04/03/2020 4:20 PM FINDINGS: Pulmonary arteries: Normal. No pulmonary emboli. Aorta: Unremarkable. No aortic aneurysm. No aortic dissection. Lungs: Right-sided pulmonary nodule measures 7 mm and requires follow-up according to institutional protocol. Pleural spaces: Unremarkable. No pneumothorax. No pleural effusion. Heart: Unremarkable. No cardiomegaly. No pericardial effusion. Lymph nodes: Unremarkable. No enlarged lymph nodes. Bones/joints: Unremarkable. No acute fracture. Soft tissues: Unremarkable. IMPRESSION: No acute findings and no evidence for thoracic aortic dissection or aneurysm Right-sided pulmonary nodule measures 7 mm and requires follow-up according to institutional protocol. PROCEDURE INFORMATION: Exam: CT Angiography Abdomen With Contrast Exam date and time: 03/29/2021 12:40 AM Age: 75 years old Clinical indication: Other: Chest/abd pain with possible neuro changes, R/O dissection TECHNIQUE: Imaging protocol: Computed tomographic angiography images of the abdomen with intravenous contrast material. 3D rendering (Not supervised by radiologist): MIP and/or 3D reconstructed images were created by the technologist. COMPARISON: CT BRAIN NECK CTA 04/03/2020 4:20 PM FINDINGS: Aorta: No aortic aneurysm. No aortic dissection. Celiac trunk and mesenteric arteries: No occlusion or significant stenosis. Renal arteries: No occlusion or significant stenosis. Liver: Hepatic steatosis is present. What may reflect a small hypervascular focus in the right lobe of the liver measures 6 mm potentially flash filling hemangioma, FNH or adenoma Gallbladder and bile ducts: Normal. No calcified stones. No ductal dilation. Pancreas: Normal. No ductal dilation. Spleen: Normal. No splenomegaly. Adrenals: Normal. No mass. Kidneys and ureters: Nonobstructing right-sided nephrolithiasis is noted. Stomach and bowel: Colonic diverticulosis is present without evidence for inflammation. Lymph nodes: Unremarkable. No enlarged lymph nodes. Intraperitoneal space: Unremarkable. No free air. No significant fluid collection. Bones/joints: Unremarkable. No acute fracture. No dislocation. Soft tissues: Unremarkable. Other findings: IMPRESSION: No acute findings and no evidence for abdominal aortic aneurysm or dissection Incidental findings that may require followup: Left-sided proximal superficial femoral artery with stent appears occluded, of incidental note Dictated and Authenticated by: Barrie Timmons MD. Ordering:MARLA Harrell MD
[2021-03-29] MEDS: Clopidogrel 300 MG TAB PO (03:10)
[2021-03-29] MEDS: Heparin 5,000 UNITS/ML VIAL 5000 UNITS (03:16)
[2021-03-29 03:30] LABS: Troponin I 2874 ng/L (<or=60)
[2021-03-29 03:31] LABS: INR 1.1 (0.9-1.1); PTT Activated 21.4 sec (21.0-27.5); Prothrombin Time 11.4 sec (9.3-11.0)
== END 2021-03-29 03:23 | disposition short-term general hospital (02) ==
PROVIDERS: Emergency Provider Emergency Medicine; PCP Nurse Practitioner Family
DX: I21.3 ST elevation (STEMI) myocardial infarction of unspecified site (principal); R29.810 Facial weakness; R10.9 Unspecified abdominal pain; R07.9 Chest pain, unspecified
CPT/HCPCS: 36415; 71275; 74175; 80053; 87635; 93005; 96374; 99291; 70450; 83735; 84484; 85025; 85610; 85730; 93010; J1644

== ENCOUNTER 2021-05-12 13:10 | Inpatient (IN) | payer MEDICARE, MEDICAID, SELFPAY ==
[2021-05-12] VITALS (25 sets, daily range): BP systolic 79–180; BP diastolic 59–108; PULSE 61–92; RESP 12–21; TEMP 36.3–36.9; O2SAT 24–100
--- NOTE | 2021-05-12 13:30 | RT.EKG_ITS ---
APPROVED REPORT Exam: Resting ECG Reason for Exam: ED EKG Patient Location: E HR:67 bpm ECG Measurements Heart Rate 67 AXIS FL [id number] P [id number] QRSd 85 QRS 29 QT 459 T -57 QTc 486 Conclusion Atrial fibrillation...? atrial activity Inferior infarct, age indeterminate...Q>35mS, T neg, II III aVF Probable anterior infarct, age indeterminate...Q >35mS, T neg, V2-V5 afib,q waves and inverted t waves II III avf, q waves and poor r wave progression anterior leads; a f ib seen on prior ekgs, recent stemi on prior ekg
--- NOTE | 2021-05-12 13:30 | DI.RAD_ITS ---
Exam(s) XR CHEST 2V PA LATERAL EXAM: XR CHEST 2V PA LATERAL CLINICAL HISTORY: ams, recent RI. TECHNIQUE: 2D digital imaging was performed. COMPARISON: CR XR CHEST 1V IN DI DEPT from 04/03/2020 FINDINGS: Heart size is normal. The mediastinum is not widened. Lungs are clear. No infiltrates nor pleural effusions. IMPRESSION: No acute pulmonary findings. DATA REPOSITORY: RADIATION DOSE DELIVERED:
--- NOTE | 2021-05-12 13:30 | DI.CT_ITS ---
Exam(s) CT HEAD WO EXAM: CT HEAD WO CLINICAL HISTORY: ams, hx of stroke. TECHNIQUE: Imaging Protocol: Axial computed tomography images with coronal and sagittal reformatted images were created and reviewed COMPARISON: CT CT HEAD WO from 03/29/2021 FINDINGS: There are no skull fractures nor fluid in the visualized paranasal sinuses. There is a new abnormal area of hypodensity in the right temporal and right occipital lobes, not prev iously present consistent with new infarct, nonhemorrhagic.. There is evidence of previous infarct again noted on the opposite-left side involving none left front o temporal region as well as the parietal region. There is evidence of previous infarct in the left cerebellar hemisphere. Right cerebellar hemisphere appears unremarkable. Ventricles are not enlarged or shifted and there is no blood within the ventricular system nor within the basal cisterns. IMPRESSION: Multilevel infarcts as described above. However, when compared to the most recent scan of 03/29/2021 there is large area of new infarct in the right temporal and right occipital lobes. No intracranial hemorrhage evident. Scan 1st read by [facility] Final report called by myself to ER physician Friday05/12/2021 4:02 p.m. RADIATION DOSE DELIVERED: 733.35mGy.cm Total DLP DATA REPOSITORY: All CT scans at this facility are submitted to the National Radiology Data Registry (NRDR) Dose Index Registry (DIR) with the [employer] (ACR). RADIATION OPTIMIZATION: All CT scans at this facility use at least one of these dose optimization te chniques: automated exposure control; mA and/or kV adjustment per patient size (includes targeted exa ms where dose is matched to clinical indication); or iterative reconstruction.
--- NOTE | 2021-05-12 13:50 | ED.GENADUL_ITS ---
Discharge Plan Disposition Patient Disposition: HOME Condition: Improving Discharge Details Chief Complaint: GenMedical Clinical Impression: Acute confusion Primary Care Provider: Concha Loving ED Provider: Braulio Ramos Home Meds and New Rx's Prescriptions: No Action metoprolol succinate 100 mg capsule,sprinkle,ER 24hr 50 mg PO .every 12 hours 0RF cholecalciferol (vitamin D3) 125 mcg (5,000 unit) capsule 125 mcg PO QWEEK 0RF ferrous sulfate [FeroSul] 325 mg (65 mg iron) tablet 325 mg PO BID 0RF multivitamin with minerals Tablet 1 tab PO DAILY 0RF [facility] 750 mg-100 mg- 1.65 mg-108 mg Tablet 1 tab PO DAILY 0RF atorvastatin 80 mg tablet 80 mg PO HS 0RF Label Comments: Take 1 tablet by mouth every evening clopidogrel 75 mg tablet 75 mg PO DAILY 0RF Label Comments: Take 1 tablet by mouth once a day pantoprazole 40 mg tablet,delayed release (DR/EC) 40 mg PO DAILY 0RF Label Comments: Take 1 tablet by mouth once a day valsartan 160 mg tablet 160 mg PO BID 0RF Label Comments: Take 1 tablet by mouth twice a day Xarelto 15 mg tablet 15 mg PO DAILY 0RF Label Comments: Take 1 tablet by mouth once a day x 30 days Rx Instructions: for 30 days (started 05/09/2021) amlodipine 10 mg tablet 5 mg PO DAILY 0RF sertraline 100 MG tablet 150 mg PO DAILY 0RF acetaminophen [Tylenol] 325 mg Tablet 2 tab PO Q4H PRN PRNQty: 30 0RF Eliquis 5 mg Tablet 5 mg PO BID Qty: 60 0RF Rx Instructions: has a coupon Discharge Instructions Instructions: Altered Mental Status (ED) Additional Instructions: Please ensure that you stay hydrated and eat regular meals. Return to emergency department for any worsening symptomatology otherwise follow-up with primary care doctor. Medical Decision Making 75-year-old female history of CVA, involving left MCA and cerebellum, chronic expressive aphasia, recent STEMI, presents feeling generally unwell, unable to articulate definitively how she felt earlier however endorses feeling better currently. Hemodynamically stable afebrile nontoxic no respiratory distress no headache no chest pain or shortness of breath no GI symptoms. Attempted multiple times to obtain collateral information son however unable to contact. Given age and significant comorbidities and recent hospitalization will evaluate patient with basic labs and imaging, consider viral syndrome first electrolyte derangement versus less likely ACS versus less likely acute CVA versus less likely systemic infection or intoxication or trauma. Pending results of imaging and labs consider discharge home with close follow-up 15: 13 patient resting comfortably hemodynamically stable no acute distress, CT showing chronic infarct no acute process at this time, troponin negative, EKG A. fib nonischemic, likely changes from recent [facility]; no current complaints at this time, was able to contact son for collateral information at phone #[phone], who endorses that his mother called him and was acting confused about her location and so he called the ambulance to pick her up. Patient does have expressive aphasia related to recent stroke, however at this time is cooperative, and oriented. No acute process time no acute distress, safe for discharge with follow-up, arranging transportation home. Son endorses that he lives at home with her. Ketones in urine, and elevated specific gravity, patient endorses that she has been eating and drinking appropriately and son agrees that she has good access to food and water at home. Encouraged hydration and eating. Return precautions given HPI General Date/Time Provider Initiated Documentation: 05/12/21 13:12 . HPI Narrative: 75-year-old female history of CVA, involving left MCA territory with cerebellum, chronic expressive aphasia, recent STEMI, presents feeling generally unwell, endorses that she awoke her adult son who then called 911. Patient denies chest pain shortness of breath headache nausea or vomiting. Unable to articulate how she felt at the time of ambulance arrival however endorses feeling better currently. Have tried multiple times to contact patient's son however has been unsuccessful. Related Data Home Medications Medication Instructions Recorded Confirmed sertraline 100 mg tablet 150 mg PO DAILY 01/01/18 05/12/21 acetaminophen 325 mg tablet 2 tab PO Q4H PRN PRN #30 tab 01/11/18 05/12/21 (Tylenol) apixaban 5 mg tablet (Eliquis) 5 mg PO BID #60 tab 01/11/18 03/29/21 glucosam 750 mg-chondroi 100 1 tab PO DAILY 05/04/20 05/12/21 mg-hyalur 1.65 mg-CF borate 108 mg tablet ([facility]) multivitamin with minerals 1 tab PO DAILY 05/04/20 05/12/21 cholecalciferol (vitamin D3) 125 125 mcg PO QWEEK cap 11/24/20 05/12/21 mcg (5,000 unit) capsule ferrous sulfate 325 mg (65 mg 325 mg PO BID 11/24/20 05/12/21 iron) tablet (FeroSul) metoprolol succinate 100 mg 50 mg PO .every 12 hours cap 11/24/20 05/12/21 capsule sprinkle, ext. release 24 hr amlodipine 10 mg tablet 5 mg PO DAILY 05/12/21 05/12/21 atorvastatin 80 mg tablet 80 mg PO HS 05/12/21 05/12/21 clopidogrel 75 mg tablet 75 mg PO DAILY 05/12/21 05/12/21 pantoprazole 40 mg tablet,delayed 40 mg PO DAILY 05/12/21 05/12/21 release rivaroxaban 15 mg tablet (Xarelto) 15 mg PO DAILY 05/12/21 05/12/21 valsartan 160 mg tablet 160 mg PO BID 05/12/21 05/12/21 Previous Rx's Medication Instructions Recorded acetaminophen 325 mg tablet 2 tab PO Q4H PRN PRN #30 tab 01/11/18 (Tylenol) apixaban 5 mg tablet (Eliquis) 5 mg PO BID #60 tab 01/11/18 Allergies Allergy/AdvReac Type Severity Reaction Status Date / Time latex Allergy Swelling/Ed Verified 05/12/21 13:40 guadalupe lisinopril AdvReac Intermediate raises BP Verified 05/12/21 13:40 morphine AdvReac Visual Verified 05/12/21 13:40 Disturbances General Stated Complaint: GenMedical QUINTIN: 3 Review of Systems Narrative: Review of Systems Constitutional: negative Eyes: negative ENT: negative Cardiovascular: negative Respiratory: negative Gastrointestinal: negative : negative Musculoskeletal: negative Skin: negative Neurologic: negative Psych: negative PFSH All Active Problems (Updated 05/12/21 @ 15:18 by Braulio Ramos MD) Acute confusion (Acute) DVT prophylaxis (Acute) Hematuria (Acute) Closed head injury (Acute) Acute on chronic anemia (Acute) TIA (transient ischemic attack) (Acute) Acute ischemic left MCA stroke (Acute) Elevated factor VIII level (Chronic) Expressive aphasia (Chronic) Discharge planning issues (Acute) Noncompliance with medication regimen (Chronic) H/O esophagogastroduodenoscopy (Chronic ~05/19/18) Hiatal hernia (Chronic) Gastritis and duodenitis (Acute) Gastric ulcer (Acute) Esophagitis (Acute) Nephrolithiasis (Chronic) Vasovagal syncope (Acute) History of kidney stones (Chronic) SVT (supraventricular tachycardia) (Chronic) Vascular dementia (Chronic) Pulmonary embolism (Chronic) DVT (deep venous thrombosis) (Chronic) CVA (cerebral vascular accident) (Chronic) CAD (coronary artery disease) (Chronic) Closed head injury (Acute) Syncopal episodes (Chronic) Hypercoagulable state (Chronic) Elevated d-dimer (Chronic) Medical History Afib CKD (chronic kidney disease) Essential hypertension Hx of upper gastrointestinal hemorrhage Personal history of DVT (deep vein thrombosis) Pulmonary embolism Recurrent cerebrovascular accidents (CVAs) Tubular adenoma (~2015) Surgical History Appendectomy section Colonoscopy - MAC (12/29/15) History of esophagogastroduodenoscopy (EGD) (~12/2017) Social History Smoking/Tobacco Use Status: Current every day Smoking risk assessment performed?: Yes Alcohol Intake: never Drug use: Daily Substance use type: marijuana Do you feel safe at home: No Do you feel safe in your relationship?: Yes Additional Social history: worried about living situation with having a stroke Exam Narrative Exam Narrative: Physical Examination General: alert, awake, cooperative, resting comfortably, no acute distress HEENT: normocephalic, atraumatic; PERRL, EOM intact, conjunctiva normal; no nasal discharge; moist mucous membranes, oral and pharyngeal mucosa normal, tolerating secretions Neck: supple, trachea midline; full ROM Chest: normal to inspection Respiratory: normal respiratory effort, speaking in full sentences, clear to auscultation, no wheezing, rales or rhonchi Cardiac: regular rate, regular rhythm, S1S2 intact, no murmurs rubs or gallops GI: abdomen soft, non-tender, non-distended; no palpable mass or hepatosplenomegaly Skin: no lesions, rashes or trauma appreciated Neuro: AAOx3, expressive aphasia, moving all extremities, 5-5 strength upper and lower extremities, cranial nerves II through XII intact Extremities: No peripheral edema Psych: Appropriate mood and affect Course Vital Signs Vital signs: Vital Signs Temperature 36.3 C L 05/12/21 13:09 Pulse 78 05/12/21 13:09 Respiratory Rate 17 05/12/21 13:09 Blood Pressure 180/81 H 05/12/21 13:09 Pulse Oximetry 100 05/12/21 13:09 Temperature 36.3 C L 05/12/21 13:09 Temperature Source Temporal Artery Scan 05/12/21 13:09 Pulse 78 05/12/21 13:09 Respiratory Rate 17 05/12/21 13:15 Respiratory Effort Non-Labored 05/12/21 13:15 Respiratory Depth Normal 05/12/21 13:15 Respiratory Pattern Normal 05/12/21 13:15 Blood Pressure 180/81 H 05/12/21 13:09 Blood Pressure Position Sitting 05/12/21 13:09 Pulse Oximetry 100 05/12/21 13:09 Oxygen Delivery Method Room Air 05/12/21 13:09 Oxygen Flow Rate 0 05/12/21 13:09 Pain Level 0 05/12/21 13:09
[2021-05-12 14:10] LABS: Abs Immature Grans 0.01 10^3/uL (0.0-0.06); Absolute Basophil Count 0.04 10^3/uL (0.0-0.2); Absolute Eosinophil Count 0.05 10^3/uL (0.0-0.7); Absolute Lymphocyte Count 1.94 10^3/uL (1.2-3.4); Absolute Monocyte Count 0.68 10^3/uL (0.1-0.8); Absolute Neutrophil Count 3.81 10^3/uL (1.2-6.7); Basophils % 0.6; Eosinophils % 0.8; HCT 37.7 % (36.0-46.0); HGB 11.5 g/dL (11.2-15.7); Immature Grans % 0.2; Lymphocytes % 29.7; MCH 27.2 pg (27.0-33.0); MCHC 30.5 % (32.0-36.0); MCV 89.1 fL (80-95); MPV 12.1 fL (8.0-11.0); Monocytes % 10.4; Neutrophils % 58.3; Nucleated RBC 0 %; Platelet Count 187 10^3/uL (130-400); RBC 4.23 10^6/uL (3.93-5.22); RDW 15.3 % (11.7-14.6); RDW-SD 49.4 fL; WBC 6.53 10^3/uL (4.4-10.8)
[2021-05-12 14:27] LABS: ALT 16 U/L (14-59); AST 17 U/L (15-37); Albumin 3.7 g/dL (3.4-5.0); Alkaline Phosphatase 74 U/L (46-116); Anion Gap 9.7 mmol/L (3-11); BUN 14 mg/dL (7-18); Bilirubin, Total 0.4 mg/dL (0.2-1.0); CO2 24.3 mmol/L (21.0-32.0); CREATININE 1.2 mg/dL (0.55-1.02); Calcium 9.8 mg/dL (8.5-10.1); Chloride 108 mmol/L (98-107); Estimated GFR 44.04 (mL/min/1.73m2); Glucose 101 mg/dL (74-106); Potassium 3.7 mmol/L (3.5-5.1); Sodium 142 mmol/L (136-145); Total Protein 7.6 g/dL (6.4-8.2); Troponin I < 50 ng/L (<or=60)
[2021-05-12 14:44] LABS: Bilirubin Small (Negative); Blood Large (Negative); Clarity Sl Cloudy (Clear); Glucose Negative (Negative); Ketones 15 mg/dL (Negative); Leukocyte Esterase Negative (Negative); Nitrite Negative (Negative); Specific Gravity >= 1.030 (1.005-1.025); Urobilinogen 0.2 EU/dL (Up TO 0.2); pH 5.5 (5-8)
[2021-05-12 14:53] LABS: Bacteria Few HPF (Negative); C & S Indicated? No/Sq. Contamination; Casts Negative LPF (Negative); Crystals Negative HPF (Negative); Epithelial Cells Many HPF (Negative); Mucus Negative (Negative); RBC 20-50 HPF (0-2)
--- NOTE | 2021-05-12 14:58 | DI.VRAD_ITS ---
PROCEDURE INFORMATION: Exam: XR Chest Exam date and time: 05/12/2021 1:43 PM Age: 75 years old Clinical indication: Other: AMS, recent mi TECHNIQUE: Imaging protocol: XR of the chest. Views: 2 views. COMPARISON: CT THORAX ABDOMEN CTA 08/22/2021 00:44 FINDINGS: Lungs: Lungs are clear with no infiltrate or nodule. Pleural spaces: Unremarkable. No pleural effusion. No pneumothorax. Heart/Mediastinum: Cardiomediastinal silhouette is normal. Vasculature: Aorta is calcified and tortuous. Bones/joints: Unremarkable. IMPRESSION: No active cardiopulmonary disease. Dictated and Authenticated by: Leo Stoddard MD. Ordering:ZAHIRA Ramsey MD
--- NOTE | 2021-05-12 14:58 | DI.VRAD_ITS ---
PROCEDURE INFORMATION: Exam: CT Head Without Contrast Exam date and time: 05/12/2021 1:43 PM Age: 75 years old Clinical indication: Altered mental status/memory loss; Confusion or disorientation; Patient HX: HX of stroke TECHNIQUE: Imaging protocol: Computed tomography of the head without contrast. Radiation optimization: All CT scans at this facility use at least one of these dose optimization techniques: automated exposure control; mA and/or kV adjustment per patient size (includes targeted exams where dose is matched to clinical indication); or iterative reconstruction. Other technique: STROKE PROTOCOL was implemented. COMPARISON: CT HEAD WO 08/22/2021 00:44 FINDINGS: Brain: The brain shows a large area of encephalomalacia involving the left frontal, temporal and parietal lobes within the middle cerebral artery vascular territory. This represents old stroke and was unchanged from previous exam. There is also an area of encephalomalacia involving the right occipital lobe. This appears to have been acute at the time of the last exam. No new acute infarct is seen today. There is no intra-axial or extra-axial hemorrhage or mass. There are only minimal involutional changes. No midline shift is present. Cerebral ventricles: Normal. No ventriculomegaly or midline shift. Pituitary gland and sella: Normal. No enlargement. Paranasal sinuses: Visualized sinuses are unremarkable. No fluid levels or mucosal thickening. Mastoid air cells: Visualized mastoid air cells are well aerated. Orbital cavity: Unremarkable. Vasculature: No significant atherosclerotic calcification. Bones/joints: Unremarkable. No acute fracture. Soft tissues: Unremarkable. IMPRESSION: Large old areas of infarction involving the left middle cerebral artery and right posterior cerebral artery vascular territories. No acute stroke or hemorrhage today. ASSESSMENT: ASPECTS ([facility] Stroke Program Early CT Score) is 10. Dictated and Authenticated by: Leo Stoddard MD. Ordering:ZAHIRA Ramsey MD
[2021-05-12 18:50] LABS: Source Nasal/Nares
[2021-05-12 19:35] LABS: COVID-19 PCR Negative (Negative)
--- NOTE | 2021-05-12 19:52 | W.PM.HP.N ---
Date of service: 05/12/21 Time of Service: 19:52 Assessment and Plan Assessment and plan (1) Acute confusion: Status: Acute Assessment and plan: unclear as to what is her baseline cognition state but her expressive aphasia sounds to be chronic from her prior stroke. As her stroke is now on the right side, I would not expect her symptoms of expressive aphasia to be worsened. It is not clear as to how compliant she is with her medications. Her med list needs reconciliation in the morning by pharmacy, as it appears that she has two DOAC meds. She is already suppose to be on high dose atorvastatin and plavix for her CAD. It may be worthwhile to get outpatient cardiac event recorder to assess the burden and severity of her atrial fibrillation. Also be worth having her medications put her in a pill pack where he can be close and monitors to when or if she takes her medications. We will need to confirm with her son whether or not she takes her own medications whether he does them out to her. For now I would just keep her on the Plavix and the high-dose atorvastatin and while the D.O.A.C.'s. Not sure that it is worth adding an aspirin as this is more than likely just going to increase her bleeding risk and not improve her stroke prevention. I will ask neurology to see her on Friday. We will get an MRI of the brain on Friday to confirm the degree of her stroke. Also get an echocardiogram on Friday to see if she has a thrombus. (2) Acute right MCA stroke: Status: Acute Assessment and plan: per Dr. Barrera's interpretation of her head CT she has a new right occipital/temporal CVA; clinically however she seems to be at her baseline function. I will get MRI and MRA of the brain on Friday. She will remain on high dose atorvastatin along w/ Plavix (prescribed recently for her recent TN) and her DOAC. It is unclear as to which DOAC she is currently taking (Apixaban vs Rivaroxaban). I have put her on apixaban for now until we can sort this out. I think her CVA is embolic and probably d/t poor compliance w/ her meds rather than a failure of her DOAC. I will have neurology see her on Friday after we get her MRI and weigh in on the best combo of antiplatelets and DOAC, however, if she had a SUREKHA stent for her TN then she needs to remain on Plavix for 6 months. (3) Afib: Assessment and plan: rate controlled on Toprol XL; continue current anticoagulation History of Present Illness History of Present Illness Chief Complaint: Acute confusion Narrative: -Faroese female with a history [id number] CVA involving left middle cerebral artery and cerebellum with chronic expressive aphasia who experienced a recent STEMI treated at [facility] last month. Patient was brought to the emergency department because of acute confusion. Patient apparently lives with her son but she was at home alone when her son called her and he determined that she was confused about where she was located so he called the ambulance to evaluate her. She endorsed feelings of generalized unwellness but was unable to articulate exactly how she felt earlier in the day but is currently feeling better. She was evaluated in the emergency department by Dr. Archibald who performed a CT scan of her head which initially was read as showing no acute changes however when it was over read by our local neurologist Dr. Hayes who informed the ER staff that she has an acute/subacute infarct in the right temporal and occipital lobe. This in spite of the fact that the patient is chronically on a D.O.A.C. is unclear as to whether she is currently taking Xarelto or is currently taking Eliquis. She is also on Plavix presumably due to a recent coronary stent. Patient has chronic atrial fibrillation that is well controlled. Patient appears to be returning back to her usual state of mild to moderate expressive aphasia in which she has word finding problems. She denies a headache or diplopia or blurred vision and denies any paresthesias of her face or hands or arms or legs and denies focal weakness. She is now admitted to the medical/surgical floor where she will be monitored on telemetry and treated with a D.O.A.C. and Plavix while we further evaluate her stroke. Review of Systems Narrative: All review of systems negative over the patient is an unreliable historian [facility] All Active Problems (Updated 05/12/21 @ 23:46 by Diogo Garay) Acute right MCA stroke (Acute) Acute confusion (Acute) DVT prophylaxis (Acute) Hematuria (Acute) Closed head injury (Acute) Acute on chronic anemia (Acute) TIA (transient ischemic attack) (Acute) Acute ischemic left MCA stroke (Acute) Elevated factor VIII level (Chronic) Expressive aphasia (Chronic) Discharge planning issues (Acute) Noncompliance with medication regimen (Chronic) H/O esophagogastroduodenoscopy (Chronic ~05/19/18) Hiatal hernia (Chronic) Gastritis and duodenitis (Acute) Gastric ulcer (Acute) Esophagitis (Acute) Nephrolithiasis (Chronic) Vasovagal syncope (Acute) History of kidney stones (Chronic) SVT (supraventricular tachycardia) (Chronic) Vascular dementia (Chronic) Pulmonary embolism (Chronic) DVT (deep venous thrombosis) (Chronic) CVA (cerebral vascular accident) (Chronic) CAD (coronary artery disease) (Chronic) Closed head injury (Acute) Syncopal episodes (Chronic) Hypercoagulable state (Chronic) Elevated d-dimer (Chronic) Medical History Afib CKD (chronic kidney disease) Essential hypertension Hx of upper gastrointestinal hemorrhage Personal history of DVT (deep vein thrombosis) Pulmonary embolism Recurrent cerebrovascular accidents (CVAs) Tubular adenoma (~2015) Surgical History Appendectomy section Colonoscopy - MAC (12/29/15) History of esophagogastroduodenoscopy (EGD) (~12/2017) Social History Smoking/Tobacco Use Status: Current every day Smoking risk assessment performed?: Yes Alcohol Intake: never Drug use: Daily Substance use type: marijuana Do you feel safe at home: No Do you feel safe in your relationship?: Yes Additional Social history: worried about living situation with having a stroke Meds Allergies and Home Medications Allergies Allergy/AdvReac Type Severity Reaction Status Date / Time latex Allergy Swelling/Ed Verified 05/12/21 13:40 guadalupe lisinopril AdvReac Intermediate raises BP Verified 05/12/21 13:40 morphine AdvReac Visual Verified 05/12/21 13:40 Disturbances Home Medications Medication Instructions Recorded Confirmed Type sertraline 100 mg tablet 150 mg PO DAILY 01/01/18 05/12/21 History acetaminophen 325 mg tablet 2 tab PO Q4H PRN PRN #30 tab 01/11/18 05/12/21 Rx (Tylenol) glucosam 750 mg-chondroi 100 1 tab PO DAILY 05/04/20 05/12/21 History mg-hyalur 1.65 mg-CF borate 108 mg tablet ([facility]) multivitamin with minerals 1 tab PO DAILY 05/04/20 05/12/21 History cholecalciferol (vitamin D3) 125 125 mcg PO QWEEK cap 11/24/20 05/12/21 History mcg (5,000 unit) capsule ferrous sulfate 325 mg (65 mg 325 mg PO BID 11/24/20 05/12/21 History iron) tablet (FeroSul) metoprolol succinate 100 mg 50 mg PO .every 12 hours cap 11/24/20 05/12/21 History capsule sprinkle, ext. release 24 hr amlodipine 10 mg tablet 5 mg PO DAILY 05/12/21 05/12/21 History atorvastatin 80 mg tablet 80 mg PO HS 05/12/21 05/12/21 History clopidogrel 75 mg tablet 75 mg PO DAILY 05/12/21 05/12/21 History pantoprazole 40 mg tablet,delayed 40 mg PO DAILY 05/12/21 05/12/21 History release rivaroxaban 15 mg tablet (Xarelto) 15 mg PO DAILY 05/12/21 05/12/21 History valsartan 160 mg tablet 160 mg PO BID 05/12/21 05/12/21 History Exam Narrative Exam Narrative: Elderly -Faroese female who is sitting up in bed alert oriented person and superficially oriented to time in the sense that she got the year and the month correctly but got the date and the day of the week wrong. She cannot tell me the name of the hospital but she did recognize that she is in the hospital. HEENT is unremarkable. Specifically she has no facial asymmetry and no dysarthric speech and her extraocular motions fully intact and visual rubio are grossly intact. Neck is supple nontender no JVD normal carotid pulses other than being irregularly irregular Lungs are clear to auscultation Heart is irregularly irregular at a controlled rate no murmur rub Abdomen soft nontender nondistended normal bowel sounds Lower extremities without peripheral cyanosis or edema Neuro exam cranial nerves II through XII grossly intact with no focal motor deficits no focal sensory deficits to light touch over her face arms and legs feet and hands. No facial asymmetry no dysarthric speech extraocular motions intact normal facial mimetic muscle movement normal movement of her tongue and palate. Babinski's are equivocal due to withdrawal. She has no pronator drift of her arms or her legs. Results Labs Result diagrams: 05/12/21 14:04 05/12/21 14:04 Labs: Laboratory Results - last 24 hr 05/12/21 05/12/21 05/12/21 14:04 14:04 14:38 WBC 6.53 RBC 4.23 Hgb 11.5 Hct 37.7 MCV 89.1 MCH 27.2 MCHC 30.5 L RDW 15.3 H Plt Count 187 MPV 12.1 H Immature Gran % 0.2 Neutrophils % 58.3 Lymphocytes % 29.7 Monocytes % 10.4 Eosinophils % 0.8 Basophils % 0.6 Nucleated RBC % 0 Absolute Neutrophils 3.81 Absolute Lymphocytes 1.94 Absolute Monocytes 0.68 Absolute Eosinophils 0.05 Absolute Basophils 0.04 Sodium 142 Potassium 3.7 Chloride 108 H Carbon Dioxide 24.3 Anion Gap 9.7 BUN 14 Creatinine 1.2 H Estimated GFR/1.73 m2 44.04 Glucose 101 Calcium 9.8 Total Bilirubin 0.4 AST 17 ALT 16 Alkaline Phosphatase 74 Troponin I < 50 Total Protein 7.6 Albumin 3.7 Urine Color Yellow Urine Clarity Sl Cloudy Urine pH 5.5 Ur Specific [place] >= 1.030 H Urine Protein 30 H Urine Ketones 15 H Urine Blood Large H Urine Nitrite Negative Urine Bilirubin Small H Urine Urobilinogen 0.2 Ur Leukocyte Esterase Negative Urine RBC 20-50 H Urine WBC 3-5 Ur Epithelial Cells Many Urine Crystals Negative Urine Bacteria Few Urine Casts Negative Urine Mucus Negative Ur Culture Indicated? No/Sq. Contamination Urine Glucose Negative COVID-19 Source SARS-CoV-2 (PCR) 05/12/21 18:40 WBC RBC Hgb Hct MCV MCH MCHC RDW Plt Count MPV Immature Gran % Neutrophils % Lymphocytes % Monocytes % Eosinophils % Basophils % Nucleated RBC % Absolute Neutrophils Absolute Lymphocytes Absolute Monocytes Absolute Eosinophils Absolute Basophils Sodium Potassium Chloride Carbon Dioxide Anion Gap BUN Creatinine Estimated GFR/1.73 m2 Glucose Calcium Total Bilirubin AST ALT Alkaline Phosphatase Troponin I Total Protein Albumin Urine Color Urine Clarity Urine pH Ur Specific [place] Urine Protein Urine Ketones Urine Blood Urine Nitrite Urine Bilirubin Urine Urobilinogen Ur Leukocyte Esterase Urine RBC Urine WBC Ur Epithelial Cells Urine Crystals Urine Bacteria Urine Casts Urine Mucus Ur Culture Indicated? Urine Glucose COVID-19 Source Nasal/Nares SARS-CoV-2 (PCR) Negative Last Vital Signs Temp 36.6 C 05/12/21 17:40 Pulse 92 H 05/12/21 19:11 Resp 18 05/12/21 19:11 BP 176/108 H 05/12/21 19:11 Pulse Ox 100 05/12/21 19:11
[2021-05-12] MEDS: Aspirin 81 MG CHEW 324 MG CH (20:04)
[2021-05-12] MEDS: Apixaban 5 MG TAB PO (20:04)
[2021-05-12] MEDS: Ferrous Sulfate 325 MG TAB PO (20:04)
[2021-05-12] MEDS: Metoprolol CR 50 MG TABCR PO (21:16)
[2021-05-12] MEDS: Atorvastatin 40 MG TAB 80 MG PO (21:16)
[2021-05-13] VITALS (9 sets, daily range): BP systolic 125–163; BP diastolic 71–89; PULSE 69–85; RESP 16–18; TEMP 36.1–36.9; O2SAT 99–100
[2021-05-13] MEDS: Ferrous Sulfate 325 MG TAB PO ×2 (08:19→20:09)
[2021-05-13] MEDS: Pantoprazole 40 MG TABCR PO (08:24)
[2021-05-13] MEDS: Apixaban 5 MG TAB PO ×2 (08:24→20:09)
[2021-05-13] MEDS: Clopidogrel 75 MG TAB PO (08:24)
[2021-05-13] MEDS: Sertraline 50 MG TAB 150 MG PO (08:24)
[2021-05-13] MEDS: Multivitamin w/Minerals TAB 1 TAB PO (08:25)
[2021-05-13] MEDS: amLODIPine 10 MG TAB 5 MG PO (08:25)
[2021-05-13] MEDS: Metoprolol CR 50 MG TABCR PO ×2 (08:25→20:09)
[2021-05-13] MEDS: Valsartan 80 MG TAB 160 MG PO ×2 (08:39→20:08)
--- NOTE | 2021-05-13 12:45 | INITIAL_ITS ---
- If Service Date Differs Date of service: 05/13/21 Time of Service: 12:45 Care Management Initial Assess REASON FOR HOSPITALIZATION:: Acute CVA PAST MEDICAL HISTORY/PAST SURGICAL HISTORY:: Medical History. CAD (coronary artery disease). CKD (chronic kidney disease). CVA (cerebral vascular accident). DVT (deep venous thrombosis). Elevated d-dimer. Esophagitis. Essential hypertension. Gastric ulcer. Gastritis and duodenitis. Hiatal hernia. History of kidney stones. Hypercoagulable state. Pulmonary embolism. Pulmonary embolism. SVT (supraventricular tachycardia). Upper GI bleeding. Vascular dementia. Surgical History. Appendectomy. section. Colonoscopy - MAC (12/29/15). H/O esophagogastroduodenoscopy (~05/19/18). History of esophagogastroduodenoscopy (EGD) (~12/2017) PREVIOUS FUNCTIONAL STATUS/SOCIAL/FAMILY SUPPORTS:: Sisi lives in [facility] with her son, Max. She has one other son, who lives in [place]. Max is her main support, and helps her with medication management and house work. She is independent with her ADL's, but does not drive. ADVANCE DIRECTIVES:: None on file. CM will offer forms. Has patient been provided with info about the portal/API?: No Did the patient sign up for the portal?: No CODE STATUS:: Full Code INSURANCE COVERAGE / FINANCIAL ISSUES:: [facility] P[facility], [place] CURRENT HOME/COMMUNITY SERVICES/EQUIPMENT:: No equipment. She does have HH RN, PT, TOOL TROUBLE SHOOTER. PRIMARY CARE PHYSICIAN:: Concha Loving POTENTIAL DISCHARGE NEEDS:: Evaluation for further needs, follow up appointments PATIENT/FAMILY EDUCATION NEEDS:: Review discharge instructions regarding activity and medications, discussion of self care needs including ask me three. ANTICIPATED BARRIERS TO DISCHARGE:: None identified. TRANSPORTATION:: Via RCT private vehicle when ready. PLAN:: Sisi will return home when medically cleared. She will resume HH RN, PT, TOOL TROUBLE SHOOTER, speech. CM will coordinate RCT tranpsort via private vehicle when ready. She will follow up with her PCP and discharge plan of care. CM will continue to follow. Readmission - Within the Past 30 Days Yes or No: N
--- NOTE | 2021-05-13 15:28 | IN_ITS ---
PT Notes Visit Reasons: acute CVA Physical Therapy Inpatient Initial Evaluation Date: 05/13/21 Referring Doctor: Diogo Garay MD PT Orders: PT CONSULT: fall safety assessment Precautions: Fall. Standard. Patient Profile/Admitting Diagnosis: Acute CVA PMHX: All Active Problems?(Updated 05/12/21 @ 23:46 by Diogo Garay) Acute right MCA stroke (Acute) Acute confusion (Acute) DVT prophylaxis (Acute) Hematuria (Acute) Closed head injury (Acute) Acute on chronic anemia (Acute) TIA (transient ischemic attack) (Acute) Acute ischemic left MCA stroke (Acute) Elevated factor VIII level (Chronic) Expressive aphasia (Chronic) Discharge planning issues (Acute) Noncompliance with medication regimen (Chronic) H/O esophagogastroduodenoscopy (Chronic ~05/19/18) Hiatal hernia (Chronic) Gastritis and duodenitis (Acute) Gastric ulcer (Acute) Esophagitis (Acute) Nephrolithiasis (Chronic) Vasovagal syncope (Acute) History of kidney stones (Chronic) SVT (supraventricular tachycardia) (Chronic) Vascular dementia (Chronic) Pulmonary embolism (Chronic) DVT (deep venous thrombosis) (Chronic) CVA (cerebral vascular accident) (Chronic) CAD (coronary artery disease) (Chronic) Closed head injury (Acute) Syncopal episodes (Chronic) Hypercoagulable state (Chronic) Elevated d-dimer (Chronic) Medical History? Afib CKD (chronic kidney disease) Essential hypertension Hx of upper gastrointestinal hemorrhage Personal history of DVT (deep vein thrombosis) Pulmonary embolism Recurrent cerebrovascular accidents (CVAs) Tubular adenoma (~2015) Surgical History? 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 Equipment Owned/DME: None Subjective: Cleared by nursing to see patient and patient is agreeable to PT. Patient in sidelying at time of consult and connected to telemetry. Objective: General Observation: Pt appears in no acute distress Mental Status: A&O x2 - pt asked where she was during ambulation Pain: 0/10 Vitals: BP: 147/89 HR: 87 SpO2: 99 ROM: Right Upper Extremity: Shoulder Flexion WFL. Shoulder abduction WFL. Elbow flexion WFL. Wrist flexion WFL. Opening and closing of hand WFL. Left Upper Extremity: Shoulder Flexion WFL. Shoulder abduction WFL. Elbow flexion WFL. Wrist flexion WFL. Opening and closing of hand WFL. Right Lower Extremity: Hip flexion WFL. Hip abduction WFL. Knee flexion WFL. Ankle dorsiflexion WFL. Ankle plantarflexion WFL. Left Lower Extremity: Hip flexion WFL. Hip abduction WFL. Knee flexion WFL. Ankle dorsiflexion WFL. Ankle plantarflexion WFL. Strength: Right Upper Extremity: Shoulder flexors 5/5. Shoulder abductors 5/5. Elbow flexors 5/5. Elbow extensors 5/5. Vacuum Caster strong. Left Upper Extremity: Shoulder flexors 5/5. Shoulder abductors 5/5. Elbow flexors 5/5. Elbow extensors 5/5. Vacuum Caster strong. Right Lower Extremity: Hip flexors 5/5. Hip abductors 5/5. Knee flexors 5/5. Knee extensors 5/5. Ankle dorsiflexors 5/5. Ankle plantarflexors 5/5. Left Lower Extremity: Hip flexors 5/5. Hip abductors 5/5. Knee flexors 5/5. Knee extensors 5/5. Ankle dorsiflexors 5/5. Ankle plantarflexors 5/5. Sensation: Intact as to pain and pressure on bilateral lower extremities. Bed Mobility/Transfers: Rolling: I Supine to sit: I Sit to supine: I Sit to stand: I Stand to sit: I Bed to chair: Min contact assist x1 (SBA) Chair to bed: Min contact assist x1 (SBA) Gait: Ambulated [id number] with min contact assist x1 (SBA) with pt demonstrating increased lateral sway and occasionally bumping the wall when turning corners with her arm. Stairs: Ascent/descent 2steps with B rails, WA with reciprocal gait pattern. Balance: Static Sitting: I Dynamic Sitting: I 4 stage balance test Time completed FT 8s Semi-tandem NT Tandem NT SLS NT Special Tests: Mobility Limitations Standardized Measure [facility] 6 clicks Basic Mobility Inpatient Short Form: Raw Score: 22 CMS Score: 20.91% Informed Consent/Education: Patient instructed in purpose of PT consult and plan of care. Assessment: Patient presents with clinical signs and symptoms consistent with current/admitting diagnoses that have resulted to mobility limitations, gait instability, generalized weakness, and impairment of motor control as demonst rated by the following impairment level findings: 1. Impaired sitting/standing balance 2. Impaired activity tolerance Impairments are contributing to the following functional limitations: 1. Increased dependence with transfers 2. Inability to safely ambulate without assistive device and physical assistance 3. Increase completion time for mobility ADL performance 4. Increased fall risk Patient is assessed as a moderate complexity based on the following: History: 75 year old female identifying person with impairment level findings, functional limitations, and past medical history as indicated above Examination: Demonstrable impairment in balance and mobility level with underlying impairments and functional limitations as documented above Presentation: Evolving Decision Making: moderate complexity Goals: Goals x1 week 1. Bed-Chair: independent 2. Chair-Bed: independent 3. Independent gait on level surface with use of least restrictive device for at least 300 feet without report of pain nor dyspnea 4. Independent stair negotiation while holding onto bilateral rails for at least 10 steps without report of pain nor dyspnea 5. Independent with home exercise program 6. Good static and dynamic standing balance/tolerance Plan of Care/Treatment Plan: 1-2x/day, 7 days/week x 1 week. Plan of care has been reviewed with the SALVAGE MACHINE OPERATOR providing the service under Physical Therapy direction. Initiate Physical Therapy intervention for transfers, gait, stairs, balance training, and use of assistive device. DISCHARGE RECOMMENDATIONS: Given pt's mobility status, pt is appropriate for DC to home with caregiver support (pt's son) and PT. TREATMENT CODE/TIME: (30 minutes), [id number] Thank you for the opportunity to participate in the care of this patient.
--- NOTE | 2021-05-13 15:29 | W.PM.PROGNOT ---
Date of Service Date of service: 05/13/21 Time of Service: 15:29 Assessment and Plan Assessment and plan (1) Acute confusion: Status: Acute Assessment and plan: acute confusion seems to have resolved and she seems to be at her baseline. continue to monitor her and complete her CVA workup in the morning w/ MRI and MRA of brain and echocardiogram and neurology consult. cont. her Plavix and her DOAC (will ask pharmacy to try to clarify which DOAC she is suppose to be on but it appears to be Rivaroxaban. (2) Acute right MCA stroke: Status: Acute Assessment and plan: as above. cont. Plavix and Rivaroxaban. finish stroke workup. Diet advanced as she has no dysphagia symptoms. (3) Afib: Assessment and plan: rate controlled on Toprol XL; continue current anticoagulation Subjective Subjective Interval history since last seen: Sisi denies any acute complaints. Specifically she denies any headache blurred vision difficulty swallowing and denies any focal weakness or paresthesias. Exam Narrative Exam Narrative: Sisi is alert she is oriented to person she knows she is in the hospital but could not tell me which hospital she was in. Her neurologic exam is unchanged she exhibits no focal motor or focal sensory deficits to light touch. She has no dysarthric speech and no facial asymmetry. She has a chronic expressive aphasia exhibited by word finding problems. Most of her conversation she is able to express herself but then will have trouble finishing a sentence because she cannot come up with the correct words that she wants to tell me. Objective Last Vital Signs Temp 36.9 C 05/13/21 15:00 Pulse 85 05/13/21 15:00 Resp 18 05/13/21 15:00 BP 147/89 H 05/13/21 15:00 Pulse Ox 100 05/13/21 15:00 Laboratory Results - last 24 hr 05/12/21 18:40 COVID-19 Source Nasal/Nares SARS-CoV-2 (PCR) Negative
[2021-05-13] MEDS: Atorvastatin 40 MG TAB 80 MG PO (21:23)
[2021-05-14] VITALS (8 sets, daily range): BP systolic 116–151; BP diastolic 61–85; PULSE 60–79; RESP 16; TEMP 36.4–36.8; O2SAT 99–100
--- NOTE | 2021-05-14 | DI.MRI_ITS ---
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 COMPARISON: CT CT HEAD WO from 05/12/2021 MR MR ANGIO BRAIN WO from 05/14/2021 FINDINGS: CEREBRAL PARENCHYMA: No evidence of intracranial hemorrhage, intra or extra-axial. On DWI there is a new large area of restricted diffusion in the right temporal lobe and extending tamiko k into the right occipital lobe, corresponding to what was seen on recent CT scan and consistent with acute infarct. There also tiny foci of restricted diffusion in the right thalamus as well as a tiny focus in the right side of the splenium of the corpus callosum. Other nonacute appearing infarcts in the medial left cerebellar hemisphere and territory of the left middle cerebral artery noted. These areas do not exhibit restricted diffusion on DWI sequence. PITUITARY GLAND: No mass nor parasellar abnormality. No obvious abnormality in the cavernous sinuses. PARANASAL SINUSES: The visualized paranasal sinuses appear unremarkable. No obvious finding ORBITS: No obvious findings. IMPRESSION: Large area of acute nonhemorrhagic infarct involving the right temporal lobe, extending from the righ t middle cranial fossa back to and continuous into the right occipital lobe. There is also some invol vement of the right thalamus and right side of the splenium of the corpus callosum. See separate MRA dictations. DATA REPOSITORY:
--- NOTE | 2021-05-14 | DI.MRI_ITS ---
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 TECHNIQUE: Noninfused [id number] MRA sequence was performed. CONTRAST MATERIAL: IV Contrast: None COMPARISON: Recent CT scan 05/12/2021 FINDINGS: Aortic arch anatomy peers conventional. None both common carotid arteries ascend with normal luminal diameters. Position of the left carotid bifurcation is lower than on the right side. No obvious si gnificant narrowing at this level on the source images.. Internal carotid artery above this level in the neck appears normal diameter. Right common carotid artery also exhibits normal diameter and without sys hemodynamically significant at the carotid bifurcation proximal right internal carotid artery. The right ICA appears to be wiley nt above this level in the upper neck. Both vertebral arteries are patent in the foramen transversarium with equal luminal diameters and no evidence of intraluminal thrombus nor dissection. At the skull base both vertebral arteries contribu te to the formation of the basilar artery. IMPRESSION: Although the source images do not reveal evidence of hemodynamically significant stenosis, on the rec onstructed images there does appear to be significant appearing stenosis in both internal carotid art eries in the neck. Because of this discordance I recommend CT angiography. DATA REPOSITORY:
--- NOTE | 2021-05-14 | DI.US_ITS ---
APPROVED REPORT EXAM: Comprehensive 2D, Doppler, and color-flow Echocardiogram Patient Location: In-Patient Room/Bed: [facility] Lymphedema Therapist: Rashmi Angela RDCS (AE) Indications: CVA Other Information Study Quality: Adequate Conclusion Normal left ventricular wall thickness and chamber size. Estimated ejection fraction is 55%. The ap ex and anteroapical segments are akinetic Normal right ventricular size and systolic function The left atrium is mildly dilated. The right atrium is normal in size The aortic valve is trileaflet and sclerotic without stenosis or regurgitation Moderate mitral annular calcification. Mild to moderate mitral regurgitation Normal tricuspid valve with mild regurgitation. Estimated right ventricular systolic pressure is 36 mmHg Trivial pericardial effusion Wall motion Left Ventricle The left ventricle is normal size. The left ventricular systolic function is normal. The left ventric ular ejection fraction is within the normal range. There is normal left ventricular wall thickness. A nteroapical and apical akinesis There is no ventricular septal defect visualized. LVEF is 55%. Right Ventricle The right ventricle is normal size. The right ventricular systolic function is normal. The RVSP is 36 .0mmHg. Atria Left atrium is mildly dilated. The right atrium size is normal. The interatrial septum is intact with no evidence for an atrial septal defect. Aortic Valve The Aortic valve is sclerotic. Aortic valve is trileaflet. There is no aortic valvular stenosis. No a ortic regurgitation is present. Mitral Valve Moderate mitral annular calcification. No evidence of mitral valve stenosis. Mild to moderate mitral regurgitation. Tricuspid Valve The tricuspid valve is normal in structure. There is no tricuspid valve stenosis. Mild tricuspid regu rgitation. Pulmonic Valve The pulmonary valve is normal in structure. There is no pulmonic valvular stenosis. Trace pulmonic re gurgitation. Great Vessels The aortic root is normal in size. The ascending aorta is normal in size.. IVC is normal in size and collapses >50% with inspiration. Pericardium Trace pericardial effusion. 2D Dimensions IVSD d PLAX 0.96 cm F: 0.6-1.0 LV Vol A2C d MOD 82.0 mL LVPW d PLAX 0.95 cm F: 0.6 - 1.0 LV Vol A4C d MOD 76.8 mL LVID d PLAX 3.96 cm F: 3.8 - 5.2 LA vol/ BSA A2C s A-L 30.1 mL/m2 LVDs 2.90 cm F: 2.2 - 3.5 LA vol/ BSA A4C s A-L 47.5 mL/m2 Ao Root d 2.59 cm F: 2.7 - 3.3 LA Vol/ BSA Biplane s A-L 39.7 mL/m2 RA Area A4C 14.91 cm2 LA Area A4C s MOD 25.42 cm2 RA Vol/ BSA A4C s A-L 19.7 mL/m2 LA Area A2C s MOD 19.30 cm2 Ao Asc Diam d 3.25 cm F: 2.3 - 3.1 LV EF A4C MOD 55.3 % LV EF Teichholz 50.9 % LV EF A2C MOD 50.5 % LVEF (Covarrubias's) 51.22 % F: 54 - 74 LV EF Biplane MOD 51.2 % LV Volume 62.73 mL F: 46 - 106 SV 41.39 mL LV Volume Index 34.65 mL/m2 F: 29 - 61 SV Index 22.87 mL/m2 LV Vol Biplane MOD 80.8 mL FS 25.50 % M-Mode TAPSE 1.46 cm (M/F) >1.7 LV Diastology MV E' medial 0.068 (>0.07 m/s) E/A Ratio 4.2 LV E/e MED 15.55 (<14) MV E Vmax 1.05 (0.4-1.3 m/s) MV E' lateral 0.073 (>0.1 m/s) MV A Vmax 0.25 (0.4-1.3 m/s) LV E/e LAT 14.35 (<14) MV E/A Ratio 3.55 MV E/E' medial 15.59 MV E/E' lateral 14.38 Aortic Valve LVOT Area 2.71 cm2 AoV Area Vmax 1.68 cm2 LVOT Vmax 0.84 m/s AoV Area/ BSA (Vmax) 0.93 cm2/m2 LVOT Mean Addison. 0.52 m/s MARKEL Mean Addison. 1.51 cm2 LVOT Peak Grad 2.8 mmHg MARKEL Mean Addison. Index 0.83 cm2/m2 LVOT Mean Grad 1.3 mmHg LVOT VTI 0.166 m LVOT Diam s 1.85 cm AoV Vmax 1.36 m/s Velocity Ratio 0.61 AoV Mean Addison. 0.94 m/s AoV Peak Grad 7.4 mmHg LVOT SV 45.08 mL AoV Mean Grad 4.0 mmHg AoV VTI 0.266 m AoV Area VTI 1.70 cm2 AoV Area/ BSA (VTI) 0.94 cm/m2 Mitral Valve MV DT 203 (160-240 msec) MV PHT 59 msec MV Area PHT 3.74 cm2 MV VTI 0.301 m MV Area VTI 1.50 (4.0-6.0 cm2) Pulmonary Valve PV Vmax 0.92 (0.5-1.5 m/s) RVOT Peak Gr. 1.52 mmHg PV Peak Grad 3.4 mmHg RVOT Mean Gr. 0.75 mmHg PV Mean Grad 1.3 mmHg RVOT VTI 0.120 m PV VTI 0.182 m RVOT Vmax 0.62 m/s Tricuspid Valve TR Peak Grad 32.9 mmHg TR Vmax 2.87 m/s RA Pressure 3.00 mmHg RVSP (TR) 36.0 mmHg
--- NOTE | 2021-05-14 07:00 | DI.MRI_ITS ---
Exam(s) MR ANGIO BRAIN WO EXAM: MR ANGIO BRAIN WO CLINICAL HISTORY: cva TECHNIQUE: Performed with [id number] sequence (noninfused) COMPARISON: MR MR BRAIN WO from 05/04/19. Also today's MRI. 21 FINDINGS: ANTERIOR CIRCULATION: There is severe atherosclerotic narrowing of the right internal carotid artery in the proximal caroti d canal as well as in the inferior aspect of the right cavernous sinus. Above this level the supraclinoid aspect is patent. There is moderate focal narrowing the left internal carotid artery in lower cavernous sinus, also pat ent above this level. There are no stenosis nor aneurysm at the supraclinoid aspects of the internal carotid arteries. Bot h A1 segments are patent as are the anterior cerebral arteries and there is no evidence of aneurysm a t the level of the anterior communicating artery. Right middle cerebral artery appears patent as do branches out and including the sylvian fissure the left middle cerebral artery also appears patent out to and including sylvian fissure branches. POSTERIOR CIRCULATION: The basilar artery is formed by both vertebral arteries at the skull base and ascends in the midline normal luminal diameter. Distally it gives off patent bilateral superior cerebellar arteries. Above this level it terminates as bilateral posterior cerebral arteries. The left posterior cerebral susan ry also receives flow from a posterior communicating artery on the left side of the [id number] which exhibits a luminal diameter of 1.8 millimeters. The posterior cerebral arteries exhibit multil evel mild stenosis but otherwise appear patent. There is no aneurysm of the tip of the basilar arter y nor elsewhere in the [id number]. IMPRESSION: 1. There is high-grade stenoses in the right internal carotid artery in the skull base and inferior a spect of the cavernous sinus. Under findings seen on the left side in the inferior cavernous sinus l evel. The intracranial arteries are patent above this level. 2. Some disease is noted in the posterior cerebral arteries but without a critical stenosis evident. 3. There is a posterior communicating artery noted on the left side of the [id number]. 4. There no aneurysms evident. DATA REPOSITORY:
[2021-05-14 07:12] LABS: Hemoglobin A1C 6.1 % (<5.7)
[2021-05-14 07:26] LABS: Calculated LDL 104 mg/dL (<100); Cholesterol 172 mg/dL (<200); HDL Cholesterol 53 mg/dL (40-60); TSH (W/Ref FT4) 1.51 uIU/mL (0.36-3.74); Triglyceride 78 mg/dL (<150)
[2021-05-14] MEDS: Valsartan 80 MG TAB 160 MG PO ×2 (07:45→19:51)
[2021-05-14] MEDS: Rivaroxaban 15 MG TABLET PO (07:45)
[2021-05-14] MEDS: amLODIPine 10 MG TAB 5 MG PO (07:45)
[2021-05-14] MEDS: Clopidogrel 75 MG TAB PO (07:45)
[2021-05-14] MEDS: Multivitamin w/Minerals TAB 1 TAB PO (07:45)
[2021-05-14] MEDS: Sertraline 50 MG TAB 150 MG PO (07:45)
[2021-05-14] MEDS: Ferrous Sulfate 325 MG TAB PO ×2 (07:46→19:51)
[2021-05-14] MEDS: Metoprolol CR 50 MG TABCR PO (07:46)
[2021-05-14] MEDS: Pantoprazole 40 MG TABCR PO (07:46)
[2021-05-14 08:07] LABS: Vitamin D 25 Total 25.7 ng/mL (30-100)
--- NOTE | 2021-05-14 09:30 | OT.INIE ---
Occupational Therapy Notes Inpatient Occupational Therapy Evaluation Date: 05/14/21 Referring Doctor: Dr. 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 Past Medical History: All Active Problems?(Updated 05/12/21 @ 23:46 by Diogo Garay) Acute right MCA stroke (Acute) Acute confusion (Acute) DVT prophylaxis (Acute) Hematuria (Acute) Closed head injury (Acute) Acute on chronic anemia (Acute) TIA (transient ischemic attack) (Acute) Acute ischemic left MCA stroke (Acute) Elevated factor VIII level (Chronic) Expressive aphasia (Chronic) Discharge planning issues (Acute) Noncompliance with medication regimen (Chronic) H/O esophagogastroduodenoscopy (Chronic ~05/19/18) Hiatal hernia (Chronic) Gastritis and duodenitis (Acute) Gastric ulcer (Acute) Esophagitis (Acute) Nephrolithiasis (Chronic) Vasovagal syncope (Acute) History of kidney stones (Chronic) SVT (supraventricular tachycardia) (Chronic) Vascular dementia (Chronic) Pulmonary embolism (Chronic) DVT (deep venous thrombosis) (Chronic) CVA (cerebral vascular accident) (Chronic) CAD (coronary artery disease) (Chronic) Closed head injury (Acute) Syncopal episodes (Chronic) Hypercoagulable state (Chronic) Elevated d-dimer (Chronic) Medical History? Afib CKD (chronic kidney disease) Essential hypertension Hx of upper gastrointestinal hemorrhage Personal history of DVT (deep vein thrombosis) Pulmonary embolism Recurrent cerebrovascular accidents (CVAs) Tubular adenoma (~2015) Surgical History? App[place] [facility] [place] History of esophagogastroduodenoscopy (EGD) (~12/2017) Social History/Home Situation: Sisi lives in [facility] with her son. She has another son who she states lives in [place].She notes that she is independent with her ADL's, but does not drive. She is able to eat and cook (I) at baseline and states that she has caregivers. SUBJECTIVE: Pt was sitting in chair when OT arrived and is getting ready to go to the shower with nursing. She is agreeable to OT consult. OBJECTIVE: General Observation: Pleasant and agreeable to OT session, telemetry in place Mental Status: &Ox3 Pain: no c/o pain ROM: RUE ROM WNL L UE AROM WNL STRENGTH: RUE 5/5 throughout LUE 5/5 throughout FUNCTIONAL MOBILITY/ADLS: Transfers Sit-Stand (S) Stand-sit (S) Bed-Chair (S) BATHING in shower with max (A) Set up Bathing UE (I) face & (B) UE with vc provided throughout DRESSING sitting on shower seat Dressing UE min (A) doffing [facility] gown Dressing LE (I) doffing (B) socks BALANCE: Static sitting Normal Dynamic Sitting Normal SPECIAL TESTS: Daily Activity Limitations Standardized Measure [facility] AM -PAC ?6 clicks? Daily Activity Inpatient Short Form: Raw score: 22 Standardized score: 47.10 CMS score: 25.80% INFORMED CONSENT/EDUCATION: Pt instructed in purpose of OT Consult and plan of care. 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 Patient presents with clinical signs and symptoms consistent with dx, as demonstrated by the following impairment level findings/ functional limitations: Impairments in ADL/IADL routines, decreased functional activity tolerance and performance of ADLs. Patient is assessed as a Low 27063 complexity based on the following: History: see above Examination: see functional limitations as noted above Presentation: evolving Decision Making: [facility] score 22 GOALS Goals x1 week 1. Transfers (I) 2. Dressing UE (I) 3. Bathing standing at sink min (A) 4. Toileting on toilet (I) 5. Eating (I) PLAN OF CARE/TREATMENT PLAN: 1x/day, 5 days/ week x 1week Initiate Occupational Therapy Services for bathing, dressing, grooming, toileting, eating, transfer training. DISCHARGE RECOMMENDATIONS OT recommends that pt return home with her son and services when medically cleared per MD. TREATMENT TIME/MINUTES/CODES 52975, [id number], 20 minutes (09:05) Amanda Colmenares, OTR/L [facility]
--- NOTE | 2021-05-14 12:30 | PGE_ITS ---
Date of Service Date of service: 05/14/21 Time of Service: 12:30 Assessment and Plan Assessment and plan (1) Ischemic cerebrovascular accident (CVA) due to atherosclerosis of large intracranial artery: Status: Acute Assessment and plan: patient had MRI and MRA done today that demonstrated the following: IMPRESSION: Large area of acute nonhemorrhagic infarct involving the right temporal lobe, extending from the right middle cranial fossa back to and continuous into the right occipital lobe. There is also some involvement of the right thalamus and right side of the splenium of the corpus callosum. See separate MRA dictations. MRA INTRACEREBRAL VESSELS: FINDINGS: ANTERIOR CIRCULATION: There is severe atherosclerotic narrowing of the right internal carotid artery in the proximal carotid canal as well as in the inferior aspect of the right cavernous sinus. Above this level the supraclinoid aspect is patent.? There is moderate focal narrowing the left internal carotid artery in lower cavernous sinus, also patent above this level. There are no stenosis nor aneurysm at the supraclinoid aspects of the internal carotid arteries.? Both A1 segments are patent as are the anterior cerebral arteries and there is no evidence of aneurysm at the level of the anterior communicating artery. Right middle cerebral artery appears patent as do branches out and including the sylvian fissure the left middle cerebral artery also appears patent out to and including sylvian fissure branches. POSTERIOR CIRCULATION: The basilar artery is formed by both vertebral arteries at the skull base and ascends in the midline normal luminal diameter.? Distally it gives off patent bilateral superior cerebellar arteries.? Above this level it terminates as bilateral posterior cerebral arteries.? The left posterior cerebral artery also receives flow from a posterior communicating artery on the left side of the [id number] which exhibits a luminal diameter of 1.8 millimeters.? The posterior cerebral arteries exhibit multilevel mild stenosis but otherwise appear patent.? There is no aneurysm of the tip of the basilar artery nor elsewhere in the [id number]-ge-Ikxosm. MRA CERVICAL VESSELS: IMPRESSION: 1. There is high-grade stenoses in the right internal carotid artery in the skull base and inferior aspect of the cavernous sinus.? Under findings seen on the left side in the inferior cavernous sinus level.? The intracranial arteries are patent above this level. 2. Some disease is noted in the posterior cerebral arteries but without a critical stenosis evident. 3.? There is a posterior communicating artery noted on the left side of the [id number]-[id number]. 4.? There no aneurysms evident. FINDINGS: Aortic arch anatomy peers conventional.? None both common carotid arteries ascend with normal luminal diameters.? Position of the left carotid bifurcation is lower than on the right side.? No obvious significant narrowing at this level on the source images..? Internal carotid artery above this level in the neck appears normal diameter. Right common carotid artery also exhibits normal diameter and without sys hemodynamically significant at the carotid bifurcation proximal right internal carotid artery.? The right ICA appears to be patent above this level in the upper neck. Both vertebral arteries are patent in the foramen transversarium with equal luminal diameters and no evidence of intraluminal thrombus nor dissection.? At the skull base both vertebral arteries contribute to the formation of the basilar artery. IMPRESSION: Although the source images do not reveal evidence of hemodynamically significant stenosis, on the reconstructed images there does appear to be significant appearing stenosis in both internal carotid arteries in the neck.? Because of this discordance I recommend CT angiography. I discussed the above findings w/ Dr. Montes. #1 she suggested getting carotid duplex rather than CTA of the cervical vessels as this would be less subjected to artifact and subjective interpretation since it would reflect the doppler flow velocities but if this is abnormal then we would proceed w/ CTA of the vessels of the neck; #2 find out whether or not the patient is compliant w/ her medications. If we verify with her son that Sisi has been faithfully taking her Xarelto then we would consider this a failure of her Xarelto and she would need to go on Pradaxa. (as their mechanism of anticoagulation is different, i.e. Xarelto is a direct factor Xa inhibitor whereas Pradaxa (dabigatran) is a direct thrombin inhibitor. However if she is not compliant then we would assume that her recurrent strokes are d/t non-compliance rather than drug failure. (2) Acute right TRAVEL PHYSICAL THERAPIST stroke: Status: Acute Assessment and plan: as above (3) Expressive aphasia: Status: Chronic Assessment and plan: chronic and she appears to be back to her baseline (4) Discharge planning issues: Status: Acute Assessment and plan: will keep her overnight to get carotid duplex scan in the morning and to discuss w/ her son the patient's medications and how she takes them i.e. does he give them to her or does she set her own out and does he directly observe her taking her meds. (5) Acute confusion: Status: Acute Subjective Subjective Interval history since last seen: Sisi has no complaints. She denies any headache, nor any weakness and no visual symptoms Exam Narrative Exam Narrative: Alert, oriented to person/place (she knows that she is in the hospital in [facility]), she is not oriented to time Neuro: she has no facial asymmetry and no dysarthric speech but she has word finding difficulties and can not complete some of her sentences as she has trouble finding the right word to complete her sentence; she has no focal motor or sensory deficit (at least none to light touch; I did not test vibratory or pinprick); her EOMI is intact and she has no VF deficits to confrontation; no pronator drift, normal finger to nose pointing Objective Last Vital Signs Temp 36.6 C 05/15/21 07:58 Pulse 65 05/15/21 07:58 Resp 16 05/15/21 07:58 BP 128/67 05/15/21 07:58 Pulse Ox 100 05/15/21 07:58
--- NOTE | 2021-05-14 15:50 | W.NEUROCONSU ---
Date of service: 05/14/21 Time of Service: 15:50 Assessment and Plan Assessment and plan (1) Acute right PRACTICE REPRESENTATIVE stroke: Status: Acute (2) Afib: Assessment and plan: Ms. Aguilar is a 75 year-old, right-handed woman with a history of recurrent strokes and atrial fibrillation admitted for new R PRACTICE REPRESENTATIVE ischemic stroke, seemingly asymptomatic. She has a long history of medication non-adherence. It is not clear if she has been taking her medications consistently at present. I would continue clopidogrel with rixaroxaban, along with high-intensity statin, for now until further discussion with guardian on medication compliance. If compliance assured, then we should be concerned for a rivaroxaban failure. Would then switch to different MOA, specifically dabigatran. She currently has neurology f/up scheduled in the Stroke Clinic at [facility] on 06/11/21. She can follow-up there or is more than welcome to follow-up locally. History of Present Illness History of Present Illness Chief Complaint: stroke Narrative: Handedness: right. Ms. Aguilar is a 75 year-old woman with atrial fibrillation, stroke with chronic global aphasia, heart disease s/p STEMI, hypertension, hyperlipidemia, h/o DVT and PE due to factor V Leiden deficiency (although other notes indicate ? Factor 8 deficiency...), CKD, pre-diabetes, gastric ulcers/GI bleed, and depression. She is under guardianship (due to her aphasia) of her son Max whom she lives with. Ms. Aguilar presented to the ER on 05/12/21 stating a non-specific feeling of unwellness. Though apparently brought by her son due to increased confusion at home. In the ER, work-up included a CT head which showed a new subacute infarct - this time in R PRACTICE REPRESENTATIVE distribution. See further work-up below. She is already on clopidogrel 75mg daily along with rivaroxaban 15mg daily at baseline, though there is a question on her adherence to this regimen as previous notes indicate significant non-adherence. She was recently admitted to [facility] 03/29/21-05/03/21 for STEMI. She was found to have 3 vessel disease but was not a candidate for CABG. She underwent angioplasty of the LAD. No stents were placed. She was treated with rivaroxaban + DAPT x 1 month, after which aspirin was stopped. Her stay was complicated by GIB due to gastric ulcers which were clipped. During her stay, she had incidental findings of new L cerebellar and parietal infarcts. Infarcts were attributed to medication non-adherence prior to admission. Prior to her admission, she had bee on apixaban. This was switched to rivaroxaban in hopes for better medication compliance An APS report was made during the admission over concerns for care at home, but APS declined to investigate further. Her history of large left hemisphere MCA stroke dates to Mar 2020. She was not a candidate for tPA as she was outside of the time window but did undergo mechanical thrombectomy at [facility] for L M2 occlusion. She was newly diagnosed with atrial fibrillation at that time and was started on anticoagulatoin 1 week later. Current Work-up: -CTH (05/12/21): acute/subacute R temporo-occipital stroke in R PRACTICE REPRESENTATIVE territory. Old L cerebellum, R parietal, and L gstuvf-yozdxug-tbfzmlxc infarcts. I reviewed these images personally and this is my personal interpretation. -MRI brain (05/14/21): subacute large R PRACTICE REPRESENTATIVE stroke involving the R temporo-occipital lobe, right thalamus, and right corpus callosum. Old L cerebellum, R parietal, and L kkxjlo-lexksrl-ffkmiabl infarcts. Old hemosiderin deposits in L cerebellum and right posterior temporal lobe. Extensive chronic vascular changes. I reviewed these images personally and this is my personal interpretation. -MRA head (05/14/21): extensive diffuse atherosclerosis, worse on the left. I reviewed these images personally and this is my personal interpretation. -MRA neck (05/14/21): no significant stenosis per my view. Rads was concerned that image reporductions showed possible bilateral carotid stenosis, but source images look unremarkable to me. I reviewed these images personally and this is my personal interpretation. -TTE (05/14/21): EF 55%. The LV apex and anteroapical rice are akinetic. LA mildly dilated. -Tele: afib. -Labs: LDL 104, A1c 6.1 Review of Systems Unobtainable due to mental status PFSH All Active Problems (Updated 05/14/21 @ 21:19 by Rea Montes MD) Acute right PRACTICE REPRESENTATIVE stroke (Acute) Acute right MCA stroke (Acute) Acute confusion (Acute) DVT prophylaxis (Acute) Hematuria (Acute) Closed head injury (Acute) Acute on chronic anemia (Acute) TIA (transient ischemic attack) (Acute) Acute ischemic left MCA stroke (Acute) Elevated factor VIII level (Chronic) Expressive aphasia (Chronic) Discharge planning issues (Acute) Noncompliance with medication regimen (Chronic) H/O esophagogastroduodenoscopy (Chronic ~05/19/18) Hiatal hernia (Chronic) Gastritis and duodenitis (Acute) Gastric ulcer (Acute) Esophagitis (Acute) Nephrolithiasis (Chronic) Vasovagal syncope (Acute) History of kidney stones (Chronic) SVT (supraventricular tachycardia) (Chronic) Vascular dementia (Chronic) Pulmonary embolism (Chronic) DVT (deep venous thrombosis) (Chronic) CVA (cerebral vascular accident) (Chronic) CAD (coronary artery disease) (Chronic) Closed head injury (Acute) Syncopal episodes (Chronic) Hypercoagulable state (Chronic) Elevated d-dimer (Chronic) Medical History Afib CKD (chronic kidney disease) Essential hypertension Hx of upper gastrointestinal hemorrhage Personal history of DVT (deep vein thrombosis) Pulmonary embolism Recurrent cerebrovascular accidents (CVAs) Tubular adenoma (~2015) Surgical History Appendectomy section Colonoscopy - MAC (12/29/15) History of esophagogastroduodenoscopy (EGD) (~12/2017) Social History Smoking/Tobacco Use Status: Current every day Smoking risk assessment performed?: Yes Alcohol Intake: never Drug use: Daily Substance use type: marijuana Do you feel safe at home: No Do you feel safe in your relationship?: Yes Additional Social history: worried about living situation with having a stroke Visit Medication and Allergies Active Medications Generic Name Dose Route Start Last Admin Trade Name Freq PRN Reason Stop Dose Admin Acetaminophen 0 mg 05/12/21 18:04 Acetaminophen 325 Mg Tab PO Q4H PRN PRN Al Hydrox/Mg Hydrox/Simethicone 30 ml 05/12/21 18:04 Mylanta Suspension 30 Ml Cup PO Q2H PRN PRN Amlodipine Besylate 5 mg 05/13/21 08:30 05/14/21 07:45 Amlodipine 10 Mg Tab PO 5 mg DAILY YOLANDA Administration Atorvastatin Calcium 80 mg 05/12/21 22:00 05/13/21 21:23 Atorvastatin 40 Mg Tab PO 80 mg HS YOLANDA Administration Clopidogrel Bisulfate 75 mg 05/13/21 08:30 05/14/21 07:45 Clopidogrel 75 Mg Tab PO 75 mg DAILY YOLANDA Administration Dimethicone/Zinc Oxide 0 gm 05/12/21 18:04 Leonel Protect Cream 142 Gm Tube TP PRN PRN Docusate Sodium 100 mg 05/12/21 18:04 Docusate Sodium 100 Mg Cap PO TID PRN PRN Ferrous Sulfate 325 mg 05/12/21 20:00 05/14/21 07:46 Ferrous Sulfate 325 Mg Tab PO 325 mg BID YOLANDA Administration Sodium Chloride 500 mls @ 0 mls/hr 05/12/21 18:04 Saline 500ml Bag IV PRN PRN As Directed IV Miscellaneous Supplies 1 each 05/12/21 18:15 Iv Access IV DIRECTED YOLANDA Iron/Minerals/Multivitamins 1 tab 05/13/21 08:30 05/14/21 07:45 Multivitamin W/Minerals Tab PO 1 tab DAILY [facility] Administration Magnesium Hydroxide 30 ml 05/12/21 18:04 Milk Of Magnesia 30 Ml Cup PO DAILY PRN PRN Metoprolol Succinate 50 mg 05/12/21 21:00 05/14/21 07:46 Metoprolol Cr 50 Mg Tabcr PO 50 mg BID YOLANDA Administration Pantoprazole Sodium 40 mg 05/14/21 07:30 05/14/21 07:46 Pantoprazole 40 Mg Tabcr PO 40 mg DAILY@0730 YOLANDA Administration Polyethylene Glycol 17 gm 05/12/21 18:04 Polyethylene Glycol 3350 17 Gm Packet PO DAILY PRN PRN Constipation Rivaroxaban 15 mg 05/14/21 08:30 05/14/21 07:45 Rivaroxaban 15 Mg Tablet PO 15 mg DAILY [facility] Administration Sertraline HCl 150 mg 05/13/21 08:30 05/14/21 07:45 Sertraline 50 Mg Tab PO 150 mg DAILY [facility] Administration Sodium Chloride 0 ml 05/12/21 18:04 Normal Saline Flush 10 Ml Syr IVP PRN PRN Valsartan 160 mg 05/13/21 08:30 05/14/21 07:45 Valsartan 80 Mg Tab PO 160 mg BID YOLANDA Administration Allergies latex Allergy (Verified 05/12/21 13:40) Swelling/Edema lisinopril Adverse Reaction (Intermediate, Verified 05/12/21 13:40) raises BP morphine Adverse Reaction (Verified 05/12/21 13:40) Visual Disturbances Exam Narrative Exam Narrative: Physical Exam: Gen: Patient of apparent stated age, NAD Head and face: no facial or cranial abnormalities Neck: Supple, no meningismus, no occipital tenderness CV: irregularly irregular Resp: CTA B/L Abd: soft, nontender, nondistended Ext: No edema. No clubbing or cyanosis. No bony deformity. Neuro Exam: Language: fluency, naming, repetition, and comprehension all impaired with noted moderate global aphasia Mental Status: AAO, history limited due to aphasia Speech: no dysarthria Cranial nerves: Funduscopy: not performed CN II: visual rubio appear intact CN III, IV, : extraocular movements intact, no nystagmus, pupils symmetric and reactive to light CN V: face sensation intact to LT and PP CN VII: R facial weakness CN VIII: hearing intact bilaterally CN IX, X: palate rises symmetrically CN XI: trapezius/SCM 5/5 bilaterally CN XII: protrudes tongue symmetrically Sensory: appears intact to PP throughout but difficult to assess due to aphasa Motor: bulk and tone intact. Fine motor movements reduced on the left. ? subtle L pronator drift. Strength 5/5 throughout. Reflexes: 2+ throughout; toes down going bilaterally; Coordination: FTN and HTS intact bilaterally Gait: not tested Results Last Vital Signs Temp 97.5 F L 05/14/21 15:04 Pulse 64 05/14/21 15:20 Resp 16 05/14/21 15:04 BP 151/85 H 05/14/21 15:04 Pulse Ox 100 05/14/21 15:04 Labs Result diagrams: 05/12/21 14:04 05/12/21 14:04 Labs: Laboratory Results - last 24 hr 05/14/21 05/14/21 05/14/21 06:15 06:15 06:15 Hemoglobin A1c 6.1 H Triglycerides 78 Total Cholesterol 172 LDL Cholesterol, Calc 104 H HDL Cholesterol 53 25-OH Vitamin D Total 25.7 L TSH 1.51
--- NOTE | 2021-05-14 16:11 | PHACLINREV_ITS ---
Pharmacy Admission Review - Admission Clinical Review (Last Reviewed 05/12/21 @ 23:41 by Diogo Garay) Acute right MCA stroke (Acute) Acute confusion (Acute) latex Allergy (Verified 05/12/21 13:40) Swelling/Edema lisinopril Adverse Reaction (Intermediate, Verified 05/12/21 13:40) raises BP morphine Adverse Reaction (Verified 05/12/21 13:40) Visual Disturbances Resuscitation Status Full Code Height 5 ft 6 in Weight 72.1 kg - Renal Dosing Renal Dosing: BUN 14 mg/dL (7-18) 05/12/21 14:04 Creatinine 1.2 mg/dL (0.55-1.02) H 05/12/21 14:04 Medications needing adjustments: Reviewed List of meds needing interventions: eCrCl 39 ml/min - Anticoagulation Anticoagulation: Hgb 11.5 g/dL (11.2-15.7) 05/12/21 14:04 Hct 37.7 % (36.0-46.0) 05/12/21 14:04 Plt Count 187 10^3/uL (130-400) 05/12/21 14:04 Creatinine 1.2 mg/dL (0.55-1.02) H 05/12/21 14:04 DVT Prophylaxis: Reviewed Medications: Rivaroxaban Therapeutic Anticoagulation: Reviewed Medications: Rivaroxaban - Opiate Usage Evaluate Pain Scale/Pains Meds: N/A - Relevant Labs Sodium 142 mmol/L (136-145) 05/12/21 14:04 Potassium 3.7 mmol/L (3.5-5.1) 05/12/21 14:04 Chloride 108 mmol/L (98-107) H 05/12/21 14:04 Electrolytes, C-Reactive P, ESR: Reviewed - DM Control DM Control: Glucose 101 mg/dL (74-106) 05/12/21 14:04 Hemoglobin A1c 6.1 % (<5.7) H 05/14/21 06:15 Insulin Dosing: N/A - Heart Failure/HI Heart Failure/HI: Troponin I < 50 ng/L (<or=60) 05/12/21 14:04 EF%, SERGIO's, B-Blockers, Diuretics: Reviewed (metoprolol recently changed to 100mg xl once daily (vs 50mg tartrate BID)) - BP Control BP Control: Blood Pressure 151/85 Blood Pressure 146/80 If elevated: Reviewed - Qtc Review If Elevated: Reviewed List meds needing interventions: QTc 486 on admission - IV to PO Switch IV Medications: Reviewed - Home Meds Home Med List reviewed: Intervened Relevent Home Meds Not ordered & why?: updated list according to most recent visit with PCP (Dr. Melo at [facility]) -- sertraline was reduced to 50mg daily and metoprolol was changed to 100mg xl once daily, notified MD - Current meds Current Medication Order Review: Reviewed
--- NOTE | 2021-05-14 16:50 | PT.INIE ---
Date of service: 05/14/21 Time of Service: 17:09 PT Notes Visit Reasons: Acute CVA Physical Therapy Treatment Note Date: 05/14/21 Precautions: Fall. Standard. Expressive aphasia. Mild cognitive impairment. Subjective: Agreeable to work with PT. Reports being sleepy both sessions. In the morning indicated, fatigue and feeling weird after walk with PT. In the afternoon, reported feeling sick and said that she has no appetite. Denies headache, chest pain and dizziness throughout both sessions. Objective: General Observation: Telemetry monitoring in place. Mental Status: Alert to person. Able to follow single step commands. Pain: Denies Bed Mobility/Transfers: Rolling: I Supine to sit: Independent Sit to supine: Independent Sit to stand: Standby assist Stand to sit: Standby assist Bed to chair: Standby assist Chair to bed: Standby assist Gait: Ambulated 300 feet with contact-guard assist in the morning and standby assist in the afternoon. Mildly ataxic gait. Moderate path deviation. Nearly lost balance after the afternoon walk but was able to hold onto wall. Reported feeling sick after the afternoon nurse Perri informed. Stairs: In the morning completed up-and-down 4 x 6 inch steps and 6 x 4 inch steps of holding onto bilateral rails with step to gait pattern requiring contact-guard assist. Balance: Static Sitting: Normal Dynamic Sitting: Normal Static standing: Good Dynamic standing: Fair Assessment: Total activity tolerance limited. Dynamic standing balance impairment limits stability and safety of level surface ambulation. Patient is able to follow simple instructions. Requires continued work on balance skills and ambulation directional changes. DISCHARGE RECOMMENDATIONS: [] Home with no services [] [X] Home with services. Patient will benefit from home health PT services in order to progress mobility level using least restrictive assistive ambulatory device, assess home safety, identify additional equipment needs, and establish a functional maintenance program that will increase ability of patient to remain at home. [] Home with outpatient PT [] [] SNF for continued rehabilitation [] [] Intermediate Care [] [] SNF versus LTC based on ability to participate and progress [] TREATMENT CODE/TIME: Session 1??9753 0 x 15 minutes, 9711 0 x 13 minutes beginning at 9:48 AM. Session 2??9753 0 x 19 minutes beginning at 16:50 PM. Thank you for the opportunity to participate in the care of this patient.
--- NOTE | 2021-05-14 17:44 | PDOC.STREC ---
Date of service: 05/14/21 Time of Service: 17:44 Speech Therapy Recommendations Report ST Recommendations: JAVA WEB USER INTERFACE DEVELOPER Communication / Non-Treatment Note Consult order received; chart reviewed. JAVA WEB USER INTERFACE DEVELOPER spoke with patient's RN, Perri sims: current patient status, reason for consult from Dr Garay for clinical swallow evaluation given high risk choke/asp/pna s/p R temporal/occipital CVA; patient also with prior hx of L MCA stroke and had been seen by JAVA WEB USER INTERFACE DEVELOPER while inpt at [facility] after initial CVA in 03/2020 with mild oral dysphagia, expressive aphasia per chart review. RN reports no behavioral issues, ability to sit upright in chair earlier this AM; patient is able to express wants/needs at this time despite reportedly fumbling for words; suspect current aphasia presentation is patient's baseline per documentation review. Patient is currently on IDDSI levels 7/0 Heart healthy diet, taking pills whole with thin liquids and negative overt s/sx aspiration/concerns from staff at this time per interview; RN reports negative overt s/sx aspiration throughout the day, does report patient is lethargic, not eating much at this time. Per documentation review, patient is also being followed by RD at [facility], with noted hx of weight loss. Plan: JAVA WEB USER INTERFACE DEVELOPER to return for full assessment/screening as appropriate, provide updated recommendations as appropriate. Current Recommendations: Instrumentation: TBD Diet Texture Modification(s): IDDSI Level(s) 7-Regular Solids, 0-Thin Liquids Medication Intake: Whole with 0-Thin Liquids or as tolerated Alter medications only as advised by MD or Pharmacist RISK MANAGEMENT: Oral hygiene BID/2x per day and before/after PO intake using friction with toothbrush on all oral structures as tolerated HOB upright as tolerated; upright for all PO intake. Encourage physical mobility as tolerated. Level of Assistance/Supervision: Close supervision for all PO intake while on unit until JAVA WEB USER INTERFACE DEVELOPER screening/evaluation PO intake only when awake/alert? Strategies/Adaptations/Assistive Equipment: Reduce auditory and/or visual distractions when eating, Small sips and bites when eating, Slow rate of intake, Alternate intake of liquids and solids, Sensory enhancement as needed (flavor, texture, temperature), Small+frequent meals throughout day Posture/Positioning Needs: Maintain upright position at least 30 minutes after meals, Avoid meals/snacks 2-3 hours prior to reclining/sleeping, Sleep with head of bed elevated to reduce likelihood of nocturnal reflux Evelyn C. Downs, MA CCC-JAVA WEB USER INTERFACE DEVELOPER Speech-Language Pathologist [place]#[phone] Coding
--- NOTE | 2021-05-14 17:44 | NUR.NOTE ---
Nursing Note: Patient was working with PT and on arrival to her room stated that she felt sick. Patient found in her room, sitting in her chair, with her head down on her bedside table. Patient was holding onto a emesis bag stating I don't want to throw up. Patient also stated that she had to go to the bathroom, but she had an accident in her pants. Patient assisted to bathroom and cleaned up. Patient had a moderate dark BM which was heme tested and was negative. Patient assisted with cleaning up and patient asked to go to bed. Patient assisted to bed. Charge nurse made aware of poor appetite and nausea and dark stool, which was heme negative. CIB chocolate shake ordered for patient to try.
--- NOTE | 2021-05-14 18:53 | PDOC.CMPRO ---
- If Service Date Differs Date of service: 05/14/21 Time of Service: 18:53 Care Management Progress Note S/O: Sisi was lying on her side, looking out the window. She was pleasant in interaction. CM continues to follow. A: 75 year old female admitted to [facility] 05/12/21 for acute CVA P: Sisi will return home when medically cleared. 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 CM will coordinate RCT tranpsort via private vehicle when ready. She will follow up with her PCP and discharge plan of care. CM will continue to follow.
[2021-05-14] MEDS: Atorvastatin 40 MG TAB 80 MG PO (21:26)
--- NOTE | 2021-05-15 | DI.US_ITS ---
Exam(s) US CAROTID EXAM: US CAROTID CLINICAL HISTORY: CVA TECHNIQUE: Ultrasound performed using standard protocol. COMPARISON: US US ECHOCARDIOGRAM from 05/14/2021 FINDINGS: Duplex evaluation of the carotid circulation was performed with 2D and Doppler evaluation. The commo n, internal, and external carotid artery show normal flow velocities bilaterally. There is no visibl e atheromatous plaque. There is bilateral antegrade vertebral flow. IMPRESSION: No evidence of a hemodynamically significant carotid stenosis. DATA REPOSITORY:
[2021-05-15 04:47] VITALS: BP 146/83; PULSE 67; RESP 16; TEMP 36.4; O2SAT 100
[2021-05-15 06:57] VITALS: PULSE 65
[2021-05-15] MEDS: Valsartan 80 MG TAB 160 MG PO (07:44)
[2021-05-15] MEDS: Ferrous Sulfate 325 MG TAB PO (07:44)
[2021-05-15] MEDS: amLODIPine 5 MG TAB PO (07:44)
[2021-05-15] MEDS: Pantoprazole 40 MG TABCR PO (07:44)
[2021-05-15] MEDS: Rivaroxaban 15 MG TABLET PO (07:44)
[2021-05-15] MEDS: Multivitamin w/Minerals TAB 1 TAB PO (07:44)
[2021-05-15] MEDS: Sertraline 50 MG TAB PO (07:44)
[2021-05-15] MEDS: Metoprolol CR 100 MG TABCR PO (07:44)
[2021-05-15] MEDS: Clopidogrel 75 MG TAB PO (07:44)
[2021-05-15 07:58] VITALS: BP 128/67; PULSE 65; RESP 16; TEMP 36.6; O2SAT 100
--- NOTE | 2021-05-15 08:56 | OTTR_ITS ---
Date of service: 05/15/21 Time of Service: 08:30 Occupational Therapy Notes Occupational Therapy Inpatient Treatment Note Date: 05/15/21 PRECAUTIONS: Fall,Standard, Full SUBJECTIVE: Pt states that she is doig well and is tired. She is having increased difficulty finding words today but is in good spirits and agreeable to OT session. OBJECTIVE: PAIN: no c/o pain BATHING: sitting in chair with max (A) Set up/clean up Upper Body: (I) face, (B) UE and abdomen, max (A) back Lower Body: (I) to (B) knees DRESSING: Upper Extremity: min (A) don and doffing hospital gown Lower Extremity: (I) don and doffing (B) socks GROOMING: with max (A) Set up/clena up (I) brushing teeth with ideal technique EATING: Sitting in chair (I) ASSESSMENT/PLAN: Pt is demonstrating increased (I), goal is to progress pt to the standing position for her ADLS. TREATMENT CODES/TIME: 46367, 21 minutes (08:30) Amanda Colmenares OTR/[facility]
--- NOTE | 2021-05-15 10:03 | PDOC.CMPRO ---
- If Service Date Differs Date of service: 05/15/21 Time of Service: 10:03 Care Management Progress Note PT DISCHARGED. SEE DISCHARGE NOTE. A: 75 year old female admitted to [facility] 05/12/21 for acute CVA P: Sisi will return home when medically cleared. 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 CM will coordinate RCT tranpsort via private vehicle when ready. She will follow up with her PCP and discharge plan of care. CM will continue to follow.
--- NOTE | 2021-05-15 11:18 | TELEFU_ITS ---
Date of service: 05/15/21 Time of Service: 11:18 Nutrition Note NOTE: Met with Ms. Aguilar today. Admitted with acute right CVA. PMH: 2020 CVA, NSTEMI, aphasia, CKD, HTN. 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 33 lbs weight loss noted in last year, current BMI wnl. Appears well nourished. Following heart healthy diet with excellent intake. Not currently at nutritional risk but will continue to follow and support for optimal intake. Time Spent in Nutritional Counseling and Treatment: 10
--- NOTE | 2021-05-15 11:48 | NT_ITS ---
PT Notes Visit Reasons: Acute CVA 05/15/2021 Refused PT treatment this AM due to fatigue and testing this AM. Will attempt this PM. Elizabeth Doan, SCIENTIFIC DATABASE CURATOR
--- NOTE | 2021-05-15 12:20 | SP_ITS ---
Date of service: 05/15/21 Time of Service: 12:20 Subjective Patient referred for Clinical Swallow Evaluation from Dr Garay given high risk choke/asp/pna s/p R temporal/occipital CVA. HPI: Sisi is a 75 y/o F admitted with acute confusion and found to be s/p R temporal/occipital CVA; patient also with prior hx of L MCA stroke and had been seen by SECURITY SYSTEM INSTALLER while inpt at [facility] after initial CVA in 03/2020 with mild oral dysphagia, expressive aphasia per chart review. She also recently experienced STEMI last month, treated at [facility]. Per chart review patient's aphasia appears at baseline (secondary to prior L MCA). Since admit to med/surg unit, no RN- reported overt difficulties or s/sx aspiration while managing regular textures or thin liquids. Medical history also significant for vascular dementia, CAD, hiatal hernia and esophagitis, closed head injury, TIA, syncope, pulmonary embolism. SUBJECTIVE: Patient received alert/awake, pleasant, agreeable to evaluation, some difficulty to communicate wants/needs effectively given baseline aphasia; able to demonstrate comprehension of recommendations for safe p.o. intake upon discharge once deemed medically stable.? Patient was seated in armchair for this evaluati on and repositioned from reclined to upright for this evaluation. Regarding swallow function, she denies any difficulties or s/sx aspiration at baseline. When questioned re: current diet consistencies, she provides an example of fried fish. Precautions: Fall. Standard. Expressive aphasia. Mild cognitive impairment. All Active Problems?(Updated 05/12/21 @ 23:46 by Diogo Garay) Acute right MCA stroke (Acute) Acute confusion (Acute) DVT prophylaxis (Acute) Hematuria (Acute) Closed head injury (Acute) Acute on chronic anemia (Acute) TIA (transient ischemic attack) (Acute) Acute ischemic left MCA stroke (Acute) Elevated factor VIII level (Chronic) Expressive aphasia (Chronic) Discharge planning issues (Acute) Noncompliance with medication regimen (Chronic) H/O esophagogastroduodenoscopy (Chronic ~05/19/18) Hiatal hernia (Chronic) Gastritis and duodenitis (Acute) Gastric ulcer (Acute) Esophagitis (Acute) Nephrolithiasis (Chronic) Vasovagal syncope (Acute) History of kidney stones (Chronic) SVT (supraventricular tachycardia) (Chronic) Vascular dementia (Chronic) Pulmonary embolism (Chronic) DVT (deep venous thrombosis) (Chronic) CVA (cerebral vascular accident) (Chronic) CAD (coronary artery disease) (Chronic) Closed head injury (Acute) Syncopal episodes (Chronic) Hypercoagulable state (Chronic) Elevated d-dimer (Chronic) Medical History? Afib CKD (chronic kidney disease) Essential hypertension Hx of upper gastrointestinal hemorrhage Personal history of DVT (deep vein thrombosis) Pulmonary embolism Recurrent cerebrovascular accidents (CVAs) Tubular adenoma (~2015) Surgical History? Appendectomy section Colonoscopy - MAC (12/29/15) History of esophagogastroduodenoscopy (EGD) (~12/2017) Objective Objective Mental Status: Oriented to date. Not oriented to location (hospital) or reason for admission. Appearing with confusion, requiring repeated re-orientation to s ituation (mealtime) (I already ate my lunch. This banana is for me?) Language: Occasionally with inappropriate responses to orientation questions, but patient seems intermittently aware of these. When attempting to say that she moved to [place] in 2011, she says 05/05/21, then What's wrong with my mouth? Able to self-correct with increased attention/effort. Patient benefits from visual support when providing instructions for non-contextual tasks (e.g., visual model, gesture, etc). Speech: WFL Oral-Motor & Laryngeal Exam: Missing partial lower L molars. Mild weak tongue bilaterally. Mild delayed onset of volitional swallow suspected, per external palpation (unable to rule in/out at bedside). Mild dry mouth. WFL secretions. Vocal quality WFL, clear/dry. Difficulty coordinating strong cough, though suspect this may be motor coordination vs confusion, as opposed to laryngeal or respiratory insufficiency. PO trials completed: IDDSI Level 0: Thin liquid - Milk x 6oz (single sips, consiecutive sips via cup edge, self selected) IDDSI Level 7: Regular solid - Dinner roll (crusty) with butter X 7 bites Oral phase: Some discoordination of oral phase noted - patient at times swallows with tongue thrust/without closing mouth when drinking liquids, though appears to manage liquids well despite this. Noting L sided pocketing with solids between bites, to which the patient appears with low awareness/attention or not sensate. Upon finishing all solid trials lingual searching behaviors upon completing solid PO trials, able to clear majority of residue this way. Liquid wash also effective. Pharyngeal phase: Unremarkable, save for suspected mild delayed initiation per palpation. Voice remained dry/clear throughout. No s/sx aspiration. Denies sensation of pharyngeal residue. Assessment Patient appears with possible mild oral>pharyngeal dysphagia, likely in setting of [id number] effects of CVA and worsened by mental status (attention/awareness). Unclear if swallow function is changed from baseline. Will benefit from frequent diligent oral care in setting of oral phase deficits. Recommend intermittent supervision with meals to encourage PO intake and to e nsure oral clearance via lingual sweeps, liquid wash. Do not suspect frequent aspiration; likely a low risk of aspiration-related pulmonary complication and low risk of malnutrition/dehydration. Prognosis: Fair - given likely presence of chronic mild dysphagia, risk likely to decrease if/as mental status improves. Specialist referrals: N/A Ancillary tests: N/A Therapy: N/A - if patient c/o worsening swallow function at home, she is welcome to see SECURITY SYSTEM INSTALLER on outpatient basis. Goal: N/A Recommendations: Diet Texture Modification(s): IDDSI Level(s) 7-Regular Solids 0-Thin Liquids Medication Intake: As tolerated Alter medications only as advised by MD or Pharmacist ? RISK MANAGEMENT: Oral hygiene [BID/2x per day and before/after PO intake using friction with toothbrush on all oral structures as tolerated HOB upright as tolerated; upright for all PO intake. Encourage physical mobility as tolerated. Level of Assistance/Supervision: Intermittent supervision to ensure oral clearance and monitor for s/sx aspiration. PO intake only when awake/alert? ? Strategies/Adaptations/Assistive Equipment: Reduce auditory and/or visual distractions when eating Provide verbal and/or visual cues to use recommended strategies: Small sips/bites, lingual sweep, liquid wash/alternate sips&bites Posture/Positioning Needs: Maintain upright position at least 30 minutes after meals ? Demi Fleming M.S., [facility]-SECURITY SYSTEM INSTALLER Speech Language Pathologist ? SECURITY SYSTEM INSTALLER CPT Code: 76744 Clinical Swallowing Evaluation Time spent direct contact: 25 min ? Plan No further SECURITY SYSTEM INSTALLER follow-up needed. Care providers follow recommendations as above. Coding
--- NOTE | 2021-05-15 14:12 | DSE_ITS ---
Date of service: 05/15/21 Time of Service: 14:13 DS: Diagnosis Discharge Diagnosis (1) Ischemic cerebrovascular accident (CVA) due to atherosclerosis of large intracranial artery: Status: Acute Asessment and Plan: patient was found to have significant intracranial atherosclerotic stenosis of her right internal carotid artery but no hemodynamic significant stenosis of her cervical vessels. Patient to remain on plavix and Xarelto. 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 She is to remain on Plavix (clopidogrel) for her coronary artery disease and stents. Patient will continue w/ home health services as outlined below. (3) Afib: Asessment and Plan: Patient to remain on her current dose of Toprol XL 100 mg daily to control her afib rate. She is to remain on Xarelto 15 mg daily for stroke prevention (4) Discharge planning issues: Status: Acute Asessment and Plan: patient will be dc home w/ continued home health services including nursing to monitor her medication compliance and to educate patient about the purposes of her meds as well as to monitor her BP, heart rate, afib control and to coordinate any medication changes made by her PCP or her specialists. Home health services to include an ADVERTISING ACCOUNT MANAGER to coordinate patient's services with area agencies and with the patient's providers. Continue home health services w/ physical therapy to evaluate and treat patient's generalized deconditionings from her repeated hospital visits and recurrent strokes. O.T. services to be added to evaluate and treat patient regarding her ADL performance to ensure maximum independent function. Discharge Plan Disposition Patient Disposition: HOME W/HOME HEALTH SERVICE Condition: Improving Discharge Details Reason For Visit: Acute CVA Admit Date/Time: 05/12/21 17:08 Admit Provider: Diogo Garay Attending Provider: Diogo Garay Primary Care Provider: Concha Loving Hospital Course Hospital Course: 75-year-old right-handed female with a history of repeated strokes and chronic atrial fibrillation presented emergency department with acute confusion was found to have multilevel infarcts on her CT scan with the most recent new large area infarct involving right temporal and right occipital lobes. No evidence of intracranial hemorrhage. Patient is chronically on anticoagulation previously on apixaban but most recently had been switched to rivaroxaban when she was hospitalized at [facility] for an ST elevation myocardial infarction. Her confusion improved and she was back to her baseline. Despite the large area of stroke she seemed to have no focal motor deficits. She was admitted for further evaluation of her stroke and clarification of her home D.O.A.C. therapy. Her medication list included both apixaban and rivaroxaban as well as Plavix. Apparently the Plavix was added because of her recent UT and coronary stents. The apixaban had been recently changed to rivaroxaban. She was monitored on telemetry and noted to be in chronic atrial fibrillation at a controlled rate. She was kept on her home dose of Toprol-XL 100 mg daily. Initially she was put on apixaban but when her medication list was reconciled this was changed to rivaroxaban 15 mg daily. She underwent an MRI scan of the brain on 05/14/2021 showed large area of acute nonhemorrhagic infarct involving the right temporal lobe and right middle cranial fossa back to the right occipital lobe as well as some involving the right thalamus and right side of the splenium of the corpus callosum. MRA of the brain showed high-grade stenosis of the right internal carotid artery in the skull base and inferior aspect of the cavernous sinus. She was also found to have moderate focal narrowing the left internal carotid artery in the lower cavernous sinus. Right middle cerebral artery appear to be patent as were the branches including the sylvian fissure in the left middle cerebral artery also appear to be patent. Basilar artery was patent the bilateral superior cerebellar arteries appear to be patent. The bilateral posterior cerebral arteries exhibited multilevel mild stenosis but ot herwise were patent. Patient underwent MRA of the cervical vessels of the neck and the source images did not reveal hemodynamically significant stenosis but on reconstructed images there was suggestion of significant appearing stenosis in both internal carotid arteries in the neck and therefore CTA of the neck was recommended because of this discordance. Instead a carotid ultrasound was obtained on 05/15/2021 and showed no evidence of hemodynamically significant carotid stenosis. An echocardiogram was performed on 05/14/2021 and demonstrated normal left ventricular size and function with an EF of 55%. However the apex in the anteroapical segments are akinetic consistent with her prior history of myocardial infarction. RV size and systolic function were normal. Patient has mild left atrial enlargement but normal right atrial size. She has mild to moderate mitral regurgitation and mild tricuspid regurgitation with an RVSP of 36 mm and trivial pericardial effusion. Aortic valve is without stenosis or regurgitation and was trileaflet. Patient was evaluated by Dr. Rea Montes who recommended ascertaining from the patient's son whether she has been compliant with her medications. The implication was that if she was compliant with her medications then perhaps she should be changed from her Xarelto to Pradaxa however she was noncompliant with her medications and the only recommendation was to ensure compliance. I spoke with her son Max who indicated that he can not tell his mother what to do and that she is her own boss and does her own medications. Case management met with the patient and reinforced with the patient her need to follow the doctor's instructions regarding taking her medications. OT PT and speech therapy all were consulted on the patient. See their notes for details. Speech therapy cleared her for regular solid diet with thin liquids. Physical therapy was able to ambulate the patient 300 feet with contact guarding assistance. Patient demonstrates a mild ataxic gait and moderate path deviation. Patient was able to ambulate up and down steps with holding onto bilateral handrails and required contact-guard assistance. They recommend home health services with home health physical therapy to progress her mobility level using least restrictive assistive amatory devices to assess for home safety and to identify any additional equipment needs to establish a functional maintenance program that will increase ability of patient to remain at home. At this time there is nothing further medically to work-up or to manage and she should continue her home medications of Xarelto and Plavix for stroke prevention and continue her Toprol-XL for atrial fibrillation rate control. She should follow-up with her primary care provider in the next 1 to 2 weeks and follow-up with Dr. Rea Montes in 4 to 6 weeks. Home Meds and New Rx's Prescriptions: Continued cholecalciferol (vitamin D3) 125 mcg (5,000 unit) capsule 125 mcg PO QWEEK 0RF ferrous sulfate [FeroSul] 325 mg (65 mg iron) tablet 325 mg PO BID 0RF multivitamin with minerals Tablet 1 tab PO DAILY 0RF atorvastatin 80 mg tablet 80 mg PO HS 0RF Label Comments: Take 1 tablet by mouth every evening clopidogrel 75 mg tablet 75 mg PO DAILY 0RF Label Comments: Take 1 tablet by mouth once a day pantoprazole 40 mg tablet,delayed release (DR/EC) 40 mg PO DAILY 0RF Label Comments: Take 1 tablet by mouth once a day valsartan 160 mg tablet 160 mg PO BID 0RF Label Comments: Take 1 tablet by mouth twice a day Xarelto 15 mg tablet 15 mg PO DAILY 0RF Label Comments: Take 1 tablet by mouth once a day x 30 days Rx Instructions: for 30 days (started 05/09/2021) amlodipine 10 mg tablet 5 mg PO DAILY 0RF sertraline 50 mg tablet 50 mg PO DAILY 0RF Label Comments: TAKE ONE TABLET BY MOUTH EVERY DAY Rx Instructions: recent visit with PCP on 05/10/21 revealed pt may not be taking medications at all; her med list was reviewed at this visit and sertraline was changed to 50mg daily and metoprolol to 100mg xl once a day and all supplements were stopped metoprolol succinate [Toprol XL] 100 mg tablet extended release 24 hr 100 mg PO DAILY 0RF Label Comments: Take 1 tablet by mouth once a day acetaminophen [Tylenol] 325 mg Tablet 2 tab PO Q4H PRN PRNQty: 30 0RF Discharge Instructions Instructions: Ischemic Stroke (DC), Altered Mental Status (ED) Additional Instructions: Please ensure that you stay hydrated and eat regular meals. Return to emergency department for any worsening symptomatology otherwise follow-up with primary care doctor. Be sure to take your medications as directed regularly, especially your anticoagulants, Plavix (clopidogrel) and Xarelto (rivaroxaban) Stand Alone Forms: Nursing Discharge Form Referrals: Purnima Melo [ NON-[facility] STAFF PHYSICIAN] - 05/17/21 2:15 pm Rea Montes MD [ [facility] STAFF PHYSICIAN] - 06/13/21 10:15 am Activity:: Activity as Tolerated Equipment/Supplies:: No Equipment Needed Diet:: Normal Diet Discharge Orders Discharge Orders: Discharge Order (Routine); Ordered 05/15/21 Ordered By: Diogo Garay DS: Summary Time Spent with Patient providing and/or coordinating discharge services: Less than 30 minutes Specific discharge activities: reviewing her diagnostic studies, discussion of her meds w/ her son; coordination w/ CM Status at Discharge Functional status at discharge: independent ambulation Overall status at discharge: patient is progressing back to baseline Mental Status: mental status grossly normal Speech and Movement: speech and movement normal Mood: congruent mood Affect: normal affect Exam Narrative Exam Narrative: elderly female who is pleasant, sitting up at her bedside eating her lunch. She is alert but oriented only to person and the fact that she is in the hospital She has no dysarthric speech, she has no facial asymmetry. She has normal ROM and strength of her arms and legs. No ataxia. Sensory grossly intact to light touch. Lungs: clear Heart: irregularly irregular Psych Mental Status: mental status grossly normal Speech and Movement: speech and movement normal Mood: congruent mood Affect: normal affect DS: Data Vitals/I&O Vitals and I&O: Vital Signs Temperature 36.6 C 05/15/21 07:58 Temperature Source Tympanic 05/15/21 07:58 Pulse 65 05/15/21 07:58 Pulse Rhythm Irregular 05/15/21 07:57 Pulse 81 05/12/21 19:11 Respiratory Rate 16 05/15/21 07:58 Respiratory Effort 05/15/21 07:57 Respiratory Depth Normal 05/15/21 07:57 Respiratory Pattern Normal 05/15/21 07:57 Blood Pressure 128/67 05/15/21 07:58 Blood Pressure Mean 112 05/12/21 19:11 Blood Pressure Position Sitting 05/12/21 13:09 Pulse Oximetry 100 05/15/21 07:58 Oxygen Delivery Method Room Air 05/15/21 07:58 Oxygen Flow Rate 0 05/15/21 07:58 Pain Level 0 05/15/21 07:58 Comment 05/12/21 23:05 Intake & Output 05/14/21 05/15/21 05/15/21 23:59 11:59 23:59 Intake Total 180 / 420 240 / 240 Output Total 250 / 500 Balance -70 / -80 240 / 240 Weight 71.3 kg Intake: Oral 180 / 420 240 / 240 Output: Urine 250 / 500 Other: Urine Color Yellow Yellow Urine Appearance Clear Clear Comment unable to measure Per patient someone took he to the bathroom before lunch Stool Occult Blood Negative Stool Size Moderate Stool Characteristics Soft Black Green Voiding Methods Toilet Toilet Incontinent PFSH All Active Problems (Updated 05/15/21 @ 16:43 by Diogo Garay) Ischemic cerebrovascular accident (CVA) due to atherosclerosis of large intracranial artery (Acute) 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 (Acute) Acute right MCA stroke (Acute) Acute confusion (Acute) DVT prophylaxis (Acute) Hematuria (Acute) Closed head injury (Acute) Acute on chronic anemia (Acute) TIA (transient ischemic attack) (Acute) Acute ischemic left MCA stroke (Acute) Elevated factor VIII level (Chronic) Expressive aphasia (Chronic) Discharge planning issues (Acute) Noncompliance with medication regimen (Chronic) H/O esophagogastroduodenoscopy (Chronic ~05/19/18) Hiatal hernia (Chronic) Gastritis and duodenitis (Acute) Gastric ulcer (Acute) Esophagitis (Acute) Nephrolithiasis (Chronic) Vasovagal syncope (Acute) History of kidney stones (Chronic) SVT (supraventricular tachycardia) (Chronic) Vascular dementia (Chronic) Pulmonary embolism (Chronic) DVT (deep venous thrombosis) (Chronic) CVA (cerebral vascular accident) (Chronic) CAD (coronary artery disease) (Chronic) Closed head injury (Acute) Syncopal episodes (Chronic) Hypercoagulable state (Chronic) Elevated d-dimer (Chronic) Medical History Afib CKD (chronic kidney disease) Essential hypertension Hx of upper gastrointestinal hemorrhage Personal history of DVT (deep vein thrombosis) Pulmonary embolism Recurrent cerebrovascular accidents (CVAs) Tubular adenoma (~2015) Surgical History Appendectomy section Colonoscopy - MAC (12/29/15) History of esophagogastroduodenoscopy (EGD) (~12/2017) Social History Smoking/Tobacco Use Status: Current every day Smoking risk assessment performed?: Yes Alcohol Intake: never Drug use: Daily Substance use type: marijuana Do you feel safe at home: No Do you feel safe in your relationship?: Yes Additional Social history: worried about living situation with having a stroke
--- NOTE | 2021-05-15 16:02 | CHAPLAIN ---
Sisi was sitting up in her chair when I visited. She was pleasant. She struggled a couple of times to come up with the right word during our conversation. I explained my role and offered support. I will continue to visit.
--- NOTE | 2021-05-15 17:00 | PT.INDS ---
Date of service: 05/14/21 PT Notes Visit Reasons: Acute CVA Physical Therapy Inpatient Discharge Summary Date: 05/13/21 Dates of service: 05/13/2021 through 05/14/2021 This is a clinical summary of care provided for the duration of dates listed above. No charge was made in the completion of this documentation. Referring Doctor: Diogo Garay MD PT Orders: PT CONSULT: fall safety assessment Precautions: Fall. Standard. Patient Profile/Admitting Diagnosis: Acute CVA PMHX:? All Active Problems?(Updated 05/12/21 @ 23:46 by Diogo Garay) Acute right MCA stroke (Acute) Acute confusion (Acute) DVT prophylaxis (Acute) Hematuria (Acute) Closed head injury (Acute) Acute on chronic anemia (Acute) TIA (transient ischemic attack) (Acute) Acute ischemic left MCA stroke (Acute) Elevated factor VIII level (Chronic) Expressive aphasia (Chronic) Discharge planning issues (Acute) Noncompliance with medication regimen (Chronic) H/O esophagogastroduodenoscopy (Chronic ~05/19/18) Hiatal hernia (Chronic) Gastritis and duodenitis (Acute) Gastric ulcer (Acute) Esophagitis (Acute) Nephrolithiasis (Chronic) Vasovagal syncope (Acute) History of kidney stones (Chronic) SVT (supraventricular tachycardia) (Chronic) Vascular dementia (Chronic) Pulmonary embolism (Chronic) DVT (deep venous thrombosis) (Chronic) CVA (cerebral vascular accident) (Chronic) CAD (coronary artery disease) (Chronic) Closed head injury (Acute) Syncopal episodes (Chronic) Hypercoagulable state (Chronic) Elevated d-dimer (Chronic) Medical History? Afib CKD (chronic kidney disease) Essential hypertension Hx of upper gastrointestinal hemorrhage Personal history of DVT (deep vein thrombosis) Pulmonary embolism Recurrent cerebrovascular accidents (CVAs) Tubular adenoma (~2015) Surgical History? 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 Equipment Owned/DME: None Subjective: NT. See most recent [employer] notes. Objective: General Observation: NT. See most recent [employer] notes. Mental Status: NT. See most recent [employer] notes. Pain: NT. See most recent [employer] notes. Vitals: NT. See most recent [employer] notes. ROM: Right Upper Extremity: Shoulder Flexion WFL. Shoulder abduction WFL. Elbow flexion WFL. Wrist flexion WFL. Opening and closing of hand WFL. Left Upper Extremity: Shoulder Flexion WFL. Shoulder abduction WFL. Elbow flexion WFL. Wrist flexion WFL. Opening and closing of hand WFL. Right Lower Extremity: Hip flexion WFL. Hip abduction WFL. Knee flexion WFL. Ankle dorsiflexion WFL. Ankle plantarflexion WFL. Left Lower Extremity: Hip flexion WFL. Hip abduction WFL. Knee flexion WFL. Ankle dorsiflexion WFL. Ankle plantarflexion WFL. Strength: Right Upper Extremity: Shoulder flexors 5/5. Shoulder abductors 5/5. Elbow flexors 5/5. Elbow extensors 5/5. 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 Left Upper Extremity: Shoulder flexors 5/5. Shoulder abductors 5/5. Elbow flexors 5/5. Elbow extensors 5/5. 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 Right Lower Extremity: Hip flexors 5/5. Hip abductors 5/5. Knee flexors 5/5. Knee extensors 5/5. Ankle dorsiflexors 5/5. Ankle plantarflexors 5/5. Left Lower Extremity: Hip flexors 5/5. Hip abductors 5/5. Knee flexors 5/5. Knee extensors 5/5. Ankle dorsiflexors 5/5. Ankle plantarflexors 5/5. Sensation: Intact as to pain and pressure on bilateral lower extremities. Bed Mobility/Transfers: Rolling: I Supine to sit: I Sit to supine: I Sit to stand: Standby assist Stand to sit: Standby assist Bed to chair: Standby assist Chair to bed: Standby assist Gait: Tolerates up to 300 feet of level surfaces using no assistive device. Reports fatigue and a sense of unwellness. Mild ataxia seen . Minimal path deviation. Difficulty with directional changes. Stairs: Negotiates 6 x 4 inch steps and 4 x 6-inch steps while holding onto B rails with contact guard assist. Balance: Static Sitting: Normal Dynamic Sitting: Normal Static Standing: Good Static Dynamic: Good 4 stage balance test Time completed FT 8s Semi-tandem NT Tandem NT SLS NT Assessment: Patient presents with clinical signs and symptoms consistent with current/admitting diagnoses that have resulted to mobility limitations, gait instability, generalized weakness, and impairment of motor control as demonstrated by the following impairment level findings: 1. Impaired sitting/standing balance 2. Impaired activity tolerance Impairments are contributing to the following functional limitations: 1. Increased dependence with transfers 2. Inability to safely ambulate without assistive device and physical assistance 3. Increase completion time for mobility ADL performance 4. Increased fall risk Goals: Goals x1 week 1. Bed-Chair: independent NOT MET 2. Chair-Bed: independent NOT MET 3. Independent gait on level surface with use of least restrictive device for at least 300 feet without report of pain nor dyspnea NOT MET 4. Independent stair negotiation while holding onto bilateral rails for at least 10 steps without report of pain nor dyspnea NOT MET 5. Independent with home exercise program NOT MET 6. Good static and dynamic standing balance/tolerance NOT MET DISCHARGE RECOMMENDATIONS: Given pt's mobility status, pt is appropriate for DC to home with caregiver support (pt's son) and PT. TREATMENT CODE/TIME: MA Thank you for the opportunity to participate in the care of this patient. Peggy Tan PT, DPT, CLT [facility] [place], [place]
--- NOTE | 2021-05-15 18:09 | PDOC.CMDIS ---
- If Service Date Differs Date of service: 05/15/21 Time of Service: 18:09 LACE Index Scoring Tool - Questions: Length of Stay (in days): 3 Acuity (Admit via E.D.?): Yes Comorbidities: Cerebrovascular Disease, Dementia, Liver or Renal Disease E.D. Visits: 2 - Answers: Total Score: 13 Risk of Readmission: High Risk Care Management Discharge Reason for Hospitalization: Acute CVA Discharge Plan: Sisi returned home today with a resumption of HH RN, PT, OT. ANA informed [facility] of her discharge today. She was transported home via [facility] private vehicle, coordinated by . spoke to her son, alerting him of her disharge. She will follow up with her PCP and discharge plan of care. She is happy to be going home. Patient/Family Education Needs: Review discharge instructions regarding activity levels and medications, discussion of self care needs including ask me three and goals of care. Services Needed at Discharge: Home Health Care Services (HH RN, PT, OT), Transportation ([facility] PV)
[2021-05-17 16:06] LABS: 1,25-Dihydroxyvitamin D 50 pg/mL (18-78)
== END 2021-05-15 17:30 | disposition home health service (06) | DRG 65 ==
LOC: ER 17:25 → MS 19:34
PROVIDERS: Admitting Provider Internal Medicine; Emergency Provider Emergency Medicine; PCP Nurse Practitioner Family; Visit Provider Internal Medicine
DX: I63.231 Cerebral infarction due to unspecified occlusion or stenosis of right carotid arteries (principal); I47.1 Supraventricular tachycardia; D68.69 Other thrombophilia; I69.320 Aphasia following cerebral infarction; I48.91 Unspecified atrial fibrillation; I25.10 Atherosclerotic heart disease of native coronary artery without angina pectoris; Z79.01 Long term (current) use of anticoagulants; I25.2 Old myocardial infarction; D64.9 Anemia, unspecified; Z91.19 Patient's noncompliance with other medical treatment and regimen; K44.9 Diaphragmatic hernia without obstruction or gangrene; Z86.718 Personal history of other venous thrombosis and embolism; F01.50 Vascular dementia, unspecified severity, without behavioral disturbance, psychotic disturbance, mood disturbance, and anxiety; N20.0 Calculus of kidney; Z86.711 Personal history of pulmonary embolism; N18.9 Chronic kidney disease, unspecified; F17.210 Nicotine dependence, cigarettes, uncomplicated; R73.03 Prediabetes; F32.A Depression, unspecified; Z87.11 Personal history of peptic ulcer disease
CPT/HCPCS: 36415; 70544; 70547; 80053; 80061; 82306; 87635; 92610; 93005; 93306; 97110; 97162; 97165; 97530; 97535; 99222; 99285; 70450; 70551; 71046; 81003; 81015; 82652; 83036; 84443; 84484; 85025; 93010; 93880; 99231; 99232; 99238

== ENCOUNTER → 2021-05-14 07:47 | Outpatient (BNVA) | payer MEDICARE, MEDICAID, SELFPAY | PROVIDERS: PCP Nurse Practitioner Family; Referring Provider Nurse Practitioner Family; Visit Provider Psychiatry & Neurology Neurology | DX: R69 Illness, unspecified (principal) ==

== ENCOUNTER 2021-05-22 16:34 | Inpatient (IN) | payer MEDICARE, MEDICAID, SELFPAY ==
[2021-05-22] VITALS (34 sets, daily range): BP systolic 109–156; BP diastolic 70–94; PULSE 61–124; RESP 11–27; TEMP 36.3–36.4; O2SAT 92–100
--- NOTE | 2021-05-22 17:15 | RT.EKG_ITS ---
APPROVED REPORT Exam: Resting ECG Reason for Exam: confusion, recent stemi Patient Location: E HR:89 bpm ECG Measurements Heart Rate 89 AXIS TN [id number] P [id number] QRSd 87 QRS 50 QT 373 T [id number] QTc 453 Conclusion Atrial fibrillation...V-rate 74-103, irreg A-activity Anterior infarct, old...Q >40mS, abnormal ST-T, V2-V5 afib, rate controlled, left axis, flattening of t waves diffusely
--- NOTE | 2021-05-22 17:15 | DI.RAD_ITS ---
Exam(s) XR PORTABLE CHEST AP EXAM: XR PORTABLE CHEST AP CLINICAL HISTORY: confusion, recent stroke and stemi. TECHNIQUE: 2D digital imaging was performed. COMPARISON: CR,XR XR CHEST 2V PA LATERAL from 05/12/2021 FINDINGS: LUNGS: Clear. No pleural abnormality seen. HEART: Normal. MEDIASTINUM: Normal. OTHER FINDINGS: Note is made of vascular clips at the esophageal hiatus. IMPRESSION: No acute pulmonary findings. DATA REPOSITORY: RADIATION DOSE DELIVERED: Total DLP
--- NOTE | 2021-05-22 17:15 | DI.CT_ITS ---
Exam(s) CT HEAD WO EXAM: CT HEAD WO CLINICAL HISTORY: confusion, recent stroke. TECHNIQUE: Imaging Protocol: Axial computed tomography images with coronal and sagittal reformatted images were created and reviewed COMPARISON: CT CT HEAD WO from 05/12/2021 FINDINGS: There is moderate generalized cerebral atrophy.. This examination was read as a preliminary reading by a virtual Radiology radiologist. They raise th e possibility petechial hemorrhage associated with right inferior temporal lobe/occipital lobe stroke period although this is not a clear-cut finding, possibility of hemorrhagic infarct is not entirely excluded. There does appear to be some evolution of the appearance of the previously described right -sided infarct indicating this is subacute in nature. Additionally an old large left hemisphere stro ke is noted. Follow-up MR examination recommended.. The orbital structures are unremarkable. The temporal bone structures appear intact. Calvarium: Normal. Visualized Paranasal sinuses/Mastoids: Clear. IMPRESSION: Evolving right inferior temporal/occipital infarct, question interval occurrence of petechial hemorrh age since prior examination of May 12. MR may be obtained for further evaluation if clinically appropriate.. RADIATION DOSE DELIVERED: 766mGy.cm Total DLP 766mGy.cm Total DLP !Error CTDIvol DATA REPOSITORY: All CT scans at this facility are submitted to the National Radiology Data Registry (NRDR) Dose Index Registry (DIR) with the [employer] (ACR). RADIATION OPTIMIZATION: All CT scans at this facility use at least one of these dose optimization te chniques: automated exposure control; mA and/or kV adjustment per patient size (includes targeted exa ms where dose is matched to clinical indication); or iterative reconstruction.
--- NOTE | 2021-05-22 17:28 | W.ED.GENAD ---
Discharge Plan Disposition Patient Disposition: [facility] INPATIENT Condition: Stable Discharge Details Chief Complaint: GenMedical Clinical Impression: Debility, Petechial hemorrhage Primary Care Provider: Concha Loving ED Provider: Braulio Ramos [place] Meds and New Rx's Prescriptions: No Action cholecalciferol (vitamin D3) 125 mcg (5,000 unit) capsule 125 mcg PO QWEEK 0RF ferrous sulfate [FeroSul] 325 mg (65 mg iron) tablet 325 mg PO BID 0RF multivitamin with minerals Tablet 1 tab PO DAILY 0RF atorvastatin 80 mg tablet 80 mg PO HS 0RF Label Comments: Take 1 tablet by mouth every evening clopidogrel 75 mg tablet 75 mg PO DAILY 0RF Label Comments: Take 1 tablet by mouth once a day pantoprazole 40 mg tablet,delayed release (DR/EC) 40 mg PO DAILY 0RF Label Comments: Take 1 tablet by mouth once a day valsartan 160 mg tablet 160 mg PO BID 0RF Label Comments: Take 1 tablet by mouth twice a day Xarelto 15 mg tablet 15 mg PO DAILY 0RF Label Comments: Take 1 tablet by mouth once a day x 30 days Rx Instructions: for 30 days (started 05/09/2021) amlodipine 10 mg tablet 5 mg PO DAILY 0RF sertraline 50 mg tablet 50 mg PO DAILY 0RF Label Comments: TAKE ONE TABLET BY MOUTH EVERY DAY Rx Instructions: recent visit with PCP on 05/10/21 revealed pt may not be taking medications at all; her med list was reviewed at this visit and sertraline was changed to 50mg daily and metoprolol to 100mg xl once a day and all supplements were stopped metoprolol succinate [Toprol XL] 100 mg tablet extended release 24 hr 100 mg PO DAILY 0RF Label Comments: Take 1 tablet by mouth once a day acetaminophen [Tylenol] 325 mg Tablet 2 tab PO Q4H PRN PRNQty: 30 0RF Medical Decision Making 75-year-old female history of recent STEMI, recent stroke, persistent expressive aphasia, presents with confusion by EMS, patient denies any current complaints no headache chest pain nausea vomiting shortness of breath or other stomach signs of illness, afebrile nontoxic moving all extremities, is actually seen this patient in the past and her aphasia seems somewhat improved from her last visit, more interactive and more comprehendible, no psychiatric concerns at this time, patient was covered in urine on arrival, will attempt to contact son to discuss home care environment, unlikely acute CVA or ACS at this time however given her history and initial complaint of confusion per EMS must consider these pathologies, muscle consider UTI versus less likely pneumonia versus arrhythmia versus electrolyte derangement. No external signs of trauma. Labs and imaging will contact family, to discuss safety of returning home versus placement in rehabilitation/assisted living facility given multiple similar visits in the past Patient rest comfortably no acute distress. Neurologically intact unchanged from arrival. Labs largely unremarkable, possible petechial conversion of area of encephalomalacia however no headache no vomiting no change in clinical status; high concern for home environment as patient presented covered in urine, endorses that she feels safe at home; however it is clear that she is not getting the care she needs currently as it is apparent that she cannot successfully perform the acts of daily living required to live independently/semiindependently Discussed this with her son Max on the phone. Max agrees that patient would benefit from rehabilitation stay. Patient is amenable to rehabilitation. Patient was admitted for rehabilitation placement. HPI General Date/Time Provider Initiated Documentation: 05/22/21 17:03. HPI Narrative: 75-year-old female history of NSTEMI, CVA, presents brought in from home for confusion unclear who called EMS, patient does have persistent aphasia from stroke, was covered in urine, endorses that patient lives at home with her son, feels safe at home has been eating and drinking okay per patient, denies chest pain headache nausea vomiting or other systemic signs of illness Related Data Home Medications Medication Instructions Recorded Confirmed acetaminophen 325 mg tablet 2 tab PO Q4H PRN PRN #30 tab 01/11/18 05/22/21 (Tylenol) multivitamin with minerals 1 tab PO DAILY 05/04/20 05/22/21 cholecalciferol (vitamin D3) 125 125 mcg PO QWEEK cap 11/24/20 05/22/21 mcg (5,000 unit) capsule ferrous sulfate 325 mg (65 mg 325 mg PO BID 11/24/20 05/22/21 iron) tablet (FeroSul) amlodipine 10 mg tablet 5 mg PO DAILY 05/12/21 05/22/21 atorvastatin 80 mg tablet 80 mg PO HS 05/12/21 05/22/21 clopidogrel 75 mg tablet 75 mg PO DAILY 05/12/21 05/22/21 pantoprazole 40 mg tablet,delayed 40 mg PO DAILY 05/12/21 05/22/21 release rivaroxaban 15 mg tablet (Xarelto) 15 mg PO DAILY 05/12/21 05/22/21 valsartan 160 mg tablet 160 mg PO BID 05/12/21 05/22/21 metoprolol succinate 100 mg 100 mg PO DAILY 05/14/21 05/22/21 tablet,extended release 24 hr (Toprol XL) sertraline 50 mg tablet 50 mg PO DAILY 05/14/21 05/22/21 Previous Rx's Medication Instructions Recorded acetaminophen 325 mg tablet 2 tab PO Q4H PRN PRN #30 tab 01/11/18 (Tylenol) Allergies Allergy/AdvReac Type Severity Reaction Status Date / Time latex Allergy Swelling/Ed Verified 05/22/21 16:57 [place]upe lisinopril AdvReac Intermediate raises BP Verified 05/22/21 16:57 morphine AdvReac Visual Verified 05/22/21 16:57 Disturbances General Stated Complaint: GenMedical QUINTIN: 3 Review of Systems Narrative: Review of Systems Constitutional: negative Eyes: negative ENT: negative Cardiovascular: negative Respiratory: negative Gastrointestinal: negative : negative Musculoskeletal: negative Skin: negative Neurologic: negative Psych: negative PFSH All Active Problems (Updated 05/22/21 @ 20:41 by Braulio Ramos MD) Debility (Acute) Petechial hemorrhage (Acute) Ischemic cerebrovascular accident (CVA) due to atherosclerosis of large intracranial artery (Acute) DVT prophylaxis (Acute) Hematuria (Acute) Closed head injury (Acute) Acute on chronic anemia (Acute) TIA (transient ischemic attack) (Acute) Acute ischemic left MCA stroke (Acute) Elevated factor VIII level (Chronic) Expressive aphasia (Chronic) Discharge planning issues (Acute) Noncompliance with medication regimen (Chronic) H/O esophagogastroduodenoscopy (Chronic ~05/19/18) Hiatal hernia (Chronic) Gastritis and duodenitis (Acute) Gastric ulcer (Acute) Esophagitis (Acute) Nephrolithiasis (Chronic) Vasovagal syncope (Acute) History of kidney stones (Chronic) SVT (supraventricular tachycardia) (Chronic) Vascular dementia (Chronic) Pulmonary embolism (Chronic) DVT (deep venous thrombosis) (Chronic) CVA (cerebral vascular accident) (Chronic) CAD (coronary artery disease) (Chronic) Closed head injury (Acute) Syncopal episodes (Chronic) Hypercoagulable state (Chronic) Elevated d-dimer (Chronic) Medical History Afib CKD (chronic kidney disease) Essential hypertension Hx of upper gastrointestinal hemorrhage Personal history of DVT (deep vein thrombosis) Pulmonary embolism Recurrent cerebrovascular accidents (CVAs) Tubular adenoma (~2015) Surgical History Appendectomy section Colonoscopy - MAC (12/29/15) History of esophagogastroduodenoscopy (EGD) (~12/2017) Social History Smoking/Tobacco Use Status: Current every day Tobacco Type: cigarettes Smoking risk assessment performed?: Yes Alcohol Intake: never Drug use: Daily Substance use type: marijuana Do you feel safe at home: No Do you feel safe in your relationship?: Yes Additional Social history: worried about living situation with having a stroke Exam Narrative Exam Narrative: Physical Examination General: alert, awake, cooperative, resting comfortably, no acute distress HEENT: normocephalic, atraumatic; PERRL, EOM intact, conjunctiva normal; no nasal discharge; moist mucous membranes, oral and pharyngeal mucosa normal, tolerating secretions Neck: supple, trachea midline; full ROM Chest: normal to inspection Respiratory: normal respiratory effort, speaking in full sentences, clear to auscultation, no wheezing, rales or rhonchi Cardiac: regular rate, regular rhythm, S1S2 intact, no murmurs rubs or gallops GI: abdomen soft, non-tender, non-distended; no palpable mass or hepatosplenomegaly Skin: no lesions, rashes or trauma appreciated Neuro: AAOx3, moderate expressive aphasic speech, cranial nerves II through XII intact, strength 5/5 upper and lower extremities, no ataxia Extremities: No peripheral edema Psych: Appropriate mood and affect Course Vital Signs Vital signs: Vital Signs Temperature 36.3 C L 05/22/21 16:51 Pulse 98 H 05/22/21 16:51 Respiratory Rate 18 05/22/21 16:51 Blood Pressure 156/84 H 05/22/21 16:51 Pulse Oximetry 100 05/22/21 16:51 Temperature 36.3 C L 05/22/21 16:51 Temperature Source Temporal Artery Scan 05/22/21 16:51 Pulse 98 H 05/22/21 16:51 Respiratory Rate 18 05/22/21 16:54 Respiratory Effort Non-Labored 05/22/21 16:54 Respiratory Depth Normal 05/22/21 16:54 Respiratory Pattern Normal 05/22/21 16:54 Blood Pressure 156/84 H 05/22/21 16:51 Blood Pressure Position Supine 05/22/21 16:51 Pulse Oximetry 100 05/22/21 16:51 Oxygen Delivery Method Room Air 05/22/21 16:51 Oxygen Flow Rate 0 05/22/21 16:51 Pain Level 0 05/22/21 16:51
[2021-05-22 17:56] LABS: ALT 23 U/L (14-59); AST 39 U/L (15-37); Albumin 3.9 g/dL (3.4-5.0); Alkaline Phosphatase 82 U/L (46-116); Anion Gap 13.4 mmol/L (3-11); BUN 20 mg/dL (7-18); Bilirubin, Total 0.6 mg/dL (0.2-1.0); CO2 22.6 mmol/L (21.0-32.0); CREATININE 1.4 mg/dL (0.55-1.02); Calcium 10.5 mg/dL (8.5-10.1); Chloride 104 mmol/L (98-107); Estimated GFR 36.86 (mL/min/1.73m2); Glucose 95 mg/dL (74-106); Sodium 140 mmol/L (136-145)
[2021-05-22 18:02] LABS: Abs Immature Grans 0.03 10^3/uL (0.0-0.06); Absolute Basophil Count 0.04 10^3/uL (0.0-0.2); Absolute Eosinophil Count 0.06 10^3/uL (0.0-0.7); Absolute Lymphocyte Count 3.69 10^3/uL (1.2-3.4); Absolute Monocyte Count 0.61 10^3/uL (0.1-0.8); Absolute Neutrophil Count 3.32 10^3/uL (1.2-6.7); Basophils % 0.5; Eosinophils % 0.8; HCT 43.3 % (36.0-46.0); HGB 13.3 g/dL (11.2-15.7); Immature Grans % 0.4; Lymphocytes % 47.6; MCH 27.3 pg (27.0-33.0); MCHC 30.7 % (32.0-36.0); MCV 88.9 fL (80-95); MPV 12.2 fL (8.0-11.0); Monocytes % 7.9; Neutrophils % 42.8; Nucleated RBC 0 %; Platelet Count 215 10^3/uL (130-400); RBC 4.87 10^6/uL (3.93-5.22); RDW 14.9 % (11.7-14.6); RDW-SD 49.3 fL; WBC 7.75 10^3/uL (4.4-10.8)
--- NOTE | 2021-05-22 19:12 | DI.VRAD_ITS ---
PROCEDURE INFORMATION: Exam: CT Head Without Contrast Exam date and time: 05/22/2021 5:22 PM Age: 75 years old Clinical indication: Other: Confusion, recent stroke TECHNIQUE: Imaging protocol: Computed tomography of the head without contrast. COMPARISON: MR BRAIN WO 05/14/2021 11:31 AM FINDINGS: Brain: Cerebral volume loss noted. Scattered areas of decreased attenuation in the deep periventricular white matter consistent with small vessel ischemic change. Patchy left MCA territory encephalomalacia with small spared areas at the left frontal and parietal convexity. There is encephalomalaciafrom apparent subacute stroke in the right occipital inferior temporal lobe with some associated increased attenuation, possible petechial hemorrhage. Cerebral ventricles: No ventriculomegaly. Paranasal sinuses: Visualized sinuses are unremarkable. No fluid levels. Mastoid air cells: Visualized mastoid air cells are well aerated. Bones/joints: Unremarkable. No acute fracture. Soft tissues: Unremarkable. IMPRESSION: 1. Concern for possible petechial hemorrhage associated with apparent subacute stroke left inferior temporal lobe and occipital lobe. MRI evaluation could be considered if patient MRI compatible. 2. Senescent changes noted. Dictated and Authenticated by: Christina Martinez MD. Ordering:ZAHIRA Ramsey MD
--- NOTE | 2021-05-22 19:15 | DI.VRAD_ITS ---
PROCEDURE INFORMATION: Exam: XR Chest Exam date and time: 05/22/2021 5:22 PM Age: 75 years old Clinical indication: Other: Confusion, recent stroke and stemi TECHNIQUE: Imaging protocol: XR of the chest. Views: 1 view. Other technique: Portable exam. COMPARISON: CR XR CHEST 2V PA LATERAL 05/12/2021 2:44 PM FINDINGS: Tubes, catheters and devices: Surgical clips noted in the epigastric region. Lungs: Unremarkable. No consolidation. Pleural spaces: Unremarkable. No pleural effusion. No pneumothorax. Heart/Mediastinum: No change borderline cardiomegaly. Vasculature: Aortic ectasia again seen. Bones/joints: Unremarkable. IMPRESSION: No significant, acute abnormality evident. Dictated and Authenticated by: Christina Martinez MD. Ordering:ZAHIRA Ramsey MD
[2021-05-22 20:49] LABS: Source Nasal/Nares
[2021-05-22 21:28] LABS: COVID-19 PCR Negative (Negative)
[2021-05-22] MEDS: Atorvastatin 40 MG TAB 80 MG PO (22:26)
[2021-05-22] MEDS: Valsartan 80 MG TAB 160 MG PO (22:27)
--- NOTE | 2021-05-22 22:31 | HPE_ITS ---
Date of service: 05/22/21 Time of Service: 22:31 Assessment and Plan Assessment and plan (1) Debility: Status: Acute Assessment and plan: Patient shows signs of self neglect and neglect by family in that patient was found to be in feces and urine. 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 The patient needs SNF for her safety/well being. I will ask after school caregiver to assist with making appropriate referrals to area senior care facilities. Patient remains a full code per her request (2) Petechial hemorrhage: Status: Suspected Assessment and plan: some areas of increased attentuation are noted on today's CT scan in the area of the occipital and inferior temporal lobe suggestive of petechial hemorrhage. In the body of the report it says it is in the right side but in the impression it says the left inferior temporal lobe and occipital lobe. I will get MRI of brain in the a.m. and ask neurology to evaluate. In the interim, her Plavix and Xarelto will be on hold pending the MRI. (3) Noncompliance with medication regimen: Status: Chronic Assessment and plan: patient's cognitive dementia contributes to her noncompliance (4) Vascular dementia: Status: Chronic (5) Afib: Assessment and plan: cont. Toprol XL. Xarelto on hold pending MRI brain and neuro review of images and comment on safety of anticoagulation (6) Essential hypertension: Assessment and plan: cont. amlodipine, Toprol XL and Diovan (7) History of stroke: Status: Acute Assessment and plan: Await repeat MRI and consultation with neurology. However given her history of recurrent strokes and chronic atrial fibrillation I suspect she needs to stay on long-term D.O.A.C. therapy. I am assuming the small petechial bleeds were secondary to her strokes and if she is not acutely bleeding then we may be able to resume her D.O.A.C. and her Plavix. (8) CAD (coronary artery disease): Status: Chronic Assessment and plan: Continue Plavix if there is no acute cerebral bleeding. Continue secondary risk reduction with control of her hypertension and her atrial fibrillation as well as her cholesterol. History of Present Illness History of Present Illness Chief Complaint: confusion, self neglect Narrative: 75 yr old female w/ PMH of repeated strokes, chronic atrial fibrillation and STEMI all within the past 1 1/2 months. She was most recently hospitalized 05/12-05/15/21 for acute confusion and was found to have multilevel cerebral infarcts on her CT scan w/ most recent being new large area infarct involving the right temporal and right occipital lobes. No evidence of intracranial hemorrhage was seen. She is chronically anticoagulated w/ Rivaroxaban for chronic atrial fibrillation and is on Plavix for her recent STEMI and subsequent stents. During her most recent hospitalization she underwent MRI and MRA of the brain and MRA of the cervical vessels and carotid duplex scan and echocardiogram. See dictated hospital summary and radiology reports for details (she has multiple areas of strokes consistent w/ embolic stroke but also has high grade stenosis of the MONISHA at the skull base and inferior aspect of the cavernous sinus as well as moderate narrowing of the LICA in the lower cavernous sinus. Carotid duplex did not show any hemodynamic stenosis of the cervical vessels. Echo showed normal global LV function w/ LVEF 55% but w/ akinetic apical/anteroapical segments. She was seen by Dr. Rea Montes, neurology in consult. See her report for details. Patient was evaluated by speech therapy, physical therapy. She was cleared for regular consistency diet and P.T. cleared her for home P.T. Patient did not want to pursue SNF but requested to return home where she lives w/ her son. She was sent to the ER today via EMS initially for complaints of acute confusion and was found by EMS to be covered in feces and urine.FLurther evaluation by the ER doctor who was familiar w/ her, revealed that she is at her baseline cognition. She has an expressive aphasia in which she has problems w/ completion of sentences w/ difficulty finding the correct words. She has some cognitive impairment in which she is unable to complete tasks or answer questions correctly. Dr. Pollock did a workup today in the ER that included routine labs and CT of her head. CT demonstrated: FINDINGS: Brain: Cerebral volume loss noted. Scattered areas of decreased attenuation in the deep periventricular white matter consistent with small vessel ischemic change. Patchy left MCA territory encephalomalacia with small spared areas at the left frontal and parietal convexity. There is encephalomalaciafrom apparent subacute stroke in the right occipital inferior temporal lobe with some associated increased attenuation, possible petechial hemorrhage. Cerebral ventricles: No ventriculomegaly. Paranasal sinuses: Visualized sinuses are unremarkable. No fluid levels. Mastoid air cells: Visualized mastoid air cells are well aerated. Bones/joints: Unremarkable. No acute fracture. Soft tissues: Unremarkable. IMPRESSION: 1. Concern for possible petechial hemorrhage associated with apparent subacute stroke left inferior temporal lobe and occipital lobe. MRI evaluation could be considered if patient MRI compatible. 2. Senescent changes noted. Labs included CBC, CMP SARS-COV2 nasal PCR (negative). CMP revealed mild azotemia (BUN 20, creatinine 1.4). Patient is admitted now for SNF placement d/t self neglect and failure of her son to care for her at home. MRI of brain will be repeated in the a.m. to evaluate the petechial hemorrhages associated w/ the subacute stroke of her left inferior temporal lobe and occipital lobe. We will ask Dr. Montes to render opinion regarding these hemorrhages and continued anticoagulation for PAF and recurrent strokes. Review of Systems Unobtainable due to mental condition (Patient gave a total review of systems in the negative) PFSH All Active Problems (Updated 05/23/21 @ 00:59 by Diogo Garay) History of stroke (Acute) Debility (Acute) Ischemic cerebrovascular accident (CVA) due to atherosclerosis of large intracranial artery (Acute) Acute on chronic anemia (Acute) Acute ischemic left MCA stroke (Acute) Elevated factor VIII level (Chronic) Expressive aphasia (Chronic) Discharge planning issues (Acute) Noncompliance with medication regimen (Chronic) H/O esophagogastroduodenoscopy (Chronic ~05/19/18) Hiatal hernia (Chronic) Gastritis and duodenitis (Acute) Gastric ulcer (Acute) Esophagitis (Acute) Vasovagal syncope (Acute) History of kidney stones (Chronic) SVT (supraventricular tachycardia) (Chronic) Vascular dementia (Chronic) DVT (deep venous thrombosis) (Chronic) CVA (cerebral vascular accident) (Chronic) CAD (coronary artery disease) (Chronic) Hypercoagulable state (Chronic) Medical History (Updated 05/23/21 @ 00:59 by Diogo Garay) Afib CKD (chronic kidney disease) Essential hypertension Hx of upper gastrointestinal hemorrhage Nephrolithiasis Personal history of DVT (deep vein thrombosis) Pulmonary embolism Pulmonary embolism Recurrent cerebrovascular accidents (CVAs) Tubular adenoma (~2015) Upper GI bleeding Surgical History Appendectomy section Colonoscopy - MAC (12/29/15) History of esophagogastroduodenoscopy (EGD) (~12/2017) Social History Smoking/Tobacco Use Status: Current every day Tobacco Type: cigarettes Smoking risk assessment performed?: Yes Alcohol Intake: never Drug use: Daily Substance use type: marijuana Do you feel safe at home: No Do you feel safe in your relationship?: Yes Additional Social history: worried about living situation with having a stroke Meds Allergies and Home Medications Allergies Allergy/AdvReac Type Severity Reaction Status Date / Time latex Allergy Swelling/Ed Verified 05/22/21 16:57 guadalupe lisinopril AdvReac Intermediate raises BP Verified 05/22/21 16:57 morphine AdvReac Visual Verified 05/22/21 16:57 Disturbances Home Medications Medication Instructions Recorded Confirmed Type acetaminophen 325 mg tablet 2 tab PO Q4H PRN PRN #30 tab 01/11/18 05/22/21 Rx (Tylenol) multivitamin with minerals 1 tab PO DAILY 05/04/20 05/22/21 History cholecalciferol (vitamin D3) 125 125 mcg PO QWEEK cap 11/24/20 05/22/21 History mcg (5,000 unit) capsule ferrous sulfate 325 mg (65 mg 325 mg PO BID 11/24/20 05/22/21 History iron) tablet (FeroSul) amlodipine 10 mg tablet 5 mg PO DAILY 05/12/21 05/22/21 History atorvastatin 80 mg tablet 80 mg PO HS 05/12/21 05/22/21 History clopidogrel 75 mg tablet 75 mg PO DAILY 05/12/21 05/22/21 History pantoprazole 40 mg tablet,delayed 40 mg PO DAILY 05/12/21 05/22/21 History release rivaroxaban 15 mg tablet (Xarelto) 15 mg PO DAILY 05/12/21 05/22/21 History valsartan 160 mg tablet 160 mg PO BID 05/12/21 05/22/21 History metoprolol succinate 100 mg 100 mg PO DAILY 05/14/21 05/22/21 History tablet,extended release 24 hr (Toprol XL) sertraline 50 mg tablet 50 mg PO DAILY 05/14/21 05/22/21 History Exam Narrative Exam Narrative: Elderly -Citizen Of [place] female lying in bed with the covers over her head. She did take the covers off her head and engage with me. She was very pleasant and courteous. She seemed to recognize me from her prior hospitalization. She is oriented to person and she is oriented to place in the sense that she knows she is in the hospital and that she is in [place]. She thought it was 2022 and initially she thought it was June but then corrected herself and said May. HEENT is unremarkable folic Sarka motion intact no facial asymmetry no dysarthric speech. She does have some word finding difficulties and has trouble completing her sentences. Oropharynx noninjected with normal movement of her tongue or palate. Neck supple nontender no JVD Lungs are clear to auscultation Heart irregular irregular at a controlled rate Abdomen soft nondistended nontender normal bowel sounds no palpable masses Lower extremities without peripheral cyanosis or edema Neuro exam reveals no visual field deficits to confrontation no facial asymmetry no dysarthric speech normal facial mimetic muscle movement normal range of motion and strength in both upper and lower extremities. Normal sensation to li ght touch in both upper extremities and lower extremities as well as her face. DTRs are intact. Babinski was unable to be elicited as there was too much withdrawal. She has no pronator drift. Results Labs Result diagrams: 05/22/21 17:56 05/22/21 17:05 Labs: Laboratory Results - last 24 hr 05/22/21 05/22/21 05/22/21 17:05 17:05 17:56 WBC Cancelled 7.75 RBC Cancelled 4.87 Hgb Cancelled 13.3 Hct Cancelled 43.3 MCV Cancelled 88.9 MCH Cancelled 27.3 MCHC Cancelled 30.7 L RDW Cancelled 14.9 H Plt Count Cancelled 215 MPV Cancelled 12.2 H Immature Gran % Cancelled 0.4 Neutrophils % Cancelled 42.8 Band Neutrophils % Cancelled Lymphocytes % Cancelled 47.6 Atypical Lymphs % Cancelled Monocytes % Cancelled 7.9 Eosinophils % Cancelled 0.8 Basophils % Cancelled 0.5 Metamyelocytes % Cancelled Myelocytes % Cancelled Promyelocytes % Cancelled Other Cells % Cancelled Nucleated RBC % Cancelled 0 Absolute Neutrophils Cancelled 3.32 Absolute Lymphocytes Cancelled 3.69 H Absolute Monocytes Cancelled 0.61 Absolute Eosinophils Cancelled 0.06 Absolute Basophils Cancelled 0.04 RBC Morphology Cancelled Polychromasia Cancelled Hypochromasia Cancelled Poikilocytosis Cancelled Basophilic Stippling Cancelled Anisocytosis Cancelled Microcytosis Cancelled Macrocytosis Cancelled Spherocytes Cancelled Tear Drop Cells Cancelled Ovalocytes Cancelled Stomatocytes Cancelled Rust-[place] Bodies Cancelled [place] Cells/Echinocytes Cancelled Acanthocytes (Spur) Cancelled Schistocytes Cancelled Sodium 140 Potassium 4.0 Chloride 104 Carbon Dioxide 22.6 Anion Gap 13.4 H BUN 20 H Creatinine 1.4 H Estimated GFR/1.73 m2 36.86 Glucose 95 Calcium 10.5 H Total Bilirubin 0.6 AST 39 H ALT 23 Alkaline Phosphatase 82 Total Protein 8.0 Albumin 3.9 COVID-19 Source SARS-CoV-2 (PCR) 05/22/21 20:24 WBC RBC Hgb Hct MCV MCH MCHC RDW Plt Count MPV Immature Gran % Neutrophils % Band Neutrophils % Lymphocytes % Atypical Lymphs % Monocytes % Eosinophils % Basophils % Metamyelocytes % Myelocytes % Promyelocytes % Other Cells % Nucleated RBC % Absolute Neutrophils Absolute Lymphocytes Absolute Monocytes Absolute Eosinophils Absolute Basophils RBC Morphology Polychromasia Hypochromasia Poikilocytosis Basophilic Stippling Anisocytosis Microcytosis Macrocytosis Spherocytes Tear Drop Cells Ovalocytes Stomatocytes Rust-[place] Bodies Crow Cells/Echinocytes Acanthocytes (Spur) Schistocytes Sodium Potassium Chloride Carbon Dioxide Anion Gap BUN Creatinine Estimated GFR/1.73 m2 Glucose Calcium Total Bilirubin AST ALT Alkaline Phosphatase Total Protein Albumin COVID-19 Source Nasal/Nares SARS-CoV-2 (PCR) Negative Last Vital Signs Temp 36.4 C L 05/22/21 21:30 Pulse 81 05/22/21 21:58 Resp 16 05/22/21 21:30 BP 128/80 05/22/21 21:30 Pulse Ox 96 05/22/21 21:30
[2021-05-23] VITALS (9 sets, daily range): BP systolic 89–140; BP diastolic 59–85; PULSE 56–150; RESP 16–20; TEMP 36.1–36.8; O2SAT 96–100
[2021-05-23] MEDS: Lactated Ringers 1,000 ML 100 ML IV (01:00)
[2021-05-23 07:26] LABS: Anion Gap 10.7 mmol/L (3-11); BUN 18 mg/dL (7-18); CO2 24.3 mmol/L (21.0-32.0); CREATININE 1.2 mg/dL (0.55-1.02); Calcium 9.9 mg/dL (8.5-10.1); Chloride 106 mmol/L (98-107); Estimated GFR 44.04 (mL/min/1.73m2); Glucose 85 mg/dL (74-106); Potassium 3.6 mmol/L (3.5-5.1); Sodium 141 mmol/L (136-145)
--- NOTE | 2021-05-23 08:25 | DI.MRI_ITS ---
Exam(s) MR BRAIN WO EXAM: MR BRAIN WO CLINICAL HISTORY: recurrent CVA; possible petechial bleed. TECHNIQUE: Multiplanar multisequence MRI was performed. COMPARISON: MR MR BRAIN WO from 05/14/2021 FINDINGS: MR examination of brain was performed according to the usual protocol. Examination is compared with prior brain MRI of May 14. The prior examination showed an acute or subacute infarct of the r ight temporal occipital region. On today's examination, the previously noted diffusion restriction i n this area has resolved. There is no diffusion restriction on today's examination to suggest an new acute infarct. Large old left hemisphere infarct is again noted and remains unchanged., old left cerebellar hemorrha ge also again unchanged. Susceptibility weighted imaging shows areas of abnormal signal in right temporal occipital and also i n left cerebellar hemisphere, this finding is consistent with micro hemorrhages at these sites. The presumed microhemorrhage in the low left cerebellum was present on prior examination of May 14 , minimal microhemorrhage was present in the right temporal occipital region previously but is much m ore prominent now. There is no mass effect at the sites of microhemorrhage and no midline shift is observed. No other significant change seen. No new areas of abnormal signal in the brain, note is again made o f diffuse white matter signal changes consistent with microvascular ischemic changes. The orbital and temporal bone structures appear intact. Tjlecu-le-Asdxms flow void is unremarkable. IMPRESSION: New areas of acute or subacute microhemorrhage without mass effect are noted at this site of recent r ight temporal occipital infarct. Subacute to old microhemorrhage also noted at site of previously seen left cerebellar infarct, unchan ged from prior study of May 14. No other significant change. No evidence of new infarction. DATA REPOSITORY:
--- NOTE | 2021-05-23 08:25 | OT.INIE ---
Occupational Therapy Notes Inpatient Occupational Therapy Evaluation Date:05/23/21 Referring Doctor: Diogo Rivera MD OT Orders: Urgent safety consult Precautions: Fall, standard, full PATIENT PROFILE/ADMITTING DIAGNOSIS: Pt is a 75 year old female who was admitted through the ED for the following dx of hx of stroke, debility, petechial hemorrhage, ischemic CVA, anemia, expressive aphasia, non compliance with medication regimen. Pt was brought to the ED covered in urine and demonstrating decreased ability to perform her ADLs in her home setting. Past Medical History: All Active Problems?(Updated 05/23/21 @ 00:59 by Diogo Garay) History of stroke (Acute) Debility (Acute) Ischemic cerebrovascular accident (CVA) due to atherosclerosis of large intracranial artery (Acute) Acute on chronic anemia (Acute) Acute ischemic left MCA stroke (Acute) Elevated factor VIII level (Chronic) Expressive aphasia (Chronic) Discharge planning issues (Acute) Noncompliance with medication regimen (Chronic) H/O esophagogastroduodenoscopy (Chronic ~05/19/18) Hiatal hernia (Chronic) Gastritis and duodenitis (Acute) Gastric ulcer (Acute) Esophagitis (Acute) Vasovagal syncope (Acute) History of kidney stones (Chronic) SVT (supraventricular tachycardia) (Chronic) Vascular dementia (Chronic) DVT (deep venous thrombosis) (Chronic) CVA (cerebral vascular accident) (Chronic) CAD (coronary artery disease) (Chronic) Hypercoagulable state (Chronic) Medical History?(Updated 05/23/21 @ 00:59 by Diogo Garay) Afib CKD (chronic kidney disease) Essential hypertension Hx of upper gastrointestinal hemorrhage Nephrolithiasis Personal history of DVT (deep vein thrombosis) Pulmonary embolism Pulmonary embolism Recurrent cerebrovascular accidents (CVAs) Tubular adenoma (~2015) Upper GI bleeding Surgical History? Appendectomy section Colonoscopy - MAC (12/29/15) History of esophagogastroduodenoscopy (EGD) (~12/2017) Social History/Home Situation: Sisi lives in [facility] with her son. She has another son who she states lives in [place].She notes that she? is independent with her ADL's, but does not drive. She is able to eat and cook (I) at baseline and states that she has caregivers. She was recently discharged home with her son and HH was ordered for services. It seems that her basic ADLs are not being met in the home setting. She is unable to care for herself and support in the home is not providing (A) that is needed. SUBJECTIVE:??Pt states that she is tired this morning. She notes that she would like to sleep. OBJECTIVE:? General Observation: Pleasant in interaction, Bruise on (L) UE on volar aspect of arm, IV connected in (R) UE Mental Status:A&Ox3 Pain: c/o pain in (B) arms and body aches ROM: RUE ROM WNL L UE AROM WNL STRENGTH: RUE 5/5 throughout LUE 5/5 throughout FUNCTIONAL MOBILITY/ADLS: Transfers Bathing and ADLs performed with nursing prior to OT arrival. Eating- sitting in chair (I) with food to mouth, opening containers and chewing/swallowing. Pt states she is not interested in the food provided. DRESSING sitting in chair Dressing LE Min (A)don and doffing (B) socks BALANCE: Static sitting Normal Dynamic Sitting Normal SPECIAL TESTS:? Daily Activity Limitations Standardized Measure [facility] ? AM -PAC ? ?6 clicks? Daily Activity Inpatient Short Form: Raw score: 20 ?? ? INFORMED CONSENT/EDUCATION: Pt instructed in purpose of OT Consult and plan of care. ASSESSMENT:?? Patient is a? 75-year-old female referred to occupational therapy services with diagnosis of hx of stroke, debility, petechial hemorrhage, ischemic CVA, anemia, expressive aphasia, non compliance with medication regimen . Patient presents with clinical signs and symptoms consistent with dx, as demonstrated by the following impairment level findings/ functional limitations: Impairments in ADL/IADL routines, decreased functional activity tolerance and performance of ADLs. Patient is assessed as a? Moderate 08969 complexity based on the following: History: see above Examination: see functional limitations as noted above Presentation: evolving Decision Making: [facility] score 20 GOALS Goals x1 week 1.? Transfers (I) 2.? Dressing UE (I) 3.? Bathing standing at sink min (A) 4.? Toileting on toilet (I) 5.? Eating (I) PLAN OF CARE/TREATMENT PLAN: 1x/day, 5 days/ week x 1week Initiate Occupational Therapy Services for bathing, dressing, grooming, toileting, eating, transfer training. DISCHARGE RECOMMENDATIONS Based on pts decline in performance of her functional ADLs/IADLs, decreased support in her home setting for her ADLs and decreased TREATMENT TIME/MINUTES/CODES 36231, 25 minutes (08:30) Amanda Colmenares OTR/L [facility]
[2021-05-23] MEDS: Sertraline 50 MG TAB PO (08:59)
[2021-05-23] MEDS: Multivitamin w/Minerals TAB 1 TAB PO (08:59)
[2021-05-23] MEDS: Pantoprazole 40 MG TABCR PO (08:59)
[2021-05-23] MEDS: Ferrous Sulfate 325 MG TAB PO ×2 (08:59→19:54)
--- NOTE | 2021-05-23 09:54 | PDOC.CMIN ---
- If Service Date Differs Date of service: 05/23/21 Time of Service: 09:58 Care Management Initial Assess REASON FOR HOSPITALIZATION:: Decreased ADL Perf, self neglect, recurrent CVA PAST MEDICAL HISTORY/PAST SURGICAL HISTORY:: All Active Problems. History of stroke (Acute). Debility (Acute). Ischemic cerebrovascular accident (CVA) due to atherosclerosis of large intracranial artery (Acute). Acute on chronic anemia (Acute). Acute ischemic left MCA stroke (Acute). Elevated factor VIII level (Chronic). Expressive aphasia (Chronic). Discharge planning issues (Acute). Noncompliance with medication regimen (Chronic). H/O esophagogastroduodenoscopy (Chronic ~05/19/18). Hiatal hernia (Chronic). Gastritis and duodenitis (Acute). Gastric ulcer (Acute). Esophagitis (Acute). Vasovagal syncope (Acute). History of kidney stones (Chronic). SVT (supraventricular tachycardia) (Chronic). Vascular dementia (Chronic). DVT (deep venous thrombosis) (Chronic). CVA (cerebral vascular accident) (Chronic). CAD (coronary artery disease) (Chronic). Hypercoagulable state (Chronic). Medical History. Afib. CKD (chronic kidney disease). Essential hypertension. Hx of upper gastrointestinal hemorrhage. Nephrolithiasis. Personal history of DVT (deep vein thrombosis). Pulmonary embolism. Pulmonary embolism. Recurrent cerebrovascular accidents (CVAs). Tubular adenoma (~2015). Upper GI bleeding. Surgical History. Appendectomy. section. Colonoscopy - MAC (12/29/15). History of esophagogastroduodenoscopy (EGD) (~12/2017) PREVIOUS FUNCTIONAL STATUS/SOCIAL/FAMILY SUPPORTS:: Sisi lives in [facility] with her son, Max. She has one other son, Sawyer, who lives in [place]. Max is her main support, and helps her with medication management and housework. She is independent with her ADL's, but does not drive. CURRENT FUNCTIONAL STATUS:: Sisi was sitting up in bed when CM met with her. She reported that she fell at home, which is why she was brought to the ED, although she did not want to come back to the hospital. Per her son, Max, she has not been taking care of herself well since her previous admission, and prior to that she was independent with her ADL's. CM discussed discharge options, including rehab, which she is agreeable to. CM sent a referral to [facility], at her request. Sisi had a Palliative Care consult today, where she filled out a new COLST and changed her code status to DNR/DNI. CM will continue to follow. ADVANCE DIRECTIVES:: None on file. Palliative care consult requested. Has patient been provided with info about the portal/API?: Yes Did the patient sign up for the portal?: No CODE STATUS:: Full Code INSURANCE COVERAGE / FINANCIAL ISSUES:: [facility]- MCR replacement/ [facility] CURRENT HOME/COMMUNITY SERVICES/EQUIPMENT:: No equipment. She does have HH RN, PT, OT, MARKETING SERVICES COORDINATOR, ordered from previous admission. PRIMARY CARE PHYSICIAN:: Concha Loving POTENTIAL DISCHARGE NEEDS:: Evaluation for further needs, follow up appointments PATIENT/FAMILY EDUCATION NEEDS:: Review discharge instructions regarding activity and medications, discussion of self care needs including ask me three. ANTICIPATED BARRIERS TO DISCHARGE:: None identified. TRANSPORTATION:: Likely via [facility] private vehicle when ready. PLAN:: Sisi may require short term rehab prior to returning home. Transport to be determined by disposition. She will follow up with her PCP and discharge plan of care. CM will continue to follow.
--- NOTE | 2021-05-23 10:45 | IN_ITS ---
Date of service: 05/23/21 Time of Service: 10:45 PT Notes Visit Reasons: Decreased ADL Perform,Self Neglect,Recurrent CVA'S Physical Therapy Inpatient Initial Evaluation Date: 05/23/2021 Referring Doctor: Diogo Garay MD PT Orders: PT CONSULT: Fall safety assessment Precautions: Fall. Standard. Activity as tolerated. Patient Profile/Admitting Diagnosis: Sisi is a 75-year-old female with past medical history significant for multilevel cerebral infarcts on most recent CT who presented to the ED on 05/22/2021 due to increasing confusion. Patient is diagnosed with debility, petechial hemorrhage in the left occipital and inferior temporal lobe, non compliance with medications, vascular dementia, atrial fibrillation, and coronary artery disease. PMHX:? All Active Problems?(Updated 05/23/21 @ 00:59 by Diogo Garay) History of stroke (Acute) Debility (Acute) Ischemic cerebrovascular accident (CVA) due to atherosclerosis of large intracranial artery (Acute) Acute on chronic anemia (Acute) Acute ischemic left MCA stroke (Acute) Elevated factor VIII level (Chronic) Expressive aphasia (Chronic) Discharge planning issues (Acute) Noncompliance with medication regimen (Chronic) H/O esophagogastroduodenoscopy (Chronic ~05/19/18) Hiatal hernia (Chronic) Gastritis and duodenitis (Acute) Gastric ulcer (Acute) Esophagitis (Acute) Vasovagal syncope (Acute) History of kidney stones (Chronic) SVT (supraventricular tachycardia) (Chronic) Vascular dementia (Chronic) DVT (deep venous thrombosis) (Chronic) CVA (cerebral vascular accident) (Chronic) CAD (coronary artery disease) (Chronic) Hypercoagulable state (Chronic) Medical History?(Updated 05/23/21 @ 00:59 by Diogo Garay) Afib CKD (chronic kidney disease) Essential hypertension Hx of upper gastrointestinal hemorrhage Nephrolithiasis Personal history of DVT (deep vein thrombosis) Pulmonary embolism Pulmonary embolism Recurrent cerebrovascular accidents (CVAs) Tubular adenoma (~2015) Upper GI bleeding Surgical History? Appendectomy section Colonoscopy - MAC (12/29/15) History of esophagogastroduodenoscopy (EGD) (~12/2017) Social History/Home Situation: Lives with son in a private home. Independent with all aspect of ADLs prior to most two recent admissions to this hospital. Equipment Owned/DME: None Subjective: Complained of being sleepy and fatigued at the outset. Reported feeling so cold. PT provided patient with robe prior to getting out of bed. Needed encouragement to participate in PT evaluation today. Complained of her head falling after having taken 12 steps using the FWW. Objective: General Observation: Drowsy. Appears weak and gait unsteady needing use of FWW. Mental Status: Lethargic but was able to follow single step commands with repetition and encouragement. Pain: Unquantifiable headache Vitals: Was tachycardic at time of short distance walking per report from Nurse Manager Truck Cammie. Blood pressure also softened when Nurse Jaymie checked after the short walk. ROM: Right Upper Extremity: Shoulder Flexion WFL. Shoulder abduction WFL. Elbow flexion WFL. Wrist flexion WFL. Opening and closing of hand WFL. Left Upper Extremity: Shoulder Flexion WFL. Shoulder abduction WFL. Elbow flexion WFL. Wrist flexion WFL. Opening and closing of hand WFL. Right Lower Extremity: Hip flexion WFL. Hip abduction WFL. Knee flexion WFL. Ankle dorsiflexion WFL. Ankle plantarflexion WFL. Left Lower Extremity: Hip flexion WFL. Hip abduction WFL. Knee flexion WFL. Ankle dorsiflexion WFL. Ankle plantarflexion WFL. Strength: Right Upper Extremity: Shoulder flexors 4-/5. Shoulder abductors 4-/5. Elbow flexors 4-/5. Elbow extensors 4-/5. Wrapper Hands Sprayer strong. Left Upper Extremity: Shoulder flexors 4-/5. Shoulder abductors 4-/5. Elbow flexors 4-/5. Elbow extensors 4-/5. Wrapper Hands Sprayer strong. Right Lower Extremity: Hip flexors 3+/5. Hip abductors 3+/5. Knee flexors 4-/5. Knee extensors 3+/5. Ankle dorsiflexors 3+/5. Ankle plantarflexors 4-/5. Left Lower Extremity: Hip flexors 3+/5. Hip abductors 3+/5. Knee flexors 4-/5. Knee extensors 3+/5. Ankle dorsiflexors 3+/5. Ankle plantarflexors 4-/5. Sensation: Intact as to pain and pressure on bilateral lower extremities. Bed Mobility/Transfers: Rolling: Minimal assist with HOB at 30 degrees Supine to sit: Contact-guard assist Sit to supine: Contact-guard assist Sit to stand: Contact-guard assist Gait: Only tolerated short distance ambulation of 12 steps inside room using front wheel walker with full weightbearing requiring minimal assist with patient having an episode of generalized weakness and report of her head falling off and getting heavy. Nurse Jaymie, nurse performance manager Cammie, and nurse educator Lucero are asked to help to prevent patient from falling. Nurse performance manager Cammie was able to pull a bedside commode and placed it under patient supervision with rest. Nurse performance manager Cammie pulled bedside commode and patient onto bed with assistance of PT. patient was then assisted back into bed requiring minimal assistance of this PT, nurse educator Lucero, and nurse performance manager Cammie. Balance: Static Sitting: Good Dynamic Sitting: Good Static standing: Poor Dynamic standing: Poor 4 stage balance test Time completed FT unable Semi-tandem NT Tandem NT SLS NT Special Tests: Mobility Limitations Standardized Measure [facility] AM-PAC 6 clicks Basic Mobility Inpatient Short Form: Raw Score: 11 ? CMS Score: 72% deficit Informed Consent/Education: Patient instructed in purpose of PT consult and plan of care. Assessment: Patient with increased confusion and altered mental status. Further assessment deferred due to acute altered mental status, acute orthostatis and increased weakness. Sisi demonstrates functional mobility decline requiring the use of a front wheeled walker for all mobility ADL performance due to generalized weakness resulting from ongoing diagnoses. Patient presents with clinical signs and symptoms consistent with current/admitting diagnoses that have resulted to mobility limitations, gait instability, generalized weakness, and impairment of motor control as demonstrated by the following impairment level findings: 1. Decreased strength to BLEmajor muscle groups 2. Impaired sitting/standing balance 3. Impaired activity tolerance 5. Altered mental status and alertness Impairments are contributing to the following functional limitations: 1. Decline in bed mobility skills 2. Decline in transfer skills 3. Difficulty with ambulation without assistive device and physical assistance 4. Increased completion time for mobility ADL performance 5. Increased risk for falls Patient is assessed as a 53418 high based on the following: History: 75-year-old femalewith past medical history as indicated above Examination: Demonstrable impairment in strength, balance, and mobility level with underlying impairments and functional limitations as exhibited above as wel l as deficit score of 72% utilizing the [facility] Mobility Inpatient Short Form Presentation: Evolving Decision Makin high complexity Goals X1 week 1. Supine-Sit independent 2. Sit-Supine independent 3. Sit-Stand independent 4. Stand-Sit independent with no AD 5. Bed-Chair independent with no AD 6. Chair-Bed independent with no AD 7. Independent gait on level surface with use of FWW for at least 100 feet without report of pain nor dyspnea Plan of Care/Treatment Plan: 1-2x/day, 7 days/week x 1 week. Plan of care has been reviewed with the GRAPHIC DESIGN ASSISTANT providing the service under Physical Therapy direction. Initiate Physical Therapy intervention for transfers, gait, stairs, balance training, and use of assistive device. DISCHARGE RECOMMENDATIONS: Home with no services [] [] Home with services [specify] [] Home with outpatient PT [] [X] SNF for continued rehabilitation. DC to SNF when medically cleared by hospitalist. Patient will benefit from retirement facility placement for short-term rehabilitation to progress mobility level, strength, and balance. [] [facility] [] [] SNF versus LTC based on ability to participate and progress [] TREATMENT CODE/TIME: 9716 3 x 16 minutes beginning at 10:45 AM. Thank you for the opportunity to participate in the care of this patient. Peggy Tan PT, DPT, CLT [facility] [place], [place]
[2021-05-23] MEDS: Clopidogrel 75 MG TAB PO (11:37)
--- NOTE | 2021-05-23 12:34 | PGE_ITS ---
Date of Service Date of service: 05/23/21 Time of Service: 12:54 Assessment and Plan Assessment and plan (1) Debility: Status: Acute Assessment and plan: Patient shows signs of self neglect and neglect by family in that patient was found to be in feces and urine. 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 The patient needs SNF for her safety/well being. I will ask daycare teacher to assist with making appropriate referrals to area senior care facilities. Patient remains a full code per her request (2) Petechial hemorrhage: Status: Suspected Assessment and plan: some areas of increased attentuation are noted on today's CT scan in the area of the occipital and inferior temporal lobe suggestive of petechial hemorrhage. In the body of the report it says it is in the right side but in the impression it says the left inferior temporal lobe and occipital lobe. I will get MRI of brain in the a.m. and ask neurology to evaluate. In the interim, her Plavix and Xarelto will be on hold pending the MRI. (3) Noncompliance with medication regimen: Status: Chronic Assessment and plan: patient's cognitive dementia contributes to her noncompliance (4) Vascular dementia: Status: Chronic (5) Afib: Assessment and plan: cont. Toprol XL. Xarelto on hold pending MRI brain and neuro review of images and comment on safety of anticoagulation (6) Essential hypertension: Assessment and plan: cont. amlodipine, Toprol XL and Diovan (7) History of stroke: Status: Acute Assessment and plan: Await repeat MRI and consultation with neurology. However given her history of recurrent strokes and chronic atrial fibrillation I suspect she needs to stay on long-term D.O.A.C. therapy. I am assuming the small petechial bleeds were secondary to her strokes and if she is not acutely bleeding then we may be able to resume her D.O.A.C. and her Plavix. (8) CAD (coronary artery disease): Status: Chronic Assessment and plan: Continue Plavix if there is no acute cerebral bleeding. Continue secondary risk reduction with control of her hypertension and her atrial fibrillation as well as her cholesterol. Subjective Subjective Interval history since last seen: had an episode of weakness, associated with a 9 beat run of vtach. she never loss consciousness. she was ambulating with PT at the time and just slumped over her walker. Exam Const General: frail appearing Nutritional Appearance: average body habitus Orientation: other (eyes closed and is not answering questions, just grunting ) [facility] Head: normal to inspection, normocephalic and atraumatic Chest Chest: normal inspection of the chest Resp Effort & Inspection: normal respiratory effort Cardio Rate: regular rate Rhythm: regular rhythm GI Inspection: normal to inspection Palpation: soft Neuro General: patient alert, patient awake, patient oriented x3 and no focal motor deficits Extrem General: normal to inspection, full ROM and no pedal edema Objective Last Vital Signs Temp 36.2 C L 05/23/21 11:50 Pulse 86 05/23/21 11:52 Resp 19 05/23/21 11:50 BP 124/85 05/23/21 11:52 Pulse Ox 96 05/23/21 11:50 Laboratory Results - last 24 hr 05/22/21 05/22/21 05/22/21 17:05 17:05 17:56 WBC Cancelled 7.75 RBC Cancelled 4.87 Hgb Cancelled 13.3 Hct Cancelled 43.3 MCV Cancelled 88.9 MCH Cancelled 27.3 MCHC Cancelled 30.7 L RDW Cancelled 14.9 H Plt Count Cancelled 215 MPV Cancelled 12.2 H Immature Gran % Cancelled 0.4 Neutrophils % Cancelled 42.8 Band Neutrophils % Cancelled Lymphocytes % Cancelled 47.6 Atypical Lymphs % Cancelled Monocytes % Cancelled 7.9 Eosinophils % Cancelled 0.8 Basophils % Cancelled 0.5 Metamyelocytes % Cancelled Myelocytes % Cancelled Promyelocytes % Cancelled Other Cells % Cancelled Nucleated RBC % Cancelled 0 Absolute Neutrophils Cancelled 3.32 Absolute Lymphocytes Cancelled 3.69 H Absolute Monocytes Cancelled 0.61 Absolute Eosinophils Cancelled 0.06 Absolute Basophils Cancelled 0.04 RBC Morphology Cancelled Polychromasia Cancelled Hypochromasia Cancelled Poikilocytosis Cancelled Basophilic Stippling Cancelled Anisocytosis Cancelled Microcytosis Cancelled Macrocytosis Cancelled Spherocytes Cancelled Tear Drop Cells Cancelled Ovalocytes Cancelled Stomatocytes Cancelled Rust-Josephine Bodies Cancelled Crow Cells/Echinocytes Cancelled Acanthocytes (Spur) Cancelled Schistocytes Cancelled Sodium 140 Potassium 4.0 Chloride 104 Carbon Dioxide 22.6 Anion Gap 13.4 H BUN 20 H Creatinine 1.4 H Estimated GFR/1.73 m2 36.86 Glucose 95 Calcium 10.5 H Total Bilirubin 0.6 AST 39 H ALT 23 Alkaline Phosphatase 82 Total Protein 8.0 Albumin 3.9 COVID-19 Source SARS-CoV-2 (PCR) 05/22/21 05/23/21 20:24 06:05 WBC RBC Hgb Hct MCV MCH MCHC RDW Plt Count MPV Immature Gran % Neutrophils % Band Neutrophils % Lymphocytes % Atypical Lymphs % Monocytes % Eosinophils % Basophils % Metamyelocytes % Myelocytes % Promyelocytes % Other Cells % Nucleated RBC % Absolute Neutrophils Absolute Lymphocytes Absolute Monocytes Absolute Eosinophils Absolute Basophils RBC Morphology Polychromasia Hypochromasia Poikilocytosis Basophilic Stippling Anisocytosis Microcytosis Macrocytosis Spherocytes Tear Drop Cells Ovalocytes Stomatocytes Rust-Josephine Bodies Benedict Cells/Echinocytes Acanthocytes (Spur) Schistocytes Sodium 141 Potassium 3.6 Chloride 106 Carbon Dioxide 24.3 Anion Gap 10.7 BUN 18 Creatinine 1.2 H Estimated GFR/1.73 m2 44.04 Glucose 85 Calcium 9.9 Total Bilirubin AST ALT Alkaline Phosphatase Total Protein Albumin COVID-19 Source Nasal/Nares SARS-CoV-2 (PCR) Negative
--- NOTE | 2021-05-23 13:00 | NT_ITS ---
Date of service: 05/23/21 Time of Service: 13:00 PT Notes Visit Reasons: Decreased ADL Perform,Self Neglect,Recurrent CVA'S Hold per hospitalist. Will continue to see patient tomorrow morning for continued PT services. Thank you for the opportunity to participate in the care of this patient. Peggy Tan PT, DPT, CLT [facility] [place], [place]
[2021-05-23] MEDS: Lactated Ringers 1,000 ML 125 ML IV (15:38)
[2021-05-23 16:04] LABS: Bilirubin Small (Negative); Blood Trace-intact (Negative); Clarity Clear (Clear); Glucose Negative (Negative); Ketones 15 mg/dL (Negative); Leukocyte Esterase Negative (Negative); Nitrite Negative (Negative); Specific Gravity >= 1.030 (1.005-1.025)
[2021-05-23 16:22] LABS: Bacteria Negative HPF (Negative); C & S Indicated? No/Sq. Contamination; Crystals Moderate Amorphous HPF (Negative); Epithelial Cells Moderate HPF (Negative); Mucus Negative (Negative); Other Cells Negative (Negative); RBC Negative HPF (0-2)
--- NOTE | 2021-05-23 19:36 | PCNE_ITS ---
Date of service: 05/23/21 Time of Service: 15:00 History of Present Illness Narrative: I met with Sisi, who likes to be called Ting, and Concha Caceres from care management in Sisi's hospital room. I was asked to speak to Sisi about her goals of care, specifically who she wanted as her agent and what she wished for her code status. 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 She was quite clear in answering that she would not want to be intubated or undergo CPR or defibrillation. She filled out a COLST form to reflect her desires. She says she wants to be kept comfortable. She does not want aggressive care. She would not want to fly on a helicopter to [facility]. She would not want any aggressive measures. She will accept antibiotics and IVF IF these interventions help her feel better. She filled out her health care agent form, which was witness by me and Concha Caceres. Her son Sergei, who lives with her here in [facility], is her primary agent; if he is unavailable, she would want her son Sawyer to make decisions. Given her recent stroke and resulting mild to moderate expressive aphasia, she could not tell us some details, such as Sergei's phone number. Her address was off by one digit. However, she seems to understand big concepts well. She had clearly thought about her medical decisions prior to our visit. Consults Consult date: 05/23/21 Requesting physician: Emelia Alba Assessment and Plan Assessment and plan (1) History of stroke: Status: Acute Assessment and plan: Has had several, most recent noted on today's brain MRI. This one in right temporal region. At HIGH risk for more, given her smoking, her prior strokes, her immobility. She is not interested in any aggressive interventions. She might declare herself hospice eligible during this admission, or when transferred to SNF. She enjoys her life as it is. She doesn't want to make a lot of changes. She talks as if she thinks she will be dying soon, and is not afraid. (2) Debility: Status: Acute Assessment and plan: Walked with PT today, but needed help. Grew very weak at end of walk. She is not sure that she wants to continue working with PT and OT. She is thinking she might just want to go home and be kept comfortable. Not work to get better--she doesn't seem to think she will. We talked about strokes taking a while to settle out in terms of how much return of function she might have. She is currently considering going to SNF on Friday of this week; she is not 100% sure she wants to participate in an aggressive rehab program. (3) Expressive aphasia: Status: Chronic Assessment and plan: Has been present since her previous stroke. She can make herself known but doesn't always fill in the gaps. (Address off by one digit, etc.) (4) Noncompliance with medication regimen: Status: Chronic Assessment and plan: She says she is quite stubborn. She doesn't like to take a lot of medications. She doesn't like being told what to do. She values independence very highly. (5) Smoker: Status: Chronic Assessment and plan: Not interested in a patch and not interested in quitting. She knows that smoking is linked to her recent strokes. (6) Goals of care, counseling/discussion: Status: Acute Assessment and plan: We reviewed and filled out the health care agent form and the COLST form. She was able to sign both. (7) POLST (Physician Orders for Life-Sustaining Treatment): Status: Acute (8) Health care proxy on file: Status: Acute Review of Systems Narrative: Ting denied any pain. She does feel weak. She worked with PT today but at the end her legs almost gave out on her. She was able to hold a conversation. Not everything she said linearly followed, but she makes herself understood. She did have both fecal and urinary incontinence when she came in. She downplayed this. That happens to everyone sometimes. She did acknowledge that her son was not willing to help her with personal care. She has not had headaches. She doesn't feel confused. She is NOT a morning person. She does better when asked to converse in the afternoons. She often feels cold. She has not rashes or recent injuries. She knows that her language is not always on target. She is able to communicate with expression and other non-verbal means. She denies any recent cough. She does wear glasses. Her hearing is normal. She sometimes has a hard time swallowing. She doesn't like it when her son tells her what to do. IF he puts her medications out for her, she can take them herself. She values her independence. She doesn't want to go to Rehab for long, but she is willing to go IF this allows her to stay home longer. She would prefer to avoid coming to the hospital in the future. She doesn't want any aggressive jae tment. She says her mother --her adoptive mother, it seems---lives in the house with her. She couldn't tell me how old she was. She thinks she is losing weight. She is often tired. She knows she is still recovering from her stroke. PFSH All Active Problems (Updated 05/23/21 @ 20:08 by Smitha Bryan MD) History of multiple strokes (Acute) Apr 2021, subacute or old on brain MRI Health care proxy on file (Acute ~05/23/21) rex Mai DNR (do not resuscitate) discussion (Acute) DNI (do not intubate) (Acute) DNR (do not resuscitate) (Acute) POLST (Physician Orders for Life-Sustaining Treatment) (Acute) Goals of care, counseling/discussion (Acute) Smoker (Chronic) both tobacco and marijuana History of stroke (Acute) left MCA Debility (Acute) Ischemic cerebrovascular accident (CVA) due to atherosclerosis of large intracranial artery (Acute) Acute on chronic anemia (Acute) Acute ischemic left MCA stroke (Acute) Elevated factor VIII level (Chronic) Expressive aphasia (Chronic) Discharge planning issues (Acute) Noncompliance with medication regimen (Chronic) H/O esophagogastroduodenoscopy (Chronic ~05/19/18) Hiatal hernia (Chronic) Gastritis and duodenitis (Acute) Gastric ulcer (Acute) Esophagitis (Acute) Vasovagal syncope (Acute) History of kidney stones (Chronic) SVT (supraventricular tachycardia) (Chronic) Vascular dementia (Chronic) DVT (deep venous thrombosis) (Chronic) CVA (cerebral vascular accident) (Chronic) CAD (coronary artery disease) (Chronic) Hypercoagulable state (Chronic) Medical History (Updated 05/23/21 @ 20:08 by Smitha Bryan MD) Afib CKD (chronic kidney disease) Essential hypertension Hx of upper gastrointestinal hemorrhage Nephrolithiasis Personal history of DVT (deep vein thrombosis) Pulmonary embolism Pulmonary embolism Recurrent cerebrovascular accidents (CVAs) Tubular adenoma (~2015) Upper GI bleeding Surgical History Appendectomy section Colonoscopy - MAC (12/29/15) History of esophagogastroduodenoscopy (EGD) (~12/2017) Family History (Updated 05/23/21 @ 19:55 by Smitha Bryan MD) Son No problems noted. Son No problems noted. Social History (Updated 05/23/21 @ 20:00 by Smitha Bryan MD) Smoking/Tobacco Use Status: Current every day Tobacco Type: cigarettes Tobacco: How many years used: 60 Second Hand Exposure: Yes Counseling given: provider counseling and counseling >3 minutes Smoking risk assessment performed?: Yes Alcohol Intake: never Drug use: Daily Substance use type: marijuana Caregiver/Support person: Yes Household members: children and other Details: mother--adoptive Housing: apartment Number of Children: 2 Communication Needs: Hard of Hearing and Corrective Lenses Education Level: high school Do you need help understanding health information?: Often current occupation: retired [employer] Do you think of yourself as: straight/heterosexual Current gender identity: female How often do you get together with friends or relatives?: three or more times per week Panel score (0-1 are the most socially isolated patients): 1 What type of physical activity do you participate in: none and sedentary lifestyle Frequency: does not exercise Mackenzie/Gnosticism: Scientologist Special mackenzie needs: No Agree to transfusion: No Working smoke detector in home: Yes Fire extinguisher in home: Yes Do you feel safe at home: Yes Do you feel safe in your relationship?: Yes Additional Social history: Wants to go home and stay home. Doesn't want any aggressive care, just care aimed at helping her feel as good as possible. She mentioned something about court and her son Sergei. She did not elaborate. She said the apartment has to be in her name. She said her mother lived with her, then explained that her mother is not her bio mother, but a mother-like figure. She didn't think that she could help with personal care. She does have strong beliefs: she values independence and freedom. She talks about as if she thinks it is around the corner. She doesn't appear to be frightened by this. Exam Const General: cooperative, no acute distress and other (wrapped in multiple blankets--gets cold easily) HENMT Head: normocephalic and atraumatic Ears: hearing grossly normal bilaterally General nose exam: external nose normal Mouth: oral mucosae normal Eyes Conjunctivae: conjunctivae normal Sclera: sclerae normal EOM: EOM intact bilaterally Neck Neck: no lymphadenopathy and nontender Chest Chest: normal inspection of the chest Resp Effort & Inspection: normal respiratory effort and able to speak in complete sentences Cardio Jugular venous pressure: no JVD Rate: regular rate Rhythm: regular rhythm Heart Sounds: S1 normal and S2 normal GI Inspection: normal to inspection Skin Trauma: no lacerations or abrasions Neuro General: patient alert, patient awake, moves all extremities and unable to assess gait Cognition: normal cognition (but with some difficulty communicating due to her aphasia) Speech: abnormal speech, expressive aphasia and no receptive aphasia Extrem General: normal to inspection Psych Appearance: grossly normal Mental Status: mental status grossly normal Speech and Movement: delayed speech Mood: congruent mood (likes to joke), not anxious, No angry and No irritable mood Affect: normal affect, No anxious affect, No hostile and No irritable affect Attitude: cooperative, not belligerent and not guarded Thought Process: impoverished (due to her difficulties communicating) Insight: fair Judgment: fair Results Last Vital Signs Temp 98.2 F 05/23/21 15:37 Pulse 85 05/23/21 15:37 Resp 18 05/23/21 15:37 BP 140/83 05/23/21 15:37 Pulse Ox 99 05/23/21 15:37 Labs Result diagrams: 05/22/21 17:56 05/23/21 06:05 Labs: Laboratory Results - last 24 hr 05/22/21 05/23/21 05/23/21 20:24 06:05 15:24 Sodium 141 Potassium 3.6 Chloride 106 Carbon Dioxide 24.3 Anion Gap 10.7 BUN 18 Creatinine 1.2 H Estimated GFR/1.73 m2 44.04 Glucose 85 Calcium 9.9 Urine Color Yellow Urine Clarity Clear Urine pH 6.0 Ur Specific [place] >= 1.030 H Urine Protein 30 H Urine Ketones 15 H Urine Blood Trace-intact H Urine Nitrite Negative Urine Bilirubin Small H Urine Urobilinogen 1.0 H Ur Leukocyte Esterase Negative Urine RBC Negative Urine WBC 5-10 Ur Epithelial Cells Moderate Urine Crystals Moderate Amorphous Urine Bacteria Negative Urine Casts 10-20 Fine Granular Urine Mucus Negative Urine Other Negative Ur Culture Indicated? No/Sq. Contamination Urine Glucose Negative COVID-19 Source Nasal/Nares SARS-CoV-2 (PCR) Negative
[2021-05-23] MEDS: Atorvastatin 40 MG TAB 80 MG PO (19:54)
[2021-05-24] VITALS (11 sets, daily range): BP systolic 113–163; BP diastolic 71–81; PULSE 71–108; RESP 16–18; TEMP 35.8–36.9; O2SAT 99–100
[2021-05-24] MEDS: Lactated Ringers 1,000 ML 125 ML IV (00:17)
[2021-05-24] MEDS: Clopidogrel 75 MG TAB PO (09:01)
[2021-05-24] MEDS: amLODIPine 10 MG TAB 5 MG PO (09:01)
[2021-05-24] MEDS: Ferrous Sulfate 325 MG TAB PO ×2 (09:01→19:46)
[2021-05-24] MEDS: Multivitamin w/Minerals TAB 1 TAB PO (09:02)
[2021-05-24] MEDS: Sertraline 50 MG TAB PO (09:02)
[2021-05-24] MEDS: Normal Saline Flush 10 ML SYR IVP (09:02)
[2021-05-24] MEDS: Pantoprazole 40 MG TABCR PO (09:02)
[2021-05-24] MEDS: Metoprolol CR 100 MG TABCR PO (09:02)
[2021-05-24 10:53] LABS: Lab Add On Test DONE
[2021-05-24 10:59] LABS: Calculated LDL 127 mg/dL (<100); Cholesterol 191 mg/dL (<200); HDL Cholesterol 50 mg/dL (40-60); Triglyceride 74 mg/dL (<150)
--- NOTE | 2021-05-24 16:07 | W.NEUROCONSU ---
Date of service: 05/24/21 Time of Service: 16:07 Assessment and Plan Assessment and plan (1) History of multiple strokes: Status: Acute (2) Global aphasia: Status: Acute Assessment and plan: Ms. Aguilar is a 75 year-old woman with history of recurrent ischemic strokes, with recent strokes in Mar and Apr 2021 in the setting of medicaiton non-compliance was admitted with ? findings of new left cerebral hemisphere microhemorrhages. I am not entirely convinced that these changes are present. Regardless, her risk of ischemic stroke is much higher than her risk of these expanding. I recommend she be continued on clopidogrel and rivaroxaban. Otherwise, I am not convinced that she has decision making capacity as per Palliative consult today. I recommend further capacity evaluation before care plans are finalized. Finally, she is not getting the care she needs at home. I recommend placement pending capacity evaluation. She already has f/up in neurology clinic and will follow-up as scheduled. Please call with any further questions or concerns. History of Present Illness History of Present Illness Chief Complaint: abnormal brain MRI/CTH Narrative: Handedness: right. Ms. Aguilar is a 75 year-old woman with atrial fibrillation, recurrent strokes with chronic global aphasia, heart disease s/p STEMI, hypertension, hyperlipidemia, h/o DVT and PE due to factor V Leiden deficiency (although other notes indicate ? Factor 8 deficiency...), CKD, pre-diabetes, gastric ulcers/GI bleed, and depression.? She is under guardianship (due to her aphasia) of her son Max whom she lives with. She has had several recent admission: [place] [facility] [place] for STEMI at which time she was found to have new asymptomatic L cerebellar and parietal infarcts which were attributed to medication non-adherence prior to admission. She was discharged on rivaroxaban and clopidogrel. -[facility] 05/12/21-05/15/21 for new [employer] ischemic stroke, seemingly asymptomatic, and again attributed to medication non-adherence. She was brought to [facility] yesterday by EMS for confusion, though it's not clear who called. In the ER, she was found to be at baseline. A CTH was performed which I was also able to view. There were some new small hyperintensities in the left hemisphere in the bed of her prior MCA infarct concerning for new hemorrhage. An MRI brain was performed yesterday. I was able to review those images as well. Radiology thought there were new microhemorrhages in the old left MCA infarct. In my view, I do not see any new changes. Clopidogrel and rivaroxaban have been held. Otherwise, when she presented to the ER she was soiled in urine. We know that son Max has a difficult time caring for his mother and getting her to take her medications. She was seen by palliative care today who felt she was able to express desire to be DNR/DNI and to seemingly want to take a comfort measure pathway, stop her meds, etc. However, given her aphasia, I am not sure that she has this capacity. This evening she told me that she always takes her medications and wants to continue to do so. Review of Systems Unobtainable due to mental condition PFS All Active Problems (Updated 05/24/21 @ 20:42 by Rea Montes MD) Global aphasia (Acute) History of multiple strokes (Acute) Apr 2021, subacute or old on brain MRI Health care proxy on file (Acute ~05/23/21) rex Mai DNR (do not resuscitate) discussion (Acute) DNI (do not intubate) (Acute) DNR (do not resuscitate) (Acute) POLST (Physician Orders for Life-Sustaining Treatment) (Acute) Goals of care, counseling/discussion (Acute) Smoker (Chronic) both tobacco and marijuana History of stroke (Acute) left MCA Debility (Acute) Ischemic cerebrovascular accident (CVA) due to atherosclerosis of large intracranial artery (Acute) Acute on chronic anemia (Acute) Acute ischemic left MCA stroke (Acute) Elevated factor VIII level (Chronic) Expressive aphasia (Chronic) Discharge planning issues (Acute) Noncompliance with medication regimen (Chronic) H/O esophagogastroduodenoscopy (Chronic ~05/19/18) Hiatal hernia (Chronic) Gastritis and duodenitis (Acute) Gastric ulcer (Acute) Esophagitis (Acute) Vasovagal syncope (Acute) History of kidney stones (Chronic) SVT (supraventricular tachycardia) (Chronic) Vascular dementia (Chronic) DVT (deep venous thrombosis) (Chronic) CVA (cerebral vascular accident) (Chronic) CAD (coronary artery disease) (Chronic) Hypercoagulable state (Chronic) Medical History (Updated 05/24/21 @ 20:42 by Rea Montes MD) Afib CKD (chronic kidney disease) Essential hypertension Hx of upper gastrointestinal hemorrhage Nephrolithiasis Personal history of DVT (deep vein thrombosis) Pulmonary embolism Pulmonary embolism Recurrent cerebrovascular accidents (CVAs) Tubular adenoma (~2015) Upper GI bleeding Surgical History Appendectomy section Colonoscopy - MAC (12/29/15) History of esophagogastroduodenoscopy (EGD) (~12/2017) Family History (Updated 05/23/21 @ 19:55 by Smitha Bryan MD) Son No problems noted. Son No problems noted. Social History (Updated 05/23/21 @ 20:00 by Smitha Bryan MD) Smoking/Tobacco Use Status: Current every day Tobacco Type: cigarettes Tobacco: How many years used: 60 Second Hand Exposure: Yes Counseling given: provider counseling and counseling >3 minutes Smoking risk assessment performed?: Yes Alcohol Intake: never Drug use: Daily Substance use type: marijuana Caregiver/Support person: Yes Household members: children and other Details: mother--adoptive Housing: apartment Number of Children: 2 Communication Needs: Hard of Hearing and Corrective Lenses Education Level: high school Do you need help understanding health information?: Often 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 [employer] Do you think of yourself as: straight/heterosexual Current gender identity: female How often do you get together with friends or relatives?: three or more times per week Panel score (0-1 are the most socially isolated patients): 1 What type of physical activity do you participate in: none and sedentary lifestyle Frequency: does not exercise Mackenzie/Denominational: Episcopalian Special mackenzie needs: No Agree to transfusion: No Working smoke detector in home: Yes Fire extinguisher in home: Yes Do you feel safe at home: Yes Do you feel safe in your relationship?: Yes Additional Social history: Wants to go home and stay home. Doesn't want any aggressive care, just care aimed at helping her feel as good as possible. She mentioned something about aura and her son Sergei. She did not elaborate. She said the apartment has to be in her name. She said her mother lived with her, then explained that her mother is not her bio mother, but a mother-like figure. She didn't think that she could help with personal care. She does have strong beliefs: she values independence and freedom. She talks about as if she thinks it is around the corner. She doesn't appear to be frightened by this. Visit Medication and Allergies Active Medications Generic Name Dose Route Start Last Admin Trade Name Freq PRN Reason Stop Dose Admin Acetaminophen 325 - 650 mg 05/22/21 20:38 Acetaminophen 325 Mg Tab PO Q4H PRN PRN Al Hydrox/Mg Hydrox/Simethicone 30 ml 05/22/21 20:38 Mylanta Suspension 30 Ml Cup PO Q2H PRN PRN Amlodipine Besylate 5 mg 05/23/21 08:30 05/24/21 09:01 Amlodipine 10 Mg Tab PO 5 mg DAILY YOLANDA Administration Atorvastatin Calcium 80 mg 05/22/21 22:00 05/23/21 19:54 Atorvastatin 40 Mg Tab PO 80 mg QPM YOLANDA Administration Clopidogrel Bisulfate 75 mg 05/23/21 09:35 05/24/21 09:01 Clopidogrel 75 Mg Tab PO 75 mg DAILY YOLANDA Administration Diazepam 5 mg 05/23/21 08:30 Diazepam 5 Mg Tab PO ONCE PRN vibration technician to MRI scan Dimethicone/Zinc Oxide 0 gm 05/22/21 20:38 Leonel Protect Cream 142 Gm Tube TP PRN PRN Docusate Sodium 100 mg 05/22/21 20:38 Docusate Sodium 100 Mg Cap PO TID PRN PRN Ergocalciferol 50,000 units 05/27/21 08:30 Ergocalciferol 42751 Units Cap PO Q7D YOLANDA Ferrous Sulfate 325 mg 05/23/21 08:30 05/24/21 09:01 Ferrous Sulfate 325 Mg Tab PO 325 mg BID YOLANDA Administration Sodium Chloride 500 mls @ 0 mls/hr 05/22/21 20:38 Saline 500ml Bag IV PRN PRN As Directed Ringer's Solution 1,000 mls @ 125 mls/hr 05/23/21 13:15 05/24/21 11:53 IV 05/24/21 21:14 Infused INFUSION YOLANDA Infusion IV Miscellaneous Supplies 1 each 05/22/21 20:45 Iv Access IV DIRECTED YOLANDA Iron/Minerals/Multivitamins 1 tab 05/23/21 08:30 05/24/21 09:02 Multivitamin W/Minerals Tab PO 1 tab DAILY YOLANDA Administration Magnesium Hydroxide 30 ml 05/22/21 20:38 Milk Of Magnesia 30 Ml Cup PO DAILY PRN PRN Metoprolol Succinate 100 mg 05/23/21 08:30 05/24/21 09:02 Metoprolol Cr 100 Mg Tabcr PO 100 mg DAILY YOLANDA Administration Pantoprazole Sodium 40 mg 05/23/21 08:30 05/24/21 09:02 Pantoprazole 40 Mg Tabcr PO 40 mg DAILY YOLANDA Administration Polyethylene Glycol 17 gm 05/22/21 20:38 Polyethylene Glycol 3350 17 Gm Packet PO DAILY PRN PRN Constipation Sertraline HCl 50 mg 05/23/21 08:30 05/24/21 09:02 Sertraline 50 Mg Tab PO 50 mg DAILY YOLANDA Administration Sodium Chloride 0 ml 05/22/21 20:38 05/24/21 09:02 Normal Saline Flush 10 Ml Syr IVP 10 ml PRN PRN Administration Valsartan 160 mg 05/22/21 22:00 05/23/21 09:50 Valsartan 80 Mg Tab PO Not Given BID YOLANDA Allergies latex Allergy (Verified 05/22/21 16:57) Swelling/Edema lisinopril Adverse Reaction (Intermediate, Verified 05/22/21 16:57) raises BP morphine Adverse Reaction (Verified 05/22/21 16:57) Visual Disturbances Exam Narrative Exam Narrative: Physical Exam: Gen: Patient of apparent stated age, NAD Head and face: no facial or cranial abnormalities Neck: Supple, no meningismus, no occipital tenderness CV: irregularly irregular Resp: CTA B/L Abd: soft, nontender, nondistended Ext: No edema. No clubbing or cyanosis. No bony deformity. Neuro Exam: Language: fluency, naming, repetition, and comprehension all impaired with noted moderate global aphasia - though today she was able to follow a 3 step command across the midline Mental Status: AAO, history limited due to aphasia Speech: no dysarthria Cranial nerves: Funduscopy: not performed CN II: visual rubio appear intact CN III, IV, : extraocular movements intact, no nystagmus, pupils symmetric and reactive to light CN V: face sensation intact to LT and PP CN VII: R facial weakness CN VIII: hearing intact bilaterally CN IX, X: palate rises symmetrically CN XI: trapezius/SCM 5/5 bilaterally CN XII: protrudes tongue symmetrically Sensory: appears intact to PP throughout but difficult to assess due to aphasia Motor: bulk and tone intact. Fine motor movements reduced on the left. ? subtle L pronator drift. Strength 5/5 throughout. Reflexes: 2+ throughout; toes down going bilaterally; Coordination: FTN and HTS intact bilaterally Gait: not tested Results Last Vital Signs Temp 98.2 F 05/24/21 15:50 Pulse 84 05/24/21 15:50 Resp 16 05/24/21 15:50 BP 130/78 05/24/21 15:50 Pulse Ox 100 05/24/21 15:50 Labs Result diagrams: 05/22/21 17:56 05/23/21 06:05 Labs: Laboratory Results - last 24 hr 05/22/21 05/23/21 05/23/21 17:56 06:05 15:24 Hemoglobin A1c 6.0 H Triglycerides 74 Total Cholesterol 191 LDL Cholesterol, Calc 127 H HDL Cholesterol 50 Urine RBC Negative Urine WBC 5-10 Ur Epithelial Cells Moderate Urine Crystals Moderate Amorphous Urine Bacteria Negative Urine Casts 10-20 Fine Granular Urine Mucus Negative Urine Other Negative Ur Culture Indicated? No/Sq. Contamination Add-On Test Request 05/24/21 06:05 Hemoglobin A1c Triglycerides Total Cholesterol LDL Cholesterol, Calc HDL Cholesterol Urine RBC Urine WBC Ur Epithelial Cells Urine Crystals Urine Bacteria Urine Casts Urine Mucus Urine Other Ur Culture Indicated? Add-On Test Request DONE
--- NOTE | 2021-05-24 16:11 | PDOC.CMPRO ---
- If Service Date Differs Date of service: 05/24/21 Time of Service: 16:11 Care Management Progress Note S/O: Sisi is lying in bed, sleeping. Plan remains undetermined at this time; Sisi met with [facility] H& Admissions personnel-tele connect coordinated by ANA. Awaiting determination from the facility on bed availability. CM continues to follow. A: 75 year old female admitted to [facility] 05/22/21 for recurrent CVA's P: SNF-vs-Home with increased support including son Max. CM continues to follow.
--- NOTE | 2021-05-24 16:48 | PGE_ITS ---
Date of Service Date of service: 05/24/21 Time of Service: 12:00 Assessment and Plan Assessment and plan (1) Debility: Start date: 05/24/21 Start time: 16:53 Status: Acute Assessment and plan: PT, needs help with adls Would benefit from SNIF Will get telehealth consult from psych for capacity (2) Petechial hemorrhage: Start date: 05/24/21 Start time: 12:00 Status: Suspected Assessment and plan: MRI revealing new areas of acute subactute microhemorrhage. Seen by Dr. Montes. She does not feel this is acute. Continue medications. She feesl she would benefit from SNIF (3) Noncompliance with medication regimen: Start date: 05/24/21 Start time: 12:00 Status: Chronic Assessment and plan: patient's cognitive dementia contributes to her noncompliance (4) Vascular dementia: Start date: 05/24/21 Start time: 12:00 Status: Chronic Assessment and plan: will seek telehealth psych for capacity (5) Afib: Start date: 05/24/21 Start time: 12:00 Assessment and plan: cont. Toprol XL. Xarelto restart meds per neuro (6) Essential hypertension: Assessment and plan: cont. amlodipine, Toprol XL and Diovan (7) History of stroke: Start date: 05/24/21 Start time: 12:00 Status: Acute Assessment and plan: as above (8) CAD (coronary artery disease): Start date: 05/24/21 Start time: 12:00 Status: Chronic Assessment and plan: all meds continued per Neurology Discussed with Dr. King Subjective Subjective Patient reports: other Interval history since last seen: Patient has no complaints Exam Const General: cooperative and frail appearing Nutritional Appearance: average body habitus Orientation: alert, awake and other (eyes closed and is not answering questions, just grunting ) [facility] Head: normal to inspection, normocephalic and atraumatic Eyes Eyelids: eyelids normal Sclera: sclerae normal Pupils: PERRL EOM: EOM intact bilaterally Chest Chest: normal inspection of the chest Resp Effort & Inspection: normal respiratory effort Auscultation: clear to auscultation bilaterally Cardio Jugular venous pressure: no JVD Rate: regular rate Rhythm: regular rhythm GI Inspection: normal to inspection Palpation: soft Skin General skin exam: no rashes or lesions noted Neuro General: patient alert, patient awake, patient oriented x3 and no focal motor deficits Extrem General: normal to inspection, full ROM and no pedal edema Psych Appearance: grossly abnormal Objective Last Vital Signs Temp 36.8 C 05/24/21 15:50 Pulse 84 05/24/21 15:50 Resp 16 05/24/21 15:50 BP 130/78 05/24/21 15:50 Pulse Ox 100 05/24/21 15:50 Laboratory Results - last 24 hr 05/22/21 05/23/21 05/24/21 17:56 06:05 06:05 Hemoglobin A1c 6.0 H Triglycerides 74 Total Cholesterol 191 LDL Cholesterol, Calc 127 H HDL Cholesterol 50 Add-On Test Request DONE
--- NOTE | 2021-05-24 16:49 | CHAPLAIN ---
Sisi was wrapped up tightly in blankets when I visited. Her faced was covered up to her nose. She said she was comfortable and trying to rest. She remembered that we'd met a few days ago, and thanked me for stopping in. I didn't stay long as she was trying to rest. Sisi said she's been in touch with her family okay and didn't need anything else at this time.
[2021-05-24] MEDS: Atorvastatin 40 MG TAB 80 MG PO (19:46)
[2021-05-25] VITALS (7 sets, daily range): BP systolic 119–147; BP diastolic 72–86; PULSE 61–74; RESP 16–18; TEMP 36–36.7; O2SAT 99–100
[2021-05-25] MEDS: amLODIPine 10 MG TAB 5 MG PO (07:52)
[2021-05-25] MEDS: Clopidogrel 75 MG TAB PO (07:53)
[2021-05-25] MEDS: Multivitamin w/Minerals TAB 1 TAB PO (07:53)
[2021-05-25] MEDS: Ferrous Sulfate 325 MG TAB PO ×2 (07:53→20:09)
[2021-05-25] MEDS: Rivaroxaban 15 MG TABLET PO (07:54)
[2021-05-25] MEDS: Metoprolol CR 100 MG TABCR PO (07:54)
[2021-05-25] MEDS: Pantoprazole 40 MG TABCR PO (07:54)
[2021-05-25] MEDS: Sertraline 50 MG TAB PO (07:55)
[2021-05-25] MEDS: Normal Saline Flush 10 ML SYR IVP (07:55)
--- NOTE | 2021-05-25 09:35 | OT.INNT ---
Occupational Therapy Notes 05/25/21 OT attempted to see 2x this morning. She states that she would like to hold on her ADLs until later that her morning has been too busy. Nursing came into the room and states that this ok and that she will touch back later today. Amanda Colmenares, OTR/L
--- NOTE | 2021-05-25 10:33 | W.NUTRFU ---
Date of service: 05/25/21 Time of Service: 10:33 Nutrition Note NOTE: Sisi is following heart healthy soft bite sized diet with excellent intake. Not at nutritional risk. Will continue to follow. Time Spent in Nutritional Counseling and Treatment: 0
--- NOTE | 2021-05-25 10:44 | CMPROGNOTE_ITS ---
- If Service Date Differs Date of service: 05/25/21 Time of Service: 10:44 Care Management Progress Note S/O: Sisi was sitting up in her chair, having her hair brushed by an APPLICATION SECURITY DEVELOPER. She was pleased to have help with her hair. CM reviewed her discharge plan to go to [facility], who has offered her a bed. She is agreeable to this plan. CM talked to admissions at [facility] [place] today, who has started a PA for her rehab stay. She will likely remain at [facility] over the weekend while the PA is processed. CM will continue to follow. A: Sisi is a 75 year old female admitted to [facility] on 05/22/21 for decreased ADL performance, self neglect, recurrent CVAs. P: Sisi will go to short term rehab post acutely. She has been accepted at [facility], pending PA. She will transport via facility w/c van, and follow up with her PCP and discharge plan of care. CM will continue to follow.
--- NOTE | 2021-05-25 14:27 | PGE_ITS ---
Date of Service Date of service: 05/25/21 Time of Service: 13:30 Assessment and Plan Assessment and plan (1) Failure to thrive: Start date: 05/25/21 Start time: 13:30 Status: Acute Assessment and plan: Patient not eating or drinking much, per nursing. Patient feels she is drinking enough. she stated she had 3 small glasses of OJ and a water. she also states she ate enough on her lunch when she only ate her ice cream. (2) Vascular dementia: Start date: 05/25/21 Start time: 13:30 Status: Chronic Assessment and plan: Patient oriented to 3 at times for the most part oriented to self only for the most part. Qualifiers: Dementia behavioral disturbance: without behavioral disturbance Qualified Code(s): F01.50 - Vascular dementia without behavioral disturbance (3) Debility: Start date: 05/25/21 Start time: 13:30 Assessment and plan: PT, needs help with adls Accepted at [facility] awaiting prior auth, Plan is to discharge there Friday (4) Petechial hemorrhage: Start date: 05/25/21 Start time: 13:30 Status: Suspected Assessment and plan: Seen by Dr. Montes who does not feel these finding on MRI are new. Restart medications and PT, per her approval. as above SNIF (5) Noncompliance with medication regimen: Start date: 05/24/21 Start time: 12:00 Status: Chronic Assessment and plan: patient's cognitive dementia contributes to her noncompliance (6) Afib: Start date: 05/25/21 Start time: 13:30 Assessment and plan: No episodes of elevated HR, or infarct teley dcd (7) Essential hypertension: Start date: 05/25/21 Start time: 13:30 Assessment and plan: cont. amlodipine, Toprol XL and Diovan (8) History of stroke: Start date: 05/25/21 Start time: 13:30 Status: Acute Assessment and plan: as above (9) Discharge planning issues: Start date: 05/25/21 Start time: 13:30 Status: Acute (10) CAD (coronary artery disease): Start date: 05/25/21 Start time: 13:30 Assessment and plan: all meds continued per Neurology Discussed with Dr. King (11) Global aphasia: Status: Acute Subjective Subjective Patient reports: no new complaints Interval history since last seen: Patient lying in bed, follows commands. Her tray from lunch barely touched. When questioned she states that she ate a lot. The only thing eaten was ice cream. Patient was cooperative when asked to move for examination. She refused to work with PT today. Patient does have vascular dementia. Exam Const General: cooperative and frail appearing Nutritional Appearance: average body habitus Orientation: alert, awake and other (cooperative, oriented at times to 3 other to person only) [facility] Head: normal to inspection, normocephalic and atraumatic Eyes Eyelids: eyelids normal Sclera: sclerae normal Pupils: PERRL EOM: EOM intact bilaterally Chest Chest: normal inspection of the chest Resp Effort & Inspection: normal respiratory effort Auscultation: clear to auscultation bilaterally Cardio Jugular venous pressure: no JVD Rate: regular rate Rhythm: regular rhythm GI Inspection: normal to inspection Palpation: soft Skin General skin exam: no rashes or lesions noted Neuro General: patient alert, patient awake, patient oriented x3 and no focal motor deficits Extrem General: normal to inspection, full ROM and no pedal edema Psych Appearance: grossly abnormal Objective Last Vital Signs Temp 36.7 C 05/25/21 06:19 Pulse 74 05/25/21 14:00 Resp 16 05/25/21 06:19 BP 129/75 05/25/21 06:19 Pulse Ox 99 05/25/21 06:19
--- NOTE | 2021-05-25 15:04 | PT.INTREAT ---
PT Notes Visit Reasons: Decreased ADL Perform,Self Neglect,Recurrent CVA'S Inpatient Physical Therapy Treatment Note [facility] Date: 05/25/21 SUBJECTIVE: Sisi appears confused this pm. She was upset that I suggested a walk with her as she felt that 2am was too early. I was unable to direct her. OBJECTIVE: [] BED MOBILITY/TRANSFERS Supine-sit:SBA Sit-supine: SBA Sit-stand: SBA Stand-sit: SBA GAIT Assistive Device:FWW Weight bearing: FWB Assist: CGA Distance: 20'x2 Deviation: she ended up carrying her walker most of the way. THEREX: general bed exercises. See flowsheet for details. ASSESSMENT: tolerated session well. No c/o CHI, lightheadedness or dizziness. She was able to follow directions, but very confused at times and I was not able to redirect her. PLAN: continue progressing her strength to improve her functional mobility. TREATMENT CODE/TIME: 30 min [id number], [id number]
--- NOTE | 2021-05-25 18:48 | PT.INNT ---
Date of service: 05/25/21 Time of Service: 12:03 PT Notes Visit Reasons: Decreased ADL Perform,Self Neglect,Recurrent CVA'S Attempted to offer to assist patient from bed to wheelchair so she could be up on her chair for lunch, patient refused and stated that she is not hungry and would prefer to stay in bed so she could rest. She reports continued fatigue and drowsiness. Will try re-approach this afternoon for scheduled PT session.
[2021-05-25] MEDS: Atorvastatin 40 MG TAB 80 MG PO (20:09)
[2021-05-26 06:16] VITALS: BP 133/81; PULSE 74; RESP 20; TEMP 36.9; O2SAT 100
[2021-05-26 06:24] LABS: NT-proBNP 3576 pg/mL (<300)
[2021-05-26 08:11] LABS: Anion Gap 7.2 mmol/L (3-11); BUN 11 mg/dL (7-18); CO2 26.8 mmol/L (21.0-32.0); CREATININE 1.3 mg/dL (0.55-1.02); Calcium 9.5 mg/dL (8.5-10.1); Chloride 110 mmol/L (98-107); Estimated GFR 40.15 (mL/min/1.73m2); Glucose 105 mg/dL (74-106); Potassium 3.7 mmol/L (3.5-5.1); Sodium 144 mmol/L (136-145)
--- NOTE | 2021-05-26 09:31 | PGE_ITS ---
Date of Service Date of service: 05/26/21 Time of Service: 08:30 Assessment and Plan Assessment and plan (1) Failure to thrive: Start date: 05/26/21 Start time: 08:30 Status: Acute Assessment and plan: Patient ate whole meal this morning. (2) Vascular dementia: Start date: 05/26/21 Start time: 08:30 Status: Chronic Assessment and plan: Oriented x 2 at this time Qualifiers: Dementia behavioral disturbance: without behavioral disturbance Qualified Code(s): F01.50 - Vascular dementia without behavioral disturbance (3) Debility: Start date: 05/26/21 Start time: 08:30 Assessment and plan: PT, needs help with adls Accepted at awaiting prior auth, Plan is to discharge there Friday (4) Petechial hemorrhage: Start date: 05/26/21 Start time: 08:30 Status: Suspected Assessment and plan: Seen by Dr. Montes who does not feel these finding on MRI are new. Restarted on medications, continue PT, as above SNIF (5) Noncompliance with medication regimen: Start date: 05/26/21 Start time: 08:30 Status: Chronic Assessment and plan: patient's cognitive dementia contributes to her noncompliance (6) Afib: Start date: 05/25/21 Start time: 13:30 Assessment and plan: No episodes of elevated HR, or infarct teley dcd (7) Essential hypertension: Start date: 05/26/21 Start time: 08:30 Assessment and plan: cont. amlodipine, Toprol XL and Diovan (8) History of stroke: Start date: 05/26/21 Start time: 08:30 Status: Acute Assessment and plan: as above (9) CAD (coronary artery disease): Start date: 05/26/21 Start time: 08:30 Assessment and plan: all meds continued per Neurology (10) Discharge planning issues: Start date: 05/26/21 Start time: 08:30 Status: Acute Assessment and plan: Discharge to H/R on Friday discussed with Dr. andersen Subjective Subjective Patient reports: no new complaints Interval history since last seen: Sitting up in chair. No c/o. Patient oriented x 2. Ate all of her breakfast this am. Exam Const General: cooperative and frail appearing Nutritional Appearance: average body habitus Orientation: alert, awake and other (cooperative, oriented at times to 3 other to person only) [facility] Head: normal to inspection, normocephalic and atraumatic Eyes Eyelids: eyelids normal Sclera: sclerae normal Pupils: PERRL EOM: EOM intact bilaterally Chest Chest: normal inspection of the chest Resp Effort & Inspection: normal respiratory effort Auscultation: clear to auscultation bilaterally Cardio Jugular venous pressure: no JVD Rate: regular rate Rhythm: regular rhythm GI Inspection: normal to inspection Palpation: soft Skin General skin exam: no rashes or lesions noted Neuro General: patient alert, patient awake, patient oriented x3 and no focal motor deficits Extrem General: normal to inspection, full ROM and no pedal edema Psych Appearance: grossly abnormal Objective Last Vital Signs Temp 36.9 C 05/26/21 06:16 Pulse 74 05/26/21 06:16 Resp 20 05/26/21 06:16 BP 133/81 05/26/21 06:16 Pulse Ox 100 05/26/21 06:16 Laboratory Results - last 24 hr 05/26/21 05/26/21 05:30 05:30 Sodium 144 Potassium 3.7 Chloride 110 H Carbon Dioxide 26.8 Anion Gap 7.2 BUN 11 D Creatinine 1.3 H Estimated GFR/1.73 m2 40.15 Glucose 105 Calcium 9.5 NT-Pro-B Natriuret Pep 3576 H
[2021-05-26] MEDS: Clopidogrel 75 MG TAB PO (10:15)
[2021-05-26] MEDS: Pantoprazole 40 MG TABCR PO (10:16)
[2021-05-26] MEDS: Sertraline 50 MG TAB PO (10:16)
[2021-05-26] MEDS: Ferrous Sulfate 325 MG TAB PO ×2 (10:16→19:13)
[2021-05-26] MEDS: Multivitamin w/Minerals TAB 1 TAB PO (10:16)
[2021-05-26] MEDS: Rivaroxaban 15 MG TABLET PO (10:16)
[2021-05-26] MEDS: Metoprolol CR 100 MG TABCR PO (10:17)
[2021-05-26] MEDS: amLODIPine 10 MG TAB 5 MG PO (10:17)
--- NOTE | 2021-05-26 12:13 | PT.INTREAT ---
PT Notes Visit Reasons: Decreased ADL Perform,Self Neglect,Recurrent CVA'S Inpatient Physical Therapy Treatment Note [facility] Date: 05/26/21 SUBJECTIVE: Sisi offers no complaints. OBJECTIVE: [] BED MOBILITY/TRANSFERS Sit-stand: SBA Stand-sit: SBA GAIT Assistive Device: FWW Weight bearing: FWB Assist: CGA Distance: 60'x2 THEREX: global LE strength and stabilization. See flowsheet for details. ASSESSMENT: tolerated session well. Confused at times, but able to follow directions. I felt she could walk further distance, but she did not want to. PLAN: continue working on strength and functional mobility to tolerance. TREATMENT CODE/TIME: 20 min. [id number].
[2021-05-26 13:06] LABS: Lab Add On Test done
[2021-05-26 15:10] VITALS: BP 139/82; PULSE 72; RESP 16; TEMP 37; O2SAT 100
[2021-05-26] MEDS: Normal Saline Flush 10 ML SYR IVP (19:13)
[2021-05-26] MEDS: Atorvastatin 40 MG TAB 80 MG PO (19:13)
[2021-05-26] MEDS: Valsartan 80 MG TAB 160 MG PO (20:32)
[2021-05-26 22:54] VITALS: BP 133/81; PULSE 61; RESP 16; TEMP 36.2; O2SAT 100
[2021-05-27 06:33] VITALS: BP 128/82; PULSE 61; RESP 16; TEMP 36; O2SAT 100
[2021-05-27] MEDS: Multivitamin w/Minerals TAB 1 TAB PO (08:56)
[2021-05-27] MEDS: Rivaroxaban 15 MG TABLET PO (08:56)
[2021-05-27] MEDS: Pantoprazole 40 MG TABCR PO (08:56)
[2021-05-27] MEDS: Metoprolol CR 100 MG TABCR PO (08:56)
[2021-05-27] MEDS: Valsartan 80 MG TAB 160 MG PO ×2 (08:56→20:45)
[2021-05-27] MEDS: Clopidogrel 75 MG TAB PO (08:57)
[2021-05-27] MEDS: Ferrous Sulfate 325 MG TAB PO ×2 (08:57→20:45)
[2021-05-27] MEDS: Sertraline 50 MG TAB PO (08:57)
[2021-05-27] MEDS: amLODIPine 10 MG TAB 5 MG PO (08:57)
[2021-05-27] MEDS: Ergocalciferol 50000 UNITS CAP PO (09:44)
--- NOTE | 2021-05-27 11:59 | PT.INNT ---
PT Notes Visit Reasons: Decreased ADL Perform,Self Neglect,Recurrent CVA'S refused x2. Sisi very sleepy earlier this am. I attempted again late am of which she said her head felt like it was going to fall off. She refused to ex or walk with me. Will check in with her tomorrow.
[2021-05-27 13:26] LABS: Source Nasal/Nares
--- NOTE | 2021-05-27 13:37 | W.PM.PROGNOT ---
Date of Service Date of service: 05/27/21 Time of Service: 13:37 Assessment and Plan Assessment and plan (1) Failure to thrive: Status: Acute Assessment and plan: Patient ate whole meal this morning. (2) Vascular dementia: Status: Chronic Assessment and plan: Oriented x 2 at this time Qualifiers: Dementia behavioral disturbance: without behavioral disturbance Qualified Code(s): F01.50 - Vascular dementia without behavioral disturbance (3) Debility: Assessment and plan: PT, needs help with adls Accepted at [facility] awaiting prior auth, Plan is to discharge there Friday (4) Petechial hemorrhage: Status: Suspected Assessment and plan: Seen by Dr. Montes who does not feel these finding on MRI are new. Restarted on medications, continue PT, as above SNIF (5) Noncompliance with medication regimen: Status: Chronic Assessment and plan: patient's cognitive dementia contributes to her noncompliance (6) Essential hypertension: Assessment and plan: cont. amlodipine, Toprol XL and Diovan (7) History of stroke: Status: Acute Assessment and plan: as above (8) CAD (coronary artery disease): Assessment and plan: all meds continued per Neurology (9) Discharge planning issues: Status: Acute Assessment and plan: Discharge to H/R on Friday discussed with Dr. andersen Subjective Subjective Patient reports: no new complaints, tolerating liquids well, tolerating a regular diet, bowel movement and afebrile Exam Const General: frail appearing Nutritional Appearance: average body habitus Orientation: other (eyes closed and is not answering questions, just grunting ) [facility] Head: normal to inspection, normocephalic and atraumatic Chest Chest: normal inspection of the chest Resp Effort & Inspection: normal respiratory effort Cardio Rate: regular rate Rhythm: regular rhythm GI Inspection: normal to inspection Palpation: soft Neuro General: patient alert, patient awake, patient oriented x3 and no focal motor deficits Extrem General: normal to inspection, full ROM and no pedal edema Objective Last Vital Signs Temp 36.0 C L 05/27/21 06:33 Pulse 61 05/27/21 06:33 Resp 16 05/27/21 06:33 BP 128/82 05/27/21 06:33 Pulse Ox 100 05/27/21 06:33 Laboratory Results - last 24 hr 05/27/21 13:20 COVID-19 Source Nasal/Nares
[2021-05-27 14:06] LABS: COVID-19 PCR Negative (Negative)
[2021-05-27 14:47] VITALS: BP 106/65; PULSE 86; RESP 12; TEMP 36.6; O2SAT 98
[2021-05-27] MEDS: Atorvastatin 40 MG TAB 80 MG PO (20:45)
[2021-05-27 23:47] VITALS: BP 119/70; PULSE 60; RESP 17; TEMP 36.2; O2SAT 100
[2021-05-28 07:43] VITALS: BP 131/70; PULSE 54; RESP 15; TEMP 36.6; O2SAT 99
[2021-05-28] MEDS: Rivaroxaban 15 MG TABLET PO (07:52)
[2021-05-28] MEDS: Clopidogrel 75 MG TAB PO (07:52)
[2021-05-28] MEDS: Ferrous Sulfate 325 MG TAB PO ×2 (07:52→19:36)
[2021-05-28] MEDS: Multivitamin w/Minerals TAB 1 TAB PO (07:52)
[2021-05-28] MEDS: Pantoprazole 40 MG TABCR PO (07:52)
[2021-05-28] MEDS: Sertraline 50 MG TAB PO (07:52)
[2021-05-28] MEDS: Metoprolol CR 100 MG TABCR PO (07:52)
[2021-05-28] MEDS: Valsartan 80 MG TAB 160 MG PO ×2 (07:52→19:35)
[2021-05-28] MEDS: amLODIPine 10 MG TAB 5 MG PO (07:53)
[2021-05-28] MEDS: Normal Saline Flush 10 ML SYR IVP (07:54)
--- NOTE | 2021-05-28 08:54 | OT.INTREAT ---
Occupational Therapy Notes Occupational Therapy Inpatient Treatment Note Date: 05/28/21 PRECAUTIONS: Fall, standard, DNR/DNI SUBJECTIVE: Pt was sitting in chair when OT arrived. She was agreeable to OT session and asks multiple times throughout session what time it was. OBJECTIVE: PAIN:0/10 DRESSING: Lower Extremity: mod vc and mod (A) while sitting chair. GROOMING: sitting in chair with max (A) set up/clean up (I) brushing her teeth with ideal technique TREATMENT CODES/TIME: 79162, 10 minutes (08:45) Amanda Colmenares, OTR/L [facility]
--- NOTE | 2021-05-28 09:48 | CMPROGNOTE_ITS ---
- If Service Date Differs Date of service: 05/28/21 Time of Service: 09:48 Care Management Progress Note S/O: Sisi continues to await PA approval for SNF stay at [facility]. Per Dalia of admissions, the PA is still pending at this time. CM will continue to follow. A: Sisi is a 75 year old female admitted to [facility] on 05/22/21 for decreased ADL performance, self neglect, recurrent CVAs. P: Sisi will go to short term rehab post acutely. She has been accepted at [facility], pending PA. She will transport via facility w/c van, and follow up with her PCP and discharge plan of care. CM will continue to follow.
--- NOTE | 2021-05-28 11:21 | PT.INNT ---
Date of service: 05/28/21 Time of Service: 11:21 PT Notes Visit Reasons: Decreased ADL Perform,Self Neglect,Recurrent CVA'S 05/28/2020 Patient refused to participate in morning PT session x2. She reports feeling tired from her two recent falls, and states that she just wants to lay in bed under the covers. Will attempt to resume PT services this afternoon.
--- NOTE | 2021-05-28 11:48 | W.PM.PROGNOT ---
Date of Service Date of service: 05/28/21 Time of Service: 09:47 Assessment and Plan Assessment and plan (1) Failure to thrive: Start date: 05/28/21 Start time: 09:47 Status: Acute Assessment and plan: Patient ate whole meal this morning. (2) Vascular dementia: Start date: 05/28/21 Start time: 09:47 Status: Chronic Assessment and plan: Oriented x 1 at this time Pleasant and cooperative Qualifiers: Dementia behavioral disturbance: without behavioral disturbance Qualified Code(s): F01.50 - Vascular dementia without behavioral disturbance (3) Debility: Start date: 05/28/21 Start time: 09:47 Assessment and plan: PT, needs help with adls Accepted at [facility] awaiting prior auth, still awaiting for prior auth (4) Petechial hemorrhage: Start date: 05/28/21 Start time: 09:47 Status: Suspected Assessment and plan: Seen by Dr. Montes who does not feel these finding on MRI are new. Restarted on medications, continue PT, as above SNIF (5) Noncompliance with medication regimen: Start date: 05/28/21 Start time: 09:47 Status: Chronic Assessment and plan: patient's cognitive dementia contributes to her noncompliance (6) Essential hypertension: Start date: 05/28/21 Start time: 09:47 Assessment and plan: cont. amlodipine, Toprol XL and Diovan (7) History of stroke: Start date: 05/28/21 Start time: 09:47 Status: Acute Assessment and plan: as above (8) CAD (coronary artery disease): Start date: 05/28/21 Start time: 09:47 Assessment and plan: all meds continued per Neurology (9) Discharge planning issues: Start date: 05/28/21 Start time: 09:47 Status: Acute Assessment and plan: Discharge to H/R when prior auth approved discussed with Dr. andersen Subjective Subjective Patient reports: no new complaints Interval history since last seen: Sitting up in chair, awaiting bed at H/R authorization still pending. Exam Const General: cooperative, comfortable and no acute distress Nutritional Appearance: average body habitus Orientation: alert, awake and other (answers questions appropriately oriented x 1) [facility] Head: normal to inspection, normocephalic and atraumatic Chest Chest: normal inspection of the chest Resp Effort & Inspection: normal respiratory effort Cardio Rate: regular rate Rhythm: regular rhythm GI Inspection: normal to inspection Palpation: soft Neuro General: patient alert, patient awake, oriented Patient Orientation: Person and no focal motor deficits Extrem General: normal to inspection, full ROM and no pedal edema Objective Last Vital Signs Temp 36.6 C 05/28/21 07:43 Pulse 54 L 05/28/21 07:43 Resp 15 05/28/21 07:43 BP 131/70 05/28/21 07:43 Pulse Ox 99 05/28/21 07:43 Laboratory Results - last 24 hr 05/27/21 13:20 COVID-19 Source Nasal/Nares SARS-CoV-2 (PCR) Negative
--- NOTE | 2021-05-28 14:09 | PT.INNT ---
Date of service: 05/28/21 Time of Service: 14:09 PT Notes Visit Reasons: Decreased ADL Perform,Self Neglect,Recurrent CVA'S 05/28/2020 Patient refused to participate in afternoon PT session. Will attempt to resume PT services tomorrow morning.
[2021-05-28 15:33] VITALS: BP 133/84; PULSE 62; RESP 18; TEMP 36.5; O2SAT 97
[2021-05-28] MEDS: Atorvastatin 40 MG TAB 80 MG PO (19:35)
[2021-05-28 23:27] VITALS: BP 142/72; PULSE 70; RESP 18; TEMP 36.3; O2SAT 98
[2021-05-29 07:23] VITALS: BP 130/78; PULSE 74; RESP 16; TEMP 36.2; O2SAT 99
[2021-05-29] MEDS: amLODIPine 10 MG TAB 5 MG PO (08:06)
[2021-05-29] MEDS: Ferrous Sulfate 325 MG TAB PO (08:08)
[2021-05-29] MEDS: Pantoprazole 40 MG TABCR PO (08:08)
[2021-05-29] MEDS: Multivitamin w/Minerals TAB 1 TAB PO (08:08)
[2021-05-29] MEDS: Valsartan 80 MG TAB 160 MG PO (08:08)
[2021-05-29] MEDS: Rivaroxaban 15 MG TABLET PO (08:08)
[2021-05-29] MEDS: Metoprolol CR 100 MG TABCR PO (08:08)
[2021-05-29] MEDS: Sertraline 50 MG TAB PO (08:09)
[2021-05-29] MEDS: Clopidogrel 75 MG TAB PO (08:10)
--- NOTE | 2021-05-29 08:22 | OT.INTREAT ---
Occupational Therapy Notes Occupational Therapy Inpatient Treatment Note Date: 05/29/21 PRECAUTIONS: Fall, standard, DNR/DNI SUBJECTIVE:?Pt was sitting in chair when OT arrived. She was agreeable to OT session ad performance of washing before she gets her breakfast. OBJECTIVE:? PAIN:0/10 Bathing- Max (A) Set up/clean up- (I) face, (B) UE and abdomen, mod (A) (B) LE pt denies mónica area and back and states that its too cold. DRESSING:?? Lower Extremity: mod vc and mod (A) while sitting chair. Eating- sitting in chair (I) with food to mouth and chewing, no issues opening packages. ? TREATMENT CODES/TIME:?74565, 10 minutes (08:45)? Amanda Colmenares, OTR/L [facility]
--- NOTE | 2021-05-29 08:54 | PT.INNT ---
Date of service: 05/29/21 Time of Service: 08:54 PT Notes Visit Reasons: Decreased ADL Perform,Self Neglect,Recurrent CVA'S 05/29/2020 Patient refused to participate in PT this morning. Will attempt to resume PT services this afternoon.
--- NOTE | 2021-05-29 11:09 | W.PM.DS.N ---
Date of service: 05/29/21 Time of Service: 11:09 DS: Diagnosis Discharge Diagnosis (1) Failure to thrive: Status: Acute (2) Vascular dementia: Status: Chronic (3) Debility: (4) Petechial hemorrhage: Status: Suspected (5) Noncompliance with medication regimen: Status: Chronic (6) Essential hypertension: (7) History of stroke: Status: Acute (8) CAD (coronary artery disease): Discharge Plan Disposition Patient Disposition: SNF (LEVEL 1) [facility] Condition: Stable Discharge Details Reason For Visit: Decreased ADL Perform,Self Neglect,Recurrent CVA'S Admit Date/Time: 05/22/21 20:21 Admit Provider: Braulio King Attending Provider: Braulio King Primary Care Provider: Concha Loving [place] Hospital Course: This is a 75 yr old female with history of repeated strokes, chronic atrial fibrillation and STEMI all within the past 1 1/2 months. She was most recently hospitalized 05/12-05/15/21 for acute confusion and was found to have multilevel cerebral infarcts on her CT scan w/ most recent being new large area infarct involving the right temporal and right occipital lobes. No evidence of intracranial hemorrhage was seen. She is chronically anticoagulated w/ Rivaroxaban for chronic atrial fibrillation and is on Plavix for her recent STEMI and subsequent stents. During her most recent hospitalization she underwent MRI and MRA of the brain and MRA of the cervical vessels and carotid duplex scan and echocardiogram. She has multiple areas of strokes consistent w/ embolic stroke but also has high grade stenosis of the MONISHA at the skull base and inferior aspect of the cavernous sinus as well as moderate narrowing of the LICA in the lower cavernous sinus. Carotid duplex did not show any hemodynamic stenosis of the cervical vessels. Echo showed normal global LV function w/ LVEF 55% but w/ akinetic apical/anteroapical segments. She was seen by Dr. Rea Montes, neurology in consult. Patient was evaluated by speech therapy, physical therapy. She was cleared for regular consistency diet and P.T. cleared her for home P.T. Patient did not want to pursue senior living facility at that time and requested to return home where she lives w/ her son. She returns to the ED via EMS initially for complaints of acute confusion and was found by EMS to be covered in feces and urine. Further evaluation in the ED revealed that she is at her baseline cognition. She has an expressive aphasia in which she has problems w/ completion of sentences w/ difficulty finding the correct words. She has some cognitive impairment in which she is unable to complete tasks or answer questions correctly. She is not felt appropriate for discharge to home at this time as she can not care for herself. She is admitted to the med/surg unit for further evaluation, PT evaluation and discharge planning. She remained medically stable, is eating and drinking and has re-ambulated with PT. she is now agreeable to senior living facility admission. referrals have been placed and she is accepted at [facility] rehab. she is being discharged by van discharge discussed with DR Rai [facility] and New Rx's Prescriptions: Continued cholecalciferol (vitamin D3) 125 mcg (5,000 unit) capsule 125 mcg PO QWEEK 0RF ferrous sulfate [FeroSul] 325 mg (65 mg iron) tablet 325 mg PO BID 0RF Rx Instructions: WITH MEALS multivitamin with minerals Tablet 1 tab PO DAILY 0RF atorvastatin 80 mg tablet 80 mg PO HS 0RF Label Comments: Take 1 tablet by mouth every evening clopidogrel 75 mg tablet 75 mg PO DAILY 0RF Label Comments: Take 1 tablet by mouth once a day pantoprazole 40 mg tablet,delayed release (DR/EC) 40 mg PO DAILY 0RF Label Comments: Take 1 tablet by mouth once a day valsartan 160 mg tablet 160 mg PO BID 0RF Label Comments: Take 1 tablet by mouth twice a day Xarelto 15 mg tablet 15 mg PO DAILY 0RF Label Comments: Take 1 tablet by mouth once a day x 30 days Rx Instructions: for 30 days (started 05/09/2021) amlodipine 10 mg tablet 5 mg PO DAILY 0RF sertraline 50 mg tablet 50 mg PO DAILY 0RF Label Comments: TAKE ONE TABLET BY MOUTH EVERY DAY Rx Instructions: recent visit with PCP on 05/10/21 revealed pt may not be taking medications at all; her med list was reviewed at this visit and sertraline was changed to 50mg daily and metoprolol to 100mg xl once a day and all supplements were stopped metoprolol succinate [Toprol XL] 100 mg tablet extended release 24 hr 100 mg PO DAILY 0RF Label Comments: Take 1 tablet by mouth once a day acetaminophen [Tylenol] 325 mg Tablet 2 tab PO Q4H PRN PRNQty: 30 0RF Discharge Instructions Instructions: Dementia (ED) Stand Alone Forms: Nursing Discharge Form Activity:: Activity as Tolerated Equipment/Supplies:: No Equipment Needed Diet:: As Tolerated Discharge Orders Discharge Orders: Discharge Order (Routine); Ordered 05/29/21 Ordered By: Emelia Alba DS: Summary Time Spent with Patient providing and/or coordinating discharge services: Greater than 30 minutes Status at Discharge Functional status at discharge: uses cane/walker Overall status at discharge: patient is not back to baseline Mental Status: other Speech and Movement: speech and movement normal Mood: congruent mood and other Affect: normal affect Exam Const Nutritional Appearance: average body habitus HENMT Head: normal to inspection, normocephalic and atraumatic Chest Chest: normal inspection of the chest Resp Effort & Inspection: normal respiratory effort Cardio Rate: regular rate Rhythm: regular rhythm GI Inspection: normal to inspection Palpation: soft Neuro General: patient alert, patient awake, patient oriented x3 and no focal motor deficits Extrem General: normal to inspection, full ROM and no pedal edema Psych Mental Status: other Speech and Movement: speech and movement normal Mood: congruent mood and other Affect: normal affect DS: Data Vitals/I&O Vitals and I&O: Vital Signs Temperature 36.2 C L 05/29/21 07:23 Temperature Source Tympanic 05/29/21 07:23 Pulse 74 05/29/21 07:23 Pulse Rhythm Regular 05/29/21 08:16 Pulse 86 05/22/21 19:50 Respiratory Rate 16 05/29/21 07:23 Respiratory Effort Non-Labored 05/29/21 08:16 Respiratory Depth Normal 05/29/21 08:16 Respiratory Pattern Normal 05/29/21 08:16 Blood Pressure 130/78 05/29/21 07:23 Blood Pressure Mean 102 05/22/21 19:45 Blood Pressure Position Supine 05/22/21 16:51 Pulse Oximetry 99 05/29/21 07:23 Oxygen Delivery Method Room Air 05/29/21 07:23 Oxygen Flow Rate 0 05/29/21 07:23 Pain Level 0 05/28/21 23:27 Comment 05/23/21 03:09 Intake & Output 05/28/21 05/28/21 05/29/21 11:59 23:59 11:59 Intake Total 440 / 440 360 / 360 Output Total 100 / 100 Balance -100 / 340 440 / 340 360 / 360 Weight 70.6 kg 70.3 kg Intake: Oral 440 / 440 360 / 360 Output: Urine 100 / 100 Other: Urine Color Light Daria Yellow Yellow Urine Appearance Clear Clear Urine Odor Normal Normal Comment urine in diaper was dark colored Unknown amount Stool Size Small Moderate Stool Characteristics Mendez Soft Green Voiding Methods Bedside Commode Diaper Diaper Incontinent Incontinent PFSH All Active Problems (Updated 05/25/21 @ 15:12 by Ernestina Arriaga NP) Failure to thrive (Acute) Global aphasia (Acute) History of stroke (Acute) left MCA Discharge planning issues (Acute) Noncompliance with medication regimen (Chronic) Vascular dementia (Chronic) Medical History (Updated 05/25/21 @ 15:12 by Ernestina Arriaga NP) Acute ischemic left MCA stroke Acute on chronic anemia Afib CAD (coronary artery disease) CKD (chronic kidney disease) CVA (cerebral vascular accident) Debility DNI (do not intubate) DNR (do not resuscitate) DNR (do not resuscitate) discussion DVT (deep venous thrombosis) Elevated factor VIII level Esophagitis Essential hypertension Expressive aphasia Gastric ulcer Gastritis and duodenitis Goals of care, counseling/discussion Health care proxy on file (~05/23/21) son Vincvioleta Hiatal hernia History of kidney stones History of multiple strokes Apr 2021, subacute or old on brain MRI Hx of upper gastrointestinal hemorrhage Hypercoagulable state Ischemic cerebrovascular accident (CVA) due to atherosclerosis of large intracranial artery Nephrolithiasis Personal history of DVT (deep vein thrombosis) POLST (Physician Orders for Life-Sustaining Treatment) Pulmonary embolism Pulmonary embolism Recurrent cerebrovascular accidents (CVAs) Smoker both tobacco and marijuana SVT (supraventricular tachycardia) Tubular adenoma (~2015) Upper GI bleeding Vasovagal syncope Surgical History (Updated 05/25/21 @ 15:09 by Ernestina Arriaga NP) Appendectomy section Colonoscopy - MAC (12/29/15) H/O esophagogastroduodenoscopy (~05/19/18) History of esophagogastroduodenoscopy (EGD) (~12/2017) Family History (Updated 05/23/21 @ 19:55 by Smitha Bryan MD) Son No problems noted. Son No problems noted. Social History (Updated 05/23/21 @ 20:00 by Smitha Bryan MD) Smoking/Tobacco Use Status: Current every day Tobacco Type: cigarettes Tobacco: How many years used: 60 Second Hand Exposure: Yes Counseling given: provider counseling and counseling >3 minutes Smoking risk assessment performed?: Yes Alcohol Intake: never Drug use: Daily Substance use type: marijuana Caregiver/Support person: Yes Household members: children and other Details: mother--adoptive Housing: apartment Number of Children: 2 Communication Needs: Hard of Hearing and Corrective Lenses Education Level: high school Do you need help understanding health information?: Often 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 [employer] Do you think of yourself as: straight/heterosexual Current gender identity: female How often do you get together with friends or relatives?: three or more times per week Panel score (0-1 are the most socially isolated patients): 1 What type of physical activity do you participate in: none and sedentary lifestyle Frequency: does not exercise Mackenzie/Hoahaoism: Latter-Day Special mackenzie needs: No Agree to transfusion: No Working smoke detector in home: Yes Fire extinguisher in home: Yes Do you feel safe at home: Yes Do you feel safe in your relationship?: Yes Additional Social history: Wants to go home and stay home. Doesn't want any aggressive care, just care aimed at helping her feel as good as possible. She mentioned something about court and her son Sergei. She did not elaborate. She said the apartment has to be in her name. She said her mother lived with her, then explained that her mother is not her bio mother, but a mother-like figure. She didn't think that she could help with personal care. She does have strong beliefs: she values independence and freedom. She talks about as if she thinks it is around the corner. She doesn't appear to be frightened by this.
--- NOTE | 2021-05-29 15:05 | PDOC.CMDIS ---
- If Service Date Differs Date of service: 05/29/21 Time of Service: 15:05 LACE Index Scoring Tool - Questions: Length of Stay (in days): 7 - 13 Acuity (Admit via E.D.?): Yes Comorbidities: Cerebrovascular Disease, Liver or Renal Disease E.D. Visits: 3 - Answers: Total Score: 16 Risk of Readmission: High Risk Care Management Discharge Reason for Hospitalization: Decreased ADL Perf, self neglect, recurrent CVA Discharge Plan: Sisi will discharge to short term rehab at [facility]. She will transport via facility w/c van, and follow up with her PCP and discharge plan of care. Dr. Bryan will follow Sisi in the community for Palliative Care. Patient/Family Education Needs: Review discharge instructions, discuss Ask Me Three. Services Needed at Discharge: Residential Facility ([facility] ), Transportation (W/C Van )
--- NOTE | 2021-05-29 19:30 | INDS_ITS ---
Date of service: 05/29/21 PT Notes Visit Reasons: Decreased ADL Perform,Self Neglect,Recurrent CVA'S Physical Therapy Inpatient Discharge Summary Date: 05/29/2021 Dates of service: 05/23/2021 through 05/26/2021 This is a clinical summary of care provided for the duration of dates listed above. No charge was made in the completion of this documentation. Referring Doctor: Diogo Garay MD PT Orders: PT CONSULT: Fall safety assessment Precautions: Fall. Standard.? Activity as tolerated. Patient Profile/Admitting Diagnosis: Sisi is a 75-year-old female with past medical history significant for multilevel cerebral infarcts on most recent CT who presented to the ED on 05/22/2021 due to increasing confusion.? Patient is diagnosed with debility, petechial hemorrhage in the left occipital and inferior temporal lobe, noncompliance with medications, vascular dementia, atrial fibrillation, and coronary artery disease. PMHX:? All Active Problems?(Updated 05/23/21 @ 00:59 by Diogo Garay) History of stroke (Acute) Debility (Acute) Ischemic cerebrovascular accident (CVA) due to atherosclerosis of large intracranial artery (Acute) Acute on chronic anemia (Acute) Acute ischemic left MCA stroke (Acute) Elevated factor VIII level (Chronic) Expressive aphasia (Chronic) Discharge planning issues (Acute) Noncompliance with medication regimen (Chronic) H/O esophagogastroduodenoscopy (Chronic ~05/19/18) Hiatal hernia (Chronic) Gastritis and duodenitis (Acute) Gastric ulcer (Acute) Esophagitis (Acute) Vasovagal syncope (Acute) History of kidney stones (Chronic) SVT (supraventricular tachycardia) (Chronic) Vascular dementia (Chronic) DVT (deep venous thrombosis) (Chronic) CVA (cerebral vascular accident) (Chronic) CAD (coronary artery disease) (Chronic) Hypercoagulable state (Chronic) Medical History?(Updated 05/23/21 @ 00:59 by Diogo Garay) Afib CKD (chronic kidney disease) Essential hypertension Hx of upper gastrointestinal hemorrhage Nephrolithiasis Personal history of DVT (deep vein thrombosis) Pulmonary embolism Pulmonary embolism Recurrent cerebrovascular accidents (CVAs) Tubular adenoma (~2015) Upper GI bleeding Surgical History? Appendectomy section Colonoscopy - MAC (10/07/16) History of esophagogastroduodenoscopy (EGD) (~12/2017) Social History/Home Situation: Lives with son in a private home. Independent with all aspect of ADLs prior to most two recent admissions to this hospital. Equipment Owned/DME: None Subjective: NT. See most recent PNEUDRAULIC SYSTEMS MECHANIC notes. W. Objective: General Observation: NT. See most recent PNEUDRAULIC SYSTEMS MECHANIC notes. Mental Status: NT. See most recent PNEUDRAULIC SYSTEMS MECHANIC notes. Pain: NT. See most recent PNEUDRAULIC SYSTEMS MECHANIC notes. Vitals: NT. See most recent PNEUDRAULIC SYSTEMS MECHANIC notes. ROM: Right Upper Extremity: Shoulder Flexion WFL. Shoulder abduction WFL. Elbow flexion WFL. Wrist flexion WFL. Opening and closing of hand WFL. Left Upper Extremity: Shoulder Flexion WFL. Shoulder abduction WFL. Elbow flexion WFL. Wrist flexion WFL. Opening and closing of hand WFL. Right Lower Extremity: Hip flexion WFL. Hip abduction WFL. Knee flexion WFL. Ankle dorsiflexion WFL. Ankle plantarflexion WFL. Left Lower Extremity: Hip flexion WFL. Hip abduction WFL. Knee flexion WFL. Ankle dorsiflexion WFL. Ankle plantarflexion WFL. Strength: Right Upper Extremity: Shoulder flexors 4-/5. Shoulder abductors 4-/5. Elbow flexors 4-/5. Elbow extensors 4-/5. Supervisor [employer]ologists strong. Left Upper Extremity: Shoulder flexors 4-/5. Shoulder abductors 4-/5. Elbow flexors 4-/5. Elbow extensors 4-/5. Supervisor [employer] strong. Right Lower Extremity: Hip flexors 3+/5. Hip abductors 3+/5. Knee flexors 4-/5. Knee extensors 3+/5. Ankle dorsiflexors 3+/5. Ankle plantarflexors 4-/5. Left Lower Extremity: Hip flexors 3+/5. Hip abductors 3+/5. Knee flexors 4-/5. Knee extensors 3+/5. Ankle dorsiflexors 3+/5. Ankle plantarflexors 4-/5. Sensation: Intact as to pain and pressure on bilateral lower extremities. Bed Mobility/Transfers: Rolling: Minimal assist with HOB at 30 degrees Supine to sit: Contact-guard assist Sit to supine: Contact-guard assist Sit to stand: Contact-guard assist Gait: Unable to progrees ambulation skill due to patient non-participation. Balance: Static Sitting: Good Dynamic Sitting: Good Static standing: Poor Dynamic standing: Poor 4 stage balance test? Time completed FT? unable Semi-tandem? NT Tandem? NT SLS? NT Assessment: Impaired cognition limited achievement of goals set below. Patient with increased confusion and altered mental status.? Patient needed extensive encouragement to participate in therapy and has refused therapy for the past two days. Sisi demonstrates functional mobility decline requiring the use of a front wheeled walker for all mobility ADL performance due to generalized weakness resulting from ongoing diagnoses.? Patient presents with clinical signs and symptoms consistent with current/admitting diagnoses that have resulted to mobility limitations, gait instability, generalized weakness, and impairment of motor control as demonstrated by the following impairment level findings: 1.? Decreased strength to BLEmajor muscle groups 2.? Impaired sitting/standing balance 3.? Impaired activity tolerance 5.? Altered mental status and alertness Impairments are contributing to the following functional limitations: 1.? Decline in bed mobility skills 2.? Decline in transfer skills 3.? Difficulty with ambulation without assistive device and physical assistance 4.? Increased completion time for mobility ADL performance 5.? Increased risk for falls Goals X1 week 1. Supine-Sit independent NOT MET 2. Sit-Supine independent NOT MET 3. Sit-Stand independent NOT MET 4. Stand-Sit independent with no AD NOT MET 5. Bed-Chair independent with no AD NOT MET 6. Chair-Bed independent with no AD NOT MET 7. Independent gait on level surface with use of FWW for at least 100 feet without report of pain nor dyspnea NOT MET DISCHARGE RECOMMENDATIONS: ?? Home with no services [] [] ? Home with services [specify] [] ? Home with outpatient PT [] [X] ? SNF for continued rehabilitation.? DC to SNF when medically cleared by hospitalist.? Patient will benefit from senior living facility placement for short-term rehabilitation to progress mobility level, strength, and balance. [] ? Hotel Breakfast Attendant Care [] [] ? SNF versus LTC based on ability to participate and progress [] TREATMENT CODE/TIME: NC Thank you for the opportunity to participate in the care of this patient. Peggy Tan PT, DPT, CLT [facility] [place], [place]
--- NOTE | 2021-05-30 07:46 | OTIE_ITS ---
Occupational Therapy Notes Inpatient Occupational Therapy Evaluation Date:05/30/21 Referring Doctor: Diogo Rivera MD OT Orders: Urgent safety consult Precautions: Fall, standard, full This document serves as a summary of care, no skilled OT services were provided on this date for this documentation, this is an assessment of pts care PATIENT PROFILE/ADMITTING DIAGNOSIS: Pt is a 75 year old female who was admitted through the ED for the following dx of hx of stroke, debility, petechial hemorrhage, ischemic CVA, anemia, expressive aphasia, non compliance with medication regimen. Pt was brought to the ED covered in urine and demonstrating decreased ability to perform her ADLs in her home setting. Past Medical History: All Active Problems?(Updated 05/23/21 @ 00:59 by Diogo Garay) History of stroke (Acute) Debility (Acute) Ischemic cerebrovascular accident (CVA) due to atherosclerosis of large intrac ranial artery (Acute) Acute on chronic anemia (Acute) Acute ischemic left MCA stroke (Acute) Elevated factor VIII level (Chronic) Expressive aphasia (Chronic) Discharge planning issues (Acute) Noncompliance with medication regimen (Chronic) H/O esophagogastroduodenoscopy (Chronic ~05/19/18) Hiatal hernia (Chronic) Gastritis and duodenitis (Acute) Gastric ulcer (Acute) Esophagitis (Acute) Vasovagal syncope (Acute) History of kidney stones (Chronic) SVT (supraventricular tachycardia) (Chronic) Vascular dementia (Chronic) DVT (deep venous thrombosis) (Chronic) CVA (cerebral vascular accident) (Chronic) CAD (coronary artery disease) (Chronic) Hypercoagulable state (Chronic) Medical History?(Updated 05/23/21 @ 00:59 by Diogo Garay) Afib CKD (chronic kidney disease) Essential hypertension Hx of upper gastrointestinal hemorrhage Nephrolithiasis Personal history of DVT (deep vein thrombosis) Pulmonary embolism Pulmonary embolism Recurrent cerebrovascular accidents (CVAs) Tubular adenoma (~2015) Upper GI bleeding Surgical History? Appendectomy section Colonoscopy - MAC (12/29/15) History of esophagogastroduodenoscopy (EGD) (~12/2017) Social History/Home Situation: Sisi lives in [facility] with her son. She has another son who she states lives in [place].She notes that she? is independent with her ADL's, but does not drive. She is able to eat and cook (I) at baseline and states that she has caregivers. She was recently discharged home with her son and HH was ordered for services. It seems that her basic ADLs are not being met in the home setting. She is unable to care for herself and support in the home is not providing (A) that is needed. SUBJECTIVE:?NT OBJECTIVE:? ROM: RUE ROM WNL L UE AROM WNL STRENGTH: RUE 5/5 throughout LUE 5/5 throughout FUNCTIONAL MOBILITY/ADLS: Bathing- Max (A) Set up/clean up- (I) face, (B) UE and abdomen, mod (A) (B) LE pt denies mónica area and back and states that its too cold. DRESSING:?? Lower Extremity: mod vc and mod (A) while sitting chair. Eating-?sitting in chair (I) with food to mouth and chewing, no issues opening packages. ? BALANCE: Static sitting Normal Dynamic Sitting Normal ASSESSMENT:?? Patient is a? 75-year-old female referred to occupational therapy services with diagnosis of hx of stroke, debility, petechial hemorrhage, ischemic CVA, anemia, expressive aphasia, non compliance with medication regimen . Patient was receptive to hre ADLs but she was confused most days. She notes that she is totally (I) but would frequently state that her ADLs were done even though they weren't yet. Functionally she can perform them with vc throughout and support as needed. GOALS Goals x1 week 1.? Transfers (I) 2.? Dressing UE (I)- met 3.? Bathing standing at sink min (A)- Not met 4.? Toileting on toilet (I)- met 5.? Eating (I)- met PLAN OF CARE/TREATMENT PLAN: Discharge from skilled OT services. DISCHARGE RECOMMENDATIONS Based on pts decline in performance of her functional ADLs/IADLs, decreased support in her home setting for her ADLs and decreased TREATMENT TIME/MINUTES/CODES N/A Amanda Colmenares, OTR/L [facility]
== END 2021-05-29 13:50 | disposition skilled nursing facility (03) | DRG 884 ==
LOC: ER 20:41 → MS 21:21
PROVIDERS: Internal Medicine; Nurse Practitioner Acute Care; Nurse Practitioner Family; Admitting Provider Family Medicine; Emergency Provider Emergency Medicine; PCP Nurse Practitioner Family; Visit Provider Family Medicine
DX: F01.50 Vascular dementia, unspecified severity, without behavioral disturbance, psychotic disturbance, mood disturbance, and anxiety (principal); I47.1 Supraventricular tachycardia; D68.59 Other primary thrombophilia; I47.2 Ventricular tachycardia; R41.89 Other symptoms and signs involving cognitive functions and awareness; Z79.01 Long term (current) use of anticoagulants; I69.320 Aphasia following cerebral infarction; Z91.14 Patient's other noncompliance with medication regimen; K44.9 Diaphragmatic hernia without obstruction or gangrene; Z86.711 Personal history of pulmonary embolism; Z86.718 Personal history of other venous thrombosis and embolism; I65.23 Occlusion and stenosis of bilateral carotid arteries; D64.9 Anemia, unspecified; I48.91 Unspecified atrial fibrillation; I12.9 Hypertensive chronic kidney disease with stage 1 through stage 4 chronic kidney disease, or unspecified chronic kidney disease; N18.9 Chronic kidney disease, unspecified; F17.210 Nicotine dependence, cigarettes, uncomplicated; I25.2 Old myocardial infarction; R53.81 Other malaise; Z66 Do not resuscitate; R62.7 Adult failure to thrive; I25.10 Atherosclerotic heart disease of native coronary artery without angina pectoris
CPT/HCPCS: 36415; 80048; 80053; 80061; 87635; 93005; 97110; 97163; 97166; 97530; 97535; 99223; 99285; 70450; 70551; 71045; 81003; 81015; 83036; 83880; 85025; 93010; 99222; 99231; 99232; 99233; 99239

== ENCOUNTER → 2021-05-23 07:39 | Outpatient (BNVA) | payer MEDICARE, MEDICAID, SELFPAY | PROVIDERS: PCP Nurse Practitioner Family; Referring Provider Nurse Practitioner Family; Visit Provider Psychiatry & Neurology Neurology | DX: R69 Illness, unspecified (principal) ==

== ENCOUNTER → 2021-05-24 10:00 | Outpatient (BNVA) | payer MEDICARE, MEDICAID, SELFPAY | PROVIDERS: PCP Nurse Practitioner Family; Referring Provider Nurse Practitioner Family; Visit Provider Psychiatry & Neurology Neurology | DX: R69 Illness, unspecified (principal) ==

== ENCOUNTER 2021-06-03 11:29 | Outpatient (REF) | payer MEDICARE, MEDICAID, SELFPAY ==
[2021-06-03 12:30] LABS: Abs Immature Grans 0.07 10^3/uL (0.0-0.06); Absolute Basophil Count 0.02 10^3/uL (0.0-0.2); Absolute Eosinophil Count 0.08 10^3/uL (0.0-0.7); Absolute Lymphocyte Count 2.94 10^3/uL (1.2-3.4); Absolute Monocyte Count 0.46 10^3/uL (0.1-0.8); Absolute Neutrophil Count 2.48 10^3/uL (1.2-6.7); Basophils % 0.3; Eosinophils % 1.3; HCT 37.8 % (36.0-46.0); HGB 11.4 g/dL (11.2-15.7); Immature Grans % 1.2; Lymphocytes % 48.6; MCH 27.1 pg (27.0-33.0); MCHC 30.2 % (32.0-36.0); MCV 89.8 fL (80-95); MPV 12.8 fL (8.0-11.0); Monocytes % 7.6; Nucleated RBC 0 %; Platelet Count 212 10^3/uL (130-400); RBC 4.21 10^6/uL (3.93-5.22); RDW 14.6 % (11.7-14.6); RDW-SD 47.6 fL; WBC 6.05 10^3/uL (4.4-10.8)
[2021-06-03 12:34] LABS: ALT 25 U/L (14-59); AST 23 U/L (15-37); Albumin 3.4 g/dL (3.4-5.0); Alkaline Phosphatase 71 U/L (46-116); Anion Gap 10.8 mmol/L (3-11); BUN 11 mg/dL (7-18); Bilirubin, Total 0.3 mg/dL (0.2-1.0); CO2 26.2 mmol/L (21.0-32.0); CREATININE 1.4 mg/dL (0.55-1.02); Calcium 9.5 mg/dL (8.5-10.1); Calculated LDL 76 mg/dL (<100); Chloride 107 mmol/L (98-107); Cholesterol 141 mg/dL (<200); Estimated GFR 36.86 (mL/min/1.73m2); Glucose 154 mg/dL (74-106); HDL Cholesterol 54 mg/dL (40-60); Potassium 4.1 mmol/L (3.5-5.1); Sodium 144 mmol/L (136-145); Total Protein 6.5 g/dL (6.4-8.2); Triglyceride 58 mg/dL (<150)
== END 2021-06-03 11:30 | disposition home or self-care (01) ==
LOC: LBN 11:29
PROVIDERS: PCP Nurse Practitioner Family; Visit Provider Family Medicine
DX: I10 Essential (primary) hypertension (principal); D63.1 Anemia in chronic kidney disease; I47.1 Supraventricular tachycardia
CPT/HCPCS: 80053; 80061; 85025

== ENCOUNTER 2021-06-08 16:55 | Outpatient (REF) | payer MEDICARE, MEDICAID, SELFPAY ==
[2021-06-08 12:12] LABS: Bilirubin Negative (Negative); Blood Large (Negative); Clarity Sl Cloudy (Clear); Glucose Negative (Negative); Ketones Trace mg/dL (Negative); Leukocyte Esterase Negative (Negative); Nitrite Negative (Negative); Specific Gravity >= 1.030 (1.005-1.025); Urobilinogen 0.2 EU/dL (Up TO 0.2)
[2021-06-08 12:18] LABS: Bacteria Few HPF (Negative); Crystals Mod Calcium Oxalate HPF (Negative); Epithelial Cells Many HPF (Negative); Mucus Moderate (Negative); RBC >50 HPF (0-2); WBC Negative HPF (0-5)
[2021-06-08 12:19] LABS: C & S Indicated? No/Sq. Contamination
== END 2021-06-08 16:56 | disposition home or self-care (01) ==
LOC: LBN 16:55
PROVIDERS: PCP Nurse Practitioner Family; Visit Provider Nurse Practitioner Family
DX: R41.82 Altered mental status, unspecified (principal)
CPT/HCPCS: 81003; 81015

== ENCOUNTER → 2021-06-13 10:18 | Outpatient (BNVA) | payer MEDICARE, MEDICAID, SELFPAY | PROVIDERS: PCP Nurse Practitioner Family; Referring Provider Nurse Practitioner Family; Visit Provider Psychiatry & Neurology Neurology | DX: I69.320 Aphasia following cerebral infarction (principal); Z91.14 Patient's other noncompliance with medication regimen; I48.91 Unspecified atrial fibrillation | CPT/HCPCS: 99214 ==

== ENCOUNTER 2021-06-13 23:20 | Outpatient (REF) | payer MEDICARE, MEDICAID, SELFPAY ==
[2021-06-13 23:55] LABS: Bilirubin Negative (Negative); Blood Moderate (Negative); Clarity Sl Cloudy (Clear); Glucose Negative (Negative); Ketones Negative (Negative); Leukocyte Esterase Negative (Negative); Nitrite Negative (Negative); Specific Gravity 1.025 (1.005-1.025); Urobilinogen 0.2 EU/dL (Up TO 0.2)
[2021-06-14 00:01] LABS: Bacteria Few HPF (Negative); C & S Indicated? C&S Done As Ordered; Casts Negative LPF (Negative); Crystals Few Calcium Oxalate HPF (Negative); Epithelial Cells Few HPF (Negative); Mucus Negative (Negative); RBC >50 HPF (0-2); WBC 0-2 HPF (0-5)
== END 2021-06-13 23:21 | disposition home or self-care (01) ==
LOC: LBN 23:20
PROVIDERS: PCP Nurse Practitioner Family; Visit Provider Nurse Practitioner Family
DX: R68.89 Other general symptoms and signs (principal)
CPT/HCPCS: 81003; 81015; 87086

== ENCOUNTER 2021-06-21 11:12 | Emergency (ER) | payer MEDICARE, MEDICAID, SELFPAY ==
[2021-06-21 11:15] VITALS: BP 150/73; PULSE 77; RESP 18; TEMP 36.6; O2SAT 99
[2021-06-21 11:24] VITALS: RESP 16
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
[2021-06-21 12:00] LABS: Abs Immature Grans 0.01 10^3/uL (0.0-0.06); Absolute Basophil Count 0.03 10^3/uL (0.0-0.2); Absolute Eosinophil Count 0.06 10^3/uL (0.0-0.7); Absolute Lymphocyte Count 2.46 10^3/uL (1.2-3.4); Absolute Monocyte Count 0.41 10^3/uL (0.1-0.8); Absolute Neutrophil Count 2.16 10^3/uL (1.2-6.7); Basophils % 0.6; Eosinophils % 1.2; HCT 37.3 % (36.0-46.0); HGB 11.2 g/dL (11.2-15.7); Immature Grans % 0.2; MCH 26.9 pg (27.0-33.0); MCV 89.4 fL (80-95); MPV 11.8 fL (8.0-11.0); Nucleated RBC 0 %; Platelet Count 196 10^3/uL (130-400); RBC 4.17 10^6/uL (3.93-5.22); RDW 15.1 % (11.7-14.6); RDW-SD 49.1 fL; WBC 5.13 10^3/uL (4.4-10.8)
[2021-06-21 12:13] LABS: ALT 32 U/L (14-59); AST 24 U/L (15-37); Albumin 3.6 g/dL (3.4-5.0); Alkaline Phosphatase 78 U/L (46-116); Anion Gap 8.6 mmol/L (3-11); BUN 16 mg/dL (7-18); Bilirubin, Total 0.3 mg/dL (0.2-1.0); CO2 26.4 mmol/L (21.0-32.0); CREATININE 1.3 mg/dL (0.55-1.02); Calcium 9.7 mg/dL (8.5-10.1); Chloride 109 mmol/L (98-107); Estimated GFR 40.15 (mL/min/1.73m2); Glucose 171 mg/dL (74-106); Potassium 3.9 mmol/L (3.5-5.1); Sodium 144 mmol/L (136-145); Total Protein 7.3 g/dL (6.4-8.2)
[2021-06-21 12:38] LABS: Bilirubin Negative (Negative); Blood Large (Negative); Clarity Sl Cloudy (Clear); Glucose Negative (Negative); Ketones Negative (Negative); Leukocyte Esterase Negative (Negative); Nitrite Negative (Negative); Specific Gravity 1.025 (1.005-1.025); Urobilinogen 0.2 EU/dL (Up TO 0.2)
[2021-06-21 12:47] LABS: Bacteria Moderate HPF (Negative); C & S Indicated? No/Sq. Contamination; Casts Negative LPF (Negative); Crystals Negative HPF (Negative); Epithelial Cells Many HPF (Negative); Mucus Negative (Negative); Other Cells Negative (Negative); RBC 20-50 HPF (0-2); WBC 0-2 HPF (0-5)
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
== END 2021-06-21 13:39 | disposition intermediate care facility (04) ==
LOC: ER 13:38
PROVIDERS: Emergency Provider Physician Assistant; PCP Nurse Practitioner Family
DX: R62.7 Adult failure to thrive (principal); Z63.8 Other specified problems related to primary support group
CPT/HCPCS: 36415; 80053; 99285; 81003; 81015; 85025; 99283

== ENCOUNTER 2021-08-22 09:14 | Outpatient (REF) | payer MEDICARE, MEDICAID, SELFPAY ==
[2021-08-22 09:41] LABS: Bilirubin Negative (Negative); Blood Large (Negative); Clarity Sl Cloudy (Clear); Glucose Negative (Negative); Ketones Negative (Negative); Leukocyte Esterase Negative (Negative); Nitrite Negative (Negative); Urobilinogen 0.2 EU/dL (Up TO 0.2); pH 6.5 (5-8)
[2021-08-22 09:48] LABS: Bacteria Rare HPF (Negative); Epithelial Cells Few HPF (Negative); RBC >50 HPF (0-2)
[2021-08-22 09:49] LABS: C & S Indicated? No; Crystals Negative HPF (Negative); Mucus Negative (Negative)
[2021-08-22 15:49] LABS: Anion Gap 10.5 mmol/L (3-11); BUN 9 mg/dL (7-18); CO2 27.5 mmol/L (21.0-32.0); CREATININE 1.2 mg/dL (0.55-1.02); Calcium 9.9 mg/dL (8.5-10.1); Chloride 104 mmol/L (98-107); Estimated GFR 43.91 (mL/min/1.73m2); Glucose 108 mg/dL (74-106); Potassium 4.7 mmol/L (3.5-5.1); Sodium 142 mmol/L (136-145)
[2021-08-22 16:02] LABS: HGB 12.6 g/dL (11.2-15.7); MCH 26.7 pg (27.0-33.0); MCHC 30.7 % (32.0-36.0); MCV 87 fL (80-95); MPV 12.3 fL (8.0-11.0); Platelet Count 199 10^3/uL (130-400); RBC 4.72 10^6/uL (3.93-5.22); RDW 14.6 % (11.7-14.6); RDW-SD 46.8 fL; WBC 8.39 10^3/uL (4.4-10.8)
== END 2021-08-22 09:15 | disposition home or self-care (01) ==
LOC: LBN 09:14
PROVIDERS: PCP Nurse Practitioner Family; Visit Provider Family Medicine
DX: N18.9 Chronic kidney disease, unspecified (principal); D63.1 Anemia in chronic kidney disease; I48.0 Paroxysmal atrial fibrillation; Z91.81 History of falling; R31.9 Hematuria, unspecified
CPT/HCPCS: 80048; 85027; 81003; 81015

== ENCOUNTER 2021-08-22 20:56 | Outpatient (REF) | payer MEDICARE, MEDICAID, SELFPAY | END 2021-08-22 20:57 | disposition home or self-care (01) | LOC: LBN 20:56 | PROVIDERS: PCP Nurse Practitioner Family; Visit Provider Nurse Practitioner Family ==

== ENCOUNTER → 2021-08-28 11:03 | Outpatient (BNVA) | payer MEDICARE, MEDICAID, SELFPAY | PROVIDERS: PCP Nurse Practitioner Family; Referring Provider Nurse Practitioner Family; Visit Provider Psychiatry & Neurology Neurology | DX: I69.320 Aphasia following cerebral infarction (principal) | CPT/HCPCS: 99213 ==

== ENCOUNTER 2021-09-29 16:57 | Outpatient (REF) | payer MEDICARE, MEDICAID, SELFPAY | END 2021-09-29 16:58 | disposition home or self-care (01) | LOC: LBN 16:57 | PROVIDERS: PCP Nurse Practitioner Family; Visit Provider Nurse Practitioner Family | DX: R82.998 Other abnormal findings in urine (principal); N18.9 Chronic kidney disease, unspecified | CPT/HCPCS: 87086 ==

== ENCOUNTER 2021-10-28 15:00 | Outpatient (REF) | payer MEDICARE, MEDICAID, SELFPAY ==
[2021-10-28 14:30] LABS: HCT 36.8 % (36.0-46.0); HGB 11.1 g/dL (11.2-15.7); MCH 27.1 pg (27.0-33.0); MCHC 30.2 % (32.0-36.0); MCV 90 fL (80-95); MPV 12.5 fL (8.0-11.0); Platelet Count 175 10^3/uL (130-400); RDW 14.9 % (11.7-14.6); RDW-SD 48.6 fL; WBC 7.06 10^3/uL (4.4-10.8)
== END 2021-10-28 15:01 | disposition home or self-care (01) ==
LOC: LBN 15:00
PROVIDERS: PCP Nurse Practitioner Family; Visit Provider Nurse Practitioner Family
DX: N18.9 Chronic kidney disease, unspecified (principal)
CPT/HCPCS: 85027

== ENCOUNTER 2021-12-05 04:45 | Outpatient (REF) | payer MEDICARE, MEDICAID, SELFPAY ==
[2021-12-05 05:07] LABS: Bilirubin Negative (Negative); Blood Large (Negative); Clarity Cloudy (Clear); Glucose Negative (Negative); Ketones Negative (Negative); Leukocyte Esterase Negative (Negative); Nitrite Negative (Negative); Urobilinogen 0.2 EU/dL (Up TO 0.2)
[2021-12-05 05:14] LABS: Bacteria Moderate HPF (Negative); Epithelial Cells Moderate HPF (Negative); RBC >50 HPF (0-2); WBC 0-2 HPF (0-5)
[2021-12-05 05:15] LABS: C & S Indicated? C&S Done As Ordered; Crystals Negative HPF (Negative); Mucus Trace (Negative)
== END 2021-12-05 04:46 | disposition home or self-care (01) ==
LOC: LBO 04:45
PROVIDERS: PCP Nurse Practitioner Family; Visit Provider Family Medicine
DX: R48.8 Other symbolic dysfunctions (principal)
CPT/HCPCS: 81003; 81015; 87086

== ENCOUNTER → 2022-01-16 14:55 | Outpatient (BNVA) | payer MEDICARE, MEDICAID, SELFPAY | PROVIDERS: PCP Nurse Practitioner Family; Visit Provider Psychiatry & Neurology Neurology | DX: I69.320 Aphasia following cerebral infarction (principal); Z79.02 Long term (current) use of antithrombotics/antiplatelets; I12.9 Hypertensive chronic kidney disease with stage 1 through stage 4 chronic kidney disease, or unspecified chronic kidney disease; N18.9 Chronic kidney disease, unspecified; R00.1 Bradycardia, unspecified | CPT/HCPCS: 99214 ==

== ENCOUNTER 2022-03-26 06:23 | Emergency (ER) | payer MEDICARE, MEDICAID, SELFPAY ==
[2022-03-26] VITALS (15 sets, daily range): BP systolic 119–158; BP diastolic 44–110; PULSE 44–61; RESP 15; TEMP 36.8; O2SAT 97–100
--- NOTE | 2022-03-26 06:15 | RT.EKG_ITS ---
APPROVED REPORT Exam: Resting ECG Reason for Exam: right sided facial droop Patient Location: E HR:61 bpm ECG Measurements Heart Rate 61 AXIS HI 180 P 34 QRSd 84 QRS 35 QT 455 T 29 QTc 460 Conclusion Sinus rhythm...normal P axis, V-rate 60- 99 Low voltage, precordial leads...precordial leads <1.0mV
--- NOTE | 2022-03-26 06:15 | DI.CT_ITS ---
Exam(s) CT HEAD WO EXAM: CT HEAD WO CLINICAL HISTORY: right sided facial droop. TECHNIQUE: Imaging Protocol: Axial computed tomography images with coronal and sagittal reformatted images were created and reviewed COMPARISON: CT CT HEAD WO from 05/22/2021 MR MR BRAIN WO from 05/23/2021 FINDINGS: There are no skull fractures. There is no fluid in the visualized paranasal sinuses. There is no evidence of intracranial hemorrhage, mass effect, or shift of midline structures. There are no extra-axial fluid collections. The ventricles are not enlarged or shifted and there is no blo od within the ventricular system nor within the basal cisterns. Again noted are areas of encephalomalacia in the anterior left temporal lobe extending up left fronta l temporoparietal regions, consistent with prior left middle cerebral infarct, unchanged. There is a lso evidence of infarct in right occipital temporal region both occipital lobes. Also evidence of pr ior infarct in the left cerebellar hemisphere, inferiorly in the territory of the left posterior infe rior cerebellar artery. Also increasing hypodensity in the right temporal lobe within the right midd le cranial fossa, more so than previous. Territory of the right middle cerebral artery. There is heavy vascular calcification of the skull base including both internal carotid arteries and both vertebral arteries, indicating atherosclerotic involvement. Evidence of previous bilateral cataract surgery IMPRESSION: Multilevel findings as described above related to prior infarcts. However, there appears to be sligh t progression on the right side. Recommend follow-up MRI with diffusion imaging. First read by [facility] Final report called by myself to ER physician 03/26/2022 8:20 a.m. RADIATION DOSE DELIVERED: 775.43mGy.cm Total DLP DATA REPOSITORY: All CT scans at this facility are submitted to the National Radiology Data Registry (NRDR) Dose Index Registry (DIR) with the [employer] (ACR). RADIATION OPTIMIZATION: All CT scans at this facility use at least one of these dose optimization te chniques: automated exposure control; mA and/or kV adjustment per patient size (includes targeted exa ms where dose is matched to clinical indication); or iterative reconstruction.
[2022-03-26 06:44] LABS: Abs Immature Grans 0.03 10^3/uL (0.0-0.06); Absolute Basophil Count 0.04 10^3/uL (0.0-0.2); Absolute Lymphocyte Count 2.49 10^3/uL (1.2-3.4); Absolute Monocyte Count 1.02 10^3/uL (0.1-0.8); Absolute Neutrophil Count 4.83 10^3/uL (1.2-6.7); Basophils % 0.5; Eosinophils % 1.2; HCT 23.4 % (36.0-46.0); Immature Grans % 0.4; Lymphocytes % 29.3; MCH 26.5 pg (27.0-33.0); MCHC 29.5 % (32.0-36.0); MCV 90 fL (80-95); MPV 11.1 fL (8.0-11.0); Neutrophils % 56.6; Nucleated RBC 0.2 % (0.0-0.3); Platelet Count 300 10^3/uL (130-400); RDW 15.5 % (11.7-14.6); RDW-SD 50.8 fL; WBC 8.51 10^3/uL (4.4-10.8)
--- NOTE | 2022-03-26 06:44 | DI.VRAD_ITS ---
Addendum created by Doyle Menendez MD on 03/26/2022 6:46:19 AM EST: Findings were discussed with MICHAEL PIMENTEL at 03/26/2022 6:46 AM EST. Initial report created on 03/26/2022 6:44:11 AM EST: PROCEDURE INFORMATION: Exam: CT Head Without Contrast Exam date and time: 03/26/2022 6:23 AM Age: 76 years old Clinical indication: Stroke-like symptoms; Right facial droop; Additional info: Right sided facial droop, previous stroke TECHNIQUE: Imaging protocol: Computed tomography of the head without contrast. Radiation optimization: All CT scans at this facility use at least one of these dose optimization techniques: automated exposure control; mA and/or kV adjustment per patient size (includes targeted exams where dose is matched to clinical indication); or iterative reconstruction. Other technique: STROKE PROTOCOL was implemented. COMPARISON: MR BRAIN WO 05/23/2021 7:[address] scan brain dated May 22, 2021 FINDINGS: Brain: There is an old infarct involving the medial aspect of the left cerebellar hemisphere. Old right temporal occipital infarct is identified. Old left frontotemporoparietooccipital infarct is identified. Old left insular infarct is identified. No acute intracranial hemorrhage or infarct is identified. No mass effect. There is no midline shift. The cortical sulci are prominent. There is demyelinization of the white matter. There is a punctate radiodensity seen in the left temporal area, a finding also present on the previous study, possibly vascular calcification. Cerebral ventricles: The ventricles are prominent. Paranasal sinuses: Visualized sinuses are unremarkable. No fluid levels. Mastoid air cells: Visualized mastoid air cells are well aerated. Orbital cavities: The patient is status post bilateral intraocular lens replacement surgeries. Bones/joints: Unremarkable. No acute fracture. Soft tissues: Unremarkable. Vasculature: There are calcifications of the carotid siphons. IMPRESSION: 1. No acute intracranial hemorrhage or infarct. 2. Cerebral atrophy. 3. Old bilateral infarcts, as described above. 4. Calcification in the left temporal region possibly vascular calcification. ASSESSMENT: ASPECTS ([place] Stroke Program Early CT Score) is 10. Dictated and Authenticated by: Doyle Menendez MD. Ordering:CONSTANCE Almaguer MD
--- NOTE | 2022-03-26 06:50 | ED.GENADUL_ITS ---
Discharge Plan Disposition Patient Disposition: Group Home Facility(SNF) Discharge Details Clinical Impression: Anemia, Weakness of right side of body Primary Care Provider: Concha Loving ED Provider: Tripp Aguilera Home Meds and New Rx's Prescriptions: Continued omeprazole 40 mg capsule,delayed release(DR/EC) 40 mg PO DAILY Xarelto 15 mg tablet 15 mg PO DAILY Qty: 1 0RF bisacodyl [Dulcolax (bisacodyl)] 10 mg suppository 10 mg WV DAILY PRN Fleet Enema 19-7 gram/118 mL enema 118 ml WV ONCE PRN magnesium hydroxide 400 mg/5 mL suspension 5 ml PO DAILY PRN multivitamin with minerals Tablet 1 tab PO DAILY ascorbate calcium (vitamin C) 500 mg tablet 500 mg PO DAILY acetaminophen [Tylenol] 325 mg tablet 650 mg PO Q6H PRN Rx Instructions: no more than 3 g daily loperamide 2 mg capsule 2 mg PO Q6H PRN (Reason: Diarrhea) oxycodone [OxyContin] 10 mg tablet,oral only,ext.rel.12 hr 10 mg PO BID cholecalciferol (vitamin D3) 125 mcg (5,000 unit) capsule 125 mcg PO QWEEK ferrous sulfate [FeroSul] 325 mg (65 mg iron) tablet 325 mg PO BID Rx Instructions: WITH MEALS atorvastatin 80 mg tablet 80 mg PO HS Label Comments: Take 1 tablet by mouth every evening clopidogrel 75 mg tablet 75 mg PO DAILY Label Comments: Take 1 tablet by mouth once a day valsartan 160 mg tablet 160 mg PO BID Label Comments: Take 1 tablet by mouth twice a day amlodipine 10 mg tablet 5 mg PO DAILY metoprolol succinate [Toprol XL] 100 mg tablet extended release 24 hr 100 mg PO DAILY Label Comments: Take 1 tablet by mouth once a day sertraline 50 mg tablet 75 mg PO DAILY Label Comments: TAKE ONE TABLET BY MOUTH EVERY DAY Discharge Instructions Additional Instructions: Please follow-up with your primary care physician. Lab testing today revealed hemoglobin of 6.9. Etiology of anemia was not determined. This was not corrected. Acute kidney injury with elevated creatinine was noted. Goals of care as explicitly expressed in COLST form including DO NOT RESUSCITATE and comfort measures only were respected today. Return to the emergency department at any time for further work-up and treatment if indicated or goals of care change. Referrals: Concha Loving [Primary Care Provider] - Medical Decision Making 1904 -- 76-year-old female with multiple medical problems including history of prior acute ischemic left MCA stroke, vascular dementia, atrial fibrillation, on anticoagulation, [facility] with concern for increased weakness of the right side. Patient is confused. Patient was last known normal around 215. Given contraindications and timing she is outside window for thrombolytics. Stat CT of the head was obtained and reviewed and interpreted by radiology who I spoke with regarding the interpretation: No acute intracranial hemorrhage or infarct, cerebral atrophy, multiple old bilateral infarcts, calcification of the left temporal region possibly vascular calcification. He specifically noted no change from prior CT of the head from 06/12. EKG was reviewed and interpreted by me: Sinus rhythm 61 bpm, normal axis, low voltage precordial leads, nondiagnostic. I did review patient's COLST form which notes DNR status. Form also notes the patient does not wish to be transferred to the hospital. Does note that she desires comfort measures only. I will contact the patient's healthcare agent to discuss her goals of care. 812 --multiple calls to patient's healthcare agent, Max Voss, her son, did not garbage pick up man. I spoke with her other son on [place] who notes DNR is as patient had previously requested. He agrees with no further intervention. I spoke with the physician medical donation professional at the [facility], facility discussed ED presentation and course and reviewed the patient's wishes as expressed on COLST for, he agrees with no further intervention at this time. -- Straight cath urinalysis was obtained by nursing after patient provided permission prior to my cancellation of the order. Results pending at time of discharge. HPI General Mode of arrival: EMS . Date/Time Provider Initiated Documentation: 03/26/22 06:50 . Limitations to Documentation: no limitations . Information obtained by: patient and EMS . HPI Narrative: 76-year-old female with multiple medical problems including history of ischemic left MCA CVA, vascular dementia, atrial fibrillation, on rivaroxaban, sent from nursing facility with concern for acute stroke. Patient was last known well at 215 this morning. There is concern that she is having worsening weakness of the right arm and face. History and review of systems is limited secondary to dementia. Patient is a DNR/DNI/do not hospitalize status but per nursing facility staff elected to come to the hospital today for assessment. Related Data Home Medications Medication Instructions Recorded Confirmed cholecalciferol (vitamin D3) 125 125 mcg PO QWEEK 11/24/20 03/26/22 mcg (5,000 unit) capsule ferrous sulfate 325 mg (65 mg 325 mg PO BID 11/24/20 03/26/22 iron) tablet (FeroSul) amlodipine 10 mg tablet 5 mg PO DAILY 05/12/21 03/26/22 atorvastatin 80 mg tablet 80 mg PO HS 05/12/21 03/26/22 clopidogrel 75 mg tablet 75 mg PO DAILY 05/12/21 03/26/22 valsartan 160 mg tablet 160 mg PO BID 05/12/21 03/26/22 metoprolol succinate 100 mg 100 mg PO DAILY 05/14/21 03/26/22 tablet,extended release 24 hr (Toprol XL) acetaminophen 325 mg tablet 650 mg PO Q6H PRN 05/31/21 03/26/22 (Tylenol) ascorbate calcium (vitamin C) 500 500 mg PO DAILY 06/13/21 03/26/22 mg tablet bisacodyl 10 mg rectal suppository 10 mg WV DAILY PRN 06/13/21 03/26/22 (Dulcolax (bisacodyl)) magnesium hydroxide 400 mg/5 mL 5 ml PO DAILY PRN 06/13/21 03/26/22 oral suspension multivitamin with minerals 1 tab PO DAILY 06/13/21 03/26/22 sodium phosphates 19 gram-7 118 ml WV ONCE PRN 06/13/21 03/26/22 gram/118 mL enema (Fleet Enema) omeprazole 40 mg capsule,delayed 40 mg PO DAILY 08/28/21 03/26/22 release rivaroxaban 15 mg tablet (Xarelto) 15 mg PO DAILY #1 tab 08/28/21 03/26/22 loperamide 2 mg capsule 2 mg PO Q6H PRN Diarrhea 12/05/21 03/26/22 oxycodone 10 mg tablet,crush 10 mg PO BID 12/05/21 03/26/22 resistant,extended release 12 hr (OxyContin) sertraline 50 mg tablet 75 mg PO DAILY 01/16/22 03/26/22 Previous Rx's Medication Instructions Recorded rivaroxaban 15 mg tablet (Xarelto) 15 mg PO DAILY #1 tab 08/28/21 Allergies Allergy/AdvReac Type Severity Reaction Status Date / Time latex Allergy Swelling/Ed Verified 03/26/22 07:01 guadalupe lisinopril AdvReac Intermediate raises BP Verified 03/26/22 07:01 morphine AdvReac Visual Verified 03/26/22 07:01 Disturbances General Stated Complaint: CVA/TIA QUINTIN: 2 Review of Systems Narrative: Patient does note diffuse pain all over, no focal pain Unobtainable due to mental status PFSH All Active Problems (Updated 03/26/22 @ 08:18 by Tripp Aguilera MD) Anemia (Chronic) Weakness of right side of body (Acute) Vascular dementia with agitation (Acute) Onychia and paronychia of toe (Acute) Pain, foot (Acute) Nail dystrophy (Acute) Bradycardia (Acute) Palliative care patient (Acute) Expressive aphasia (Acute) can make her needs known Encounter for hospice care discussion (Acute) Bed confinement status (Chronic) refusing PT; doesn't want to get OOB care home resident (Acute) would like to return home with son rex uninterested in being caregiver SVT (supraventricular tachycardia) (Chronic) DVT (deep venous thrombosis) (Chronic) DNR (do not resuscitate) (Acute) DNI (do not intubate) (Acute) Afib (Chronic) Acute ischemic left MCA stroke (Acute) Medical History Acute on chronic anemia Atherosclerotic heart disease CAD (coronary artery disease) CKD (chronic kidney disease) CVA (cerebral vascular accident) Debility Depression Difficulty walking DNR (do not resuscitate) discussion Elevated factor VIII level Esophagitis Essential hypertension Failure to thrive Gastric ulcer Gastritis and duodenitis Global aphasia Goals of care, counseling/discussion Health care proxy on file (~05/23/21) son Sergei Hiatal hernia History of kidney stones History of multiple strokes Apr 2021, subacute or old on brain MRI History of stroke left MCA Hx of upper gastrointestinal hemorrhage Hypercoagulable state Hyperlipidemia Ischemic cerebrovascular accident (CVA) due to atherosclerosis of large intracranial artery Memory deficit following other cerebrovascular disease Muscle weakness Myocardial infarction Nephrolithiasis Noncompliance with medication regimen Nontraumatic intracranial hemorrhage Personal history of DVT (deep vein thrombosis) Petechial hemorrhage POLST (Physician Orders for Life-Sustaining Treatment) Pulmonary embolism Recurrent cerebrovascular accidents (CVAs) Smoker both tobacco and marijuana Tubular adenoma (~2015) Upper GI bleeding Vascular dementia Vasovagal syncope Surgical History Appendectomy section Colonoscopy - MAC (12/29/15) H/O esophagogastroduodenoscopy (~05/19/18) History of esophagogastroduodenoscopy (EGD) (~12/2017) Family History Son No problems noted. Son No problems noted. 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 Doesn't want any aggressive care, just care aimed at helping her feel as good as possible. She mentioned something about court and her son. She did not elaborate. She said the apartment has to be in her name. She said her mother lived with her, then explained that her mother is not her bio mother, but a mother-like figure. She didn't think that she could help with personal care. She does have strong beliefs: she values independence and freedom. She talks about as if she thinks it is around the corner. She doesn't appear to be frightened by this. Exam Const General: cooperative and no acute distress [facility] Head: normocephalic and atraumatic Mouth: mucous membranes dry Eyes Conjunctivae: normal conjunctivae Sclera: normal sclerae Neck Neck: trachea midline and supple Resp Auscultation: clear to auscultation bilaterally, no rales, no rhonchi and no wheezes Cardio Rate: regular rate and not tachycardic Rhythm: regular rhythm GI Palpation: soft, not firm, no guarding, no masses, not rigid and nontender Skin General skin exam: no rashes or lesions noted Neuro General: patient alert, patient awake and oriented Patient Orientation: Person Cognition: abnormal cognition Speech: abnormal speech slurred Motor: other (LLE 3/5, RLE 2/5, LUE 4/5, RUE 1/5) Sensory Exam: no sensory deficits noted Other: rt facial droop Extrem General: no edema Psych Appearance: grossly normal Insight: poor Course Vital Signs Vital signs: Vital Signs Temperature 36.8 C 03/26/22 06:19 Pulse 46 L 03/26/22 06:19 Respiratory Rate 15 03/26/22 06:19 Blood Pressure 124/46 L 03/26/22 06:19 Pulse Oximetry 100 03/26/22 06:19 Temperature 36.8 C 03/26/22 06:19 Pulse 46 L 03/26/22 06:19 Respiratory Rate 15 03/26/22 06:19 Respiratory Effort 03/26/22 06:45 Blood Pressure 124/46 L 03/26/22 06:19 Blood Pressure Position Supine 03/26/22 06:19 Pulse Oximetry 100 03/26/22 06:19 Oxygen Delivery Method Room Air 03/26/22 06:19 Oxygen Flow Rate 0 03/26/22 06:19 Pain Level 4 03/26/22 06:19
[2022-03-26 06:51] LABS: HGB 6.9 g/dL (11.2-15.7)
--- NOTE | 2022-03-26 06:57 | NUR.NOTE ---
Nursing Note: 0619 - Pt arrived via EMS with report of stroke like symptoms. Per doc, pt taken straight to CT.
[2022-03-26 07:02] LABS: INR 1.3 (0.9-1.1); Prothrombin Time 12.9 sec (9.3-11.0)
[2022-03-26 07:14] LABS: ALT 18 U/L (14-59); AST 35 U/L (15-37); Albumin 3.5 g/dL (3.4-5.0); Alkaline Phosphatase 66 U/L (46-116); Anion Gap 9.9 mmol/L (3-11); BUN 44 mg/dL (7-18); Bilirubin, Total 0.3 mg/dL (0.2-1.0); CO2 22.1 mmol/L (21.0-32.0); CREATININE 2.4 mg/dL (0.55-1.02); Calcium 10.2 mg/dL (8.5-10.1); Chloride 111 mmol/L (98-107); Estimated GFR 20.68 (mL/min/1.73m2); Glucose 115 mg/dL (74-106); Magnesium 2.1 mg/dL (1.8-2.4); Potassium 4.3 mmol/L (3.5-5.1); Sodium 143 mmol/L (136-145); Total Protein 7.5 g/dL (6.4-8.2); Troponin I < 50 ng/L (<or=60)
[2022-03-26 08:17] LABS: Bilirubin Negative (Negative); Blood Trace-intact (Negative); Clarity Clear (Clear); Glucose Negative (Negative); Ketones Trace mg/dL (Negative); Leukocyte Esterase Negative (Negative); Nitrite Negative (Negative); Specific Gravity 1.025 (1.005-1.025); Urobilinogen 0.2 EU/dL (Up TO 0.2); pH 5.5 (5-8)
[2022-03-26 08:24] LABS: Bacteria Rare HPF (Negative); C & S Indicated? No; Casts Negative LPF (Negative); Crystals Negative HPF (Negative); Epithelial Cells Moderate HPF (Negative); Mucus Trace (Negative); WBC Negative HPF (0-5)
== END 2022-03-26 08:29 | disposition skilled nursing facility (03) ==
PROVIDERS: Emergency Provider Student in an Organized Health Care Education/Training Program; PCP Nurse Practitioner Family
DX: D64.9 Anemia, unspecified (principal); R53.1 Weakness; R41.0 Disorientation, unspecified; I48.91 Unspecified atrial fibrillation; F01.50 Vascular dementia, unspecified severity, without behavioral disturbance, psychotic disturbance, mood disturbance, and anxiety; I12.9 Hypertensive chronic kidney disease with stage 1 through stage 4 chronic kidney disease, or unspecified chronic kidney disease; N18.9 Chronic kidney disease, unspecified; I25.10 Atherosclerotic heart disease of native coronary artery without angina pectoris; I25.2 Old myocardial infarction; Z86.711 Personal history of pulmonary embolism; Z90.49 Acquired absence of other specified parts of digestive tract; Z86.73 Personal history of transient ischemic attack (TIA), and cerebral infarction without residual deficits; Z79.01 Long term (current) use of anticoagulants
CPT/HCPCS: 36416; 80053; 82962; 93005; 99285; 70450; 81003; 81015; 83735; 84484; 85025; 85610; 93010